=== PATIENT | male | born 1990 | race Caucasian/White ===

== ENCOUNTER 2021-05-01 22:55 | Emergency (ER) | payer OTHER, SELFPAY ==
--- NOTE | ~2021-05-01 | XR_ITS ---
EXAMINATION: XR LEFT HUMERUS, ELBOW AND FOREARM CLINICAL INFORMATION: Suspected open fracture COMPARISON: None TECHNIQUE: AP and lateral views of the left humerus. AP, oblique and lateral views of the left elbow. AP and lateral views of the left forearm FINDINGS: No acute fracture or dislocation. Glenohumeral, acromioclavicular and elbow joints show normal alignment. There is a large amount of soft tissue gas surrounding the elbow joint, extending of the medial upper arm. The soft tissue gas resides within the intramuscular fascial planes and some areas and appears subcutaneous and others. There may be intra-articular gas within the elbow joint. No elbow joint effusion. The XR/XR forearm LT 2V IMPRESSION: No acute fracture or dislocation. Extensive soft tissue gas as described, predominantly centered about the elbow joint, possibly intra-articular. Recommend CT elbow for further evaluation. This critical result was discussed with Jazmine Biswas NP at 05/02/2021 12:50 AM and it was ascertained that the content and urgency of the report was understood at the time of direct communication.
--- NOTE | ~2021-05-01 | CT_ITS ---
EXAMINATION: CT LEFT ELBOW WITH CONTRAST CLINICAL INFORMATION: Question of fracture. Soft tissue gas. COMPARISON: Radiographs dated 05/01/2021 TECHNIQUE: Multidetector CT imaging of the left elbow was performed with sequences acquired before and after the administration of 85 mL Omnipaque [address] examination was performed using dose optimization techniques as appropriate, variously including the following: *Automated exposure control *Adjustment of mA and/or kV according to patient size (this includes techniques or standardized protocols for targeted exams where dose is matched to indication/reason for exam; i.e. extremities or head) *Use of iterative reconstruction technique DLP: 158 mGy-cm FINDINGS: There are tiny calcifications or ossific fragments along the tip of the olecranon within the olecranon fossa posteriorly, which could represent avulsion fractures involving the tip of the olecranon. There are also tiny calcifications along the lateral aspect of the radiocapitellar joint, donor site of which unclear but likely from the posterolateral radial head, or possibly attachment of the radial collateral ligament complex, in particular the lateral ulnar collateral ligament. No transcortical fractures. No dislocation. As seen on the prior radiographs, there is intra-articular gas within the elbow joint, and a large amount of soft tissue gas surrounding the musculature about the elbow joint. There is gas between the extensor musculature of the forearm. There is a subcutaneous hematoma and associated soft tissue gas anteromedial to the elbow joint, just medial to the antecubital fossa. CT/CT elbow LT w con IMPRESSION: * Tiny calcifications present near the lateral aspect of the radial head and posterior to the radiocapitellar joint suspicious for avulsion fractures involving the attachment sites of the radial collateral ligament complex or possibly posterolateral aspect of the radial head. * Additional tiny calcifications present adjacent to the olecranon within the olecranon fossa,, possibly avulsion fractures involving the tip of the olecranon. * Extensive soft tissue gas present, including intra-articular. This is likely related to the lacerations/puncture wounds sustained from the trauma. Ultimately, MRI will be needed for further evaluation of the extent of the soft tissue trauma allowing for a certain amount time of the soft tissue gas to resolve, as associated susceptibility artifact may render the MR sequences nondiagnostic.
--- NOTE | ~2021-05-01 | XR_ITS ---
EXAMINATION: XR LEFT HUMERUS, ELBOW AND FOREARM CLINICAL INFORMATION: Suspected open fracture COMPARISON: None TECHNIQUE: AP and lateral views of the left humerus. AP, oblique and lateral views of the left elbow. AP and lateral views of the left forearm FINDINGS: No acute fracture or dislocation. Glenohumeral, acromioclavicular and elbow joints show normal alignment. There is a large amount of soft tissue gas surrounding the elbow joint, extending of the medial upper arm. The soft tissue gas resides within the intramuscular fascial planes and some areas and appears subcutaneous and others. There may be intra-articular gas within the elbow joint. No elbow joint effusion. The XR/XR humerus LT IMPRESSION: No acute fracture or dislocation. Extensive soft tissue gas as described, predominantly centered about the elbow joint, possibly intra-articular. Recommend CT elbow for further evaluation. This critical result was discussed with Jazmine Biswas NP at 05/02/2021 12:50 AM and it was ascertained that the content and urgency of the report was understood at the time of direct communication.
--- NOTE | ~2021-05-01 | XR_ITS ---
EXAMINATION: XR LEFT HUMERUS, ELBOW AND FOREARM CLINICAL INFORMATION: Suspected open fracture COMPARISON: None TECHNIQUE: AP and lateral views of the left humerus. AP, oblique and lateral views of the left elbow. AP and lateral views of the left forearm FINDINGS: No acute fracture or dislocation. Glenohumeral, acromioclavicular and elbow joints show normal alignment. There is a large amount of soft tissue gas surrounding the elbow joint, extending of the medial upper arm. The soft tissue gas resides within the intramuscular fascial planes and some areas and appears subcutaneous and others. There may be intra-articular gas within the elbow joint. No elbow joint effusion. The XR/XR elbow LT 2V IMPRESSION: No acute fracture or dislocation. Extensive soft tissue gas as described, predominantly centered about the elbow joint, possibly intra-articular. Recommend CT elbow for further evaluation. This critical result was discussed with Jazmine Biswas NP at 05/02/2021 12:50 AM and it was ascertained that the content and urgency of the report was understood at the time of direct communication.
[2021-05-01 23:26] VITALS: BP 140/81; PULSE 75; RESP 16; TEMP 36.9; O2SAT 96; BMI 23.6
--- NOTE | 2021-05-01 23:37 | ED.EXTPRO ---
HPI - Extremity Problem General Chief complaint: Extremity Injury, Upper Stated complaint: ARM LAC/INJ Time Seen by Provider: 05/01/21 23:32 Source: patient Mode of arrival: ambulatory Limitations: no limitations History of Present Illness HPI Narrative: 30-year-old male presents with injury sustained from a fall off a skateboard. Has to open wounds to the medial aspect of the olecranon, and has 10/10 pain with swelling and bruising. He stated that he felt like his bone came out, he did pull his arm back into place, stated that he felt a pop once he pulled his arm out of the distorted position. MD Complaint: extremity pain and extremity swelling Onset (ago): hour(s) (Within the hour of arrival) Pain Consistency: constant Location: left Severity scale (1-10): 10 Quality: aching and constant Relieving factors: nothing Exacerbating factors: range of motion and palpation Associated symptoms: denies other symptoms Related Data Previous Rx's Medication Instructions Recorded oxycodone 5 mg PO Q6H PRN #14 tab 05/02/21 Allergies Allergy/AdvReac Type Severity Reaction Status Date / Time tramadol [TRAMADOL] Allergy Unknown HIVES Unverified 08/03/20 19:32 Review of Systems Review of Systems: Constitutional: No Fever, No Chills ENT/Mouth: No Ear Pain, No Hoarseness, No sore throat Eyes: No Eye Pain, No Swelling, No Redness, No Foreign Body Cardiovascular: No Chest Pain, No SOB Respiratory: No Cough, No Dyspnea Gastrointestinal: No Nausea, No Vomiting, No Diarrhea, No abdominal Pain Genitourinary: No Dysuria, No Hematuria Musculoskeletal: positive left upper extremity pain, No Myalgias, No Joint Swelling Skin: No Skin lacerations, No rash Neuro: No Weakness, No Numbness, No Paresthesias, No Loss of Consciousness, No Dizziness, No Headache Psych: No Anxiety/Panic, No Depression Heme/Lymph: no easy bruising, no Lymphadenopathy Endocrine: No Polyuria, No Polydipsia Yes all other systems are reviewed and are negative PENDING SALE TO [facility] Past Medical History Attestation statement: The following information was validated with the patient. Source: old records reviewed Social History Social History Advance Directives: No Advance Directives Information Provided: No Physical Exam Vital Signs: Vital Signs: Last Vital Signs Temp 98.5 F 05/01/21 23:26 Pulse 75 05/01/21 23:26 Resp 16 05/02/21 02:10 BP 140/81 H 05/01/21 23:26 Pulse Ox 96 05/01/21 23:26 Body Mass Index 23.6 Appearance: Alert. Oriented X3. No acute distress. Eyes: Pupils equal, round and reactive to light. ENT: Pharynx normal. Neck: Normal inspection. Neck supple. CVS: Normal heart rate and rhythm. Pulses normal. Respiratory: No respiratory distress. Breath sounds normal. Abdomen: Soft and nontender. Skin: Skin warm and dry. Normal skin color. Normal skin turgor. Extremities: Unable to flex extend pronate left upper extremity, significant swelling, tenderness to palpation, bruising and open wound consistent with open fracture. Neuro: No motor deficit. No sensory deficit. Course Course Course Narrative: 30-year-old male presents with injuries from a fall, has some open wounds to the area, stated that he had to pull his bones back into place, this is consistent with possible dislocation and fracture. Will order Tdap vaccine, give 2 g of Ancef, pain management, and x-rays. Radiology updated this LEGAL COUNSEL regarding x-rays, suspicious for dislocation, fracture and free air. Request CT scan for further imaging. CT scan shows multiple abnormalities consistent with fracture and dislocation. Call out to on-call orthopedic PA, plan is to posterior splint, sling, and have patient follow-up in the office in the morning. This LEGAL COUNSEL applied posterior splint, patient does continue to have brisk capillary refill and equal pulses bilaterally. Xeroform was applied over open wounds. The patient and patient's family verbalized understanding of and agrees to plan of care discharge home. They do understand the risks of narcotic administration. Procedures Orthopedic Splinting/Casting Injury #1: Side: left Upper Extremity Injury Location: elbow Upper Extremity Immobilizer: sling/shoulder immobilizer and posterior splint MDM - Extremity (Nontraumatic) Lab Data Result diagrams: 05/01/21 23:57 05/01/21 23:57 Labs: Lab Results 05/01/21 05/01/21 Range/Units 23:57 23:57 WBC 10.4 (4.8-10.8) X10*3/uL RBC 4.40 L (4.60-5.80) X10*6/uL Hgb 13.5 L (14.0-18.0) g/dl Hct 39.8 L (42-52) % MCV 90.5 (80-98) fL MCH 30.7 (27.0-33.0) pg MCHC 33.9 (31.0-36.0) g/dl RDW 12.9 (11.0-16.0) % Plt Count 268 (160-400) X10*3/uL MPV 9.4 (9.4-12.4) fL Immature Gran % (Auto) 0.4 (0.0-0.4) % Neut % (Auto) 75.9 H (45-73) % Lymph % (Auto) 16.7 L (20-40) % [place] % (Auto) 5.5 (2-11) % Eos % (Auto) 0.9 (0-4) % Baso % (Auto) 0.6 (0-2) % Lymph # (Auto) 1.7 (1.2-4.9) X10*3/uL [place] # (Auto) 0.6 (0.1-1.2) X10*3/uL Eos # (Auto) 0.1 (0.0-0.4) X10*3/uL Baso # (Auto) 0.1 (0.0-0.2) X10*3/uL Abs Immat Gran (auto) 0.04 H (0.00-0.03) X10*3/uL Absolute Neuts (auto) 7.9 (2.0-8.3) X10*3/uL Absolute Nucleated RBC 0.000 (0.0-0.012) X10*3/uL Nucleated RBC % (auto) 0.0 (0.0-0.2) /100WBC Sodium 142 (135-145) mmol/L Potassium 3.6 (3.3-5.1) mmol/L Chloride 105 (96-108) mmol/L Carbon Dioxide 27 (22-29) mmol/L Anion Gap 14 (12-20) BUN 16 (9-16) mg/dL Creatinine 0.92 (0.5-1.4) mg/dL Estim Creat Clear Calc 130.2 Estimated GFR > 60 Random Glucose 94 (60-115) mg/dL Calcium 9.1 (8.4-10.2) mg/dL Imaging Data Left humerus forearm and elbow x-ray: Attestation: I personally reviewed and interpreted this imaging study as follows: Radiologist's impression: TECHNIQUE: AP and lateral views of the left humerus. AP, oblique and lateral views of the left elbow. AP and lateral views of the left forearm FINDINGS: No acute fracture or dislocation. Glenohumeral, acromioclavicular and elbow joints show normal alignment. There is a large amount of soft tissue gas surrounding the elbow joint, extending of the medial upper arm. The soft tissue gas resides within the intramuscular fascial planes and some areas and appears subcutaneous and others. There may be intra-articular gas within the elbow joint. No elbow joint effusion. The XR/XR humerus LT IMPRESSION: No acute fracture or dislocation. Extensive soft tissue gas as described, predominantly centered about the elbow joint, possibly intra-articular. Recommend CT elbow for further evaluation. This critical result was discussed with Jazmine Biswas NP at 05/02/2021 12:50 AM and it was ascertained that the content and urgency of the report was understood at the time of direct communication. CT elbow with contrast: Attestation: I personally reviewed and interpreted this imaging study as follows: Radiologist's impression: EXAMINATION: CT LEFT ELBOW WITH CONTRAST CLINICAL INFORMATION: Question of fracture. Soft tissue gas. COMPARISON: Radiographs dated 05/01/2021 TECHNIQUE: Multidetector CT imaging of the left elbow was performed with sequences acquired before and after the administration of 85 mL Omnipaque [address] examination was performed using dose optimization techniques as appropriate, variously including the following: *Automated exposure control *Adjustment of mA and/or kV according to patient size (this includes techniques or standardized protocols for targeted exams where dose is matched to indication/reason for exam; i.e. extremities or head) *Use of iterative reconstruction technique DLP: 158 mGy-cm FINDINGS: There are tiny calcifications or ossific fragments along the tip of the olecranon within the olecranon fossa posteriorly, which could represent avulsion fractures involving the tip of the olecranon. There are also tiny calcifications along the lateral aspect of the radiocapitellar joint, donor site of which unclear but likely from the posterolateral radial head, or possibly attachment of the radial collateral ligament complex, in particular the lateral ulnar collateral ligament. No transcortical fractures. No dislocation. As seen on the prior radiographs, there is intra-articular gas within the elbow joint, and a large amount of soft tissue gas surrounding the musculature about the elbow joint. There is gas between the extensor musculature of the forearm. There is a subcutaneous hematoma and associated soft tissue gas anteromedial to the elbow joint, just medial to the antecubital fossa. CT/CT elbow LT w con IMPRESSION: * Tiny calcifications present near the lateral aspect of the radial head and posterior to the radiocapitellar joint suspicious for avulsion fractures involving the attachment sites of the radial collateral ligament complex or possibly posterolateral aspect of the radial head. * Additional tiny calcifications present adjacent to the olecranon within the olecranon fossa,, possibly avulsion fractures involving the tip of the olecranon. * Extensive soft tissue gas present, including intra-articular. This is likely related to the lacerations/puncture wounds sustained from the trauma. Ultimately, MRI will be needed for further evaluation of the extent of the soft tissue trauma allowing for a certain amount time of the soft tissue gas to resolve, as associated susceptibility artifact may render the MR sequences nondiagnostic Discharge Plan Discharge Clinical Impression: Dislocated elbow Qualifiers: Encounter type: initial encounter Laterality: left Qualified Code(s): S53.105A - Unspecified dislocation of left ulnohumeral joint, initial encounter Elbow fracture, left Qualifiers: Encounter type: initial encounter Fracture type: open Qualified Code(s): S42.402B - Unspecified fracture of lower end of left humerus, initial encounter for open fracture Patient Disposition: Home, Self-Care Instructions: Elbow Dislocation (ED), Elbow Fracture (ED) Additional Instructions: You were evaluated for injury to the left arm after falling off of your skateboard. We are treating you for an open elbow fracture with dislocation. Please follow-up with orthopedics in the morning. Please call Pura VAZQUEZ. she is expecting her call. Please keep the splint in place. Do not wet this splint. You may loosen the dressing if you have decreased sensation or decreased capillary refill to the extremities. We prescribed oxycodone, this medication is a narcotic and has high risk for addiction and abuse. Do not drive or operate machinery while taking this medication. This medication may cause drowsiness, increased risk for falls, and cause constipation. Please use MiraLax and Colace as needed to help soften stools. Drink plenty of fluids. Thank you for choosing this emergency department for evaluation. Please follow-up with primary care physician as needed. Return to the emergency department for any new, concerning, or worsening symptoms. Prescriptions: New oxycodone 5 mg tablet 5 mg PO Q6H PRN (Reason: pain) Qty: 14 RF: 0 Referrals: Pura Castro PA-C [Physician [employer]] - 2 days (Left elbow dislocation and open fracture) Stand Alone Forms: Work/School Release
[2021-05-01] MEDS: 0.9 % Sodium Chloride 1,000 ML 999 ML IVCONT (23:45)
[2021-05-02] VITALS (8 sets, daily range): RESP 16
[2021-05-02 00:01] LABS: MANUAL DIFF FLAG NO
[2021-05-02] MEDS: Morphine Sulfate 4 MG/ML CARTRIDGE IVPUSH ×2 (00:01→00:59)
[2021-05-02] MEDS: Diphth,Pertus(ACell),Tet Adult 0.5 ML SYRINGE IM (00:03)
[2021-05-02 00:17] LABS: Basophils Absolute Auto 0.1 X10*3/uL (0.0-0.2); Basophils Percent Auto 0.6 % (0-2); Eosinophils Absolute Auto 0.1 X10*3/uL (0.0-0.4); Eosinophils Percent Auto 0.9 % (0-4); Hematocrit 39.8 % (42-52); Hemoglobin 13.5 g/dl (14.0-18.0); Imm Gran Abs Auto 0.04 X10*3/uL (0.00-0.03); Imm Gran Pct Auto 0.4 % (0.0-0.4); Lymphocytes Absolute Auto 1.7 X10*3/uL (1.2-4.9); Lymphocytes Percent Auto 16.7 % (20-40); Mean Corpuscular HGB Conc 33.9 g/dl (31.0-36.0); Mean Corpuscular Hemoglobin 30.7 pg (27.0-33.0); Mean Corpuscular Volume 90.5 fL (80-98); Mean Platelet Volume 9.4 fL (9.4-12.4); Monocytes Absolute Auto 0.6 X10*3/uL (0.1-1.2); Monocytes Percent Auto 5.5 % (2-11); Neutrophils Absolute Auto 7.9 X10*3/uL (2.0-8.3); Neutrophils Percent Auto 75.9 % (45-73); Platelet Count 268 X10*3/uL (160-400); Red Cell Distribution Width 12.9 % (11.0-16.0); White Blood Count 10.4 X10*3/uL (4.8-10.8)
[2021-05-02 00:39] LABS: Anion Gap 14 (12-20); Blood Urea Nitrogen 16 mg/dL (9-16); Calcium 9.1 mg/dL (8.4-10.2); Carbon Dioxide 27 mmol/L (22-29); Chloride 105 mmol/L (96-108); Creatinine Clr Calc Pharmacy 130.2; Estimated Glomerular Filt Rate > 60; Glucose Random 94 mg/dL (60-115); Potassium 3.6 mmol/L (3.3-5.1); Sodium 142 mmol/L (135-145)
[2021-05-02] MEDS: ceFAZolin Sodium/Dextrose,Iso 2 GM/50 ML PIGGYBACK IV (01:02)
[2021-05-02] MEDS: HYDROmorphone HCl 1 MG/ML SYRINGE IVPUSH ×2 (02:10→03:19)
[2021-05-02] MEDS: oxyCODONE HCl Immed Release 5 MG TABLET PO ×2 (03:17)
== END 2021-05-02 03:35 | disposition home or self-care (01) ==
PROVIDERS: Nurse Practitioner Family; Emergency Provider Emergency Medicine
DX: S42.402B Unspecified fracture of lower end of left humerus, initial encounter for open fracture (principal); S53.105A Unspecified dislocation of left ulnohumeral joint, initial encounter; V00.131A Fall from skateboard, initial encounter; Y93.51 Activity, roller skating (inline) and skateboarding; Y92.9 Unspecified place or not applicable; Y99.9 Unspecified external cause status
CPT/HCPCS: 36415; 73060; 73070; 73090; 73201; 80048; 85025; 90471; 90715; 96361; 96365; 96375; 99283; 99284; J0690; J1170; J2270

== ENCOUNTER → 2021-05-03 08:16 | Outpatient (BNVA) | payer OTHER, SELFPAY | PROVIDERS: Visit Provider Orthopaedic Surgery | DX: S53.105A Unspecified dislocation of left ulnohumeral joint, initial encounter (principal) | CPT/HCPCS: 99202 ==

== ENCOUNTER → 2021-05-11 14:36 | Outpatient (BNVA) | payer OTHER, SELFPAY | PROVIDERS: Visit Provider Physician Assistant | DX: S53.105A Unspecified dislocation of left ulnohumeral joint, initial encounter (principal) | CPT/HCPCS: 99212 ==

== ENCOUNTER 2021-05-14 12:32 | Outpatient (REF) | payer OTHER, SELFPAY ==
--- NOTE | ~2021-05-14 | MR_ITS ---
EXAMINATION: MR ELBOW WITHOUT CONTRAST, LEFT CLINICAL INFORMATION: Dislocation left ulnohumeral joint. COMPARISON: CT scan of the left elbow April 2021. X-ray of the left elbow April 2021. TECHNIQUE: MRI of the left elbow was performed without contrast on a high-field MRI scanner. The exam is partially limited by motion-degrading artifact. Despite this, there is diagnostic information on the exam. FINDINGS: There is a prominent joint effusion and synovitis. I do not see the suspected fracture fragments seen on prior CT likely due to technical differences on 2 imaging studies related to decreased conspicuity of such fragments on MRI versus CT. RADIOCAPITELLAR JOINT: Normal alignment. There is bone marrow edema along the posterior capitellum primarily proximal or posterior to the posterior edge of the articular surface. There may be some minimal involvement of the articular surface with slight increased signal in the cartilage. There may be some flattening or irregularity of the posterior cortex of the capitellum. These findings are consistent with an impaction fracture. There is bone marrow edema along the posterior rim of the radial head compatible with bone contusion. The cartilage appears intact. No fracture line detected. HUMEROULNAR JOINT: The trochlea and proximal ulnar articular surface appear intact. Alignment is normal. Coronoid intact. LATERAL SOFT TISSUES: The lateral collateral ligament complex is not well outlined likely, in part, related to tearing and abnormal signal. I suspect there is at least a partial or incomplete tear throughout the tendon particularly proximally at the humeral attachment but with some fibers still intact. There is additional partial tearing of the extensor tendon without a well-defined tendon gap. Abnormal signal extending into the proximal flexor muscles compatible with partial tearing and/or contusion. MEDIAL SOFT TISSUES: There is fluid extending transversely through the anterior aspect of the proximal ulnar collateral ligament and the overlying flexor tendon compatible with a focal full-thickness or [id number] localized tear. See coronal image 18 series 8. The distal ulnar collateral ligament is intact although abnormal indicative of partial tearing. The proximal portion of the ligament appears mostly torn or avulsed from the humeral attachment. There is minimal, if any, distal retraction of the torn tendon suggesting at least some of the tendon remains intact in the area of the tear. Additional more diffuse abnormal signal extending into the flexor muscles compatible with partial tearing and/or contusion. ANTERIOR SOFT TISSUES: There is abnormal signal without measurable defect in the anterior capsule compatible with partial tear. TRICEPS: Intact. Diffuse generalized abnormal signal in the surrounding soft tissues compatible with edema. NEUROVASCULAR STRUCTURES: Intact. MR/MR elbow LT wo con IMPRESSION: Injury pattern consistent with history of elbow dislocation. Probable impaction fracture of the posterior capitellum and contusion of the radial head. I do not see the probable small fracture fragments seen on CT, likely technical differences in the examination of MRI versus CT. Prominent joint effusion and synovitis. The humeroulnar joint appears intact. Complete versus incomplete tear of the proximal ulnar collateral ligament and overlying extensor tendon. I suspect the tendon is at least partially intact given the minimal, if any, distal retraction of the tendon distal to the level of the tendon defect. Less well-defined tearing of the lateral soft tissues including the lateral ligamentous complex and overlying flexor tendon. Findings more suggestive of lower grade partial tearing of the ligaments and overlying tendons without a clearly measurable ligament or tendon gap. Partial tear of the anterior capsule without a measurable gap.
== END 2021-05-14 12:33 | disposition home or self-care (01) ==
LOC: HO.MRI 12:32
PROVIDERS: Visit Provider Orthopaedic Surgery
DX: S53.105A Unspecified dislocation of left ulnohumeral joint, initial encounter (principal)
CPT/HCPCS: 73221

== ENCOUNTER → 2021-05-17 14:06 | Outpatient (BNVA) | payer OTHER, SELFPAY | PROVIDERS: Visit Provider Physician Assistant | DX: S53.105D Unspecified dislocation of left ulnohumeral joint, subsequent encounter (principal); S53.449D Ulnar collateral ligament sprain of unspecified elbow, subsequent encounter | CPT/HCPCS: 99212 ==

== ENCOUNTER 2021-06-12 11:30 | Outpatient (RCR) | payer OTHER, SELFPAY | END 2021-09-03 16:00 | disposition home or self-care (01) | LOC: HO.OT 11:30 | PROVIDERS: Visit Provider Physician Assistant | DX: S53.449D Ulnar collateral ligament sprain of unspecified elbow, subsequent encounter (principal) | CPT/HCPCS: 29125; 97110; 97165; 97760 ==

== ENCOUNTER 2022-04-05 10:46 | Emergency (ER) | payer OTHER, SELFPAY ==
--- NOTE | ~2022-04-05 | XR_ITS ---
EXAMINATION: XR CHEST CLINICAL INFORMATION: Seizure. Possible aspiration. COMPARISON: None TECHNIQUE: Frontal view of the chest was obtained. FINDINGS: No significant abnormality is noted involving the heart, lungs, mediastinum, bony thorax or soft tissues. XR/XR chest 1V IMPRESSION: Unremarkable examination.
[2022-04-05 10:49] VITALS: BP 144/78; PULSE 104; O2SAT 97
[2022-04-05 10:53] VITALS: BP 127/76; PULSE 87; RESP 15; TEMP 37.1; O2SAT 93; BMI 23.7
--- NOTE | 2022-04-05 11:11 | ECG_ITS ---
Test Reason : seizure Blood Pressure : / mmHG Vent. Rate : 072 BPM Atrial Rate : 072 BPM P-R Int : 146 ms QRS Dur : 108 ms QT Int : 408 ms P-R-T Axes : 000 129 152 degrees QTc Int : 446 ms Normal sinus rhythm Left posterior fascicular block Abnormal ECG No previous ECGs available Referred By: Betzy Gonzalez Electronically Signed By:WANDA SOLOMON
[2022-04-05 11:36] LABS: MANUAL DIFF FLAG NO
[2022-04-05 11:38] LABS: Basophils Absolute Auto 0.1 X10*3/uL (0.0-0.2); Basophils Percent Auto 1.1 % (0-2); Eosinophils Absolute Auto 0.1 X10*3/uL (0.0-0.4); Eosinophils Percent Auto 1.1 % (0-4); Hematocrit 43.5 % (42.0-52.0); Imm Gran Abs Auto 0.01 X10*3/uL (0.00-0.03); Imm Gran Pct Auto 0.2 % (0.0-0.4); Lymphocytes Absolute Auto 0.9 X10*3/uL (1.2-4.9); Lymphocytes Percent Auto 20.9 % (20-40); Mean Corpuscular HGB Conc 34.5 g/dl (31.0-36.0); Mean Corpuscular Hemoglobin 30.7 pg (27.0-33.0); Mean Corpuscular Volume 89.1 fL (80.0-98.0); Mean Platelet Volume 9.9 fL (9.4-12.4); Monocytes Absolute Auto 0.3 X10*3/uL (0.1-1.2); Monocytes Percent Auto 7.6 % (2-11); Neutrophils Absolute Auto 3.1 x10*3/uL (2.0-8.3); Neutrophils Percent Auto 69.1 % (45-73); Platelet Count 164 X10*3/uL (160-400); Red Blood Count 4.88 X10*6/uL (4.60-5.80); White Blood Count 4.5 X10*3/uL (4.8-10.8)
--- NOTE | 2022-04-05 11:41 | ED_ITS ---
HPI - Seizure General Chief Complaint: Seizure Stated Complaint: etoh withdrawal,seizure Time Seen by Provider: 04/05/22 11:11 Source: patient and EMS Mode of arrival: EMS Limitations: no limitations History of Present Illness HPI Narrative: 31-year-old male with history of alcohol abuse and dependence, history of alcohol withdrawal seizure about 2 years ago who presents to the ER with witnessed seizure of activity at home. Patient was cleaning his son's bedroom with his when he suddenly collapsed and had seizure activity for about 2 minutes. called EMS and on EMS arrival patient was confused and postictal. Patient reports his last drink was 5 days ago, he was usually drinking 7 or 8 nips per day. He reports the 1st 2 days after stopping he was having nausea vomiting and felt terrible at home. He has no desire to drink moving forward. He is feeling much better, back to his baseline. MD complaint: seizure Onset (ago): hour(s) Description of Episode: loss of consciousness, tonic-clonic movement and post- event confusion Witnessed: Yes - by Bystander Trauma: No Seizure History: Yes (once) Place: Home Possible Precipitating Event: none Associated symptoms: denies other symptoms Treatments prior to arrival: none Related Data Home Medications Medication Instructions Recorded Confirmed cyanocobalamin (vitamin B-12) 1,000 mcg PO DAILY 04/05/22 04/05/22 1,000 mcg tablet ibuprofen 200 mg tablet 400 mg PO Q6H PRN 04/05/22 04/05/22 Previous Rx's Medication Instructions Recorded chlordiazepoxide HCl 25 mg capsule 25 mg PO Q6H PRN #10 cap 04/05/22 Allergies Allergy/AdvReac Type Severity Reaction Status Date / Time tramadol [TRAMADOL] Allergy Unknown HIVES Verified 05/17/21 14:20 Review of Systems Review of Systems: Constitutional: No Fever, No Chills ENT/Mouth: No sore throat, No Rhinorrhea, No Swallowing Difficulty Eyes: No Eye Pain, No Swelling, No Redness Cardiovascular: No Chest Pain, No SOB Respiratory: No Cough, No Sputum, No Wheezing, No dyspnea Gastrointestinal: No Nausea, No Vomiting, No Diarrhea, No abdominal Pain, No hematemesis Genitourinary: No Dysuria, No Urinary Frequency, No Hematuria Musculoskeletal: No joint pain, + Myalgias Skin: No Skin Lesions, No rash Neuro: No Weakness, No Numbness, No Dizziness, No Headache, +Seizure, +Tremor Psych: + Anxiety/Panic, + Depression, No SI, No HI, No VH, No AH Heme/Lymph: No Bruising, No Lymphadenopathy Endocrine: No Polyuria, No Polydipsia PMF Past Medical History Medical History Dislocation of left elbow Surgical History History of foot surgery Social History Social History (Updated 05/03/21 @ 08:31 by MELIZA Shaw) Alcohol intake: current Alcohol intake frequency: 3 or more drinks per day Alcohol type: hard liquor Patient Tobacco Use Status: Never used Tobacco Use of substances other than those prescribed or required for medical reasons: Yes Substance Use Type: Marijuana Substance Use Frequency: Socially Advance Directives: No Advance Directives Information Provided: No Current occupational status: employed Current occupation: right handed Physical Exam Vital Signs: Vital Signs: Last Vital Signs Temp 98.8 F 04/05/22 10:53 Pulse 57 04/05/22 14:31 Resp 17 04/05/22 14:31 BP 111/69 04/05/22 14:31 Pulse Ox 98 04/05/22 14:31 BMI result Body Mass Index 23.7 Appearance: Alert. Oriented X3. No acute distress. Eyes: Pupils equal, round and reactive to light. ENT: Pharynx normal. No tongue trauma. Neck: Normal inspection. Neck supple. CVS: Normal heart rate and rhythm. Pulses normal. Respiratory: No respiratory distress. Breath sounds normal. Abdomen: Soft and nontender. +BS x4 Skin: Skin warm and dry. Normal skin color. Normal skin turgor. No rashes. Extremities: No lower extremity edema. Neuro: Oriented X 3. No motor deficit. No sensory deficit. CN II-XII intact. Moderate bilateral hand tremor. Speaks in complete sentences. Course Course Course Narrative: 31-year-old male presents to the ER for evaluation after 2 minutes of witnessed tonic clonic seizure activity at home in the setting of alcohol withdrawal. Patient was postictal after the event and is now back to his baseline. He has slight hand tremor. He is hemodynamically stable, heart rate 90s and systolic blood pressure in the 130s. He desires no intent to restart drinking and would like to be discharged home. We discussed the concern for further seizure activity and need for close monitoring, will check CIWA score, give a dose of Ativan now for tremors. Will check basic labs and hydrate. He is complaining of some muscle cramping. Reevaluation(s) Reevaluation #1: Lab workup shows evidence of mild alcoholic hepatitis. Discriminant function less than 32. Coags are normal. He is hypomagnesemic to 1.3, both IV and oral magnesium have been ordered. His CIWA score is 5 and he was been given 1 mg of Ativan with improvement in his hand tremor. He was spoken to by Regulo from the substance abuse team, patient reports no will to keep drinking and he feels confident he can maintain his sobriety home. He is accepting to outpatient resources. He would like to avoid admission and detox placement. His is at the bedside and offers him a lotion all support. He has been given IV fluids, magnesium, and Ativan. Will reassess. Reevaluation #2: Lactic acid is now normal. He is eating [employer] with no tremor. He appears well. He would like to be discharged home. At this time he was counseled on is alcoholic hepatitis, alcohol withdrawal seizures and need to maintain sobriety. Will send home with short course of Librium. Case was discussed with Dr. Ta who agrees with plan of care. MDM - Seizure Medical Records Attestation: I reviewed the patient's medical records. Lab Data Attestation: I reviewed the patient's lab results. Result diagrams: 04/05/22 11:26 04/05/22 11:26 Labs: Lab Results 04/05/22 04/05/22 04/05/22 Range/Units 11:26 11:26 11:26 WBC 4.5 L (4.8-10.8) X10*3/uL RBC 4.88 (4.60-5.80) X10*6/uL Hgb 15.0 (14.0-18.0) g/dl Hct 43.5 (42.0-52.0) % MCV 89.1 (80.0-98.0) fL MCH 30.7 (27.0-33.0) pg MCHC 34.5 (31.0-36.0) g/dl RDW 12.0 (11.0-16.0) % Plt Count 164 (160-400) X10*3/uL MPV 9.9 (9.4-12.4) fL Immature Gran % (Auto) 0.2 (0.0-0.4) % Neut % (Auto) 69.1 (45-73) % Lymph % (Auto) 20.9 (20-40) % [place] % (Auto) 7.6 (2-11) % Eos % (Auto) 1.1 (0-4) % Baso % (Auto) 1.1 (0-2) % Lymph # (Auto) 0.9 L (1.2-4.9) X10*3/uL [place] # (Auto) 0.3 (0.1-1.2) X10*3/uL Eos # (Auto) 0.1 (0.0-0.4) X10*3/uL Baso # (Auto) 0.1 (0.0-0.2) X10*3/uL Abs Immat Gran (auto) 0.01 (0.00-0.03) X10*3/uL Absolute Neuts (auto) 3.1 (2.0-8.3) x10*3/uL Absolute Nucleated RBC 0.000 (0.0-0.012) X10*3/uL Nucleated RBC % (auto) 0.0 (0.0-0.2) /100WBC PT (9.9-13.0) SEC INR (0.9-1.1) APTT (24.1-38.0) SEC Sodium 137 (135-145) mmol/L Potassium 3.5 (3.3-5.1) mmol/L Chloride 97 (96-108) mmol/L Carbon Dioxide 30 H (22-29) mmol/L Anion Gap 14 (12-20) BUN 12 (9-16) mg/dL Creatinine 0.99 (0.5-1.4) mg/dL Estim Creat Clear Calc 119.9 Estimated GFR > 60 Random Glucose 120 H (60-115) mg/dL Lactic Acid (0.5-2.0) mmol/L Lactic Acid F/U @ 2Hr (0.5-2.0) mmol/L Calcium 9.4 (8.4-10.2) mg/dL Magnesium 1.3 L* (1.6-2.6) mg/dL Total Bilirubin 2.8 H (0.0-1.0) mg/dL Direct Bilirubin 1.3 H (0.0-0.5) mg/dL AST 168 H (5-37) U/L ALT 163 H (0-40) U/L Alkaline Phosphatase 68 (39-117) U/L Ammonia (13-55) umol/L Total Creatine Kinase 286 H (38-174) U/L Total Protein 7.1 (6.5-8.0) g/dL Albumin 4.4 (3.5-5.0) g/dL Urine Color Urine Appearance Urine pH (5.0-8.0) Ur Specific [place] (1.005-1.025) Urine Protein (NEG-TRACE) MG/DL Urine Glucose (UA) (NEG) MG/DL Urine Ketones (NEG) MG/DL Urine Blood (NEG) Urine Nitrite (NEG) Ur Leukocyte Esterase (NEG) Urine RBC (0) /HPF Urine WBC (0-4) /HPF Ur Squamous Epith Cells /LPF Urine Bacteria /LPF Urine Opiates Screen (Not Detect) Urine Fentanyl Screen (Not Detect) Ur Barbiturates Screen (Not Detect) Ur Phencyclidine Scrn (Not Detect) Ur Amphetamines Screen (Not Detect) U Benzodiazepines Scrn (Not Detect) Urine Cocaine Screen (Not Detect) U Marijuana (THC) Screen (Not Detect) Ethyl Alcohol mg/dL COVID-19 ([facility]IME) Negative (Negative) COVID-19 Clin Com See Note 04/05/22 04/05/22 04/05/22 Range/Units 11:26 11:26 11:26 WBC (4.8-10.8) X10*3/uL RBC (4.60-5.80) X10*6/uL Hgb (14.0-18.0) g/dl Hct (42.0-52.0) % MCV (80.0-98.0) fL MCH (27.0-33.0) pg MCHC (31.0-36.0) g/dl RDW (11.0-16.0) % Plt Count (160-400) X10*3/uL MPV (9.4-12.4) fL Immature Gran % (Auto) (0.0-0.4) % Neut % (Auto) (45-73) % Lymph % (Auto) (20-40) % [place] % (Auto) (2-11) % Eos % (Auto) (0-4) % Baso % (Auto) (0-2) % Lymph # (Auto) (1.2-4.9) X10*3/uL [place] # (Auto) (0.1-1.2) X10*3/uL Eos # (Auto) (0.0-0.4) X10*3/uL Baso # (Auto) (0.0-0.2) X10*3/uL Abs Immat Gran (auto) (0.00-0.03) X10*3/uL Absolute Neuts (auto) (2.0-8.3) x10*3/uL Absolute Nucleated RBC (0.0-0.012) X10*3/uL Nucleated RBC % (auto) (0.0-0.2) /100WBC PT (9.9-13.0) SEC INR (0.9-1.1) APTT (24.1-38.0) SEC Sodium (135-145) mmol/L Potassium (3.3-5.1) mmol/L Chloride (96-108) mmol/L Carbon Dioxide (22-29) mmol/L Anion Gap (12-20) BUN (9-16) mg/dL Creatinine (0.5-1.4) mg/dL Estim Creat Clear Calc Estimated GFR Random Glucose (60-115) mg/dL Lactic Acid 2.5 H* (0.5-2.0) mmol/L Lactic Acid F/U @ 2Hr (0.5-2.0) mmol/L Calcium (8.4-10.2) mg/dL Magnesium (1.6-2.6) mg/dL Total Bilirubin (0.0-1.0) mg/dL Direct Bilirubin (0.0-0.5) mg/dL AST (5-37) U/L ALT (0-40) U/L Alkaline Phosphatase (39-117) U/L Ammonia 38 (13-55) umol/L Total Creatine Kinase (38-174) U/L Total Protein (6.5-8.0) g/dL Albumin (3.5-5.0) g/dL Urine Color Urine Appearance Urine pH (5.0-8.0) Ur Specific [place] (1.005-1.025) Urine Protein (NEG-TRACE) MG/DL Urine Glucose (UA) (NEG) MG/DL Urine Ketones (NEG) MG/DL Urine Blood (NEG) Urine Nitrite (NEG) Ur Leukocyte Esterase (NEG) Urine RBC (0) /HPF Urine WBC (0-4) /HPF Ur Squamous Epith Cells /LPF Urine Bacteria /LPF Urine Opiates Screen (Not Detect) Urine Fentanyl Screen (Not Detect) Ur Barbiturates Screen (Not Detect) Ur Phencyclidine Scrn (Not Detect) Ur Amphetamines Screen (Not Detect) U Benzodiazepines Scrn (Not Detect) Urine Cocaine Screen (Not Detect) U Marijuana (THC) Screen (Not Detect) Ethyl Alcohol < 10 mg/dL COVID-19 ([facility]IME) (Negative) COVID-19 Clin Com 04/05/22 04/05/22 04/05/22 Range/Units 14:28 14:28 14:45 WBC (4.8-10.8) X10*3/uL RBC (4.60-5.80) X10*6/uL Hgb (14.0-18.0) g/dl Hct (42.0-52.0) % MCV (80.0-98.0) fL MCH (27.0-33.0) pg MCHC (31.0-36.0) g/dl RDW (11.0-16.0) % Plt Count (160-400) X10*3/uL MPV (9.4-12.4) fL Immature Gran % (Auto) (0.0-0.4) % Neut % (Auto) (45-73) % Lymph % (Auto) (20-40) % [place] % (Auto) (2-11) % Eos % (Auto) (0-4) % Baso % (Auto) (0-2) % Lymph # (Auto) (1.2-4.9) X10*3/uL [place] # (Auto) (0.1-1.2) X10*3/uL Eos # (Auto) (0.0-0.4) X10*3/uL Baso # (Auto) (0.0-0.2) X10*3/uL Abs Immat Gran (auto) (0.00-0.03) X10*3/uL Absolute Neuts (auto) (2.0-8.3) x10*3/uL Absolute Nucleated RBC (0.0-0.012) X10*3/uL Nucleated RBC % (auto) (0.0-0.2) /100WBC PT 11.6 (9.9-13.0) SEC INR 1.0 (0.9-1.1) APTT 27.0 (24.1-38.0) SEC Sodium (135-145) mmol/L Potassium (3.3-5.1) mmol/L Chloride (96-108) mmol/L Carbon Dioxide (22-29) mmol/L Anion Gap (12-20) BUN (9-16) mg/dL Creatinine (0.5-1.4) mg/dL Estim Creat Clear Calc Estimated GFR Random Glucose (60-115) mg/dL Lactic Acid (0.5-2.0) mmol/L Lactic Acid F/U @ 2Hr 0.6 (0.5-2.0) mmol/L Calcium (8.4-10.2) mg/dL Magnesium (1.6-2.6) mg/dL Total Bilirubin (0.0-1.0) mg/dL Direct Bilirubin (0.0-0.5) mg/dL AST (5-37) U/L ALT (0-40) U/L Alkaline Phosphatase (39-117) U/L Ammonia (13-55) umol/L Total Creatine Kinase (38-174) U/L Total Protein (6.5-8.0) g/dL Albumin (3.5-5.0) g/dL Urine Color Urine Appearance Urine pH (5.0-8.0) Ur Specific [place] (1.005-1.025) Urine Protein (NEG-TRACE) MG/DL Urine Glucose (UA) (NEG) MG/DL Urine Ketones (NEG) MG/DL Urine Blood (NEG) Urine Nitrite (NEG) Ur Leukocyte Esterase (NEG) Urine RBC (0) /HPF Urine WBC (0-4) /HPF Ur Squamous Epith Cells /LPF Urine Bacteria /LPF Urine Opiates Screen Not Detected (Not Detect) Urine Fentanyl Screen Not Detected (Not Detect) Ur Barbiturates Screen Not Detected (Not Detect) Ur Phencyclidine Scrn Not Detected (Not Detect) Ur Amphetamines Screen Not Detected (Not Detect) U Benzodiazepines Scrn Not Detected (Not Detect) Urine Cocaine Screen Not Detected (Not Detect) U Marijuana (THC) Screen Not Detected (Not Detect) Ethyl Alcohol mg/dL COVID-19 ([facility]IME) (Negative) COVID-19 Clin Com 04/05/22 Range/Units 14:45 WBC (4.8-10.8) X10*3/uL RBC (4.60-5.80) X10*6/uL Hgb (14.0-18.0) g/dl Hct (42.0-52.0) % MCV (80.0-98.0) fL MCH (27.0-33.0) pg MCHC (31.0-36.0) g/dl RDW (11.0-16.0) % Plt Count (160-400) X10*3/uL MPV (9.4-12.4) fL Immature Gran % (Auto) (0.0-0.4) % Neut % (Auto) (45-73) % Lymph % (Auto) (20-40) % [place] % (Auto) (2-11) % Eos % (Auto) (0-4) % Baso % (Auto) (0-2) % Lymph # (Auto) (1.2-4.9) X10*3/uL [place] # (Auto) (0.1-1.2) X10*3/uL Eos # (Auto) (0.0-0.4) X10*3/uL Baso # (Auto) (0.0-0.2) X10*3/uL Abs Immat Gran (auto) (0.00-0.03) X10*3/uL Absolute Neuts (auto) (2.0-8.3) x10*3/uL Absolute Nucleated RBC (0.0-0.012) X10*3/uL Nucleated RBC % (auto) (0.0-0.2) /100WBC PT (9.9-13.0) SEC INR (0.9-1.1) APTT (24.1-38.0) SEC Sodium (135-145) mmol/L Potassium (3.3-5.1) mmol/L Chloride (96-108) mmol/L Carbon Dioxide (22-29) mmol/L Anion Gap (12-20) BUN (9-16) mg/dL Creatinine (0.5-1.4) mg/dL Estim Creat Clear Calc Estimated GFR Random Glucose (60-115) mg/dL Lactic Acid (0.5-2.0) mmol/L Lactic Acid F/U @ 2Hr (0.5-2.0) mmol/L Calcium (8.4-10.2) mg/dL Magnesium (1.6-2.6) mg/dL Total Bilirubin (0.0-1.0) mg/dL Direct Bilirubin (0.0-0.5) mg/dL AST (5-37) U/L ALT (0-40) U/L Alkaline Phosphatase (39-117) U/L Ammonia (13-55) umol/L Total Creatine Kinase (38-174) U/L Total Protein (6.5-8.0) g/dL Albumin (3.5-5.0) g/dL Urine Color YELLOW Urine Appearance HAZY Urine pH 7.0 (5.0-8.0) Ur Specific [place] 1.010 (1.005-1.025) Urine Protein NEG (NEG-TRACE) MG/DL Urine Glucose (UA) NEG (NEG) MG/DL Urine Ketones 15 (NEG) MG/DL Urine Blood NEG (NEG) Urine Nitrite NEG (NEG) Ur Leukocyte Esterase TRACE H (NEG) Urine RBC 0 (0) /HPF Urine WBC 0-2 (0-4) /HPF Ur Squamous Epith Cells TRACE /LPF Urine Bacteria TRACE /LPF Urine Opiates Screen (Not Detect) Urine Fentanyl Screen (Not Detect) Ur Barbiturates Screen (Not Detect) Ur Phencyclidine Scrn (Not Detect) Ur Amphetamines Screen (Not Detect) U Benzodiazepines Scrn (Not Detect) Urine Cocaine Screen (Not Detect) U Marijuana (THC) Screen (Not Detect) Ethyl Alcohol mg/dL COVID-19 ([facility]) (Negative) COVID-19 Clin Com ECG Data Attestation: I personally reviewed and interpreted this ECG as follows: ECG interpretation date: 04/05/22 Prior ECG tracings: not available for review Interpretation: normal sinus rhythm, HR 72 bpm, normal QTc, isolated t-wave inversion in lead I, no ST segment elevations or depressions Critical Care Time Critical Care Time Critical Care Time: Yes Total Critical Care Time: 35 Attestation: I have personally provided critical care time exclusive of time spent on separately billable procedures. Time includes review of lab data, radiology results, frequent bedside reassessment, IV electrolyte repletion and trending of lab work, and monitoring for potential decompensation. Intervention performed as documented. Discharge Plan Discharge Clinical Impression: Alcohol withdrawal seizure, Acute alcoholic hepatitis, Hypomagnesemia Patient Disposition: Home, Self-Care Instructions: Alcohol Withdrawal (DC), Alcoholic Hepatitis (ED) Additional Instructions: Take the prescribed medication as directed as needed for withdrawal symptoms. Your lab workup showed elevation of your liver enzymes consistent with alcoholic hepatitis. Treatment is abstaining from alcohol and maintaining a normal diet Recommend starting folic acid, thiamine and magnesium supplements over-the- counter. Follow-up with your primary care doctor within the next 1-2 weeks repeat blood work. Up with outpatient resources provided to help you stay sober from alcohol If you develop new or worsening symptoms call 911 or come back to the ER for further evaluation. Prescriptions: New chlordiazepoxide HCl 25 mg capsule 25 mg PO Q6H PRN (Reason: alcohol withdrawal) Qty: 10 0RF No Action cyanocobalamin (vitamin B-12) 1,000 mcg Tablet 1,000 mcg PO DAILY 0RF ibuprofen 200 mg Tablet 400 mg PO Q6H PRN (Reason: Pain (Scale Score 4-6)) 0RF
[2022-04-05 11:45] LABS: Ammonia 38 umol/L (13-55)
[2022-04-05] MEDS: 0.9 % Sodium Chloride 1,000 ML 999 ML IVCONT ×2 (11:49→12:20)
[2022-04-05] MEDS: LORazepam 2 MG/ML VIAL 1 MG IVPUSH (11:49)
[2022-04-05 11:52] LABS: Ethanol < 10 mg/dL
[2022-04-05 11:59] LABS: COVID-19 Test Negative (Negative); IDNOW Serial# 16C4AD1C
[2022-04-05 12:07] LABS: Lactic Acid 2.5 mmol/L (0.5-2.0)
[2022-04-05 12:08] LABS: Alanine Aminotransferase 163 U/L (0-40); Albumin Level 4.4 g/dL (3.5-5.0); Alkaline Phosphatase 68 U/L (39-117); Anion Gap 14 (12-20); Aspartate Amino Transferase 168 U/L (5-37); Bilirubin Direct 1.3 mg/dL (0.0-0.5); Bilirubin Total 2.8 mg/dL (0.0-1.0); Blood Urea Nitrogen 12 mg/dL (9-16); Calcium 9.4 mg/dL (8.4-10.2); Carbon Dioxide 30 mmol/L (22-29); Chloride 97 mmol/L (96-108); Creatinine Clr Calc Pharmacy 119.9; Estimated Glomerular Filt Rate > 60; Glucose Random 120 mg/dL (60-115); Magnesium 1.3 mg/dL (1.6-2.6); Potassium 3.5 mmol/L (3.3-5.1); Sodium 137 mmol/L (135-145); Total Protein 7.1 g/dL (6.5-8.0)
[2022-04-05 12:14] VITALS: BP 114/77; PULSE 64; RESP 15; O2SAT 98
[2022-04-05] MEDS: Magnesium Oxide 400 MG TABLET 800 MG PO (12:20)
[2022-04-05] MEDS: Magnesium Sulfate/H2O 2 GM/50 ML PIGGYBACK IV (12:20)
[2022-04-05 12:24] VITALS: BP 114/77; PULSE 62; RESP 16; O2SAT 95
--- NOTE | 2022-04-05 12:56 | PHA.MEDREC ---
Pharmacy Consult ? Medication Reconciliation Pharmacy has completed the medication reconciliation. Spoke with patient in the ED
[2022-04-05 13:36] LABS: Reflex Lactate? Lactic Acid Added
[2022-04-05 14:31] VITALS: BP 111/69; PULSE 57; RESP 17; O2SAT 98
[2022-04-05 14:44] LABS: Prothrombin Time 11.6 SEC (9.9-13.0)
[2022-04-05 14:49] LABS: ~Lactic Acid-LAB USE ONLY 0.6 mmol/L (0.5-2.0)
[2022-04-05 14:52] LABS: Appearance Urine HAZY; Color Urine YELLOW; Glucose Urine UA NEG (NEG); Leukocyte Esterase Urine TRACE (NEG); Nitrite Urine NEG (NEG); Urine Blood NEG (NEG); Urine Ketones 15 MG/DL (NEG); Urine Protein NEG (NEG-TRACE)
[2022-04-05 15:12] LABS: Amphetamine Screen Urine Not Detected (Not Detect); Barbiturates, Urine Not Detected (Not Detect); Benzodiazepines Screen Urine Not Detected (Not Detect); Cannabinoid Screen Urine Not Detected (Not Detect); Cocaine Screen Urine Not Detected (Not Detect); Fentanyl, urine Not Detected (Not Detect); Opiate Screen Urine Not Detected (Not Detect); Phencyclidine Screen Urine Not Detected (Not Detect)
[2022-04-05] MEDS: chlordiazePOXIDE HCl 25 MG CAPSULE PO (15:15)
[2022-04-05 15:17] LABS: Bacteria Urine TRACE /LPF; RBC Urine 0 /HPF (0); Squamous Epithelial Cell Urine TRACE /LPF; WBC Urine 0-2 /HPF (0-4)
--- NOTE | 2022-04-06 08:40 | MHC.RECOVSUP ---
Recovery Support note: Patient is a 31 year old Afghan speaking male who presented to [facility] ED after a seizure related to alcohol withdrawal. Patient stopped drinking abruptly on Friday after consistently consuming 8 drinks on average for over 8 months. Patient is not interested in ATS or medical admission at this time as he feels he is almost through the withdrawal. Education regarding the danger of alcohol withdrawal provided. 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 Discussed case with ED provider.
== END 2022-04-05 15:22 | disposition home or self-care (01) ==
PROVIDERS: Physician Assistant; Emergency Provider Emergency Medicine Emergency Medical Services
DX: F10.239 Alcohol dependence with withdrawal, unspecified (principal); Y90.0 Blood alcohol level of less than 20 mg/100 ml; K70.10 Alcoholic hepatitis without ascites; E83.42 Hypomagnesemia; Z20.822 Contact with and (suspected) exposure to COVID-19
CPT/HCPCS: 36415; 71045; 80048; 80076; 80307; 81001; 82077; 82140; 82550; 83605; 83735; 85025; 85610; 85730; 87635; 93005; 96361; 96365; 96366; 96375; 99284; 99291; J2060; J3475

== ENCOUNTER 2022-07-08 07:00 | Inpatient (IN) | payer OTHER, SELFPAY ==
[2022-07-08] VITALS (10 sets, daily range): BP systolic 131–159; BP diastolic 68–97; PULSE 45–105; RESP 12–18; TEMP 36.6–37; O2SAT 94–98; BMI 23.1
--- NOTE | ~2022-07-08 | XR_ITS ---
EXAMINATION: XR CHEST CLINICAL INFORMATION: Chest pain. COMPARISON: None TECHNIQUE: Frontal view of the chest was obtained. FINDINGS: No significant abnormality is noted involving the heart, lungs, mediastinum, bony thorax or soft tissues. XR/XR chest 1V IMPRESSION: Unremarkable chest examination.
[2022-07-08 08:49] LABS: MANUAL DIFF FLAG NO
[2022-07-08 08:51] LABS: Basophils Absolute Auto 0.1 X10*3/uL (0.0-0.2); Basophils Percent Auto 1.4 % (0-2); Eosinophils Percent Auto 0.5 % (0-4); Hematocrit 45.1 % (42.0-52.0); Hemoglobin 15.3 g/dl (14.0-18.0); Lymphocytes Absolute Auto 0.8 X10*3/uL (1.2-4.9); Lymphocytes Percent Auto 17.9 % (20-40); Mean Corpuscular HGB Conc 33.9 g/dl (31.0-36.0); Mean Corpuscular Hemoglobin 30.4 pg (27.0-33.0); Mean Corpuscular Volume 89.7 fL (80.0-98.0); Mean Platelet Volume 9.4 fL (9.4-12.4); Monocytes Absolute Auto 0.3 X10*3/uL (0.1-1.2); Neutrophils Absolute Auto 3.2 x10*3/uL (2.0-8.3); Neutrophils Percent Auto 73.2 % (45-73); Platelet Count 194 X10*3/uL (160-400); Red Blood Count 5.03 X10*6/uL (4.60-5.80); Red Cell Distribution Width 13.2 % (11.0-16.0); White Blood Count 4.3 X10*3/uL (4.8-10.8)
[2022-07-08 09:07] LABS: Ethanol 68 mg/dL
[2022-07-08 09:11] LABS: Alanine Aminotransferase 297 U/L (0-40); Albumin Level 4.6 g/dL (3.5-5.0); Alkaline Phosphatase 100 U/L (39-117); Anion Gap 18 (12-20); Aspartate Amino Transferase 350 U/L (5-37); Bilirubin Direct 0.4 mg/dL (0.0-0.5); Bilirubin Total 0.8 mg/dL (0.0-1.0); Blood Urea Nitrogen 12 mg/dL (9-16); Calcium 9.6 mg/dL (8.4-10.2); Carbon Dioxide 28 mmol/L (22-29); Chloride 101 mmol/L (96-108); Creatinine Clr Calc Pharmacy 137.8; Estimated Glomerular Filt Rate > 60; Glucose Random 97 mg/dL (60-115); Lipase 24 U/L (8-78); Potassium 4.3 mmol/L (3.3-5.1); Sodium 143 mmol/L (135-145); Total Protein 7.6 g/dL (6.5-8.0)
[2022-07-08 10:14] LABS: Appearance Urine Turbid; Color Urine Dark Yellow; Glucose Urine UA Negative (Negative); Leukocyte Esterase Urine Negative (Negative); Nitrite Urine Negative (Negative); Specific Gravity - Urine 1.025 (1.005-1.025); Urine Blood Moderate (2+) (Negative); Urine Ketones Trace mg/dL (Negative); Urine Protein 30 (1+) mg/dL (Neg-Trace)
--- NOTE | 2022-07-08 10:20 | ECG_ITS ---
Test Reason : chest pain Blood Pressure : / mmHG Vent. Rate : 052 BPM Atrial Rate : 052 BPM P-R Int : 142 ms QRS Dur : 104 ms QT Int : 514 ms P-R-T Axes : 043 052 047 degrees QTc Int : 478 ms Sinus bradycardia T wave inversion now evident in Anteroseptal leads Abnormal ECG When compared with ECG of 05-APR-2022 11:27, Left posterior fascicular block is no longer Present Nonspecific T wave abnormality no longer evident in Inferior leads T wave inversion no longer evident in Lateral leads Referred By: Trace Hudson Electronically Signed By:NETO ESQUIVEL
[2022-07-08 10:21] LABS: Bacteria Urine None Seen (None Seen); Squamous Epithelial Cell Urine 0-2 /HPF (0-2); WBC Urine 0-5 /HPF (0-5)
--- NOTE | 2022-07-08 10:22 | ED.GENADULT ---
HPI - General Adult General Chief complaint: General Medical Stated complaint: Chest pain/L side numbness/Alcohol withdrawal? Time Seen by Provider: 07/08/22 09:35 Source: patient Mode of arrival: ambulatory Limitations: no limitations History of Present Illness HPI narrative: This is a 31 years old male with history of alcohol abuse presented to the emergency department with complaining of alcohol withdrawal symptoms he states that he feels chest pain, he feels shaky, feels uneasy. Denies any seizure any fever any nausea vomiting diarrhea Onset (ago): day(s) (1) Radiation: non-radiation Severity: mild Quality: burning Pain Consistency: intermittent Exacerbating factors: none Related Data Home Medications Medication Instructions Recorded Confirmed cyanocobalamin (vitamin B-12) 1,000 mcg PO DAILY 04/05/22 04/05/22 1,000 mcg tablet ibuprofen 200 mg tablet 400 mg PO Q6H PRN Pain (Scale 04/05/22 04/05/22 Score 4-6) Previous Rx's Medication Instructions Recorded chlordiazepoxide HCl 25 mg capsule 25 mg PO Q6H PRN alcohol 04/05/22 withdrawal #10 caps Allergies Allergy/AdvReac Type Severity Reaction Status Date / Time tramadol [TRAMADOL] Allergy Unknown HIVES Verified 05/17/21 14:20 Review of Systems Constitutional: Constitutional: Reports no additional constitutional complaints, Denies fever(s), Denies frequent falls and Denies headache(s) ENT: Reports system reviewed and no additional complaints, except as documented and Denies headache(s) Cardiovascular: Cardiovascular: Reports no additional cardiovascular complaints Respiratory: Respiratory: Reports no additional respiratory complaints Musculoskeletal: Musculoskeletal: Reports no additional musculoskeletal complaints Neurologic: Reports system reviewed and no additional complaints, except as documented, Denies frequent falls and Denies headache(s) [facility] Past Medical History [facility] Narrative: Alcohol use disorder Medical History Dislocation of left elbow Surgical History History of foot surgery Social History Social History (Updated 05/03/21 @ 08:31 by MELIZA Shaw) Alcohol intake: current Alcohol intake frequency: 3 or more drinks per day Alcohol type: hard liquor Patient Tobacco Use Status: Never used Tobacco Substance Use Type: Marijuana Advance Directives: No Advance Directives Information Provided: Yes Current occupational status: employed Current occupation: right handed Physical Exam ED Vital Signs: Vital Signs - 24 hr 07/08/22 07:18 Temperature 98 F Pulse Rate 70 Respiratory Rate 18 Blood Pressure 141/85 H Pulse Oximetry 98 Oxygen Delivery Method Room Air BMI result Body Mass Index 23.1 Const General: cooperative Nutritional Appearance: average body habitus Orientation/consciousness: patient oriented x3 HENMT Head: Yes normal to inspection Ears: hearing grossly normal bilaterally General nose exam: Normal external nose present Face and sinus: Yes normal facial exam Mouth: Normal oral and palatal mucosa present Teeth and gingiva: dentition normal Throat: Yes posterior oropharynx normal Neck Neck: Yes normal visual inspection Thyroid: Thyroid normal Chest Chest palpation & inspection: normal inspection of the chest Resp Effort & Inspection: normal respiratory effort Auscultation: clear to auscultation bilaterally Percussion: percussion normal Cardio Jugular venous distension: no JVD Rate: regular rate Rhythm: regular rhythm GI Inspection: Yes normal to inspection Palpation (GI): Soft to palpation, not firm, nontender and no guarding Skin General skin exam: no rashes or lesions noted, elasticity normal and turgor normal Lesions: no lesions Rashes: no rashes Neuro General: patient oriented x3 Course Reevaluation(s) Reevaluation #1: signed off to Dr Ta ,cross country/track and field coach pooja pending Medical Decision Making Lab Data Lab results reviewed: Yes I reviewed the patient's lab results. Result diagrams: 07/08/22 08:44 07/08/22 08:44 Labs: Lab Results 07/08/22 07/08/22 07/08/22 Range/Units 08:44 08:44 08:44 WBC 4.3 L (4.8-10.8) X10*3/uL RBC 5.03 (4.60-5.80) X10*6/uL Hgb 15.3 (14.0-18.0) g/dl Hct 45.1 (42.0-52.0) % MCV 89.7 (80.0-98.0) fL MCH 30.4 (27.0-33.0) pg MCHC 33.9 (31.0-36.0) g/dl RDW 13.2 (11.0-16.0) % Plt Count 194 (160-400) X10*3/uL MPV 9.4 (9.4-12.4) fL Immature Gran % (Auto) 0.0 (0.0-0.4) % Neut % (Auto) 73.2 H (45-73) % Lymph % (Auto) 17.9 L (20-40) % [place] % (Auto) 7.0 (2-11) % Eos % (Auto) 0.5 (0-4) % Baso % (Auto) 1.4 (0-2) % Lymph # (Auto) 0.8 L (1.2-4.9) X10*3/uL [place] # (Auto) 0.3 (0.1-1.2) X10*3/uL Eos # (Auto) 0.0 (0.0-0.4) X10*3/uL Baso # (Auto) 0.1 (0.0-0.2) X10*3/uL Abs Immat Gran (auto) 0.00 (0.00-0.03) X10*3/uL Absolute Neuts (auto) 3.2 (2.0-8.3) x10*3/uL Absolute Nucleated RBC 0.000 (0.0-0.012) X10*3/uL Nucleated RBC % (auto) 0.0 (0.0-0.2) /100WBC Sodium 143 (135-145) mmol/L Potassium 4.3 D (3.3-5.1) mmol/L Chloride 101 (96-108) mmol/L Carbon Dioxide 28 (22-29) mmol/L Anion Gap 18 (12-20) BUN 12 (9-16) mg/dL Creatinine 0.86 (0.5-1.4) mg/dL Estim Creat Clear Calc 137.8 Estimated GFR > 60 Random Glucose 97 (60-115) mg/dL Calcium 9.6 (8.4-10.2) mg/dL Total Bilirubin 0.8 (0.0-1.0) mg/dL Direct Bilirubin 0.4 (0.0-0.5) mg/dL AST 350 H (5-37) U/L ALT 297 H (0-40) U/L Alkaline Phosphatase 100 D (39-117) U/L Troponin I High Sens (<3.5-35.0) ng/L Total Protein 7.6 (6.5-8.0) g/dL Albumin 4.6 (3.5-5.0) g/dL Lipase 24 (8-78) U/L Urine Color Urine Appearance Urine pH (5.0-8.0) Ur Specific [place] (1.005-1.025) Urine Protein (Neg-Trace) mg/dL Urine Glucose (UA) (Negative) mg/dL Urine Ketones (Negative) mg/dL Urine Blood (Negative) Urine Nitrite (Negative) Ur Leukocyte Esterase (Negative) Urine RBC (0-2) /HPF Urine WBC (0-5) /HPF Ur Squamous Epith Cells (0-2) /HPF Urine Bacteria (None Seen) Hyaline Casts (0-2) /LPF Urine Opiates Screen (Not Detect) Urine Fentanyl Screen (Not Detect) Ur Barbiturates Screen (Not Detect) Ur Phencyclidine Scrn (Not Detect) Ur Amphetamines Screen (Not Detect) U Benzodiazepines Scrn (Not Detect) Urine Cocaine Screen (Not Detect) U Marijuana (THC) Screen (Not Detect) Ethyl Alcohol 68 mg/dL COVID-19 (SLIME) (Negative) COVID-19 Clin Com 07/08/22 07/08/22 07/08/22 Range/Units 08:44 10:06 10:06 WBC (4.8-10.8) X10*3/uL RBC (4.60-5.80) X10*6/uL Hgb (14.0-18.0) g/dl Hct (42.0-52.0) % MCV (80.0-98.0) fL MCH (27.0-33.0) pg MCHC (31.0-36.0) g/dl RDW (11.0-16.0) % Plt Count (160-400) X10*3/uL MPV (9.4-12.4) fL Immature Gran % (Auto) (0.0-0.4) % Neut % (Auto) (45-73) % Lymph % (Auto) (20-40) % [place] % (Auto) (2-11) % Eos % (Auto) (0-4) % Baso % (Auto) (0-2) % Lymph # (Auto) (1.2-4.9) X10*3/uL [place] # (Auto) (0.1-1.2) X10*3/uL Eos # (Auto) (0.0-0.4) X10*3/uL Baso # (Auto) (0.0-0.2) X10*3/uL Abs Immat Gran (auto) (0.00-0.03) X10*3/uL Absolute Neuts (auto) (2.0-8.3) x10*3/uL Absolute Nucleated RBC (0.0-0.012) X10*3/uL Nucleated RBC % (auto) (0.0-0.2) /100WBC Sodium (135-145) mmol/L Potassium (3.3-5.1) mmol/L Chloride (96-108) mmol/L Carbon Dioxide (22-29) mmol/L Anion Gap (12-20) BUN (9-16) mg/dL Creatinine (0.5-1.4) mg/dL Estim Creat Clear Calc Estimated GFR Random Glucose (60-115) mg/dL Calcium (8.4-10.2) mg/dL Total Bilirubin (0.0-1.0) mg/dL Direct Bilirubin (0.0-0.5) mg/dL AST (5-37) U/L ALT (0-40) U/L Alkaline Phosphatase (39-117) U/L Troponin I High Sens 9.7 (<3.5-35.0) ng/L Total Protein (6.5-8.0) g/dL Albumin (3.5-5.0) g/dL Lipase (8-78) U/L Urine Color Dark Yellow Urine Appearance Turbid Urine pH 6.0 (5.0-8.0) Ur Specific [place] 1.025 (1.005-1.025) Urine Protein 30 (1+) H (Neg-Trace) mg/dL Urine Glucose (UA) Negative (Negative) mg/dL Urine Ketones Trace (Negative) mg/dL Urine Blood Moderate (2+) H (Negative) Urine Nitrite Negative (Negative) Ur Leukocyte Esterase Negative (Negative) Urine RBC 3-5 H (0-2) /HPF Urine WBC 0-5 (0-5) /HPF Ur Squamous Epith Cells 0-2 (0-2) /HPF Urine Bacteria None Seen (None Seen) Hyaline Casts 3-5 (0-2) /LPF Urine Opiates Screen (Not Detect) Urine Fentanyl Screen (Not Detect) Ur Barbiturates Screen (Not Detect) Ur Phencyclidine Scrn (Not Detect) Ur Amphetamines Screen (Not Detect) U Benzodiazepines Scrn (Not Detect) Urine Cocaine Screen (Not Detect) U Marijuana (THC) Screen (Not Detect) Ethyl Alcohol mg/dL COVID-19 ([facility]IME) Negative (Negative) COVID-19 Clin Com See Note 07/08/22 Range/Units 10:06 WBC (4.8-10.8) X10*3/uL RBC (4.60-5.80) X10*6/uL Hgb (14.0-18.0) g/dl Hct (42.0-52.0) % MCV (80.0-98.0) fL MCH (27.0-33.0) pg MCHC (31.0-36.0) g/dl RDW (11.0-16.0) % Plt Count (160-400) X10*3/uL MPV (9.4-12.4) fL Immature Gran % (Auto) (0.0-0.4) % Neut % (Auto) (45-73) % Lymph % (Auto) (20-40) % [place] % (Auto) (2-11) % Eos % (Auto) (0-4) % Baso % (Auto) (0-2) % Lymph # (Auto) (1.2-4.9) X10*3/uL [place] # (Auto) (0.1-1.2) X10*3/uL Eos # (Auto) (0.0-0.4) X10*3/uL Baso # (Auto) (0.0-0.2) X10*3/uL Abs Immat Gran (auto) (0.00-0.03) X10*3/uL Absolute Neuts (auto) (2.0-8.3) x10*3/uL Absolute Nucleated RBC (0.0-0.012) X10*3/uL Nucleated RBC % (auto) (0.0-0.2) /100WBC Sodium (135-145) mmol/L Potassium (3.3-5.1) mmol/L Chloride (96-108) mmol/L Carbon Dioxide (22-29) mmol/L Anion Gap (12-20) BUN (9-16) mg/dL Creatinine (0.5-1.4) mg/dL Estim Creat Clear Calc Estimated GFR Random Glucose (60-115) mg/dL Calcium (8.4-10.2) mg/dL Total Bilirubin (0.0-1.0) mg/dL Direct Bilirubin (0.0-0.5) mg/dL AST (5-37) U/L ALT (0-40) U/L Alkaline Phosphatase (39-117) U/L Troponin I High Sens (<3.5-35.0) ng/L Total Protein (6.5-8.0) g/dL Albumin (3.5-5.0) g/dL Lipase (8-78) U/L Urine Color Urine Appearance Urine pH (5.0-8.0) Ur Specific [place] (1.005-1.025) Urine Protein (Neg-Trace) mg/dL Urine Glucose (UA) (Negative) mg/dL Urine Ketones (Negative) mg/dL Urine Blood (Negative) Urine Nitrite (Negative) Ur Leukocyte Esterase (Negative) Urine RBC (0-2) /HPF Urine WBC (0-5) /HPF Ur Squamous Epith Cells (0-2) /HPF Urine Bacteria (None Seen) Hyaline Casts (0-2) /LPF Urine Opiates Screen Not Detected (Not Detect) Urine Fentanyl Screen Not Detected (Not Detect) Ur Barbiturates Screen Not Detected (Not Detect) Ur Phencyclidine Scrn Not Detected (Not Detect) Ur Amphetamines Screen Not Detected (Not Detect) U Benzodiazepines Scrn Not Detected (Not Detect) Urine Cocaine Screen Not Detected (Not Detect) U Marijuana (THC) Screen Not Detected (Not Detect) Ethyl Alcohol mg/dL COVID-19 ([facility]IME) (Negative) COVID-19 Clin Com ECG Data Attestation: I personally reviewed and interpreted this ECG as follows: Pacemaker model: Sinus bradycardia rate [address]-T changes in V1 V3 Discharge Plan Discharge Clinical Impression: Alcohol abuse Patient Disposition: Still a Patient Prescriptions: No Action cyanocobalamin (vitamin B-12) 1,000 mcg Tablet 1,000 mcg PO DAILY ibuprofen 200 mg Tablet 400 mg PO Q6H PRN (Reason: Pain (Scale Score 4-6)) chlordiazepoxide HCl 25 mg capsule 25 mg PO Q6H PRN (Reason: alcohol withdrawal) Qty: 10 0RF
[2022-07-08] MEDS: LORazepam 1 MG TABLET 2 MG PO ×3 (10:26→19:06)
[2022-07-08 10:27] LABS: COVID-19 Test Negative (Negative); IDNOW Serial# 16C4AD1C
--- NOTE | 2022-07-08 10:30 | PC.NURSE ---
LAB WILL RUN TROP OFF CBC COLLECTED EARLIER
[2022-07-08 10:32] LABS: Amphetamine Screen Urine Not Detected (Not Detect); Barbiturates, Urine Not Detected (Not Detect); Benzodiazepines Screen Urine Not Detected (Not Detect); Cannabinoid Screen Urine Not Detected (Not Detect); Cocaine Screen Urine Not Detected (Not Detect); Fentanyl, urine Not Detected (Not Detect); Opiate Screen Urine Not Detected (Not Detect); Phencyclidine Screen Urine Not Detected (Not Detect)
[2022-07-08 10:58] LABS: Troponin-I High Sensitivity 9.7 ng/L (<3.5-35.0)
--- NOTE | 2022-07-08 11:50 | MHC.RECOVRN ---
Met with pt in ED21 to discuss substance use. Pt reports drinking 6-8 nips vodka daily x approx 1 month. Prior to that, pt had been abstinent for 2 months (since last [facility] visit on 04/05 for withdrawal related seizure). Pt reports that after dc in March pt was able to focus on work and home and was able to maintain recovery. Pt reports job location moved which resulted in increased stress that led to recurrence. Currently, pt is experiencing anxiety and tremors. Pts goal is to dc home with Librium and to follow up with outpatient supports. Discussed ATS and safety regarding alcohol withdrawal, pt is unsure and would like to think about it. Pt educated regarding other recovery supports and services, pt interested in refinery operator vapor recovery unit and will think about [facility] and therapy. T/w will send [facility] referral. Will check back in with pt to see if pt is agreeable to ATS.
--- NOTE | 2022-07-08 12:08 | PC.NURSE ---
PT SPOKE WITH IZZY AUGUSTE ABOUT DETOX. PT STATES HE WANTS TO TRY DIRECTOR OF INVESTIGATIONS. AT THIS TIME PTS CHUCHO IS A 4 AFTER ATIVAN
--- NOTE | 2022-07-08 12:49 | MHC.RECOVRN ---
Pt declines ATS at this time. RN aware.
--- NOTE | 2022-07-08 14:03 | PC.NURSE ---
CWIA 32 PROVIDER AWARE PT GIVEN ATIVAN
--- NOTE | 2022-07-08 17:52 | MHC.CARE ---
No recovery support is on shift tonight, therefore CARE team met with pt to further discuss detox placement. Pt had been uncertain throughout the day as to whether he was open to going to an ATS facility, however he decided that he needed to try something different. Pt expressed interest in [facility] and has a strong preference of going there. CARE team contacted admissions at [facility], no beds are available tonight but they are willing to review the pt's medical records for possible admission tomorrow. Referral will be faxed to [facility] for review. Pt prefers to remain in the ED until he is able to be transferred for placement, due to fear of experiencing a withdrawal seizure, but is reluctantly agreeable to discharging home with a plan to follow up independently tomorrow. MD and nursing to weigh in on the plan.
--- NOTE | 2022-07-08 18:47 | PC.NURSE ---
CURRENT CWIA 26 DR ROBLEDO AWARE
--- NOTE | 2022-07-08 19:32 | PC.NURSE ---
INITIAL CONTACT WITH PT, PT REQUESTING TO USE BATHROOM TO MOVE HIS BOWELS, PT AMBULATORY STEADY GAIT NO DIFFICULTY
[2022-07-08] MEDS: Magnesium Sulfate/H2O 2 GM/50 ML PIGGYBACK IV (19:50)
[2022-07-08] MEDS: 0.9 % Sodium Chloride 1,000 ML 999 ML IV ×2 (19:50→19:55)
[2022-07-08 19:51] LABS: Magnesium 1.5 mg/dL (1.6-2.6)
[2022-07-08] MEDS: Thiamine HCL 100 MG TABLET PO (19:51)
[2022-07-08] MEDS: Folic Acid 1 MG TABLET PO (19:51)
[2022-07-08] MEDS: Famotidine/PF 20 MG/2 ML VIAL IVPUSH (19:52)
[2022-07-08] MEDS: ondansetron HCL 4 MG/2 ML VIAL IVPUSH (19:56)
[2022-07-08] MEDS: PHENobarbitaL sodium 130 MG/ML IM ONCE 320 MG IM (20:00)
[2022-07-08] MEDS: HYDROmorphone HCl 1 MG/ML SYRINGE IVPUSH (20:08)
--- NOTE | 2022-07-08 20:17 | PC.NURSE ---
PHARMACY HERE NOW TO COMPLETE MED REC
--- NOTE | 2022-07-08 20:19 | PHA.MEDREC ---
Pharmacy Consult ? Medication Reconciliation Pharmacy has completed the medication reconciliation. Patient isn't taking any RX medications, occasionally takes OTC motrin or tylenol when needed for pain.
--- NOTE | 2022-07-08 20:24 | PC.NURSE ---
ATIVAN ORDERED FOR 1900 DOCUMENTED AGAINST DUE TO PRIOR ADMIN OF PRN ATIVAN ORDER. PT ALREADY GIVEN ATIVAN DOSE. WILL CONTINUE TO MONITOR PT AT THIS TIME
--- NOTE | 2022-07-08 20:59 | PM.IMHP ---
History of Present Illness Date of Service: 07/08/22 Chief Complaint: alcohol withdrawal 31-year-old male with past medical history of alcohol abuse presents to the hospital with alcohol withdrawal symptoms including visual hallucinations. Patient reports that he is interesting in detoxing and started his process with his last drink over 6 hours ago. He reports that he is developing visual hallucinations in, he is extremely anxious, and has shaking. He had nausea but no abdominal pain, no diarrhea or constipation, no urinary symptoms and no lower extremity edema. Reports 1 episode of withdrawal seizures in the past on arrival to the ED patient hemodynamically stable with no significant abnormal vitals Labs are significant for WBC count of 4.3, history of 350, ALT of 297 magnesium of 1.5, UA that is positive for urine blood and RBC patient will be admitted for further management Review of Systems Review of Systems: Yes all other systems are reviewed and are negative [facility] Medical History (Updated 07/09/22 @ 06:32 by Galina Pretty MD) Alcohol abuse Dislocation of left elbow Family History (Updated 07/09/22 @ 06:31 by Galian Pretty MD) Other No family history of coronary artery disease Surgical History History of foot surgery Social History Alcohol intake: current Alcohol intake frequency: 3 or more drinks per day Alcohol type: hard liquor Patient Tobacco Use Status: Never used Tobacco Substance Use Type: Marijuana Advance Directives: No Advance Directives Information Provided: Yes service: No Current occupational status: employed Current occupation: right handed Meds Allergies Allergy/AdvReac Type Severity Reaction Status Date / Time tramadol [TRAMADOL] Allergy Unknown HIVES Verified 05/17/21 14:20 Active Medications: Current Medications Acetaminophen (Acetaminophen 325 Mg Tablet) 650 mg PO Q6H PRN PRN Reason: Pain, Mild (Pain Scale 1-3) Docusate Sodium (Docusate Sodium 100 Mg Capsule) 100 mg PO DAILY PRN PRN Reason: Constipation Enoxaparin Sodium (Enoxaparin Sodium 40 Mg/0.4 Ml Syringe) 40 mg SUBCUT Q24H CHUCK Folic Acid (Folic Acid 1 Mg Tablet) 1 mg PO DAILY CHUCK Hydroxyzine HCl (Hydroxyzine Hcl 25 Mg Tablet) 25 mg PO Q6H PRN PRN Reason: anxiety/restlessness Lactated Ringer's (Lr) 1,000 mls @ 100 mls/hr IVCONT .Q10H [facility] Lorazepam (Lorazepam 1 Mg Tablet) 2 mg PO RQ4H WHILE AWAKE [facility] Last Admin: 07/08/22 19:06 Dose: 2 mg Ondansetron HCl (Ondansetron Hcl 4 Mg/2 Ml Vial) 4 mg IVPUSH Q8H PRN PRN Reason: Nausea and Vomiting Pharmacy Consult (Consult Rx Perform Med Rec) 1 each MISCELLANE ONCE PRN PRN Reason: Consult order Phenobarbital (Phenobarbital 30 Mg Tablet) 60 mg PO BID [facility]; Protocol Stop: 07/10/22 21:01 Phenobarbital (Phenobarbital 30 Mg Tablet) 30 mg PO BID [facility]; Protocol Stop: 07/12/22 21:01 Phenobarbital (Phenobarbital 30 Mg Tablet) 30 mg PO DAILY [facility]; Protocol Stop: 07/14/22 09:01 Phenobarbital Sodium (Phenobarbital Sodium 130 Mg/Ml Vial Im Q3hx2) 240 mg IM Q3H CHUCK; Protocol Stop: 07/09/22 02:01 Sodium Chloride (0.9 % Sodium Chloride Flush 3 Ml Syringe) 3 ml IVFLUSH QSHIFT [facility] Thiamine HCl (Thiamine Hcl 100 Mg Tablet) 100 mg PO DAILY [facility] Home Medications Medication Instructions Recorded Confirmed Last Taken Type ibuprofen 200 mg tablet 400 mg PO Q6H PRN Pain (Scale 04/05/22 07/08/22 Unknown History Score 4-6) acetaminophen 325 mg tablet 325 mg PO QID PRN Pain 07/08/22 07/08/22 Unknown History Physical Exam Vital Signs and Narrative: Vital Signs: Last Vital Signs Temp 98.5 F 07/08/22 20:33 Pulse 54 07/08/22 20:33 Resp 16 07/08/22 20:33 BP 155/79 H 07/08/22 20:33 Pulse Ox 96 07/08/22 20:33 O2 Del Method 07/08/22 20:33 BMI result Body Mass Index 23.1 Const: General: cooperative and no acute distress Orientation/consciousness: patient oriented x3 Eyes: General: appearance normal, both eyes and all related structures Resp: Effort & Inspection: normal respiratory effort Auscultation: clear to auscultation bilaterally Cardio: Rate: regular rate Rhythm: regular rhythm GI: Palpation (GI): Soft to palpation Auscultation: normal bowel sounds Skin: General skin exam: no rashes or lesions noted Neuro: General: patient oriented x3 Cognition (Neuro): normal cognition Extrem: General: Yes normal to inspection and Yes no pedal edema Psych: Other: pre slightly anxious, but directable, answers questions appropriately Results Labs CBC and Chem 7: 07/08/22 08:44 07/08/22 08:44 Labs: Laboratory Results - last 24 hr 07/08/22 07/08/22 07/08/22 08:44 08:44 08:44 MCV 89.7 MCH 30.4 MCHC 33.9 RDW 13.2 Plt Count 194 MPV 9.4 Immature Gran % (Auto) 0.0 Neut % (Auto) 73.2 H Lymph % (Auto) 17.9 L [place] % (Auto) 7.0 Eos % (Auto) 0.5 Baso % (Auto) 1.4 Lymph # (Auto) 0.8 L [place] # (Auto) 0.3 Eos # (Auto) 0.0 Baso # (Auto) 0.1 Abs Immat Gran (auto) 0.00 Absolute Neuts (auto) 3.2 Absolute Nucleated RBC 0.000 Nucleated RBC % (auto) 0.0 Anion Gap 18 Estim Creat Clear Calc 137.8 Estimated GFR > 60 Random Glucose 97 Calcium 9.6 Magnesium 1.5 L Total Bilirubin 0.8 Direct Bilirubin 0.4 AST 350 H ALT 297 H Alkaline Phosphatase 100 D Total Protein 7.6 Albumin 4.6 Lipase 24 Urine Color Urine Appearance Urine pH Ur Specific [place] Urine Protein Urine Glucose (UA) Urine Ketones Urine Blood Urine Nitrite Ur Leukocyte Esterase Urine RBC Urine WBC Ur Squamous Epith Cells Urine Bacteria Hyaline Casts Urine Opiates Screen Urine Fentanyl Screen Ur Barbiturates Screen Ur Phencyclidine Scrn Ur Amphetamines Screen U Benzodiazepines Scrn Urine Cocaine Screen U Marijuana (THC) Screen Ethyl Alcohol 68 COVID-19 ([facility]IME) COVID-19 Clin Com 07/08/22 07/08/22 07/08/22 10:06 10:06 10:06 MCV MCH MCHC RDW Plt Count MPV Immature Gran % (Auto) Neut % (Auto) Lymph % (Auto) [place] % (Auto) Eos % (Auto) Baso % (Auto) Lymph # (Auto) [place] # (Auto) Eos # (Auto) Baso # (Auto) Abs Immat Gran (auto) Absolute Neuts (auto) Absolute Nucleated RBC Nucleated RBC % (auto) Anion Gap Estim Creat Clear Calc Estimated GFR Random Glucose Calcium Magnesium Total Bilirubin Direct Bilirubin AST ALT Alkaline Phosphatase Total Protein Albumin Lipase Urine Color Dark Yellow Urine Appearance Turbid Urine pH 6.0 Ur Specific [place] 1.025 Urine Protein 30 (1+) H Urine Glucose (UA) Negative Urine Ketones Trace Urine Blood Moderate (2+) H Urine Nitrite Negative Ur Leukocyte Esterase Negative Urine RBC 3-5 H Urine WBC 0-5 Ur Squamous Epith Cells 0-2 Urine Bacteria None Seen Hyaline Casts 3-5 Urine Opiates Screen Not Detected Urine Fentanyl Screen Not Detected Ur Barbiturates Screen Not Detected Ur Phencyclidine Scrn Not Detected Ur Amphetamines Screen Not Detected U Benzodiazepines Scrn Not Detected Urine Cocaine Screen Not Detected U Marijuana (THC) Screen Not Detected Ethyl Alcohol COVID-19 ([facility]IME) Negative COVID-19 Clin Com See Note Imaging Radiologist's Impressions: Impressions Chest X-Ray 07/08/22 10:40 IMPRESSION: Unremarkable chest examination. Assessment and Plan (1) Alcohol withdrawal: Status: Acute (2) Visual hallucinations: Status: Acute (3) Hypomagnesemia: Status: Acute Plan 31-year-old male with past medical history of alcohol abuse presents to the hospital with alcohol withdrawals # alcohol abuse with alcohol withdrawal - has some visual hallucinations - has history of withdrawal seizures - patient start on phenobarb protocol - will will add folic and thiamine supplement - care team consult as patient is interested in detox # visual hallucinations - patient stable answers questions appropriately, reports that he started to have visual hallucinations - start on phenobarb with improvement in his symptoms - monitor # hypomagnesemia - secondary to alcohol abuse - repleted - follow Mag level DVT prophylaxis Lovenox Given patient's alcohol withdrawal and potential for alcohol withdrawal seizures patient will require at minimum 2 night hospital stay for further monitor Quality Stroke Does the patient have a stroke diagnosis?: No VTE Prior VTE?: No VTE Risk Level:: Medical - moderate - high VTE Device Contraindication: Treatment Not Indicated VTE Drug Contraindication: N/A - Med Ordered
--- NOTE | 2022-07-08 22:50 | MHC.CM.PN ---
CM met with admitted patient with bed assignment pending. A&Ox4. HCP reviewed, completed and signed. Copies given. Uploaded into [employer]. HCP/ Beena Ayon ([phone]). New PCP, cannot remember name. Lives with . Employed at [employer]. No services/DME. Vax x2/[employer] (03/07/21 & 03/29/21). Pt very willing to meet with project manager/team coach. D/C plan home. Recovery plans pending meeting with project manager/team coach. CM to follow for d/c needs.
[2022-07-08] MEDS: PHENobarbitaL sodium 130 MG/ML VIAL IM Q3Hx2 240 MG IM (23:34)
[2022-07-09] VITALS (9 sets, daily range): BP systolic 123–152; BP diastolic 70–89; PULSE 45–69; RESP 12–18; TEMP 36.3–36.9; O2SAT 96–100
--- NOTE | 2022-07-09 | ECG_ITS ---
Test Reason : bradycardia Blood Pressure : / mmHG Vent. Rate : 041 BPM Atrial Rate : 041 BPM P-R Int : 148 ms QRS Dur : 104 ms QT Int : 538 ms P-R-T Axes : 031 038 027 degrees QTc Int : 443 ms Marked sinus bradycardia Abnormal ECG When compared with ECG of 08-JUL-2022 10:14, T wave inversion less evident in Anterior leads Referred By: Galina Pretty Electronically Signed By:NETO ESQUIVEL
[2022-07-09] MEDS: Lactated Ringers 1,000 ML 100 ML IVCONT ×3 (00:02→16:22)
[2022-07-09] MEDS: PHENobarbitaL sodium 130 MG/ML VIAL IM Q3Hx2 240 MG IM (02:28)
--- NOTE | 2022-07-09 05:14 | PC.NURSE ---
Dr Pretty aware of pt's bradycardia, v/o EKG.
[2022-07-09 06:31] LABS: MANUAL DIFF FLAG NO
[2022-07-09 06:33] LABS: Basophils Percent Auto 0.8 % (0-2); Eosinophils Percent Auto 0.8 % (0-4); Hematocrit 40.4 % (42.0-52.0); Hemoglobin 13.8 g/dl (14.0-18.0); Imm Gran Abs Auto 0.01 X10*3/uL (0.00-0.03); Imm Gran Pct Auto 0.3 % (0.0-0.4); Lymphocytes Absolute Auto 0.9 X10*3/uL (1.2-4.9); Lymphocytes Percent Auto 24.4 % (20-40); Mean Corpuscular HGB Conc 34.2 g/dl (31.0-36.0); Mean Corpuscular Hemoglobin 30.7 pg (27.0-33.0); Mean Platelet Volume 10.1 fL (9.4-12.4); Monocytes Absolute Auto 0.4 X10*3/uL (0.1-1.2); Monocytes Percent Auto 10.2 % (2-11); Neutrophils Absolute Auto 2.2 x10*3/uL (2.0-8.3); Neutrophils Percent Auto 63.5 % (45-73); Platelet Count 158 X10*3/uL (160-400); Red Blood Count 4.49 X10*6/uL (4.60-5.80); Red Cell Distribution Width 13.2 % (11.0-16.0); White Blood Count 3.5 X10*3/uL (4.8-10.8)
[2022-07-09 07:13] LABS: Anion Gap 15 (12-20); Blood Urea Nitrogen 10 mg/dL (9-16); Carbon Dioxide 24 mmol/L (22-29); Chloride 103 mmol/L (96-108); Creatinine Clr Calc Pharmacy 171.7; Estimated Glomerular Filt Rate > 60; Glucose Random 88 mg/dL (60-115); Magnesium 1.7 mg/dL (1.6-2.6); Potassium 3.9 mmol/L (3.3-5.1); Sodium 138 mmol/L (135-145)
[2022-07-09 07:29] LABS: Calcium 8.8 mg/dL (8.4-10.2)
[2022-07-09] MEDS: Folic Acid 1 MG TABLET PO (08:35)
[2022-07-09] MEDS: Thiamine HCL 100 MG TABLET PO (08:36)
--- NOTE | 2022-07-09 08:54 | PC.NURSE ---
Pt is sleepy, awakes to tactile stimuli. Oriented to self/place. Pj on tele 30-40s, Held Phenobarb, Kate ECHO TECHNOLOGIST aware/updated. Other vitals stable. Reports mild headache. .Sat 99% on room air. Skin pwd.
[2022-07-09 09:30] LABS: Alanine Aminotransferase 185 U/L (0-40); Albumin Level 3.7 g/dL (3.5-5.0); Alkaline Phosphatase 77 U/L (39-117); Aspartate Amino Transferase 172 U/L (5-37); Bilirubin Direct 0.4 mg/dL (0.0-0.5); Bilirubin Total 1.4 mg/dL (0.0-1.0); Total Protein 6.3 g/dL (6.5-8.0)
--- NOTE | 2022-07-09 09:58 | PC.NURSE ---
Pt awake at this time. Ambulated to the bathroom. Recovery team at the bedside with patient.
--- NOTE | 2022-07-09 10:07 | P.PNIM_ITS ---
Subjective Subjective Date of Service: 07/09/22 Physical Exam Vital Signs: Vital Signs: Last Vital Signs Temp 98.4 F 07/09/22 03:58 Pulse 69 07/09/22 09:57 Resp 12 07/09/22 09:57 BP 152/83 H 07/09/22 09:57 Pulse Ox 97 07/09/22 09:57 O2 Del Method 07/09/22 09:57 BMI result Body Mass Index 23.1 Objective Data Active Medications Acetaminophen (Acetaminophen 325 Mg Tablet) 650 mg PO Q6H PRN PRN Reason: Pain, Mild (Pain Scale 1-3) Docusate Sodium (Docusate Sodium 100 Mg Capsule) 100 mg PO DAILY PRN PRN Reason: Constipation Enoxaparin Sodium (Enoxaparin Sodium 40 Mg/0.4 Ml Syringe) 40 mg SUBCUT Q24H [facility] Last Admin: 07/08/22 23:24 Dose: Not Given Documented By: JACE Non-Admin Reason: Patient Refused Folic Acid (Folic Acid 1 Mg Tablet) 1 mg PO DAILY [facility] Last Admin: 07/09/22 08:35 Dose: 1 mg Documented By: TOMAS Hydroxyzine HCl (Hydroxyzine Hcl 25 Mg Tablet) 25 mg PO Q6H PRN PRN Reason: anxiety/restlessness Lactated Ringer's (Lr) 1,000 mls @ 100 mls/hr IVCONT .Q10H [facility] Last Admin: 07/09/22 08:42 Dose: 100 mls/hr Documented By: TOMAS Lorazepam (Lorazepam 1 Mg Tablet) 2 mg PO RQ4H WHILE AWAKE [facility] Last Admin: 07/09/22 08:53 Dose: Not Given Documented By: YUNG Non-Admin Reason: not awake Ondansetron HCl (Ondansetron Hcl 4 Mg/2 Ml Vial) 4 mg IVPUSH Q8H PRN PRN Reason: Nausea and Vomiting Pharmacy Consult (Consult Rx Perform Med Rec) 1 each MISCELLANE ONCE PRN PRN Reason: Consult order Phenobarbital (Phenobarbital 30 Mg Tablet) 60 mg PO BID [facility]; Protocol Stop: 07/10/22 21:01 Last Admin: 07/09/22 08:54 Dose: Not Given Documented By: YUNG Non-Admin Reason: Physician Approved Phenobarbital (Phenobarbital 30 Mg Tablet) 30 mg PO BID [facility]; Protocol Stop: 07/12/22 21:01 Phenobarbital (Phenobarbital 30 Mg Tablet) 30 mg PO DAILY [facility]; Protocol Stop: 07/14/22 09:01 Sodium Chloride (0.9 % Sodium Chloride Flush 3 Ml Syringe) 3 ml IVFLUSH QSHIFT [facility] Last Admin: 07/09/22 08:36 Dose: Not Given Documented By: TOMAS Non-Admin Reason: IV Running Thiamine HCl (Thiamine Hcl 100 Mg Tablet) 100 mg PO DAILY [facility] Last Admin: 07/09/22 08:36 Dose: 100 mg Documented By: TOMAS Labs CBC & Chem 7: 07/09/22 06:22 07/09/22 06:22 Labs: Laboratory Results - last 24 hr 07/08/22 07/08/22 07/08/22 08:44 10:06 10:06 MCV MCH MCHC RDW Plt Count MPV Immature Gran % (Auto) Neut % (Auto) Lymph % (Auto) [place] % (Auto) Eos % (Auto) Baso % (Auto) Lymph # (Auto) [place] # (Auto) Eos # (Auto) Baso # (Auto) Abs Immat Gran (auto) Absolute Neuts (auto) Absolute Nucleated RBC Nucleated RBC % (auto) Anion Gap Estim Creat Clear Calc Estimated GFR Random Glucose Calcium Magnesium 1.5 L Total Bilirubin Direct Bilirubin AST ALT Alkaline Phosphatase Total Protein Albumin Urine Color Dark Yellow Urine Appearance Turbid Urine pH 6.0 Ur Specific [place] 1.025 Urine Protein 30 (1+) H Urine Glucose (UA) Negative Urine Ketones Trace Urine Blood Moderate (2+) H Urine Nitrite Negative Ur Leukocyte Esterase Negative Urine RBC 3-5 H Urine WBC 0-5 Ur Squamous Epith Cells 0-2 Urine Bacteria None Seen Hyaline Casts 3-5 Urine Opiates Screen Urine Fentanyl Screen Ur Barbiturates Screen Ur Phencyclidine Scrn Ur Amphetamines Screen U Benzodiazepines Scrn Urine Cocaine Screen U Marijuana (THC) Screen COVID-19 (SLIME) Negative COVID-19 Clin Com See Note 07/08/22 07/09/22 07/09/22 10:06 06:22 06:22 MCV 90.0 MCH 30.7 MCHC 34.2 RDW 13.2 Plt Count 158 L MPV 10.1 Immature Gran % (Auto) 0.3 Neut % (Auto) 63.5 Lymph % (Auto) 24.4 [place] % (Auto) 10.2 Eos % (Auto) 0.8 Baso % (Auto) 0.8 Lymph # (Auto) 0.9 L [place] # (Auto) 0.4 Eos # (Auto) 0.0 Baso # (Auto) 0.0 Abs Immat Gran (auto) 0.01 Absolute Neuts (auto) 2.2 Absolute Nucleated RBC 0.000 Nucleated RBC % (auto) 0.0 Anion Gap 15 Estim Creat Clear Calc 171.7 Estimated GFR > 60 Random Glucose 88 Calcium 8.8 D Magnesium 1.7 Total Bilirubin 1.4 H Direct Bilirubin 0.4 AST 172 H ALT 185 H Alkaline Phosphatase 77 D Total Protein 6.3 L Albumin 3.7 Urine Color Urine Appearance Urine pH Ur Specific [place] Urine Protein Urine Glucose (UA) Urine Ketones Urine Blood Urine Nitrite Ur Leukocyte Esterase Urine RBC Urine WBC Ur Squamous Epith Cells Urine Bacteria Hyaline Casts Urine Opiates Screen Not Detected Urine Fentanyl Screen Not Detected Ur Barbiturates Screen Not Detected Ur Phencyclidine Scrn Not Detected Ur Amphetamines Screen Not Detected U Benzodiazepines Scrn Not Detected Urine Cocaine Screen Not Detected U Marijuana (THC) Screen Not Detected COVID-19 ([facility]IME) COVID-19 Clin Com Assessment and Plan (1) Hypomagnesemia: Status: Acute Plan 31-year-old male with past medical history of alcohol abuse presents to the hospital with alcohol withdrawals Aalcohol abuse with alcohol withdrawal Presented with some visual hallucinations History of withdrawal seizures Started on phenobarbital protocol Continue folic acid and thiamine supplementation Continue LR Care team consultation Transaminitis Secondary to alcohol use Trending down hypomagnesemia Secondary to alcohol abuse Repleted and resolved DVT prophylaxis with Lovenox Full code Attending Dr. Santos Continued hospitalization for treatment of alcohol withdrawal symptoms including necessitation of phenobarbital protocol and IV fluids close monitoring for severe withdrawal symptoms Quality Stroke Does the patient have a stroke diagnosis?: No VTE Prior VTE?: No VTE Risk Level:: Medical - moderate - high VTE Device Contraindication: Treatment Not Indicated VTE Drug Contraindication: N/A - Med Ordered
[2022-07-09] MEDS: PHENobarbitaL 30 MG TABLET 60 MG PO ×2 (10:09→21:26)
--- NOTE | 2022-07-09 10:10 | PC.NURSE ---
Pheno given, pt more alert/awake. VSS. Calm/cooperative. Kate COLEMAN updated
[2022-07-09] MEDS: Acetaminophen 325 MG TABLET 650 MG PO ×2 (16:14→22:10)
[2022-07-09] MEDS: LORazepam 1 MG TABLET 2 MG PO ×2 (16:14→21:27)
[2022-07-09] MEDS: 0.9 % Sodium Chloride Flush 3 ML SYRINGE IVFLUSH (16:23)
--- NOTE | 2022-07-09 16:29 | PC.NURSE ---
patient resting in bed,medicated for headache,scheduled Ativan administered ,lungs clear,
--- NOTE | 2022-07-09 19:38 | PC.NURSE ---
rewport received from rani COLON. pt sleeping comfortably on stretcher. equal chest rise and fall, NAD. on director of cardiac cath lab. call mims within reach. will continue to monitor
[2022-07-09] MEDS: Enoxaparin Sodium 40 MG/0.4 ML SYRINGE SUBCUT (21:27)
--- NOTE | 2022-07-09 21:40 | PC.NURSE ---
pt awake. ate dinner and given lola paramjit. no current complaints. no signs of alcohol withdrawal symptoms currently. pt calm and watching tv. NAD. 2mg ativan po given and 60mg phenobarb given per mar orders. report called to medical csr. will continue to monitor. pt to be transported to med surg floor shortly..
[2022-07-09] MEDS: hydrOXYzine HCL 25 MG TABLET PO (22:10)
[2022-07-10 04:00] VITALS: BP 132/69; PULSE 73; RESP 17; TEMP 36.7; O2SAT 98
[2022-07-10 07:39] VITALS: BP 157/99; PULSE 66; RESP 18; TEMP 36.2; O2SAT 98
[2022-07-10] MEDS: PHENobarbitaL 30 MG TABLET 60 MG PO ×2 (09:24→21:15)
[2022-07-10] MEDS: Thiamine HCL 100 MG TABLET PO (09:25)
[2022-07-10] MEDS: Folic Acid 1 MG TABLET PO (09:25)
[2022-07-10] MEDS: 0.9 % Sodium Chloride Flush 3 ML SYRINGE IVFLUSH ×2 (09:29→15:27)
[2022-07-10] MEDS: Acetaminophen 325 MG TABLET 650 MG PO ×2 (09:48→16:08)
[2022-07-10 11:24] VITALS: BP 140/95; PULSE 68; RESP 18; TEMP 36.2; O2SAT 98
--- NOTE | 2022-07-10 12:57 | P.PNIM_ITS ---
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 currently no N/V/abd pain, no tremor hx of EtOH W/D sz Review of Systems Review of Systems: Yes all other systems are reviewed and are negative Physical Exam Vital Signs: Vital Signs: Last Vital Signs Temp 97.1 F 07/10/22 11:24 Pulse 68 07/10/22 11:24 Resp 18 07/10/22 11:24 BP 140/95 H 07/10/22 11:24 Pulse Ox 98 07/10/22 11:24 O2 Del Method 07/10/22 11:24 BMI result Body Mass Index 23.1 Gen: in no acute distress HEENT: sclera anicteric, moist mucus membranes Neck: supple Lungs: clear to auscultation bilaterally Heart: regular rate and rhythm, no murmurs Abd: soft, non-tender, non-distended Ext: no edema Skin: warm/well-perfused Neuro: alert and oriented x3, no focal findings Psych: appropriate affect Objective Data Active Medications Acetaminophen (Acetaminophen 325 Mg Tablet) 650 mg PO Q6H PRN PRN Reason: Pain, Mild (Pain Scale 1-3) Last Admin: 07/10/22 09:48 Dose: 650 mg Documented By: RANDI Docusate Sodium (Docusate Sodium 100 Mg Capsule) 100 mg PO DAILY PRN PRN Reason: Constipation Enoxaparin Sodium (Enoxaparin Sodium 40 Mg/0.4 Ml Syringe) 40 mg SUBCUT Q24H [facility] Last Admin: 07/09/22 21:27 Dose: 40 mg Documented By: KRISTIAN Folic Acid (Folic Acid 1 Mg Tablet) 1 mg PO DAILY [facility] Last Admin: 07/10/22 09:25 Dose: 1 mg Documented By: RANDI Hydroxyzine HCl (Hydroxyzine Hcl 25 Mg Tablet) 25 mg PO Q6H PRN PRN Reason: anxiety/restlessness Last Admin: 07/09/22 22:10 Dose: 25 mg Documented By: RICKI Ondansetron HCl (Ondansetron Hcl 4 Mg/2 Ml Vial) 4 mg IVPUSH Q8H PRN PRN Reason: Nausea and Vomiting Pharmacy Consult (Consult Rx Perform Med Rec) 1 each MISCELLANE ONCE PRN PRN Reason: Consult order Phenobarbital (Phenobarbital 30 Mg Tablet) 60 mg PO BID [facility]; Protocol Stop: 07/10/22 21:01 Last Admin: 07/10/22 09:24 Dose: 60 mg Documented By: RANDI Phenobarbital (Phenobarbital 30 Mg Tablet) 30 mg PO BID [facility]; Protocol Stop: 07/12/22 21:01 Phenobarbital (Phenobarbital 30 Mg Tablet) 30 mg PO DAILY [facility]; Protocol Stop: 07/14/22 09:01 Sodium Chloride (0.9 % Sodium Chloride Flush 3 Ml Syringe) 3 ml IVFLUSH QSHIFT [facility] Last Admin: 07/10/22 09:29 Dose: 3 ml Documented By: RANDI Thiamine HCl (Thiamine Hcl 100 Mg Tablet) 100 mg PO DAILY [facility] Last Admin: 07/10/22 09:25 Dose: 100 mg Documented By: RANDI Labs CBC & Chem 7: 07/09/22 06:22 07/09/22 06:22 Assessment and Plan (1) Hypomagnesemia: Status: Acute [facility] hospital d#3 31yo M with AUD admitted for high-risk withdrawal with visual hallucinations, hx of sz # high-risk EtOH withdrawal - continue phenobarbital taper, B-vitamin supplementation # EtOH hepatitis - monitor LFTs, screen HBV/HCV # leukopenia - likely from EtOH but screen HIV # AUD - CARE Team + Addiction Medicine consultations # hypoMg - repleted # VTE ppx: LMWH In my clinical judgment, the patient requires continued hospitalization for the following reasons: high-risk withdrawal Quality Stroke Does the patient have a stroke diagnosis?: No VTE Prior VTE?: No VTE Risk Level:: Medical - moderate - high VTE Device Contraindication: Treatment Not Indicated VTE Drug Contraindication: N/A - Med Ordered
[2022-07-10 15:07] VITALS: BP 151/87; PULSE 66; RESP 16; TEMP 36.7; O2SAT 96
[2022-07-10] MEDS: hydrOXYzine HCL 25 MG TABLET PO (15:25)
--- NOTE | 2022-07-10 16:17 | HO.ADDICTCON ---
History of Present Illness Date of Service: 07/10/2022 Chief Complaint: alcohol withdrawal Reason for Consult: alcohol use disorder HPI Narrative: Patient is a 31-year-old male currently medically admitted with acute alcohol withdrawal. Patient reports that he presented to the emergency department because he was starting to feel like he did right before he had a seizure once before. Patient reports he is drinking approximately 10 episodes of vodka daily. Reports drinking became an issue a little over a year ago. Denies any history of treatment for alcohol use. Reports family history of alcohol use disorder. Reports history of anxiety, which he states is also a trigger for alcohol use. Denied any chronic medical issues. , employed Reporting anxiety, denies any other withdrawal sx Review of Systems Constitutional: Reports as per HPI Diagnostics Vital Signs (24Hr): Vital Signs - 24 hr 07/09/22 17:36 07/09/22 21:42 07/09/22 22:10 Temperature 98.4 F 97.6 F 97.8 F Pulse Rate 60 45 L 64 Respiratory Rate 18 17 16 Blood Pressure 123/70 148/89 H 146/80 H Pulse Oximetry 98 99 100 Oxygen Delivery Method Room Air Room Air Room Air 07/09/22 23:48 07/10/22 04:00 07/10/22 07:39 Temperature 97.4 F 98.0 F 97.1 F Pulse Rate 52 73 66 Respiratory Rate 17 17 18 Blood Pressure 147/84 H 132/69 157/99 H Pulse Oximetry 98 98 98 Oxygen Delivery Method Room Air Room Air Room Air 07/10/22 11:24 07/10/22 15:07 Temperature 97.1 F 98.1 F Pulse Rate 68 66 Respiratory Rate 18 16 Blood Pressure 140/95 H 151/87 H Pulse Oximetry 98 96 Oxygen Delivery Method Room Air Room Air BMI result Body Mass Index 23.1 Labs Results: 07/09/22 06:22 07/09/22 06:22 Labs: Laboratory Results - last 48 hr 07/08/22 07/09/22 07/09/22 08:44 06:22 06:22 WBC 3.5 L RBC 4.49 L Hgb 13.8 L Hct 40.4 L MCV 90.0 MCH 30.7 MCHC 34.2 RDW 13.2 Plt Count 158 L MPV 10.1 Immature Gran % (Auto) 0.3 Neut % (Auto) 63.5 Lymph % (Auto) 24.4 [place] % (Auto) 10.2 Eos % (Auto) 0.8 Baso % (Auto) 0.8 Lymph # (Auto) 0.9 L [place] # (Auto) 0.4 Eos # (Auto) 0.0 Baso # (Auto) 0.0 Abs Immat Gran (auto) 0.01 Absolute Neuts (auto) 2.2 Absolute Nucleated RBC 0.000 Nucleated RBC % (auto) 0.0 Sodium 138 Potassium 3.9 Chloride 103 Carbon Dioxide 24 Anion Gap 15 BUN 10 Creatinine 0.69 Estim Creat Clear Calc 171.7 Estimated GFR > 60 Random Glucose 88 Calcium 8.8 D Magnesium 1.5 L 1.7 Total Bilirubin 1.4 H Direct Bilirubin 0.4 AST 172 H ALT 185 H Alkaline Phosphatase 77 D Total Protein 6.3 L Albumin 3.7 Imaging Radiology Impressions: ITS Impressions Chest X-Ray 07/08/22 10:40 IMPRESSION: Unremarkable chest examination. Mental Status Exam Mental Status Exam Patient Appearance: Appropriate Level of Consciousness: Awake and Appropriate Patient Behavior: Appropriate and Cooperative Mood Description: Calm Affect Description: Calm Ability to Follow Directions: Excellent Thought Process: Intact Judgement: Fair Medications Medications Current Medications Acetaminophen (Acetaminophen 325 Mg Tablet) 650 mg PO Q6H PRN PRN Reason: Pain, Mild (Pain Scale 1-3) Last Admin: 07/10/22 16:08 Dose: 650 mg Docusate Sodium (Docusate Sodium 100 Mg Capsule) 100 mg PO DAILY PRN PRN Reason: Constipation Enoxaparin Sodium (Enoxaparin Sodium 40 Mg/0.4 Ml Syringe) 40 mg SUBCUT Q24H [facility] Last Admin: 07/09/22 21:27 Dose: 40 mg Folic Acid (Folic Acid 1 Mg Tablet) 1 mg PO DAILY [facility] Last Admin: 07/10/22 09:25 Dose: 1 mg Hydroxyzine HCl (Hydroxyzine Hcl 25 Mg Tablet) 25 mg PO Q6H PRN PRN Reason: anxiety/restlessness Last Admin: 07/10/22 15:25 Dose: 25 mg Multivitamins/Vitamin C (Multivitamin Tablet) 1 tab PO BEDTIME [facility] Ondansetron HCl (Ondansetron Hcl 4 Mg/2 Ml Vial) 4 mg IVPUSH Q8H PRN PRN Reason: Nausea and Vomiting Pharmacy Consult (Consult Rx Perform Med Rec) 1 each MISCELLANE ONCE PRN PRN Reason: Consult order Phenobarbital (Phenobarbital 30 Mg Tablet) 60 mg PO BID [facility]; Protocol Stop: 07/10/22 21:01 Last Admin: 07/10/22 09:24 Dose: 60 mg Phenobarbital (Phenobarbital 30 Mg Tablet) 30 mg PO BID [facility]; Protocol Stop: 07/12/22 21:01 Phenobarbital (Phenobarbital 30 Mg Tablet) 30 mg PO DAILY [facility]; Protocol Stop: 07/14/22 09:01 Sodium Chloride (0.9 % Sodium Chloride Flush 3 Ml Syringe) 3 ml IVFLUSH QSHIFT [facility] Last Admin: 07/10/22 15:27 Dose: 3 ml Thiamine HCl (Thiamine Hcl 100 Mg Tablet) 100 mg PO DAILY [facility] Last Admin: 07/10/22 09:25 Dose: 100 mg Allergies Allergies Allergy/AdvReac Type Severity Reaction Status Date / Time tramadol [TRAMADOL] Allergy Unknown HIVES Verified 05/17/21 14:20 Assessment & Plan Assessment & Plan (1) Alcohol use disorder, severe, dependence: Status: Acute Code(s): F10.20 - Alcohol dependence, uncomplicated Assessment and Plan: interested in Naltrexone, and outpatient treatment will provide literature regarding medications rx upon discharge--LFTs still elevated, although trending down I spent _35 minutes with the patient and/or on the patient floor today, greater than?50% of which was spent counseling/coordinating care. [facility] Past Medical History Medical History (Updated 07/10/22 @ 16:36 by Angelika Ledbetter CNP) Alcohol abuse Dislocation of left elbow Family History Family History (Updated 07/09/22 @ 06:31 by Galina Pretty MD) Other No family history of coronary artery disease Surgical History Surgical History History of foot surgery Social History Social History Household Members: Family Do you presently have visiting nurse or other home services: No Alcohol intake: current Alcohol intake frequency: 3 or more drinks per day Alcohol type: hard liquor Patient Tobacco Use Status: Never used Tobacco Second Hand Smoke Exposure: No Substance Use Type: Marijuana service: No Current occupational status: employed Current occupation: right handed
[2022-07-10 19:30] VITALS: BP 159/92; PULSE 63; RESP 17; TEMP 36.8; O2SAT 97
[2022-07-10] MEDS: Multivitamin TABLET 1 TAB PO (21:14)
[2022-07-10] MEDS: Enoxaparin Sodium 40 MG/0.4 ML SYRINGE SUBCUT (21:15)
[2022-07-11] VITALS: BP 134/92; PULSE 65; RESP 18; TEMP 36.5; O2SAT 95
[2022-07-11] MEDS: 0.9 % Sodium Chloride Flush 3 ML SYRINGE IVFLUSH ×2 (00:54→09:09)
[2022-07-11 04:00] VITALS: BP 125/80; PULSE 59; RESP 16; TEMP 36.6; O2SAT 98
[2022-07-11 06:05] LABS: Hemoglobin 15.2 g/dl (14.0-18.0); Mean Corpuscular HGB Conc 35.3 g/dl (31.0-36.0); Mean Corpuscular Hemoglobin 30.9 pg (27.0-33.0); Mean Corpuscular Volume 87.4 fL (80.0-98.0); Mean Platelet Volume 10.2 fL (9.4-12.4); Platelet Count 179 X10*3/uL (160-400); Red Blood Count 4.92 X10*6/uL (4.60-5.80); Red Cell Distribution Width 12.8 % (11.0-16.0); White Blood Count 5.2 X10*3/uL (4.8-10.8)
[2022-07-11 06:46] LABS: Alanine Aminotransferase 161 U/L (0-40); Albumin Level 3.9 g/dL (3.5-5.0); Alkaline Phosphatase 82 U/L (39-117); Anion Gap 13 (12-20); Aspartate Amino Transferase 112 U/L (5-37); Bilirubin Total 0.8 mg/dL (0.0-1.0); Blood Urea Nitrogen 7 mg/dL (9-16); Carbon Dioxide 30 mmol/L (22-29); Chloride 99 mmol/L (96-108); Creatinine Clr Calc Pharmacy 155.9; Estimated Glomerular Filt Rate > 60; Glucose Random 90 mg/dL (60-115); Magnesium 1.7 mg/dL (1.6-2.6); Potassium 4.1 mmol/L (3.3-5.1); Sodium 138 mmol/L (135-145); Total Protein 6.5 g/dL (6.5-8.0)
[2022-07-11 07:54] VITALS: BP 140/87; PULSE 50; RESP 20; TEMP 36.6; O2SAT 97
[2022-07-11 08:37] LABS: HBS Num1 14.61 mIU/mL (0-7.99); HBc Num1 0.04 S/CO (0.00-0.79); HBsAGNum1 0.22 S/CO (0.00-0.99); HIV AB/AG Nonreactive (Nonreactive); HIV Num 1 0.06 S/CO (0.00-0.99); Hepatitis B Core Antibody Nonreactive (Nonreactive); Hepatitis B Surface Antigen Negative (Negative); ~HepC Num1 0.04 S/CO (0.00-0.79); ~Hepatitis B Surface Antibody REACTIVE (Nonreactive); ~Hepatitis C Antibody Nonreactive (Nonreactive)
[2022-07-11] MEDS: Thiamine HCL 100 MG TABLET PO (09:09)
[2022-07-11] MEDS: Folic Acid 1 MG TABLET PO (09:09)
[2022-07-11] MEDS: PHENobarbitaL 30 MG TABLET PO (09:09)
--- NOTE | 2022-07-11 11:13 | MHC.RECOVRN ---
T/W met w/ pt, pt alert, oriented, dressed, watching t.v upon entering room. Pt expressed interest in [facility], pt request Naltrexone. T/W and pt discussed Naltrexone. Opportunity for questions, pt verbalized understanding. Pt reminded that referral for RC had been placed. Pt verbalized commitment to recovery, supportive of recovery. Appt at [facility] for 07/12/22 @2pm, pt given appt card. Provider confirmed sent rx for Naltrexone.
--- NOTE | 2022-07-11 11:22 | MHC.CM.PN ---
PATIENT TO RETURN HOME TODAY WITH OUTPATIENT FOLLOW UP FOR SUBSTANCE ABUSE TREATMENT SERVICES RN AWARE OF PLAN.
[2022-07-11 11:26] VITALS: BP 148/79; PULSE 59; RESP 18; TEMP 36.1; O2SAT 97
--- NOTE | 2022-07-11 11:52 | PM.DS ---
DS: Providers Provider Date of Service: 07/11/22 Date of admission: 07/08/22 20:46 Date of discharge: 07/11/22 Primary care physician: Azalea Dyson NP Consults: 07/08/22 10:21 Consult to Care Team Stat Comment: Reason for consultation: alcoholism 07/10/22 08:17 Addiction Medicine Routine Consulting Provider: Angelika Ledbetter Reason for consultation: etoh DS: Diagnosis Discharge Diagnosis (1) Alcohol use disorder, severe, dependence: Status: Acute (2) Alcohol withdrawal: Status: Acute (3) Elevated transaminase level: Status: Acute (4) Hypomagnesemia: Status: Acute DS: Summary Hospital Course Hospital Course: from admission H+P by Galina Pretty MD, 07/08/22: 31-year-old male with past medical history of alcohol abuse presents to the hospital with alcohol withdrawal? symptoms including visual hallucinations.? Patient reports that he is interesting in detoxing and started his process with his last drink over 6 hours ago.? He reports that he is developing visual hallucinations in, he is extremely anxious, and has shaking.? He had nausea but no abdominal pain, no diarrhea or constipation, no urinary symptoms and no lower extremity edema.? Reports 1 episode of withdrawal seizures in the past ?on arrival to the ED patient hemodynamically stable with no significant abnormal vitals Labs are significant for WBC count of 4.3, history of 350, ALT of 297 magnesium of 1.5, UA that is positive for urine blood and RBC ?patient will be admitted for further management This 31yo M with AUD was admitted for high-risk withdrawal with visual hallucinations and history of withdrawal seizures. He was treated with phenobarbital taper and started on vitamin supplementation. Low magnesium resolved with IV repletion. LFTs were elevated due to alcoholic hepatitis and improved during his hospitalization. He met with the Addiction Medicine specialist and expressed interest in medication-assisted treatment for AUD. He was discharged on naltrexone and vitamins and will follow up with Primary Care and [facility]. Repeat LFTs should be done on 07/15/22 and were ordered. Time Spent with Patient Time attestation: Total time spent providing and/or coordinating discharge services: 35 Discharge coordination time: Greater than 30 minutes Quality: Safe Use of Opioids Does Pt have an Active Cancer Diagnosis on the Problem List?: No Quality: Stroke Does the patient have a stroke diagnosis?: No Physical Exam Vital Signs: Vital Signs: Last Vital Signs Temp 96.9 F 07/11/22 11:26 Pulse 59 07/11/22 11:26 Resp 18 07/11/22 11:26 BP 148/79 H 07/11/22 11:26 Pulse Ox 97 07/11/22 11:26 O2 Del Method 07/11/22 11:26 BMI result Body Mass Index 23.1 Gen: in no acute distress HEENT: sclera anicteric, moist mucus membranes Neck: supple Lungs: clear to auscultation bilaterally Heart: regular rate and rhythm, no murmurs Abd: soft, non-tender, non-distended Ext: no edema Skin: warm/well-perfused Neuro: alert and oriented x3, no focal findings Psych: appropriate affect DS: Data Data Completed and Pending Labs on day of discharge: Laboratory Results - last 24 hr 07/11/22 07/11/22 07/11/22 05:38 05:38 05:38 WBC 5.2 RBC 4.92 Hgb 15.2 Hct 43.0 MCV 87.4 MCH 30.9 MCHC 35.3 RDW 12.8 Plt Count 179 MPV 10.2 Absolute Nucleated RBC 0.000 Nucleated RBC % (auto) 0.0 Sodium 138 Potassium 4.1 Chloride 99 Carbon Dioxide 30 H Anion Gap 13 BUN 7 L Creatinine 0.76 Estim Creat Clear Calc 155.9 Estimated GFR > 60 Random Glucose 90 Calcium 9.0 Magnesium 1.7 Total Bilirubin 0.8 AST 112 H ALT 161 H Alkaline Phosphatase 82 Total Protein 6.5 Albumin 3.9 Hep Bs Antigen Negative Hep Bs Antibody REACTIVE Hep B Core Total Ab Nonreactive Hepatitis C Ab (EIA) Nonreactive HIV 1&2 Ab/P24 Ag 4thGn 07/11/22 05:38 WBC RBC Hgb Hct MCV MCH MCHC RDW Plt Count MPV Absolute Nucleated RBC Nucleated RBC % (auto) Sodium Potassium Chloride Carbon Dioxide Anion Gap BUN Creatinine Estim Creat Clear Calc Estimated GFR Random Glucose Calcium Magnesium Total Bilirubin AST ALT Alkaline Phosphatase Total Protein Albumin Hep Bs Antigen Hep Bs Antibody Hep B Core Total Ab Hepatitis C Ab (EIA) HIV 1&2 Ab/P24 Ag 4thGn Nonreactive Discharge Plan Discharge Patient Disposition: Home, Self-Care Discharge Diagnosis: alcohol withdrawal, alcohol use disorder Referrals: Azalea Dyson NP [Primary Care Provider] - 1 Week Angelika Ledbetter CNP [Nurse Practitioner] - 1 Week Discharge Medications: New naltrexone 50 mg tablet 50 mg PO DAILY Qty: 30 1RF Rx Instructions: take 1/2 tab daily for 2 days, then increase to one tab daily multivitamin [Daily-Lisa] Tablet 1 tab PO BEDTIME Qty: 30 0RF folic acid 1 mg Tablet 1 mg PO DAILY Qty: 30 0RF thiamine mononitrate (vit B1) 100 mg Tablet 100 mg PO DAILY Qty: 30 0RF Continued ibuprofen 200 mg Tablet 400 mg PO Q6H PRN (Reason: Pain (Scale Score 4-6)) Discontinued acetaminophen 325 mg Tablet 325 mg PO QID PRN (Reason: Pain) Discharge Orders: Discharge Order (Routine); Ordered 07/11/22 Ordered By: Altagracia Nice Diet: Advance to usual diet Activity on Discharge: no alcohol Stand Alone Forms: Patient Portal Discharge page Other Ambulatory Orders: Liver Panel (Routine) Timeframe: [id number] Facility: [facility] - Location: Laboratory Ordered By: Altagracia Nice Care Plan Goals: sobriety Health Concerns: alcohol withdrawal, alcohol use disorder Plan of Treatment: start naltrexone as prescribed take vitamins as prescribed recheck labs [liver function tests] on Friday07/15/22 do not drink alcohol; the combination with phenobarbital, which will remain in your system for several days, can be dangerous Please follow up with your primary care doctor within 1 week. Please follow up with Angelika Ledbetter NP, at [facility], in 1 week. Assessment: See Discharge Summary
== END 2022-07-11 14:07 | disposition home or self-care (01) | DRG 280 ==
LOC: HO.ED 16:32 → HO.EDOVER 21:05 → HO.S3 07-09 20:06
PROVIDERS: Internal Medicine; Nurse Practitioner Acute Care; Admitting Provider Internal Medicine; Emergency Provider Emergency Medicine; PCP Nurse Practitioner Family; Visit Provider Family Medicine
DX: K70.10 Alcoholic hepatitis without ascites (principal); F10.231 Alcohol dependence with withdrawal delirium; R31.9 Hematuria, unspecified; D72.819 Decreased white blood cell count, unspecified; N39.0 Urinary tract infection, site not specified; E83.42 Hypomagnesemia; Z20.822 Contact with and (suspected) exposure to COVID-19; Y90.3 Blood alcohol level of 60-79 mg/100 ml; Z88.5 Allergy status to narcotic agent; Z79.899 Other long term (current) drug therapy
CPT/HCPCS: 36415; 71045; 80048; 80053; 80076; 80307; 81001; 82077; 83690; 83735; 84484; 85025; 85027; 86704; 86706; 86803; 87340; 87389; 87635; 93005; 96361; 96372; 96374; 96375; 99285; J1170; J1650; J2405; J2560; J3475

== ENCOUNTER → 2022-07-12 14:13 | Outpatient (BNVA) | payer OTHER, SELFPAY | PROVIDERS: PCP Nurse Practitioner Family; Visit Provider Nurse Practitioner Psychiatric/Mental Health | DX: F10.20 Alcohol dependence, uncomplicated (principal); Z79.891 Long term (current) use of opiate analgesic | CPT/HCPCS: 80305; 99212 ==

== ENCOUNTER 2022-07-15 11:48 | Outpatient (REF) | payer OTHER, SELFPAY ==
[2022-07-15 12:52] LABS: Alanine Aminotransferase 183 U/L (0-40); Albumin Level 4.5 g/dL (3.5-5.0); Alkaline Phosphatase 74 U/L (39-117); Aspartate Amino Transferase 99 U/L (5-37); Bilirubin Direct 0.2 mg/dL (0.0-0.5); Bilirubin Total 0.5 mg/dL (0.0-1.0); Total Protein 7.3 g/dL (6.5-8.0)
== END 2022-07-15 11:49 | disposition home or self-care (01) ==
LOC: HO.LAB 11:48
PROVIDERS: PCP Nurse Practitioner Family; Visit Provider Family Medicine
DX: F10.20 Alcohol dependence, uncomplicated (principal); R74.01 Elevation of levels of liver transaminase levels
CPT/HCPCS: 36415; 80076

== ENCOUNTER → 2022-07-23 14:08 | Outpatient (BNVA) | payer OTHER, SELFPAY | PROVIDERS: PCP Nurse Practitioner Family; Visit Provider Nurse Practitioner Psychiatric/Mental Health | DX: F10.20 Alcohol dependence, uncomplicated (principal); Z51.81 Encounter for therapeutic drug level monitoring; Z79.899 Other long term (current) drug therapy | CPT/HCPCS: 80305; 99212 ==

== ENCOUNTER → 2022-08-09 13:55 | Outpatient (BNVA) | payer OTHER, SELFPAY | PROVIDERS: PCP Nurse Practitioner Family; Visit Provider Nurse Practitioner Psychiatric/Mental Health | DX: Z51.81 Encounter for therapeutic drug level monitoring (principal); F10.20 Alcohol dependence, uncomplicated | CPT/HCPCS: 80305; 99212 ==

== ENCOUNTER 2022-11-11 10:26 | Emergency (ER) | payer OTHER, SELFPAY ==
--- NOTE | ~2022-11-11 | CT_ITS ---
EXAMINATION: CT ABDOMEN AND PELVIS WITH CONTRAST CLINICAL INFORMATION: Right upper/lower abdominal pain and vomiting. COMPARISON: None TECHNIQUE: images were obtained on the technologist's workstation. Additional
[2022-11-11 10:46] VITALS: BP 121/58; PULSE 40; RESP 20; TEMP 36.4; O2SAT 99; BMI 23.7
--- NOTE | 2022-11-11 10:56 | ECG_ITS ---
Test Reason : STOMACH PAIN Blood Pressure : / mmHG Vent. Rate : 046 BPM Atrial Rate : 046 BPM P-R Int : 150 ms QRS Dur : 108 ms QT Int : 486 ms P-R-T Axes : 029 059 056 degrees QTc Int : 425 ms Sinus bradycardia with sinus arrhythmia Otherwise normal ECG When compared with ECG of 09-JUL-2022 05:09, No significant change was found Referred By: Samantha Hawley Electronically Signed By:Vikas Mclaughlin
--- NOTE | 2022-11-11 10:57 | ED.ABDPAIN ---
HPI - Abdominal Pain General Chief Complaint: Abdominal Pain Stated Complaint: Vomiting/Back pain./Abd pain Time Seen by Provider: 11/11/22 10:54 Source: patient Mode of arrival: ambulatory Limitations: no limitations History of Present Illness HPI narrative: Patient is a 32-year-old male who presents to the emergency department for evaluation of right-sided abdominal pain. He reports that is predominantly in the right lateral abdomen radiating into the back, though he does have some pain radiating to the front in the right upper quadrant as well as right lower quadrant. Onset of pain was 09:30 this morning with 2 episodes of bilious vomiting. He also states he feels the urge to have a bowel movement but cannot. Last had a normal bowel movement yesterday evening. He states that he ate [place] food for dinner last night, however others who ate the food are not having similar symptoms. Denies any recent sick contacts. Denies fevers, chills, chest pain, shortness of breath, upper respiratory symptoms, bloody or dark stools, dysuria, urinary frequency, hematuria. Denies any alcohol consumption. Denies any recreational drug usage. Related Data Home Medications Medication Instructions Recorded Confirmed ibuprofen 200 mg tablet 400 mg PO Q6H PRN Pain (Scale 04/05/22 07/08/22 Score 4-6) Previous Rx's Medication Instructions Recorded folic acid 1 mg tablet 1 mg PO DAILY #30 tabs 07/11/22 multivitamin (Daily-Lisa tablet) 1 tab PO BEDTIME #30 tabs 07/11/22 thiamine mononitrate (vit B1) 100 100 mg PO DAILY #30 tabs 07/11/22 mg tablet naltrexone 50 mg tablet 50 mg PO DAILY #30 tabs 08/09/22 hydroxyzine pamoate 25 mg capsule 50 mg PO BID PRN for anxiety #60 09/05/22 caps ibuprofen 600 mg tablet 600 mg PO Q8H PRN pain 5 days #20 11/11/22 tabs oxycodone 5 mg tablet 5 mg PO Q8H PRN pain #7 tabs 11/11/22 prednisone 10 mg tablet 10 mg PO BID 5 days #10 tabs 11/11/22 tamsulosin 0.4 mg capsule 0.4 mg PO BEDTIME #10 caps 11/11/22 Allergies Allergy/AdvReac Type Severity Reaction Status Date / Time tramadol [TRAMADOL] Allergy Unknown HIVES Verified 05/17/21 14:20 Review of Systems Review of Systems Constitutional : No Weight loss, No Fever, No Chills ENT/Mouth :? No sore throat, No Rhinorrhea Eyes: No Swelling, No Redness Cardiovascular : No Chest Pain, No SOB, No Edema Respiratory : No Cough, No Sputum, No Wheezing Gastrointestinal : Positive Nausea, Positive Vomiting, no Diarrhea, positive abdominal pain, No Hematochezia, No Melena Genitourinary : No Dysuria, No Urinary Frequency, No Hematuria, No Urgency? Musculoskeletal : No joint pain, No Myalgias, No Joint Swelling Skin : No Skin Lesions, No rash Neuro : No Weakness, No Numbness, No Dizziness, No Headache Psych : No Anxiety/Panic, No Depression Yes all other systems are reviewed and are negative [facility] Past Medical History Attestation statement: The following information was validated with the patient. Source: old records reviewed Medical History Alcohol abuse Alcohol use disorder, severe, dependence Alcohol withdrawal Dislocation of left elbow Elevated transaminase level Hypomagnesemia Visual hallucinations Surgical History History of foot surgery Family History Family History Other No family history of coronary artery disease Social History Social History Household Members: Family Do you presently have visiting nurse or other home services: No Alcohol intake: former Patient Tobacco Use Status: Never used Tobacco Smoked in Last 30 Days: No Second Hand Smoke Exposure: No Use of substances other than those prescribed or required for medical reasons: No Substance Use Type: Marijuana Advance Directives: No Advance Directives Information Provided: Yes service: No Current occupational status: employed Current occupation: right handed Physical Exam ED Vital Signs: Vital Signs - 24 hr 11/11/22 10:46 11/11/22 11:10 11/11/22 11:11 Temperature 97.6 F Pulse Rate 40 L 45 L Respiratory Rate 20 18 Blood Pressure 121/58 L 107/69 Pulse Oximetry 99 99 Oxygen Delivery Method Room Air Room Air 11/11/22 12:24 Temperature 98.2 F Pulse Rate 41 L Respiratory Rate 12 Blood Pressure 153/57 H Pulse Oximetry 98 Oxygen Delivery Method Room Air BMI result Body Mass Index 23.7 Appearance: Alert.?Oriented to person, place and time. No acute distress.?Normal affect. Eyes: Pupils equal, round and reactive to light.? ENT: Pharynx normal.?? Neck: Normal inspection.? Neck supple.?? CVS: Heart sounds normal. Normal heart rate and rhythm.? Pulses normal.?? Respiratory: No respiratory distress.? Lung sounds clear to auscultation bilaterally?? Abdomen: Soft diffuse tenderness upon palpation throughout the abdomen, not particularly worsen any quadrant. Negative Villalobos sign. No rebound tenderness at McBurney's point. Negative psoas sign, obturator sign. No rigidity. No guarding. No CVA tenderness.. Normoactive bowel sounds.?? Skin: Skin warm and dry.? Normal skin color.? Extremities: No lower extremity edema.? Neuro: Moves all extremities spontaneously. Sensation intact bilaterally. No focal neuro deficits. Ambulates with normal steady gait. Course Reevaluation(s) Reevaluation #1: COVID-19 and influenza testing are negative. CBC is overall unremarkable, very mild normocytic anemia not requiring transfusion. CMP is overall unremarkable, transaminases are normal, lipase within normal limit. Urinalysis without evidence of infection, there is however presence of microscopic hematuria. CT of the abdomen and pelvis is pending at this time. Time: 13:39 Reevaluation #2: CT reveals moderate right-sided hydronephrosis with obstructing 0.3 cm calculus at the right UVJ. There is also incidental notation of 2 adjacent nodules at the right lung based of which can be followed up with outpatient with primary care provider. Patient reports pain currently 5/10, remains nauseous at this time. Consult and with Urology, Dr. Narvaez. Patient advised to plan of care he will be discharged home, will send prescription for tamsulosin, NSAID, and prednisone to patient's pharmacy, in addition will be given a short prescription for oxycodone to use only as needed for severe pain. We discussed worrisome signs and symptoms that would warrant re-evaluation at the emergency department. Questions answered. He is tolerating p.o. intake. Stable for discharge home. Time: 14:18 Medical Decision Making Medical Decision Making MDM Narrative: Patient is a 32 old male with a past medical history of alcohol use disorder, alcoholic hepatitis presenting to emergency department today for evaluation of abdominal pain and vomiting. He appears uncomfortable, he is noted to be bradycardic at the time of initial examination. He is without chest pain, shortness of breath, dizziness, lightheadedness, or syncope. He is unaware what is baseline heart rate is. Will obtain CBC to evaluate for leukocytosis/ anemia, CMP and lipase to evaluate for abnormal electrolytes /abnormal renal function/ abnormal hepatic/biliary function, EKG and troponin to evaluate for ischemia/ACS, Urinalysis, in addition to CT the abdomen and pelvis to evaluate for bowel obstruction, nephrolithiasis, hydronephrosis, evidence of pyelonephritis, cholecystitis, in addition to appendicitis though low suspicion for this. Admission/Observation Consideration of admission/observation: Escalation of care including admission/observation considered I considered admission inpatient given hydronephrosis and obstructive calculi with persistent pain and nausea, after speaking with Urology, deferring discharge at this time and patient will have outpatient follow-up Consult Healthcare Provider Management of the patient was discussed with: Customer Care Specialist (Urology; Dr. Narvaez) Discussed with Urology history and physical examination in addition to laboratory and CT findings. We discussed plan of care which will include discharge on NSAID, tamsulosin, and prednisone with plan for outpatient follow-up this week. Lab Data [facility] Lab Attestation statement: I reviewed the patient's lab results. Result Diagrams: 11/11/22 11:07 11/11/22 11:07 Labs: Lab Results 11/11/22 11/11/22 11/11/22 Range/Units 11:06 11:06 11:07 WBC 8.0 (4.8-10.8) X10*3/uL RBC 4.73 (4.60-5.80) X10*6/uL Hgb 13.6 L (14.0-18.0) g/dl Hct 41.3 L (42.0-52.0) % MCV 87.3 (80.0-98.0) fL MCH 28.8 (27.0-33.0) pg MCHC 32.9 (31.0-36.0) g/dl RDW 12.5 (11.0-16.0) % Plt Count 240 D (160-400) X10*3/uL MPV 9.9 (9.4-12.4) fL Immature Gran % (Auto) 0.2 (0.0-0.4) % Neut % (Auto) 76.1 H (45-73) % Lymph % (Auto) 16.9 L (20-40) % [place] % (Auto) 5.2 (2-11) % Eos % (Auto) 1.0 (0-4) % Baso % (Auto) 0.6 (0-2) % Lymph # (Auto) 1.4 (1.2-4.9) X10*3/uL [place] # (Auto) 0.4 (0.1-1.2) X10*3/uL Eos # (Auto) 0.1 (0.0-0.4) X10*3/uL Baso # (Auto) 0.1 (0.0-0.2) X10*3/uL Abs Immat Gran (auto) 0.02 (0.00-0.03) X10*3/uL Absolute Neuts (auto) 6.1 (2.0-8.3) x10*3/uL Absolute Nucleated RBC 0.000 (0.0-0.012) X10*3/uL Nucleated RBC % (auto) 0.0 (0.0-0.2) /100WBC Sodium (135-145) mmol/L Potassium (3.3-5.1) mmol/L Chloride (96-108) mmol/L Carbon Dioxide (22-29) mmol/L Anion Gap (12-20) BUN (9-16) mg/dL Creatinine (0.5-1.4) mg/dL Estim Creat Clear Calc Estimated GFR Random Glucose (60-115) mg/dL Calcium (8.4-10.2) mg/dL Total Bilirubin (0.0-1.0) mg/dL AST (5-37) U/L ALT (0-40) U/L Alkaline Phosphatase (39-117) U/L Troponin I High Sens (<3.5-35.0) ng/L Total Protein (6.5-8.0) g/dL Albumin (3.5-5.0) g/dL Lipase (8-78) U/L Urine Color Urine Appearance Urine pH (5.0-9.0) Ur Specific Mcgregor (1.005-1.025) Urine Protein (Neg-Trace) mg/dL Urine Glucose (UA) (Negative) mg/dL Urine Ketones (Negative) mg/dL Urine Blood (Negative) Urine Nitrite (Negative) Ur Leukocyte Esterase (Negative) Urine RBC (0-2) /HPF Urine WBC (0-5) /HPF Ur Squamous Epith Cells (0-2) /HPF Urine Bacteria (None Seen) Hyaline Casts (0-2) /LPF COVID-19 (SLIME) Negative (Negative) COVID-19 Clin Com See Note Influenza Type A (DUNG) Negative (Negative) Influenza Type B (DUNG) Negative (Negative) Influenza A & B Note See Note 11/11/22 11/11/22 11/11/22 Range/Units 11:07 11:07 12:32 WBC (4.8-10.8) X10*3/uL RBC (4.60-5.80) X10*6/uL Hgb (14.0-18.0) g/dl Hct (42.0-52.0) % MCV (80.0-98.0) fL MCH (27.0-33.0) pg MCHC (31.0-36.0) g/dl RDW (11.0-16.0) % Plt Count (160-400) X10*3/uL MPV (9.4-12.4) fL Immature Gran % (Auto) (0.0-0.4) % Neut % (Auto) (45-73) % Lymph % (Auto) (20-40) % [place] % (Auto) (2-11) % Eos % (Auto) (0-4) % Baso % (Auto) (0-2) % Lymph # (Auto) (1.2-4.9) X10*3/uL [place] # (Auto) (0.1-1.2) X10*3/uL Eos # (Auto) (0.0-0.4) X10*3/uL Baso # (Auto) (0.0-0.2) X10*3/uL Abs Immat Gran (auto) (0.00-0.03) X10*3/uL Absolute Neuts (auto) (2.0-8.3) x10*3/uL Absolute Nucleated RBC (0.0-0.012) X10*3/uL Nucleated RBC % (auto) (0.0-0.2) /100WBC Sodium 139 (135-145) mmol/L Potassium 4.6 (3.3-5.1) mmol/L Chloride 106 (96-108) mmol/L Carbon Dioxide 26 (22-29) mmol/L Anion Gap 12 (12-20) BUN 13 (9-16) mg/dL Creatinine 0.91 (0.5-1.4) mg/dL Estim Creat Clear Calc 129.2 Estimated GFR > 60 Random Glucose 139 H (60-115) mg/dL Calcium 9.7 D (8.4-10.2) mg/dL Total Bilirubin 0.5 (0.0-1.0) mg/dL AST 13 (5-37) U/L ALT 12 (0-40) U/L Alkaline Phosphatase 55 (39-117) U/L Troponin I High Sens < 3.5 D (<3.5-35.0) ng/L Total Protein 7.0 (6.5-8.0) g/dL Albumin 4.5 (3.5-5.0) g/dL Lipase 42 (8-78) U/L Urine Color Yellow Urine Appearance Clear Urine pH 5.5 (5.0-9.0) Ur Specific Mcgregor >= 1.030 H (1.005-1.025) Urine Protein Trace (Neg-Trace) mg/dL Urine Glucose (UA) Negative (Negative) mg/dL Urine Ketones Negative (Negative) mg/dL Urine Blood Large (3+) H (Negative) Urine Nitrite Negative (Negative) Ur Leukocyte Esterase Negative (Negative) Urine RBC >20 H (0-2) /HPF Urine WBC 0-5 (0-5) /HPF Ur Squamous Epith Cells 0-2 (0-2) /HPF Urine Bacteria None Seen (None Seen) Hyaline Casts 0-2 (0-2) /LPF COVID-19 (SLIME) (Negative) COVID-19 Clin Com Influenza Type A (DUNG) (Negative) Influenza Type B (DUNG) (Negative) Influenza A & B Note Independent Interpretation I performed an independent interpretation of an: EKG Interpretation: Rate: 46 Normal P waves.? Normal MAT.?? Normal QRS complex.?? ST T wave :??No ST elevation, no ST depression, no T-wave inversion qTC: 425 prior studies:? 07/09/2022 The study has been interpreted contemporaneously by me. Radiology Impression Discussion of test interpretation with radiology: I have reviewed the radiologist's reading. Radiologist Impression: CT/CT abdomen pelvis w IV con IMPRESSION: ? 1. Moderate right-sided hydroureteronephrosis secondary to an obstructing 0.3 cm radiopaque calculus at the right ureterovesicular junction. 2. Incidental note is made of 2 adjacent sub-5 mm lung and Naty-fissural nodules at right lung base, not optimally characterized. There are no prior studies available for comparison. According to the UPDATED 2017 Fleischner Society recommendations, the advised follow-up imaging for solid nodules < 6 mm is: ?? LOW RISK PATIENT: No routine follow-up. ?? HIGH RISK PATIENT: Optional CT at 12 months. 3. Subcentimeter hypodensity along the subdiaphragmatic surface of right lobe of the liver laterally most consistent with an incidental cyst. Prescription Management Patient is discharged home with prescription for prednisone, tamsulosin, ibuprofen, and oxycodone as noted above. Medications Administered Discontinued Medications Generic Name Dose Route Start Last Admin Trade Name Freq PRN Reason Stop Dose Admin Sodium Chloride 1,000 mls @ 999 mls/hr 11/11/22 11:15 11/11/22 13:02 Ns IV 11/11/22 12:15 Infused .Q1H1M CHUCK Infusion Morphine Sulfate 4 mg 11/11/22 11:08 11/11/22 11:20 Morphine Sulfate 4 Mg/Ml Cartridge IVPUSH 11/11/22 11:09 4 mg ONCE ONE Administration Protocol Ondansetron HCl 4 mg 11/11/22 11:01 11/11/22 11:21 Ondansetron Hcl 4 Mg/2 Ml Vial IVPUSH 11/11/22 11:02 4 mg ONCE ONE Administration Discharge Plan Discharge Clinical Impression: Hydronephrosis with urinary obstruction due to ureteral calculus Patient Disposition: Home, Self-Care Instructions: Hydronephrosis (ED), Ureteral Stones (ED) Additional Instructions: As discussed, you have been given contact information for the urology office, with which she will need to follow up with. I have spoken with Dr. Narvaez from Urology, the nurses from the office should be contacting you this week to arrange for a follow-up visit, if you do not hear from them within 2 days please contact your office to schedule follow-up. New prescriptions were sent to your pharmacy for prednisone, Flomax, and ibuprofen. In addition you have been given a prescription for oxycodone to use as needed for severe pain, this medication is an opiate it may be addictive. You should use caution when taking this medication, do not drive, drink alcohol, operate machinery, or work while taking this medication. As mentioned, there was an incidental finding of nodules in your right lower lung, you need to make your primary care provider aware of this so that they may follow-up with this accordingly. Please return to the emergency department with any new or worsening symptoms or concerns. Prescriptions: New tamsulosin 0.4 mg capsule 0.4 mg PO BEDTIME Qty: 10 0RF prednisone 10 mg tablet 10 mg PO BID 5 Days Qty: 10 0RF ibuprofen 600 mg tablet 600 mg PO Q8H PRN (Reason: pain) 5 Days Qty: 20 0RF oxycodone 5 mg tablet 5 mg PO Q8H PRN (Reason: pain) Qty: 7 0RF Rx Instructions: Partial Fill upon patient request. No Action hydroxyzine pamoate 25 mg capsule 50 mg PO BID PRN (Reason: for anxiety) Qty: 60 0RF ibuprofen 200 mg Tablet 400 mg PO Q6H PRN (Reason: Pain (Scale Score 4-6)) multivitamin [Daily-Lisa] Tablet 1 tab PO BEDTIME Qty: 30 0RF folic acid 1 mg Tablet 1 mg PO DAILY Qty: 30 0RF thiamine mononitrate (vit B1) 100 mg Tablet 100 mg PO DAILY Qty: 30 0RF naltrexone 50 mg tablet 50 mg PO DAILY Qty: 30 0RF Referrals: Ruel Narvaez MD [Physician] - Azalea Dyson NP [Primary Care Provider] - Stand Alone Forms: Work/School Release Interventions: ED Discharge Assessment Last Done: 11/11/22 14:43 Discharge Date/Time: 11/11/22 14:44
[2022-11-11 11:10] VITALS: PULSE 45; RESP 18; O2SAT 99
[2022-11-11 11:11] VITALS: BP 107/69
[2022-11-11 11:14] LABS: MANUAL DIFF FLAG NO
[2022-11-11 11:27] LABS: COVID-19 Test Negative (Negative); IDNOW Serial# 55D5AD1C
--- NOTE | 2022-11-11 11:27 | PC.NURSE ---
Pt appears uncomfortable intermittently. States right flank pain into right low abd. Vomiting. Pj on tele as low as 38, pt denies dizziness or SOB and just reports pain. IV started and medicated as charted. Skin pale, warm and dry. Denies urinary sx.
[2022-11-11 11:28] LABS: Basophils Absolute Auto 0.1 X10*3/uL (0.0-0.2); Basophils Percent Auto 0.6 % (0-2); Eosinophils Absolute Auto 0.1 X10*3/uL (0.0-0.4); Hematocrit 41.3 % (42.0-52.0); Hemoglobin 13.6 g/dl (14.0-18.0); Imm Gran Abs Auto 0.02 X10*3/uL (0.00-0.03); Imm Gran Pct Auto 0.2 % (0.0-0.4); Lymphocytes Absolute Auto 1.4 X10*3/uL (1.2-4.9); Lymphocytes Percent Auto 16.9 % (20-40); Mean Corpuscular HGB Conc 32.9 g/dl (31.0-36.0); Mean Corpuscular Hemoglobin 28.8 pg (27.0-33.0); Mean Corpuscular Volume 87.3 fL (80.0-98.0); Mean Platelet Volume 9.9 fL (9.4-12.4); Monocytes Absolute Auto 0.4 X10*3/uL (0.1-1.2); Monocytes Percent Auto 5.2 % (2-11); Neutrophils Absolute Auto 6.1 x10*3/uL (2.0-8.3); Neutrophils Percent Auto 76.1 % (45-73); Platelet Count 240 X10*3/uL (160-400); Red Blood Count 4.73 X10*6/uL (4.60-5.80); Red Cell Distribution Width 12.5 % (11.0-16.0)
[2022-11-11 11:28] LABS: IDNOW Serial# BCCEAD1C; Influenza A Negative (Negative); Influenza B2 Negative (Negative)
[2022-11-11 11:37] LABS: Alanine Aminotransferase 12 U/L (0-40); Albumin Level 4.5 g/dL (3.5-5.0); Alkaline Phosphatase 55 U/L (39-117); Anion Gap 12 (12-20); Aspartate Amino Transferase 13 U/L (5-37); Bilirubin Total 0.5 mg/dL (0.0-1.0); Blood Urea Nitrogen 13 mg/dL (9-16); Calcium 9.7 mg/dL (8.4-10.2); Carbon Dioxide 26 mmol/L (22-29); Chloride 106 mmol/L (96-108); Creatinine Clr Calc Pharmacy 129.2; Estimated Glomerular Filt Rate > 60; Glucose Random 139 mg/dL (60-115); Lipase 42 U/L (8-78); Potassium 4.6 mmol/L (3.3-5.1); Sodium 139 mmol/L (135-145)
[2022-11-11 12:20] LABS: Troponin-I High Sensitivity < 3.5 ng/L (<3.5-35.0)
[2022-11-11 12:24] VITALS: BP 153/57; PULSE 41; RESP 12; TEMP 36.8; O2SAT 98
[2022-11-11 12:43] LABS: Appearance Urine Clear; Color Urine Yellow; Glucose Urine UA Negative (Negative); Leukocyte Esterase Urine Negative (Negative); Nitrite Urine Negative (Negative); PH 5.5 (5.0-9.0); Specific Gravity - Urine >= 1.030 (1.005-1.025); UMIC TRIGGER UACC YES; Urine Blood Large (3+) (Negative); Urine Ketones Negative (Negative); Urine Protein Trace mg/dL (Neg-Trace)
[2022-11-11 12:48] LABS: Bacteria Urine None Seen (None Seen); Hyaline Casts Urine 0-2 /LPF (0-2); RBC Urine >20 /HPF (0-2); Squamous Epithelial Cell Urine 0-2 /HPF (0-2); WBC Urine 0-5 /HPF (0-5)
== END 2022-11-11 14:44 | disposition home or self-care (01) ==
PROVIDERS: Nurse Practitioner Family; Emergency Provider Emergency Medicine; PCP Nurse Practitioner Family
DX: N13.2 Hydronephrosis with renal and ureteral calculous obstruction (principal); Z20.822 Contact with and (suspected) exposure to COVID-19
CPT/HCPCS: 74177; 80053; 81001; 83690; 84484; 85025; 87502; 87635; 93005; 96361; 96374; 96375; 99284; 99285; J2270; J2405

== ENCOUNTER 2022-11-14 09:52 | Emergency (ER) | payer OTHER, SELFPAY ==
[2022-11-14 09:56] VITALS: BP 141/88; PULSE 55; RESP 18; TEMP 36.9; O2SAT 99; BMI 24.4
--- NOTE | 2022-11-14 10:37 | ED_ITS ---
HPI - Dental/Oral General Chief complaint: Dental/Oral Stated complaint: dental abscess Time Seen by Provider: 11/14/22 10:33 Source: patient Mode of arrival: ambulatory Limitations: no limitations History of Present Illness HPI Narrative: 32-year-old male with past medical history of anxiety, alcohol use disorder, and dental abscess in September presents to the ED with complaints of recurrent dental abscess in the right lower jaw/tooth. He states he noticed swelling yesterday with worsening swelling and pain starting late last night. He last an abscess in right lower jaw near [facility] it was incised and drained at in [place] in he was discharged with a course of antibiotics and recommendation to follow up with an oral surgeon. He states he did not complete the full course of antibiotics and that he has an appointment with the oral surgeon in January. He reports slight pressure when swallowing but denies difficulty swallowing liquids or solids. He denies fevers, shortness of breath, chest pain, chills. MD Complaint: tooth pain Onset (ago): day(s) (2) Duration: constant Severity: severe Severity scale (1-10): 10 Relieving factors: nothing Exacerbating factors: other (palpation) Context: history of dental caries and poor dental care Associated symptoms: gum swelling and pain with swallowing Treatment prior to arrival: none Related Data Home Medications Medication Instructions Recorded Confirmed ibuprofen 200 mg tablet 400 mg PO Q6H PRN Pain (Scale 04/05/22 07/08/22 Score 4-6) Previous Rx's Medication Instructions Recorded folic acid 1 mg tablet 1 mg PO DAILY #30 tabs 07/11/22 multivitamin (Daily-Lisa tablet) 1 tab PO BEDTIME #30 tabs 07/11/22 thiamine mononitrate (vit B1) 100 100 mg PO DAILY #30 tabs 07/11/22 mg tablet naltrexone 50 mg tablet 50 mg PO DAILY #30 tabs 08/09/22 hydroxyzine pamoate 25 mg capsule 50 mg PO BID PRN for anxiety #60 09/05/22 caps ibuprofen 600 mg tablet 600 mg PO Q8H PRN pain 5 days #20 11/11/22 tabs oxycodone 5 mg tablet 5 mg PO Q8H PRN pain #7 tabs 11/11/22 prednisone 10 mg tablet 10 mg PO BID 5 days #10 tabs 11/11/22 tamsulosin 0.4 mg capsule 0.4 mg PO BEDTIME #10 caps 11/11/22 amoxicillin 875 mg-potassium 1 tab PO BID 7 days #14 tabs 11/14/22 clavulanate 125 mg tablet oxycodone 5 mg capsule 5 mg PO Q8H PRN pain #5 caps 11/14/22 Allergies Allergy/AdvReac Type Severity Reaction Status Date / Time tramadol [TRAMADOL] Allergy Unknown HIVES Verified 05/17/21 14:20 Review of Systems Review of Systems: In addition to documented HPI above, the additional ROS was obtained: Constitutional: No Weight loss, No Fever, No Chills ENT/Mouth: No Ear Pain, No Nasal Congestion, No Sinus Pain, No Hoarseness, No sore throat, No Rhinorrhea, No Swallowing Difficulty Cardiovascular: No Chest Pain, No SOB Respiratory: No Cough, No Sputum, No Wheezing Gastrointestinal: No Nausea, No Vomiting, No Diarrhea, No Constipation, No Abdominal pain Genitourinary: No Dysuria, No Urinary Frequency, No Hematuria, No Urinary Incontinence/retention, No Urgency, No Flank Pain Musculoskeletal: No joint pain, No Myalgias, No Joint Swelling Skin: No Skin Lesions, No rash Neuro: No Weakness, No Numbness, No Paresthesias Yes all other systems are reviewed and are negative ENT: Reports Normal hearing present Neurologic: Reports Normal hearing present [facility] Past Medical History Attestation statement: The following information was validated with the patient. Source: old records reviewed Medical History Alcohol abuse Alcohol use disorder, severe, dependence Alcohol withdrawal Dislocation of left elbow Elevated transaminase level Hypomagnesemia Visual hallucinations Surgical History History of foot surgery Family History Family History Other No family history of coronary artery disease Social History Social History Household Members: Family Do you presently have visiting nurse or other home services: No Alcohol intake: former Patient Tobacco Use Status: Never used Tobacco Second Hand Smoke Exposure: No Substance Use Type: Marijuana Advance Directives: No Advance Directives Information Provided: Yes service: No Current occupational status: employed Current occupation: right handed Physical Exam Vital Signs: Vital Signs: Last Vital Signs Temp 98.4 F 11/14/22 09:56 Pulse 55 11/14/22 09:56 Resp 18 11/14/22 09:56 BP 141/88 H 11/14/22 09:56 Pulse Ox 99 11/14/22 09:56 O2 Del Method 11/14/22 09:56 BMI result Body Mass Index 24.4 Const: General: cooperative, alert and awake Nutritional Appearance: average body habitus Orientation/consciousness: patient oriented x3 Limitations: no limitations HEENT: Head: Yes normal to inspection, Yes atraumatic and Yes other (swelling right lower jaw) Ears: hearing grossly normal bilaterally and external ears normal General nose exam: Normal external nose present and Normal nares present Face and sinus: Yes normal facial exam, No ecchymosis and No erythema Mouth: lip normal and moist mucous membranes Teeth and gingiva: abnormal tooth and associated gingiva, caries and poor dentition Throat: Yes posterior oropharynx normal Eyes: General: appearance normal, both eyes and all related structures Visual Carrizales: normal visual carrizales by confrontation Alignment and Position: alignment normal Periorbital: periorbital findings normal Eyelids: Yes eyelids normal Conjunctivae: conjunctivae normal Sclerae: sclerae normal Corneas: corneas normal Pupils: Equal, round and reactive pupils present EOM: EOMs intact bilaterally Neck: Neck: Yes normal visual inspection, Yes full ROM, Yes trachea midline and Yes anterior neck swelling (right) Chest: Chest palpation & inspection: normal inspection of the chest Resp: Effort & Inspection: normal respiratory effort and not labored Auscultation: clear to auscultation bilaterally, no crackles, no rhonchi and no wheezes Cardio: Rate: regular rate Rhythm: regular rhythm Back/Spine/Pelvis: Cervical Spine: cervical ROM normal Thoracic/Lumbar Spine: thoraco-lumbar ROM normal Skin: General skin exam: no rashes or lesions noted Neuro: General: patient oriented x3, tone normal and moves all extremities Cranial nerves: Yes Equal, round and reactive pupils present and Yes Normal hearing present Cognition (Neuro): normal cognition Gait exam (Neuro): Normal gait present Motor exam (neuro): 5/5 motor strength present throughout Extrem: General: Yes normal to inspection, Yes full ROM and Yes capillary refill normal Psych: Appearance: grossly normal Mental Status: mental status grossly normal Speech and movement: Normal speech and movement present Affect: normal affect Attitude: cooperative Thought process: Normal thought process present Thought content: Normal thought content present Medications Administered Discontinued Medications Generic Name Dose Route Start Last Admin Trade Name Ade PRN Reason Stop Dose Admin Acetaminophen 650 mg 11/14/22 11:13 11/14/22 11:34 Acetaminophen 325 Mg Tablet PO 11/14/22 11:14 650 mg ONCE ONE Administration Lidocaine HCl 5 ml 11/14/22 10:53 11/14/22 11:34 Lidocaine Hcl 1 % Mpf 5 Ml Vial INFILTRATI 11/14/22 10:54 5 ml ONCE ONE Administration Oxycodone HCl 5 mg 11/14/22 11:13 11/14/22 11:34 Oxycodone Hcl Immed Release 5 Mg Tablet PO 11/14/22 11:14 5 mg ONCE ONE Administration Medical Decision Making Medical Decision Making MDM Narrative: 32-year-old male with past medical history of anxiety, alcohol use disorder, and dental abscess in September presents to the ED with complaints of recurrent dental abscess in the right lower jaw/tooth. He states he noticed swelling yesterday with worsening swelling and pain starting late last night. Large fluctuate mass noted in right lower mouth near teeth 28-30. Plan to incise and drain abscess. Lidocaine lollipop given for pain and gums near tooth an esthetized with 1 ml Lidocaine with good effect. Abscess incised with 11 blade with about 3 ml yellow/penny purulent drainage obtained. Pt tolerated without incident. Pt safe for discharge with plan for 7 day course of Augmentin and follow up with an oral surgeon. Educated to complete full course of antibiotics. HPI, PE, and plan discussed with patient with no unanswered questions at this time. Educated to return to the emergency department with worsening swelling, redness, warmth, fever, chills or any other concerning emergent symptoms. Recommended follow-up with his primary care provider an oral surgeon for further treatment and management. Procedures Abscess I/D Site: oral Side (if applicable): right Local Anesthetic: lidocaine 1% Amount of anesthesia used (mL): 1 Technique: needle aspiration and incised with blade Amount of fluid expressed (mL): 3 Sent for culture/gram staining?: No Irrigation: No Packing used?: none Discharge Plan Discharge Clinical Impression: Dental caries, Dental abscess Patient Disposition: Home, Self-Care Instructions: Dental Abscess (ED), Abscess Incision and Drainage (DC) Additional Instructions: 7 day course of Augmentin (an antibiotic) has been prescribed for you. Please complete full course of antibiotics even if you are feeling better. Please contact your oral surgeon for make a sooner appointment. Please return to the emergency department with worsening swelling, redness, warmth, fever, chills or any other concerning emergent symptoms. Recommended follow-up with his primary care provider an oral surgeon for further treatment and management. Prescriptions: New amoxicillin-pot clavulanate 875-125 mg tablet 1 tab PO BID 7 Days Qty: 14 0RF Rx Instructions: COMPLETE FULL COURSE OF ANTIBIOTICS EVEN IF YOU FEEL BETTER OR THINK THE ABSCESS HAS RESOLVED oxycodone 5 mg capsule 5 mg PO Q8H PRN (Reason: pain) Qty: 5 0RF Rx Instructions: Partial Fill upon patient request. No Action hydroxyzine pamoate 25 mg capsule 50 mg PO BID PRN (Reason: for anxiety) Qty: 60 0RF tamsulosin 0.4 mg capsule 0.4 mg PO BEDTIME Qty: 10 0RF prednisone 10 mg tablet 10 mg PO BID 5 Days Qty: 10 0RF ibuprofen 600 mg tablet 600 mg PO Q8H PRN (Reason: pain) 5 Days Qty: 20 0RF oxycodone 5 mg tablet 5 mg PO Q8H PRN (Reason: pain) Qty: 7 0RF Rx Instructions: Partial Fill upon patient request. ibuprofen 200 mg Tablet 400 mg PO Q6H PRN (Reason: Pain (Scale Score 4-6)) multivitamin [Daily-Lsia] Tablet 1 tab PO BEDTIME Qty: 30 0RF folic acid 1 mg Tablet 1 mg PO DAILY Qty: 30 0RF thiamine mononitrate (vit B1) 100 mg Tablet 100 mg PO DAILY Qty: 30 0RF naltrexone 50 mg tablet 50 mg PO DAILY Qty: 30 0RF Referrals: [facility] – [place] Family Medicine [Provider Group] [facility] – [place] [facility]Provider Group[place] [facility] – [place] [facility] [Provider Group] Stand Alone Forms: Work/School Release Print Language: Kinyarwanda
[2022-11-14] MEDS: oxyCODONE HCl Immed Release 5 MG TABLET PO (11:34)
[2022-11-14] MEDS: Acetaminophen 325 MG TABLET 650 MG PO (11:34)
[2022-11-14] MEDS: Lidocaine HCl 1 % MPF 5 ML VIAL INFILTRATI (11:34)
== END 2022-11-14 12:23 | disposition home or self-care (01) ==
PROVIDERS: Emergency Provider Student in an Organized Health Care Education/Training Program
DX: K02.9 Dental caries, unspecified (principal); K04.7 Periapical abscess without sinus; F12.90 Cannabis use, unspecified, uncomplicated
CPT/HCPCS: 41800; 99283; 99284

== ENCOUNTER 2024-08-13 06:38 | Emergency (ER) | payer MEDICAID, SELFPAY ==
--- NOTE | 2024-08-13 | ECG_ITS ---
Test Reason : VOMMITING Blood Pressure : / mmHG Vent. Rate : 061 BPM Atrial Rate : 061 BPM P-R Int : 158 ms QRS Dur : 104 ms QT Int : 460 ms P-R-T Axes : 057 067 068 degrees QTc Int : 463 ms Normal sinus rhythm Normal ECG When compared with ECG of 11-NOV-2022 10:59, No significant change was found Referred By: Generic ED Physician Electronically Signed By:NETO ESQUIVEL
--- NOTE | ~2024-08-13 | CT_ITS ---
EXAMINATION: CT ABDOMEN AND PELVIS WITH CONTRAST CLINICAL INFORMATION: Severe abdominal pain COMPARISON: CT scan of abdomen and pelvis on 11/11/2022 TECHNIQUE: Multidetector volumetric images were obtained from the superior aspect of the liver through the pubic symphysis following administration 85 mL of Omnipaque 350 intravenous contrast. Sagittal and coronal reformatted images were obtained on the technologist's workstation. Oral contrast: No This CT examination was performed using dose optimization techniques as appropriate, variously including the following: *Automated exposure control *Adjustment of mA and/or kV according to patient size (this includes techniques or standardized protocols for targeted exams where dose is matched to indication/reason for exam; i.e. extremities or head) *Use of iterative reconstruction technique DLP: 368 mGy-cm FINDINGS: LUNG BASES: Only one 3.2 mm juxtapleural nodule is seen at anterior lateral condyle of right lower lobe anterior basal segment, series 8 image #3. The outer nodules reported previously are not included in the [id number]. LIVER: Tiny subcentimeter low-density lesions are seen, measuring 0.3 cm in diameter at anterior capsular border of left hepatic lobe segment 2, 0.6 cm in lateral capsular border of right hepatic lobe segment 8, impossible to characterize due to partial volume averaging. GALLBLADDER AND BILIARY TREE: Gallbladder appears unremarkable without calcified stones. Common bile duct is not dilated. SPLEEN: The spleen is normal in size without focal lesion. PANCREAS: The pancreas appears unremarkable. ADRENAL GLANDS: Adrenal glands are normal in size without focal lesion bilaterally. KIDNEYS: Bilateral kidneys are normal in size without focal lesion. BOWELS: There is no abnormal dilatation of the large and small bowel loops. RETROPERITONEUM: No abnormally enlarged retroperitoneal lymph nodes, mass or hematoma could be seen. BLOOD VESSELS: Abdominal aorta is normal in size and smoothly patent. ABDOMINAL WALL: Abdominal subcutaneous tissue and muscle are intact. No evidence of ventral hernia. PERITONEUM: There was no ascites. There were no abdominal peritoneal inflammatory changes seen. No free peritoneal air was seen. No abnormally enlarged mesenteric lymph nodes are found. BONES: No fracture or dislocation. No focal bone lesion diagnostic of metastatic disease could be seen in the lumbar region. EXAMINATION: CT pelvis. FINDINGS: URINARY BLADDER: Urinary bladder fills normally with urine. BOWELS: There is no abnormal dilatation of the large and small bowel loops. Appendix cannot be identified. GENITAL ORGANS: Seminal vesicles are unremarkable. Prostate gland is normal. LYMPH NODES: No abnormally enlarged iliac or inguinal lymph nodes are seen. PERITONEUM: No inflammatory changes, ascites or free peritoneal air are found in the pelvis. BONES: No fracture or dislocation. No focal bone lesion diagnostic of metastatic disease could be seen in the pelvis. CT/CT abdomen pelvis w IV con IMPRESSION: 1. Interval resolution of right hydronephrosis and hydroureter with passage of distal right ureteric calculus. 2. Unchanged Tiny subcentimeter low-density lesions are seen in the liver, impossible to characterize due to partial volume averaging, but highly in favor of stable hepatic cysts. 3. Probable persistent right lower lobe lung nodules, but only one micronodule is visualized within the [id number]. According to the UPDATED 2017 Fleischner Society recommendations, the advised follow-up imaging for solid nodules <6 mm in the middle/lower lobes is no routine follow up. Fleischner guidelines were followed. Electronically signed by: Kriss Crystal MD 08/13/2024 09:49 AM EDT
[2024-08-13 06:46] VITALS: BP 135/80; PULSE 62; PULSE 77; RESP 16; TEMP 36.3; O2SAT 100; BMI 21.4
[2024-08-13 06:59] LABS: MANUAL DIFF FLAG NO
[2024-08-13 07:00] LABS: Basophils Absolute Auto 0.1 X10*3/uL (0.0-0.2); Eosinophils Absolute Auto 0.2 X10*3/uL (0.0-0.4); Eosinophils Percent Auto 2.7 % (0-4); Hematocrit 43.3 % (42.0-52.0); Hemoglobin 15.4 g/dl (14.0-18.0); Imm Gran Abs Auto 0.01 X10*3/uL (0.00-0.03); Imm Gran Pct Auto 0.1 % (0.0-0.4); Lymphocytes Absolute Auto 2.6 X10*3/uL (1.2-4.9); Lymphocytes Percent Auto 32.7 % (20-40); Mean Corpuscular HGB Conc 35.6 g/dl (31.0-36.0); Mean Corpuscular Hemoglobin 28.8 pg (27.0-33.0); Mean Corpuscular Volume 81.1 fL (80.0-98.0); Mean Platelet Volume 9.2 fL (9.4-12.4); Monocytes Absolute Auto 0.7 X10*3/uL (0.1-1.2); Monocytes Percent Auto 9.2 % (2-11); Neutrophils Absolute Auto 4.3 x10*3/uL (2.0-8.3); Neutrophils Percent Auto 54.3 % (45-73); Platelet Count 329 X10*3/uL (160-400); Red Blood Count 5.34 X10*6/uL (4.60-5.80); Red Cell Distribution Width 11.9 % (11.0-16.0); White Blood Count 7.8 X10*3/uL (4.8-10.8)
--- NOTE | 2024-08-13 07:15 | ED_ITS ---
HPI - Abdominal Pain General Chief Complaint: Abdominal Pain Stated Complaint: R side Flank pain Time Seen by Provider: 08/13/24 06:45 Source: patient Mode of arrival: EMS Limitations: no limitations History of Present Illness ED Provider: Kassy HPI narrative: 33yo m PMHx kidney stones, AUD, transaminitis presenting with a few day history of RLQ/right flank pain that worsened significantly last night to 08/26. Patient started vomiting last night as well. Reports subjective fevers, chills, N/V. States last BM yesterday was small volume. Denies alchohol use, drug use. States this is similar to his previous stones but this time the pain is in a slightly different location and he is reporting subjective fevers which is different as well. Related Data Home Medications ?Medication ?Instructions ?Recorded ?Confirmed ibuprofen 200 mg tablet 400 mg PO Q6H PRN Pain (Scale 04/05/22 07/08/22 Score 4-6) Previous Rx's ?Medication ?Instructions ?Recorded folic acid 1 mg tablet 1 mg PO DAILY #30 tabs 07/11/22 multivitamin (Daily-Lisa tablet) 1 tab PO BEDTIME #30 tabs 07/11/22 thiamine mononitrate (vit B1) 100 100 mg PO DAILY #30 tabs 07/11/22 mg tablet naltrexone 50 mg tablet 50 mg PO DAILY #30 tabs 08/09/22 hydroxyzine pamoate 25 mg capsule 50 mg (2 x 25 mg) PO BID PRN for 09/05/22 anxiety #60 caps ibuprofen 600 mg tablet 600 mg PO Q8H PRN pain 5 days #20 11/11/22 tabs oxycodone 5 mg tablet 5 mg PO Q8H PRN pain #7 tabs 11/11/22 prednisone 10 mg tablet 10 mg PO BID 5 days #10 tabs 11/11/22 tamsulosin 0.4 mg capsule 0.4 mg PO BEDTIME #10 caps 11/11/22 amoxicillin 875 mg-potassium 1 tab PO BID 7 days #14 tabs 11/14/22 clavulanate 125 mg tablet oxycodone 5 mg capsule 5 mg PO Q8H PRN pain #5 caps 11/14/22 ketorolac 10 mg tablet 10 mg PO TID PRN pain 5 days #15 08/13/24 tabs ondansetron HCl 4 mg tablet 4 mg PO Q8H PRN nausea and 08/13/24 vomiting #14 tabs Allergies Allergy/AdvReac Type Severity Reaction Status Date / Time tramadol [TRAMADOL] Allergy Unknown HIVES Verified 08/13/24 06:48 Review of Systems Review of Systems Yes all other systems are reviewed and are negative [facility] Past Medical History Attestation statement: The following information was validated with the patient. Source: old records reviewed and nursing notes reviewed Medical History Alcohol abuse Alcohol use disorder, severe, dependence Alcohol withdrawal Dislocation of left elbow Elevated transaminase level Hypomagnesemia Visual hallucinations Surgical History History of foot surgery Family History Family History Other No family history of coronary artery disease Social History Social History Household Members: Family Do you presently have visiting nurse or other home services: No Unable to assess alcohol history related to: Unable to respond Alcohol intake: former Comment: refuses alarm Patient Tobacco Use Status: Never used Tobacco Smoked in Last 30 Days: Yes Second Hand Smoke Exposure: No Use of substances other than those prescribed or required for medical reasons: Yes Substance Use Type: Marijuana Substance Use Frequency: Chronic Longstanding Last Used Substance: Unknown Advance Directives: Yes Advance Directives on File: Yes Advance Directives Date on File: 07/08/22 service: No Current occupational status: employed Current occupation: right handed Physical Exam ED Vital Signs: Vital Signs - 24 hr 08/13/24 06:46 08/13/24 11:19 Temperature 97.3 F 97.3 F Pulse Rate 62 45 L Respiratory Rate 16 14 Blood Pressure 112/66 Pulse Oximetry 100 97 Oxygen Delivery Method Room Air Room Air BMI result Body Mass Index 21.4 VSS Appearance: Alert. Oriented X3. Appears extremely uncomfortable, in position retching into emesis bag Head: Normal external exam. Normocephalic. Atraumatic. ? Eyes: PERRLA. EOMI. CVS: ?Heart regular rate and rhythm no murmurs and rubs Respiratory: ?Breath sounds are clear to auscultation bilaterally. No wheezing or stridor.? No accessory muscle use noted. Abdomen: ?Soft extremely tender (+) McBurney's and (+) Rovsings (+) bowel sounds throughout. No rebound tenderness Skin: Skin warm and diaphoretic Extremities: No lower extremity edema. ? Neuro: Oriented X 3.? Course Reevaluation(s) Reevaluation #1: CBC unremarkable. Chemistry no acute findings needing intervention. T bili 1.2, likely secondary to kidney stone. Normal transaminases. Normal lipase. Ethanol negative. CT abdomen and pelvis showing interval resolution of right hydronephrosis and hydroureter with passage of distal right ureteric calculus. Tiny subcentimeter low-density lesion in the liver. Right lower lobe lung nodule. Patient feeling better. Patient likely passed a stone. Educated patient on diagnosis and treatment plan, answered all question, patient verbalizes understanding. At this time patient will be discharged home, advised to return with new or worsening symptoms. Educated on worrisome signs and symptoms and when to return. At this time I feel comfortable discharge home. Time: 10:16 Reevaluation #2: UA clean Medical Decision Making Medical Decision Making [facility] Narrative: 33yo M PHMx kindey stones, AUD 2-3 years into recovery presenting with a few days' of RLQ/right flank pain that acutely worsened last night PE: Diaphoretic, Soft extremely tender (+) McBurney's and (+) Rovsings (+) bowel sounds throughout. No rebound tenderness Hx and PE concerning for appendicitis vs. kidney stones vs cyclical vomiting. Less likely, obstruction, acute abdomen, bowel perforation, pyelonephritis, alcohol withdrawal, opiate withdrawal Plan: CT abdomen and pelvis, labs, pain control Differential Diagnosis Differential Diagnoses: The differential diagnosis associated with the presentation includes (Hx and PE concerning for appendicitis vs. kidney stones vs cyclical vomiting. Less likely, obstruction, acute abdomen, bowel perforation, pyelonephritis, alcohol withdrawal, opiate withdrawal) Admission/Observation Consideration of admission/observation: Escalation of care including admission/observation considered Possible Lab Data [facility] Lab Attestation statement: I reviewed the patient's lab results. 08/13/24 06:53 08/13/24 06:53 Labs: Lab Results 08/13/24 08/13/24 Range/Units 06:53 11:19 WBC 7.8 (4.8-10.8) X10*3/uL RBC 5.34 (4.60-5.80) X10*6/uL Hgb 15.4 (14.0-18.0) g/dl Hct 43.3 (42.0-52.0) % MCV 81.1 (80.0-98.0) fL MCH 28.8 (27.0-33.0) pg MCHC 35.6 (31.0-36.0) g/dl RDW 11.9 (11.0-16.0) % Plt Count 329 D (160-400) X10*3/uL MPV 9.2 L (9.4-12.4) fL Immature Gran % (Auto) 0.1 (0.0-0.4) % Neut % (Auto) 54.3 (45-73) % Lymph % (Auto) 32.7 (20-40) % [place] % (Auto) 9.2 (2-11) % Eos % (Auto) 2.7 (0-4) % Baso % (Auto) 1.0 (0-2) % Lymph # (Auto) 2.6 (1.2-4.9) X10*3/uL [place] # (Auto) 0.7 (0.1-1.2) X10*3/uL Eos # (Auto) 0.2 (0.0-0.4) X10*3/uL Baso # (Auto) 0.1 (0.0-0.2) X10*3/uL Abs Immat Gran (auto) 0.01 (0.00-0.03) X10*3/uL Absolute Neuts (auto) 4.3 (2.0-8.3) x10*3/uL Absolute Nucleated RBC 0.000 (0.0-0.012) X10*3/uL Nucleated RBC % (auto) 0.0 (0.0-0.2) /100WBC Sodium 140 (135-145) mmol/L Potassium 3.8 (3.3-5.1) mmol/L Chloride 104 (96-108) mmol/L Carbon Dioxide 24 (22-29) mmol/L Anion Gap 16 (12-20) BUN 15 (9-16) mg/dL Creatinine 1.16 (0.5-1.4) mg/dL Estim Creat Clear Calc 87.3 Estimated GFR > 60 Random Glucose 103 (60-115) mg/dL Calcium 10.5 H D (8.4-10.2) mg/dL Total Bilirubin 1.2 H (0.0-1.0) mg/dL AST 18 (5-37) U/L ALT 14 (0-40) U/L Alkaline Phosphatase 61 (39-117) U/L Total Protein 7.6 (6.5-8.0) g/dL Albumin 4.7 (3.5-5.0) g/dL Lipase 16 (8-78) U/L Urine Color Yellow Urine Appearance Clear Urine pH 6.5 (5.0-9.0) Ur Specific [place] >= 1.030 H (1.005-1.025) Urine Protein 30 (1+) H (Neg-Trace) mg/dL Urine Glucose (UA) Negative (Negative) mg/dL Urine Ketones 40 (Negative) mg/dL Urine Blood Large (3+) H (Negative) Urine Nitrite Negative (Negative) Ur Leukocyte Esterase Negative (Negative) Urine RBC >20 H (0-2) /HPF Urine WBC 0-5 (0-5) /HPF Ur Squamous Epith Cells 0-2 (0-2) /HPF Urine Bacteria None Seen (None Seen) Hyaline Casts 0-2 (0-2) /LPF Urine Opiates Screen Not Detected (Not Detect) Ur Buprenorphine Scrn Not Detected (Not Detect) ng/mL Ur Oxycodone Screen Not Detected (Not Detect) ng/mL Urine Methadone Screen Not Detected (Not Detect) ng/mL Urine Fentanyl Screen Not Detected (Not Detect) Ur Barbiturates Screen Not Detected (Not Detect) Ur Phencyclidine Scrn Not Detected (Not Detect) Ur Amphetamines Screen POSITIVE H (Not Detect) U Benzodiazepines Scrn Not Detected (Not Detect) Urine Cocaine Screen Not Detected (Not Detect) U Marijuana (THC) Screen POSITIVE H (Not Detect) Ethyl Alcohol < 10 mg/dL Independent Interpretation I performed an independent interpretation of an: CT Scan (CT/CT abdomen pelvis w IV con IMPRESSION: 1. Interval resolution of right hydronephrosis and hydroureter with passage of distal right ureteric calculus. 2. Unchanged Tiny subcentimeter low-density lesions are seen in the liver, impossible to characterize due to partial volume averaging, but hi) Radiology Impression Discussion of test interpretation with radiology: I have reviewed the radiologist's reading. External Record Review External record reviewed: Inpatient record, Office record, Outpatient record, Prior outpatient labs, Prior outpatient radiology, Primary care record and Outside ED record Medications Administered Discontinued Medications Generic Name Dose Route Start Last Admin Trade Name Ade PRN Reason Stop Dose Admin Sodium Chloride 1,000 mls @ 999 mls/hr 08/13/24 10:30 08/13/24 11:38 Ns IV 08/13/24 11:30 Infused .Q1H1M CHUCK Infusion Iohexol 100 ml 08/13/24 08:42 08/13/24 08:44 Iohexol 350 Mg/Ml 100 Ml Infus..Btl IV 08/13/24 08:43 Not Given ONCE ONE Iohexol 85 ml 08/13/24 08:45 08/13/24 08:46 Iohexol 350 Mg/Ml 100 Ml Infus..Btl IV 08/13/24 08:46 85 ml ONCE ONE Administration Ketorolac Tromethamine 30 mg 08/13/24 07:13 08/13/24 07:21 Ketorolac Tromethamine 15 Mg/Ml Vial IM 08/13/24 07:14 30 mg ONCE ONE Administration Lorazepam 1 mg 08/13/24 07:23 08/13/24 07:34 Lorazepam 2 Mg/Ml Vial IVPUSH 08/13/24 07:24 1 mg ONCE ONE Administration Ondansetron HCl 4 mg 08/13/24 07:19 08/13/24 07:24 Ondansetron Hcl 4 Mg/2 Ml Vial IVPUSH 08/13/24 07:20 4 mg ONCE ONE Administration Critical Care Time Critical Care Time Critical Care Time: Yes Total Critical Care Time: 35 Attestation: I attest to this time spent taking care of the patient, obtaining history, physical, reviewing labs, imaging, treatment of patients condition +/- specialist/hospitalist consult Discharge Plan Discharge Clinical Impression: Abdominal pain, Lesion of liver Patient Disposition: Home, Self-Care Instructions: Liver Disease Diet (DC), Abdominal Pain (ED) Additional Instructions: Take your medications as prescribed. If you were prescribed antibiotics today, it is important that you take your medication to their entirety, do not skip any doses, do not finish them early. Follow-up with your primary care provider this week. Return to the emergency department with new or worsening symptoms. Such as fevers, chills, chest pain, shortness of breath, nausea, vomiting, dizziness, headache, vision changes, lethargy In case of emergency call 911 You likely passed a stone. Toradol has been sent to your pharmacy, you tolerated this well in the department. Please take this as prescribed do not take this with ibuprofen, or other NSAIDs, do not mix this with alcohol. Side effects of this medication including increased risk for bleeding and possible kidney injury. CT/CT abdomen pelvis w IV con IMPRESSION: 1. Interval resolution of right hydronephrosis and hydroureter with passage of distal right ureteric calculus. 2. Unchanged Tiny subcentimeter low-density lesions are seen in the liver, impossible to characterize due to partial volume averaging, but highly in favor of stable hepatic cysts. 3. Probable persistent right lower lobe lung nodules, but only one micronodule is visualized within the [id number]. According to the UPDATED 2017 Fleischner Society recommendations, the advised follow-up imaging for solid nodules <6 mm in the middle/lower lobes is no routine follow up. Prescriptions: New ketorolac 10 mg tablet 10 mg PO TID PRN (Reason: pain) 5 Days Qty: 15 0RF Rx Instructions: Tolerated IM or IV in department ondansetron HCl 4 mg tablet 4 mg PO Q8H PRN (Reason: nausea and vomiting) Qty: 14 0RF No Action hydroxyzine pamoate 25 mg capsule 50 mg PO BID PRN (Reason: for anxiety) Qty: 60 0RF tamsulosin 0.4 mg capsule 0.4 mg PO BEDTIME Qty: 10 0RF prednisone 10 mg tablet 10 mg PO BID 5 Days Qty: 10 0RF ibuprofen 600 mg tablet 600 mg PO Q8H PRN (Reason: pain) 5 Days Qty: 20 0RF oxycodone 5 mg tablet 5 mg PO Q8H PRN (Reason: pain) Qty: 7 0RF Rx Instructions: Partial Fill upon patient request. ibuprofen 200 mg Tablet 400 mg PO Q6H PRN (Reason: Pain (Scale Score 4-6)) multivitamin [Daily-Lisa] Tablet 1 tab PO BEDTIME Qty: 30 0RF folic acid 1 mg Tablet 1 mg PO DAILY Qty: 30 0RF thiamine mononitrate (vit B1) 100 mg Tablet 100 mg PO DAILY Qty: 30 0RF amoxicillin-pot clavulanate 875-125 mg tablet 1 tab PO BID 7 Days Qty: 14 0RF Rx Instructions: COMPLETE FULL COURSE OF ANTIBIOTICS EVEN IF YOU FEEL BETTER OR THINK THE ABSCESS HAS RESOLVED oxycodone 5 mg capsule 5 mg PO Q8H PRN (Reason: pain) Qty: 5 0RF Rx Instructions: Partial Fill upon patient request. naltrexone 50 mg tablet 50 mg PO DAILY Qty: 30 0RF Referrals: [facility] [Provider Group] - 3 days Physician,None [Primary Care Provider] - 2 days Stand Alone Forms: Work/School Release Print Language: Luxembourger
[2024-08-13 07:17] LABS: Alanine Aminotransferase 14 U/L (0-40); Albumin Level 4.7 g/dL (3.5-5.0); Alkaline Phosphatase 61 U/L (39-117); Anion Gap 16 (12-20); Aspartate Amino Transferase 18 U/L (5-37); Bilirubin Total 1.2 mg/dL (0.0-1.0); Blood Urea Nitrogen 15 mg/dL (9-16); Calcium 10.5 mg/dL (8.4-10.2); Carbon Dioxide 24 mmol/L (22-29); Chloride 104 mmol/L (96-108); Creatinine Clr Calc Pharmacy 87.3; Estimated Glomerular Filt Rate > 60; Glucose Random 103 mg/dL (60-115); Lipase 16 U/L (8-78); Potassium 3.8 mmol/L (3.3-5.1); Sodium 140 mmol/L (135-145); Total Protein 7.6 g/dL (6.5-8.0)
[2024-08-13] MEDS: Ketorolac Tromethamine 15 MG/ML VIAL 30 MG IM (07:21)
[2024-08-13] MEDS: ondansetron HCL 4 MG/2 ML VIAL IVPUSH (07:24)
[2024-08-13] MEDS: LORazepam 2 MG/ML VIAL 1 MG IVPUSH (07:34)
[2024-08-13 07:42] LABS: Ethanol < 10 mg/dL
[2024-08-13] MEDS: iohexoL 350 MG/ML 100 ML INFUS..BTL 85 ML IV (08:46)
--- NOTE | 2024-08-13 09:02 | PC.NURSE ---
Resumed care of pt at 0700. Pt in bed, vomiting/dry heaving, diaphoretic, tachypneic. Pt medicated per MAR with Zofran, Toradol, and Ativan. Pt verbalized nausea/pain has decreased, no vomiting/dry heaves since medicated. Resting in bed quietly, respirations even and unlabored, no increased wob/sob noted. Call mims within reach, all needs met at this time.
[2024-08-13] MEDS: 0.9 % Sodium Chloride 1,000 ML 999 ML IV (10:32)
[2024-08-13 11:19] VITALS: BP 112/66; PULSE 45; RESP 14; TEMP 36.3; O2SAT 97
[2024-08-13 11:31] LABS: Appearance Urine Clear; Color Urine Yellow; Glucose Urine UA Negative (Negative); Leukocyte Esterase Urine Negative (Negative); Nitrite Urine Negative (Negative); PH 6.5 (5.0-9.0); Specific Gravity - Urine >= 1.030 (1.005-1.025); UMIC TRIGGER UACC YES; Urine Blood Large (3+) (Negative); Urine Ketones 40 mg/dL (Negative); Urine Protein 30 (1+) mg/dL (Neg-Trace)
[2024-08-13 11:39] LABS: Amphetamine Screen Urine POSITIVE (Not Detect); Barbiturates, Urine Not Detected (Not Detect); Benzodiazepines Screen Urine Not Detected (Not Detect); Buprenorphine Scr Not Detected (Not Detect); Cannabinoid Screen Urine POSITIVE (Not Detect); Cocaine Screen Urine Not Detected (Not Detect); Fentanyl, urine Not Detected (Not Detect); Methadone Screen, Urine Not Detected (Not Detect); Opiate Screen Urine Not Detected (Not Detect); Oxycodone Screen Urine Not Detected (Not Detect); Phencyclidine Screen Urine Not Detected (Not Detect)
[2024-08-13 11:40] LABS: Bacteria Urine None Seen (None Seen); Hyaline Casts Urine 0-2 /LPF (0-2); RBC Urine >20 /HPF (0-2); Squamous Epithelial Cell Urine 0-2 /HPF (0-2); WBC Urine 0-5 /HPF (0-5)
== END 2024-08-13 12:50 | disposition home or self-care (01) ==
PROVIDERS: Emergency Medicine; Physician Assistant; Emergency Provider Student in an Organized Health Care Education/Training Program
DX: R10.9 Unspecified abdominal pain (principal); K76.9 Liver disease, unspecified; F10.20 Alcohol dependence, uncomplicated; Y90.0 Blood alcohol level of less than 20 mg/100 ml; Z79.899 Other long term (current) drug therapy
CPT/HCPCS: 36415; 74177; 80053; 80307; 81001; 83690; 85025; 93005; 96361; 96372; 96374; 96375; 99284; 99285; J1885; J2060; J2405; Q9967

== ENCOUNTER 2024-08-13 13:57 | Emergency (ER) | payer MEDICAID, SELFPAY ==
[2024-08-13 14:24] VITALS: BP 110/71; PULSE 66; RESP 18; TEMP 36.9; O2SAT 97; BMI 20.7
--- NOTE | 2024-08-13 14:25 | ED.ABDPAIN ---
HPI - Abdominal Pain General Chief Complaint: Abdominal Pain Stated Complaint: kidney stones, just discharged Related Data Home Medications ?Medication ?Instructions ?Recorded ?Confirmed ibuprofen 200 mg tablet 400 mg PO Q6H PRN Pain (Scale 04/05/22 07/08/22 Score 4-6) Previous Rx's ?Medication ?Instructions ?Recorded folic acid 1 mg tablet 1 mg PO DAILY #30 tabs 07/11/22 multivitamin (Daily-Lisa tablet) 1 tab PO BEDTIME #30 tabs 07/11/22 thiamine mononitrate (vit B1) 100 100 mg PO DAILY #30 tabs 07/11/22 mg tablet naltrexone 50 mg tablet 50 mg PO DAILY #30 tabs 08/09/22 hydroxyzine pamoate 25 mg capsule 50 mg (2 x 25 mg) PO BID PRN for 09/05/22 anxiety #60 caps ibuprofen 600 mg tablet 600 mg PO Q8H PRN pain 5 days #20 11/11/22 tabs oxycodone 5 mg tablet 5 mg PO Q8H PRN pain #7 tabs 11/11/22 prednisone 10 mg tablet 10 mg PO BID 5 days #10 tabs 11/11/22 tamsulosin 0.4 mg capsule 0.4 mg PO BEDTIME #10 caps 11/11/22 amoxicillin 875 mg-potassium 1 tab PO BID 7 days #14 tabs 11/14/22 clavulanate 125 mg tablet oxycodone 5 mg capsule 5 mg PO Q8H PRN pain #5 caps 11/14/22 ketorolac 10 mg tablet 10 mg PO TID PRN pain 5 days #15 08/13/24 tabs ondansetron HCl 4 mg tablet 4 mg PO Q8H PRN nausea and 08/13/24 vomiting #14 tabs Allergies Allergy/AdvReac Type Severity Reaction Status Date / Time tramadol [TRAMADOL] Allergy Unknown HIVES Verified 08/13/24 14:27 [facility] Past Medical History Medical History Alcohol abuse Alcohol use disorder, severe, dependence Alcohol withdrawal Dislocation of left elbow Elevated transaminase level Hypomagnesemia Visual hallucinations Surgical History History of foot surgery Family History Family History Other No family history of coronary artery disease Social History Social History Household Members: Family Do you presently have visiting nurse or other home services: No Unable to assess alcohol history related to: Unable to respond Alcohol intake: former Comment: refuses alarm Patient Tobacco Use Status: Never used Tobacco Second Hand Smoke Exposure: No Substance Use Type: Marijuana Advance Directives Date on File: 07/08/22 service: No Current occupational status: employed Current occupation: right handed Physical Exam ED Vital Signs: BMI result Body Mass Index 20.7 Course Course Course Narrative: This is a Rapid Medical Exam performed in triage by Willow Romero PA-C. Full HPI, ROS and PE to be performed by primary ED provider. 33yo m PMHx kidney stones, AUD, transaminitis presenting to the ED c/o persistent RLQ/R flank pain since discharge from our ED today. patient was just discharged from our ED Dx with suspected passed renal stone, however reports pain increased on discharge with chills and nausea. PE: abdomen soft w/mild RLQ ttp, no rebound Plan: Labs, UA Medical Decision Making Lab Data 08/13/24 14:43 08/13/24 14:43 Labs: Lab Results 08/13/24 Range/Units 14:43 WBC 7.4 (4.8-10.8) X10*3/uL RBC 4.84 (4.60-5.80) X10*6/uL Hgb 14.2 (14.0-18.0) g/dl Hct 40.4 L (42.0-52.0) % MCV 83.5 (80.0-98.0) fL MCH 29.3 (27.0-33.0) pg MCHC 35.1 (31.0-36.0) g/dl RDW 12.0 (11.0-16.0) % Plt Count 291 (160-400) X10*3/uL MPV 9.2 L (9.4-12.4) fL Immature Gran % (Auto) 0.3 (0.0-0.4) % Neut % (Auto) 62.4 (45-73) % Lymph % (Auto) 28.4 (20-40) % [place] % (Auto) 6.6 (2-11) % Eos % (Auto) 1.5 (0-4) % Baso % (Auto) 0.8 (0-2) % Lymph # (Auto) 2.1 (1.2-4.9) X10*3/uL [place] # (Auto) 0.5 (0.1-1.2) X10*3/uL Eos # (Auto) 0.1 (0.0-0.4) X10*3/uL Baso # (Auto) 0.1 (0.0-0.2) X10*3/uL Abs Immat Gran (auto) 0.02 (0.00-0.03) X10*3/uL Absolute Neuts (auto) 4.6 (2.0-8.3) x10*3/uL Absolute Nucleated RBC 0.000 (0.0-0.012) X10*3/uL Nucleated RBC % (auto) 0.0 (0.0-0.2) /100WBC Sodium 142 (135-145) mmol/L Potassium 4.4 (3.3-5.1) mmol/L Chloride 107 (96-108) mmol/L Carbon Dioxide 28 (22-29) mmol/L Anion Gap 11 L (12-20) BUN 15 (9-16) mg/dL Creatinine 1.11 (0.5-1.4) mg/dL Estim Creat Clear Calc 88.5 Estimated GFR > 60 Random Glucose 120 H (60-115) mg/dL Calcium 9.7 D (8.4-10.2) mg/dL Magnesium 2.0 (1.6-2.6) mg/dL Total Bilirubin 0.9 (0.0-1.0) mg/dL Direct Bilirubin 0.3 (0.0-0.5) mg/dL AST 17 (5-37) U/L ALT 15 (0-40) U/L Alkaline Phosphatase 56 (39-117) U/L Total Protein 6.9 (6.5-8.0) g/dL Albumin 4.4 (3.5-5.0) g/dL Lipase 16 (8-78) U/L Ethyl Alcohol < 10 mg/dL Discharge Plan Discharge Clinical Impression: Flank pain Patient Disposition: Left W/O Completing Treatment Prescriptions: No Action hydroxyzine pamoate 25 mg capsule 50 mg PO BID PRN (Reason: for anxiety) Qty: 60 0RF tamsulosin 0.4 mg capsule 0.4 mg PO BEDTIME Qty: 10 0RF prednisone 10 mg tablet 10 mg PO BID 5 Days Qty: 10 0RF ibuprofen 600 mg tablet 600 mg PO Q8H PRN (Reason: pain) 5 Days Qty: 20 0RF oxycodone 5 mg tablet 5 mg PO Q8H PRN (Reason: pain) Qty: 7 0RF Rx Instructions: Partial Fill upon patient request. ibuprofen 200 mg Tablet 400 mg PO Q6H PRN (Reason: Pain (Scale Score 4-6)) multivitamin [Daily-Lisa] Tablet 1 tab PO BEDTIME Qty: 30 0RF folic acid 1 mg Tablet 1 mg PO DAILY Qty: 30 0RF thiamine mononitrate (vit B1) 100 mg Tablet 100 mg PO DAILY Qty: 30 0RF amoxicillin-pot clavulanate 875-125 mg tablet 1 tab PO BID 7 Days Qty: 14 0RF Rx Instructions: COMPLETE FULL COURSE OF ANTIBIOTICS EVEN IF YOU FEEL BETTER OR THINK THE ABSCESS HAS RESOLVED oxycodone 5 mg capsule 5 mg PO Q8H PRN (Reason: pain) Qty: 5 0RF Rx Instructions: Partial Fill upon patient request. ketorolac 10 mg tablet 10 mg PO TID PRN (Reason: pain) 5 Days Qty: 15 0RF Rx Instructions: Tolerated IM or IV in department ondansetron HCl 4 mg tablet 4 mg PO Q8H PRN (Reason: nausea and vomiting) Qty: 14 0RF naltrexone 50 mg tablet 50 mg PO DAILY Qty: 30 0RF Discharge Date/Time: 08/13/24 18:33
[2024-08-13 14:49] LABS: MANUAL DIFF FLAG NO
[2024-08-13 14:51] LABS: Basophils Absolute Auto 0.1 X10*3/uL (0.0-0.2); Basophils Percent Auto 0.8 % (0-2); Eosinophils Absolute Auto 0.1 X10*3/uL (0.0-0.4); Eosinophils Percent Auto 1.5 % (0-4); Hematocrit 40.4 % (42.0-52.0); Hemoglobin 14.2 g/dl (14.0-18.0); Imm Gran Abs Auto 0.02 X10*3/uL (0.00-0.03); Imm Gran Pct Auto 0.3 % (0.0-0.4); Lymphocytes Absolute Auto 2.1 X10*3/uL (1.2-4.9); Lymphocytes Percent Auto 28.4 % (20-40); Mean Corpuscular HGB Conc 35.1 g/dl (31.0-36.0); Mean Corpuscular Hemoglobin 29.3 pg (27.0-33.0); Mean Corpuscular Volume 83.5 fL (80.0-98.0); Mean Platelet Volume 9.2 fL (9.4-12.4); Monocytes Absolute Auto 0.5 X10*3/uL (0.1-1.2); Monocytes Percent Auto 6.6 % (2-11); Neutrophils Absolute Auto 4.6 x10*3/uL (2.0-8.3); Neutrophils Percent Auto 62.4 % (45-73); Platelet Count 291 X10*3/uL (160-400); Red Blood Count 4.84 X10*6/uL (4.60-5.80); White Blood Count 7.4 X10*3/uL (4.8-10.8)
[2024-08-13 15:07] LABS: Alanine Aminotransferase 15 U/L (0-40); Albumin Level 4.4 g/dL (3.5-5.0); Alkaline Phosphatase 56 U/L (39-117); Anion Gap 11 (12-20); Aspartate Amino Transferase 17 U/L (5-37); Bilirubin Direct 0.3 mg/dL (0.0-0.5); Bilirubin Total 0.9 mg/dL (0.0-1.0); Blood Urea Nitrogen 15 mg/dL (9-16); Calcium 9.7 mg/dL (8.4-10.2); Carbon Dioxide 28 mmol/L (22-29); Chloride 107 mmol/L (96-108); Creatinine Clr Calc Pharmacy 88.5; Estimated Glomerular Filt Rate > 60; Ethanol < 10 mg/dL; Glucose Random 120 mg/dL (60-115); Lipase 16 U/L (8-78); Potassium 4.4 mmol/L (3.3-5.1); Sodium 142 mmol/L (135-145); Total Protein 6.9 g/dL (6.5-8.0)
== END 2024-08-13 18:33 | disposition left against medical advice (07) ==
PROVIDERS: Physician Assistant; Emergency Provider Emergency Medicine
DX: R10.9 Unspecified abdominal pain (principal); R10.31 Right lower quadrant pain
CPT/HCPCS: 36415; 80048; 80076; 80307; 83690; 83735; 85025; 99281

== ENCOUNTER 2024-10-11 13:09 | Outpatient (AMB) | payer MEDICAID, SELFPAY ==
--- NOTE | 2024-10-11 13:13 | A.OFFVIS_ITS ---
Intake Visit Reasons: history of kidney stones Intake Note: New Patient presents for initial visit for kidney stones Urology Medications: none Blood Thinner: none Accompanied by: Self / Same As Patient Allergies tramadol [TRAMADOL] Allergy (Unknown, Verified 10/11/24 14:09) HIVES Medication List - Last Reconciled 10/11/24 by BRENDA Valencia No Known Home Meds HPI Comments Details: Dougie Abarca is a 34-year-old male patient. He has a past medical history of anxiety, alcohol use disorder, and dental abscess. He presents to the office today as a new patient for nephrolithiasis. In discussion with the patient today he reports having seeked emergency room care approximately 2 months ago for ongoing right-sided flank pain he had been experiencing at which time a CT of the abdomen was ordered and performed. These results were reviewed with the patient today. Interval resolution of right hydronephrosis and hydroureter with passage of distal right ureteric calculus. He reports right- sided flank pain and lower abdominal pain he had been experiencing has since subsided however he did not experience or no to pass any renal calculi. When asked he denies urinary urgency, urinary frequency, incontinence, nocturia, hematuria, dysuria, foul smelling urine, changes to urinary stream, flank pain, fever, and or chills. He is happy with his current voiding parameters. In office urinalysis results reviewed with the patient today microscopic hematuria noted. When asked he does report a previous history of nicotine dependence between the ages of [age] never smoking more than 1 pack per day. However he does report continuing to smoke recreational marijuana daily. We discussed reasons for blood in the urine may include but are not limited to kidney stones, cancer in the urinary tract, BPH, kidney stone disease or inflammatory conditions of the urinary tract. We discussed further workup to include CT urogram as well as in office cystoscopy versus surveillance monitoring. Risks and benefits of these interventions were discussed. He otherwise offers no other issues or concerns at this time. [facility] Medical History Elevated transaminase level Alcohol use disorder, severe, dependence Hypomagnesemia Visual hallucinations Alcohol abuse Alcohol withdrawal Dislocation of left elbow Surgical History History of foot surgery Family History Other No family history of coronary artery disease Social History Household Members: Family Do you presently have visiting nurse or other home services: No Unable to assess alcohol history related to: Unable to respond Alcohol intake: former Comment: refuses alarm Patient Tobacco Use Status: Never used Tobacco Second Hand Smoke Exposure: No Substance Use Type: Marijuana Advance Directives Date on File: 07/08/22 service: No Current occupational status: employed Current occupation: right handed Review of Systems Const All systems reviewed & are unremarkable except as noted in HPI and below Physical Exam Const General: cooperative, healthy appearing, comfortable, no acute distress, well developed, alert and awake Nutritional Appearance: thin Orientation/consciousness: patient oriented x3 Limitations: no limitations HEENT Head: Yes normal to inspection, Yes normocephalic and Yes atraumatic Ears: hearing grossly normal bilaterally Eyes General: appearance normal, both eyes and all related structures Neck Neck: Yes normal visual inspection and Yes trachea midline Chest Chest palpation & inspection: normal inspection of the chest Resp Effort & Inspection: normal respiratory effort and able to speak in complete sentences Cardio Rate: regular rate GI Inspection: Yes normal to inspection General: Yes no CVA tenderness Back/Spine/Pelvis Back: no CVA tenderness Skin General skin exam: no rashes or lesions noted Neuro General: patient oriented x3 Extrem General: Yes normal to inspection Psych Appearance: grossly normal and well kempt Mental Status: mental status grossly normal Speech and movement: Normal speech and movement present and Clear speech present Affect: normal affect Attitude: cooperative Thought process: Normal thought process present Thought content: Normal thought content present Insight: Fair insight present (Psych) Judgement: Fair judgement present (Psych) Results AMB Urinalysis, Automated UA Leukoctes 0 Oralia/uL Last Edit by Isha Tejeda on 10/11/24 13:31 UA Nitrite Last Edit by Isha Tejeda on 10/11/24 13:31 UA Urobilinogen 0.2 mg/dL Last Edit by Isha Tejeda on 10/11/24 13:31 UA Protein 0 mg/dL Last Edit by Isha Tejeda on 10/11/24 13:31 UA pH 6.0 Last Edit by Isha Tejeda on 10/11/24 13:31 UA Blood 25 Jose Raul/uL Last Edit by Isha Tejeda on 10/11/24 13:31 UA Specific [place] 1.025 Last Edit by Isha Tejeda on 10/11/24 13:31 UA Ketone Last Edit by Isha Tejeda on 10/11/24 13:31 UA Bilirubin 0 mg/dL Last Edit by Isha Tejeda on 10/11/24 13:31 UA Glucose 0 mg/dL Last Edit by Isha Tejeda on 10/11/24 13:31 Results Reviewed Results Reviewed: Laboratory Last Values Urine pH (Auto) 6.0 10/11/24 13:22 Specific [place] (Auto) 1.025 10/11/24 13:22 Urine Protein (Auto) 0 mg/dL 10/11/24 13:22 Glucose (UA)(Auto) 0 mg/dL 10/11/24 13:22 Urine Blood (Auto) 25 Jose Raul/uL 10/11/24 13:22 Urine Bilirubin (Auto) 0 mg/dL 10/11/24 13:22 Urine Urobilinogen (Auto) 0.2 mg/dL 10/11/24 13:22 Leukocyte Esterase (Auto) 0 Oralia/uL 10/11/24 13:22 Date of Service: 08/13/24 EXAMINATION: CT ABDOMEN AND PELVIS WITH CONTRAST FINDINGS: LUNG BASES: Only one 3.2 mm juxtapleural nodule is seen at anterior lateral condyle of right lower lobe anterior basal segment, series 8 image #3. The outer nodules reported previously are not included in the [id number]-go-[id number]. LIVER: Tiny subcentimeter low-density lesions are seen, measuring 0.3 cm in diameter at anterior capsular border of left hepatic lobe segment 2, 0.6 cm in lateral capsular border of right hepatic lobe segment 8, impossible to characterize due to partial volume averaging. GALLBLADDER AND BILIARY TREE: Gallbladder appears unremarkable without calcified stones. Common bile duct is not dilated. SPLEEN: The spleen is normal in size without focal lesion. PANCREAS: The pancreas appears unremarkable. ADRENAL GLANDS: Adrenal glands are normal in size without focal lesion bilaterally. KIDNEYS: Bilateral kidneys are normal in size without focal lesion. BOWELS: There is no abnormal dilatation of the large and small bowel loops. RETROPERITONEUM: No abnormally enlarged retroperitoneal lymph nodes, mass or hematoma could be seen. BLOOD VESSELS: Abdominal aorta is normal in size and smoothly patent. ABDOMINAL WALL: Abdominal subcutaneous tissue and muscle are intact. No evidence of ventral hernia. PERITONEUM: There was no ascites. There were no abdominal peritoneal inflammatory changes seen. No free peritoneal air was seen. No abnormally enlarged mesenteric lymph nodes are found. BONES: No fracture or dislocation. No focal bone lesion diagnostic of metastatic disease could be seen in the lumbar region. EXAMINATION: CT pelvis. FINDINGS: URINARY BLADDER: Urinary bladder fills normally with urine. BOWELS: There is no abnormal dilatation of the large and small bowel loops. Appendix cannot be identified. GENITAL ORGANS: Seminal vesicles are unremarkable. Prostate gland is normal. LYMPH NODES: No abnormally enlarged iliac or inguinal lymph nodes are seen. PERITONEUM: No inflammatory changes, ascites or free peritoneal air are found in the pelvis. BONES: No fracture or dislocation. No focal bone lesion diagnostic of metastatic disease could be seen in the pelvis. IMPRESSION: 1. Interval resolution of right hydronephrosis and hydroureter with passage of distal right ureteric calculus. 2. Unchanged Tiny subcentimeter low-density lesions are seen in the liver, impossible to characterize due to partial volume averaging, but highly in favor of stable hepatic cysts. 3. Probable persistent right lower lobe lung nodules, but only one micronodule is visualized within the chlbk-zi-gagy. According to the UPDATED 2017 Fleischner Society recommendations, the advised follow-up imaging for solid nodules <6 mm in the middle/lower lobes is no routine follow up. Assessment & Plan Assessment & Plan (1) Kidney calculi: Code(s): N20.0 - Calculus of kidney Category: Medical (2) Marijuana dependence: Code(s): F12.20 - Cannabis dependence, uncomplicated Category: Medical (3) Microscopic hematuria: Code(s): R31.29 - Other microscopic hematuria Category: Medical Plan In office urinalysis results reviewed with the patient today; as noted above; will send for urine cytology. Will obtain retroperitoneal ultrasound for further assessment evaluation. Discussed potential causes of microscopic hematuria as well as nephrolithiasis Discussed further workup to include in office cystoscopy versus surveillance monitoring of microscopic hematuria; risks and benefits of these interventions were discussed. All questions were answered. Discussed, educated, and stressed the importance of adequate hydration relation to nephrolithiasis as well as overall health and well-being. Patient currently denies any bothersome urinary issues. He reports be happy with current voiding parameters. Follow-up in 1-3 months with imaging to be completed prior; or sooner with any issues, concerns, and or questions. Orders: Orders Urine Cytology Today R31.29 - Other microscopic hematuria US retroperitoneal comp Today F12.20 - Cannabis dependence, uncomplicated, N20.0 - Calculus of kidney, R31.29 - Other microscopic hematuria AMB Urinalysis Automated Today Z13.9 - Encounter for screening, unspecified Patient Instructions: The patient had an opportunity to ask questions regarding the treatment plan. All questions were answered. Physical exam, labs, and imaging were discussed and reviewed in detail. As well as risks, benefits, and discussion of treatment choices. No major barriers to understanding were identified. The patient expressed understanding and agreement with the above treatment plan. The patient was made aware they should contact our office by phone for worsening of their current condition, the appearance of new symptoms, or with any questions or concerns. Compliance is encouraged with any medications and follow up testing that is ordered. It is a privilege to be allowed the opportunity to participate in? your urological care.? Again, if you have any questions or concerns If you have any questions or concerns please do not hesitate to contact me. The office is [phone]. This note is constructed using voice recognition software. While every effort has been made to ensure accuracy electric wirer errors may have been included. Yours sincerely, BRENDA Valencia Coding Level of Care Code New Pt Level 3 (78134) Diagnoses Kidney calculi N20.0 Marijuana dependence F12.20 Microscopic hematuria R31.29
== END 2024-10-11 13:39 | disposition home or self-care (01) ==
LOC: HO.HUSH 13:09
PROVIDERS: Visit Provider Nurse Practitioner Family
DX: N20.0 Calculus of kidney (principal); F12.20 Cannabis dependence, uncomplicated; R31.29 Other microscopic hematuria; Z13.9 Encounter for screening, unspecified
CPT/HCPCS: 99203

== ENCOUNTER 2024-10-11 13:09 | Outpatient (REF) | payer MEDICAID, SELFPAY ==
[2024-10-11 16:42] LABS: Urine Cytology See Pathology rpt
== END 2024-10-11 13:10 | disposition home or self-care (01) ==
LOC: HO.LNP 13:09
PROVIDERS: Visit Provider Nurse Practitioner Family
DX: N20.0 Calculus of kidney (principal); F12.20 Cannabis dependence, uncomplicated; R31.29 Other microscopic hematuria
CPT/HCPCS: 81003; 88112; 99202

== ENCOUNTER 2024-10-20 11:30 | Outpatient (REF) | payer MEDICAID, SELFPAY | END 2024-10-20 11:31 | disposition home or self-care (01) | LOC: HO.HMGCX 11:30 | PROVIDERS: PCP Internal Medicine; Visit Provider Nurse Practitioner Family | DX: R31.29 Other microscopic hematuria (principal); F12.20 Cannabis dependence, uncomplicated; N20.0 Calculus of kidney | CPT/HCPCS: 76770 ==

== ENCOUNTER → 2024-10-20 11:31 | Outpatient (BNV) | payer MEDICAID, SELFPAY | PROVIDERS: PCP Internal Medicine; Visit Provider Radiology Diagnostic Radiology | DX: R31.29 Other microscopic hematuria (principal) | CPT/HCPCS: 76770 ==

== ENCOUNTER 2024-11-24 12:04 | Outpatient (AMB) | payer MEDICAID, SELFPAY ==
--- NOTE | 2024-11-24 12:04 | A.OFFVIS_ITS ---
Intake Visit Reasons: 2m/US Intake Note: Patient presents today for tele visit follow up on: kidney stones and ultrasound results * Imaging completed: 10/20/24 Urology Medications: none Blood Thinner: none Motor Transport Inspector Required: No Allergies tramadol [TRAMADOL] Allergy (Unknown, Verified 11/24/24 12:08) HIVES Medication List - Last Reconciled 11/24/24 by BRENDA Valencia No Known Home Meds HPI Comments Details: Dougie Abarca is a 34-year-old male patient. He has a past medical history of anxiety, alcohol use disorder, and dental abscess. He is being followed up on today via video telehealth for his nephrolithiasis. Recent unofficial retroperitoneal ultrasound results were reviewed with the patient today. Bilateral kidneys with no hydronephrosis or renal cysts. Right kidney with 2-3 mm nonobstructing renal calculi. Pre void bladder volume is approximately 130 mL. Postvoid bladder volume was 0ml's Prostate measures 25 mL. In discussion with the patient today reports to be doing and feeling well. He does report noting episodes of right-sided flank pain however report these episodes are intermittent and infrequent. He otherwise denies any bothersome urinary issues or concerns. He does report longstanding history of nephrolithiasis however never requiring surgical intervention. When asked he denies urinary urgency, urinary frequency, incontinence, nocturia, hematuria, dysuria, foul smelling urine, changes to urinary stream, flank pain, fever, and or chills. He is happy with his current voiding parameters. Patient also with a history of microscopic hematuria with previous history of nicotine dependence as well as daily recreational marijuana smoking. We discussed reasons for blood in the urine may include but are not limited to kidney stones, cancer in the urinary tract, BPH, kidney stone disease or inflammatory conditions of the urinary tract. We discussed further workup to include CT urogram as well as in office cystoscopy versus surveillance monitoring. Risks and benefits of these interventions were discussed. He otherwise offers no other issues or concerns at this time. Cytology 10/10 Atypical urothelial cells. [facility] Medical History Elevated transaminase level Alcohol use disorder, severe, dependence Hypomagnesemia Visual hallucinations Alcohol abuse Alcohol withdrawal Dislocation of left elbow Surgical History History of foot surgery Family History Other No family history of coronary artery disease Social History Household Members: Family Do you presently have visiting nurse or other home services: No Unable to assess alcohol history related to: Unable to respond Alcohol intake: former Comment: refuses alarm Patient Tobacco Use Status: Never used Tobacco Second Hand Smoke Exposure: No Substance Use Type: Marijuana Advance Directives Date on File: 07/08/22 service: No Current occupational status: employed Current occupation: right handed Review of Systems Const All systems reviewed & are unremarkable except as noted in HPI and below Physical Exam Const General: cooperative, healthy appearing, comfortable, no acute distress, well developed, alert and awake Orientation/consciousness: patient oriented x3 Resp Effort & Inspection: normal respiratory effort and able to speak in complete sentences Neuro General: patient oriented x3 Psych Appearance: well kempt Mental Status: mental status grossly normal Speech and movement: Clear speech present Affect: normal affect Attitude: cooperative Thought content: Normal thought content present Insight: Fair insight present (Psych) Judgement: Fair judgement present (Psych) Telehealth Telehealth Telehealth Platform: [facility] Location of provider rendering services: practice address Location of patient: address on file Patient Identification confirmed using: Name, : Yes Telehealth method: video Patient verbally consented to treatment: Yes Patient verbally consented to billing insurance company: Yes Patient informed of any privacy concerns related to visit: Yes Minutes spent on Phone/Video with Pt.: 15 Assessment & Plan Assessment & Plan (1) Microscopic hematuria: Code(s): R31.29 - Other microscopic hematuria Category: Medical (2) Marijuana dependence: Code(s): F12.20 - Cannabis dependence, uncomplicated Category: Medical (3) Kidney calculi: Code(s): N20.0 - Calculus of kidney Category: Medical Plan Recent unoffical retroperitoneal ultrasound results reviewed with the patient today; as noted above. We discussed importance of adequate hydration relation to nephrolithiasis as well as overall health and well-being. We discussed potential causes of microscopic hematuria and further workup to include in office cystoscopy; however patient declines of like to continue with surveillance monitoring. Discussed adding 1 oz of lemon juice to water daily. We discussed near future metabolic workup to include Litholink. He currently denies any bothersome urinary issues. He reports be happy with current voiding parameters. We discussed importance of limiting/quitting marijuana dependance. Will obtain renal ultrasound in 6 months. Follow-up in 6 months with imaging to be completed prior; or sooner with any issues, concerns, and or questions Orders: Orders US renal BI 6 Months N20.0 - Calculus of kidney Patient Instructions: The patient had an opportunity to ask questions regarding the treatment plan. All questions were answered. Physical exam, labs, and imaging were discussed and reviewed in detail. As well as risks, benefits, and discussion of treatment choices. No major barriers to understanding were identified. The patient expressed understanding and agreement with the above treatment plan. The patient was made aware they should contact our office by phone for worsening of their current condition, the appearance of new symptoms, or with any questions or concerns. Compliance is encouraged with any medications and follow up testing that is ordered. It is a privilege to be allowed the opportunity to participate in? your urological care.? Again, if you have any questions or concerns If you have any questions or concerns please do not hesitate to contact me. The office is [phone]. This note is constructed using voice recognition software. While every effort has been made to ensure accuracy comber tender errors may have been included. Yours sincerely, BRENDA Valencia Coding Level of Care Code Tele Est Pt Level 3 (22648) Diagnoses Microscopic hematuria R31.29 Marijuana dependence F12.20 Kidney calculi N20.0
== END 2024-11-24 13:02 | disposition home or self-care (01) ==
LOC: HO.HUSH 12:04
PROVIDERS: PCP Internal Medicine; Visit Provider Nurse Practitioner Family
DX: R31.29 Other microscopic hematuria (principal); F12.20 Cannabis dependence, uncomplicated; N20.0 Calculus of kidney
CPT/HCPCS: 98005

== ENCOUNTER → 2024-11-24 12:04 | Outpatient (BNVA) | payer MEDICAID, SELFPAY | PROVIDERS: PCP Internal Medicine; Visit Provider Nurse Practitioner Family ==

== ENCOUNTER 2025-01-25 11:56 | Emergency (ER) | payer MEDICAID, SELFPAY ==
--- NOTE | ~2025-01-25 | XR_ITS ---
CLINICAL HISTORY: pain 1 view abdomen Comparison: None Findings: No abnormal bowel dilation to suggest obstruction. No abnormal calcifications. Pelvic phleboliths. No acute fractures. IMPRESSION: No evidence of bowel obstruction. This document has been electronically signed by: Jamison Bates DO on 01/25/2025 19:17:17
[2025-01-25 12:27] VITALS: BP 126/73; PULSE 74; RESP 18; TEMP 36.9; O2SAT 98; BMI 21.3
--- NOTE | 2025-01-25 12:28 | ED_ITS ---
HPI - General Adult General Chief complaint: GI Bleed Stated complaint: Rectal bleeding Time Seen by Provider: 01/25/25 18:47 Source: patient Limitations: no limitations History of Present Illness ED Provider: Libia Rodriguez PA-C HPI narrative: 34-year-old male with a history of alcohol use disorder, marijuana dependence, anxiety presents with constipation x2 days. Patient states he has been straining to have a bowel movement, he has been struggling with constipation over the past several months. Patient noted bright red blood per rectum the while trying to have a bowel movement. Associated hemorrhoids, that are nontender. No rectal pain no other discharge. Denies abdominal distention, inability to pass flatus, nausea or vomiting. Related Data Home Medications ?Medication ?Instructions ?Recorded ?Confirmed No Known Home Meds 10/11/24 Allergies Allergy/AdvReac Type Severity Reaction Status Date / Time tramadol [TRAMADOL] Allergy Unknown HIVES Verified 01/25/25 12:31 Review of Systems 2 Review of Systems: Yes all other systems are reviewed and are negative Constitutional: Constitutional: Denies fatigue and Denies fever(s) Cardiovascular: Cardiovascular: Denies chest pain and Denies dyspnea Respiratory: Respiratory: Denies cough and Denies dyspnea Gastrointestinal: Gastrointestinal: Denies abdominal pain, Reports constipation, Denies nausea and Denies vomiting Endocrine: Endocrine: Denies fatigue PMFSH Past Medical History Attestation statement: The following information was validated with the patient. Medical History Elevated transaminase level Alcohol use disorder, severe, dependence Hypomagnesemia Visual hallucinations Alcohol abuse Alcohol withdrawal Dislocation of left elbow Surgical History History of foot surgery Family History Family History Other No family history of coronary artery disease Social History Social History Household Members: Family Do you presently have visiting nurse or other home services: No Unable to assess alcohol history related to: Unable to respond Alcohol intake: former Comment: refuses alarm Patient Tobacco Use Status: Never used Tobacco Second Hand Smoke Exposure: No Substance Use Type: Marijuana Advance Directives: Yes Advance Directives on File: Yes Advance Directives Date on File: 07/08/22 service: No Current occupational status: employed Current occupation: right handed Physical Exam ED Vital Signs: Vital Signs - 24 hr 01/25/25 12:27 01/25/25 17:14 Temperature 98.5 F 98.3 F Pulse Rate 74 61 Respiratory Rate 18 16 Blood Pressure 126/73 117/69 Pulse Oximetry 98 100 Oxygen Delivery Method Room Air Room Air BMI result Body Mass Index 21.3 Const Other: Alert Orientation/consciousness: patient oriented x3 Resp Effort & Inspection: normal respiratory effort Cardio Other: Normal peripheral perfusion Skin Other: Warm dry no rash Neuro General: patient oriented x3, gait normal, no focal motor deficits and CN's II- XI intact bilaterally Psych Other: Cooperative Course Course Course Narrative: RME, this is a rapid medical exam performed by Tevin Muñoz please refer to primary provider for complete H&P- 34 year old male presents for evaluation of abdominal pain and rectal bleeding for the last 2 days. Plan for labs, will defer advanced imaging to primary ER provider. The patient also reports weight loss since obtaining dentures. Medical Decision Making Medical Decision Making [facility] Narrative: 34-year-old male with a history of alcohol use disorder, marijuana dependence, anxiety presents with constipation x2 days. Patient states he has been straining to have a bowel movement, he has been struggling with constipation over the past several months. Patient noted bright red blood per rectum the while trying to have a bowel movement. Associated hemorrhoids, that are nontender. No rectal pain no other discharge. Denies abdominal distention, inability to pass flatus, nausea or vomiting. Problem: Constipation History: Per patient I have considered the following differential diagnoses: Constipation, bowel obstruction, hemorrhoid, thrombosed hemorrhoid, a lower GI bleed Plan: Patient was here in his considerably constipated, he has known hemorrhoid, this accounts for the bleeding. His labs are stable. We will send with home care instructions I have independently reviewed the following tests: Labs: No leukocytosis, not anemic, no electrolyte abnormality noted KUB:Comparison: None Findings: No abnormal bowel dilation to suggest obstruction. No abnormal calcifications. Pelvic phleboliths. No acute fractures. IMPRESSION: No evidence of bowel obstruction. Lab Data 01/25/25 13:15 01/25/25 13:15 Labs: Lab Results 01/25/25 Range/Units 13:15 WBC 5.9 (4.8-10.8) X10*3/uL RBC 4.68 (4.60-5.80) X10*6/uL Hgb 13.6 L (14.0-18.0) g/dl Hct 39.6 L (42.0-52.0) % MCV 84.6 (80.0-98.0) fL MCH 29.1 (27.0-33.0) pg MCHC 34.3 (31.0-36.0) g/dl RDW 12.4 (11.0-16.0) % Plt Count 302 (160-400) X10*3/uL MPV 8.9 L (9.4-12.4) fL Immature Gran % (Auto) 0.2 (0.0-0.4) % Neut % (Auto) 57.7 (45-73) % Lymph % (Auto) 31.6 (20-40) % Butler % (Auto) 6.8 (2-11) % Eos % (Auto) 2.7 (0-4) % Baso % (Auto) 1.0 (0-2) % Lymph # (Auto) 1.9 (1.2-4.9) X10*3/uL Butler # (Auto) 0.4 (0.1-1.2) X10*3/uL Eos # (Auto) 0.2 (0.0-0.4) X10*3/uL Baso # (Auto) 0.1 (0.0-0.2) X10*3/uL Abs Immat Gran (auto) 0.01 (0.00-0.03) X10*3/uL Absolute Neuts (auto) 3.4 (2.0-8.3) x10*3/uL Absolute Nucleated RBC 0.000 (0.0-0.012) X10*3/uL Nucleated RBC % (auto) 0.0 (0.0-0.2) /100WBC Sodium 140 (135-145) mmol/L Potassium 4.0 (3.3-5.1) mmol/L Chloride 107 (96-108) mmol/L Carbon Dioxide 26 (22-29) mmol/L Anion Gap 11 L (12-20) BUN 8 L (9-16) mg/dL Creatinine 0.83 (0.5-1.4) mg/dL Estim Creat Clear Calc 123.9 Estimated GFR > 60 Random Glucose 93 (60-115) mg/dL Calcium 9.4 (8.4-10.2) mg/dL Total Bilirubin 0.5 (0.0-1.0) mg/dL AST 19 (5-37) U/L ALT 15 (0-40) U/L Alkaline Phosphatase 52 (39-117) U/L Total Protein 7.2 (6.5-8.0) g/dL Albumin 4.4 (3.5-5.0) g/dL Lipase 14 (8-78) U/L Discharge Plan Discharge Clinical Impression: Constipation Patient Disposition: Home, Self-Care Instructions: Constipation (ED) Additional Instructions: You were found to be significantly constipated, your screening labs were normal. See home care instructions. You need to purchase [id number]-vtzfolb Colace, this is a stool softener, take it twice a day. Purchase [id number]-iqurcxb MiraLax, drink 1 cup every hour until you start defecating clear liquid. . Follow up with your primary care provider as needed. Prescriptions: No Action No Known Home Meds Stand Alone Forms: Work/School Release Print Language: Indonesian
[2025-01-25 13:23] LABS: MANUAL DIFF FLAG NO
[2025-01-25 13:25] LABS: Basophils Absolute Auto 0.1 X10*3/uL (0.0-0.2); Eosinophils Absolute Auto 0.2 X10*3/uL (0.0-0.4); Eosinophils Percent Auto 2.7 % (0-4); Hematocrit 39.6 % (42.0-52.0); Hemoglobin 13.6 g/dl (14.0-18.0); Imm Gran Abs Auto 0.01 X10*3/uL (0.00-0.03); Imm Gran Pct Auto 0.2 % (0.0-0.4); Lymphocytes Absolute Auto 1.9 X10*3/uL (1.2-4.9); Lymphocytes Percent Auto 31.6 % (20-40); Mean Corpuscular HGB Conc 34.3 g/dl (31.0-36.0); Mean Corpuscular Hemoglobin 29.1 pg (27.0-33.0); Mean Corpuscular Volume 84.6 fL (80.0-98.0); Mean Platelet Volume 8.9 fL (9.4-12.4); Monocytes Absolute Auto 0.4 X10*3/uL (0.1-1.2); Monocytes Percent Auto 6.8 % (2-11); Neutrophils Absolute Auto 3.4 x10*3/uL (2.0-8.3); Neutrophils Percent Auto 57.7 % (45-73); Platelet Count 302 X10*3/uL (160-400); Red Blood Count 4.68 X10*6/uL (4.60-5.80); Red Cell Distribution Width 12.4 % (11.0-16.0); White Blood Count 5.9 X10*3/uL (4.8-10.8)
[2025-01-25 13:41] LABS: Alanine Aminotransferase 15 U/L (0-40); Albumin Level 4.4 g/dL (3.5-5.0); Alkaline Phosphatase 52 U/L (39-117); Anion Gap 11 (12-20); Aspartate Amino Transferase 19 U/L (5-37); Bilirubin Total 0.5 mg/dL (0.0-1.0); Blood Urea Nitrogen 8 mg/dL (9-16); Calcium 9.4 mg/dL (8.4-10.2); Carbon Dioxide 26 mmol/L (22-29); Chloride 107 mmol/L (96-108); Creatinine Clr Calc Pharmacy 123.9; Estimated Glomerular Filt Rate > 60; Glucose Random 93 mg/dL (60-115); Lipase 14 U/L (8-78); Sodium 140 mmol/L (135-145); Total Protein 7.2 g/dL (6.5-8.0)
[2025-01-25 17:14] VITALS: BP 117/69; PULSE 61; RESP 16; TEMP 36.8; O2SAT 100
[2025-01-25 20:12] VITALS: BP 122/67; PULSE 63; RESP 18; TEMP 36.1; O2SAT 99
== END 2025-01-25 20:13 | disposition home or self-care (01) ==
PROVIDERS: Physician Assistant; Emergency Provider Emergency Medicine Emergency Medical Services; PCP Physician Assistant Surgical
DX: K62.5 Hemorrhage of anus and rectum (principal); R10.9 Unspecified abdominal pain; K59.00 Constipation, unspecified; K64.9 Unspecified hemorrhoids
CPT/HCPCS: 36415; 74018; 80053; 83690; 85025; 99282; 99283

== ENCOUNTER → 2025-01-25 18:47 | Outpatient (BNV) | payer MEDICAID, SELFPAY | PROVIDERS: Emergency Provider Emergency Medicine Emergency Medical Services; PCP Physician Assistant Surgical; Visit Provider Radiology Diagnostic Radiology | DX: R10.9 Unspecified abdominal pain (principal) | CPT/HCPCS: 74018 ==

== ENCOUNTER 2025-05-31 11:42 | Emergency (ER) | payer MEDICAID, SELFPAY ==
--- NOTE | ~2025-05-31 | US_ITS ---
EXAMINATION: US RETROPERITONEAL COMPLETE (RENAL) CLINICAL INFORMATION: Right flank pain. Emesis COMPARISON: 10/20/2024 ultrasound and 08/13/2024 CT TECHNIQUE: Real-time imaging of the kidneys and bladder. FINDINGS: RIGHT KIDNEY: 11 x 4 x 5 cm (SAG x AP x TRV). The kidney is normal in size, contour, and echogenicity. Renal cortical thickness is normal. No calculi or focal parenchymal lesions. No hydronephrosis. LEFT KIDNEY: 11 x 6 x 5 cm (SAG x AP x TRV). The kidney is normal in size, contour, and echogenicity. Renal cortical thickness is normal. No calculi or focal parenchymal lesions. No hydronephrosis. BLADDER: Partially distended and normal. Ureteral jets were not documented on the ultrasound. However, the food technologist reported that they were visualized on the right. Prevoid bladder volume is 152 mL. Postvoid bladder volume is 0 mL. US/US retroperitoneal comp IMPRESSION: Unremarkable renal ultrasound.. Electronically signed by: Сергей Fowler MD 05/31/2025 01:30 PM EDT
[2025-05-31 12:08] VITALS: BP 125/68; PULSE 54; RESP 18; TEMP 36.4; O2SAT 100; BMI 19.3
--- NOTE | 2025-05-31 12:08 | ED_ITS ---
HPI - Nausea/Vomiting/Diarrhea General Chief complaint: Nausea/Vomiting/Diarrhea Stated complaint: n/v/d, back pain, hx of kidney stones Time Seen by Provider: 05/31/25 14:08 Source: patient, RN notes reviewed and old records reviewed Mode of arrival: ambulatory Limitations: no limitations History of Present Illness ED Provider: Bipin HPI Narrative: Pt is a 34 y/o male with pmhx of recurrent kidney stones who presents to the ED with RLQ abdominal/back/flank pain. He reports weakness, nausea, vomiting, severe pain of the RLQ abdomen/back and flanks. All of the symptoms began this morning at 8AM. The pain has been constant and severe since it began. His states he has looked this way every time he has had a kidney stone. His reports he has felt sweaty, cool, and pale since the pain began. Pt has a reaction to tramadol. No hematemesis. No dysuria. No hematuria. No fever. MD elicited complaint: nausea, vomiting, abdominal pain and flank pain Related Data Previous Rx's ?Medication ?Instructions ?Recorded ondansetron 4 mg disintegrating 4 mg PO Q8H PRN nausea and 05/31/25 tablet vomiting #10 tabs oxycodone 5 mg tablet 5 mg PO Q8H PRN severe pain (scale 05/31/25 score 7-10) #6 tabs prednisone 20 mg tablet 20 mg PO DAILY #7 tabs 05/31 tamsulosin 0.4 mg capsule 0.4 mg PO DAILY #14 caps Allergies Allergy/AdvReac Type Severity Reaction Status Date / Time tramadol (TRAMADOL) Allergy Unknown HIVES Verified 05/31/25 12:11 Review of Systems 2 Review of Systems: As per HPI Yes all other systems are reviewed and are negative Constitutional: Constitutional: Reports as per HPI [facility] Past Medical History Medical History Elevated transaminase level Alcohol use disorder, severe, dependence Hypomagnesemia Visual hallucinations Alcohol abuse Alcohol withdrawal Dislocation of left elbow Surgical History History of foot surgery Family History Family History Other No family history of coronary artery disease Social History Social History Household Members: Family Do you presently have visiting nurse or other home services: No Unable to assess alcohol history related to: Unable to respond Alcohol intake: former Comment: refuses alarm Patient Tobacco Use Status: Never used Tobacco Second Hand Smoke Exposure: No Substance Use Type: Marijuana Advance Directives: Yes Advance Directives on File: Yes Advance Directives Date on File: 07/08/22 Do you have a plan to hurt others: No Plan service: No Current occupational status: employed Current occupation: right handed Physical Exam 2 Vital Signs: Vital Signs: Last Vital Signs Temp 97.6 F 05/31/25 12:08 Pulse 57 05/31/25 14:19 Resp 16 05/31/25 14:19 BP 129/75 05/31/25 14:19 Pulse Ox 100 05/31/25 14:19 O2 Del Method Room Air 05/31/25 14:19 BMI result Body Mass Index 19.3 Vital signs have been reviewed and appear to be correct. Blood pressure normal. Heart rate normal. Respiratory rate normal. Temperature normal. Oxygen saturation normal. Const: General: cooperative and no acute distress; No comfortable O rientation/consciousness: oriented to person, oriented to place, oriented to time and patient oriented x3 Limitations: no limitations HEENT: Head: Yes normocephalic and Yes atraumatic Ears: external ears normal General nose exam: Normal external nose present Face and sinus: Yes face symmetric Mouth: oropharynx normal and moist mucous membranes Throat: Yes uvula midline Eyes: Pupils: Equal, round and reactive pupils present Neck: Neck: Yes normal visual inspection and Yes supple Resp: Effort & Inspection: normal respiratory effort and able to speak in complete sentences Auscultation: clear to auscultation bilaterally Cardio: Rate: regular rate Rhythm: regular rhythm Heart sounds: S1 normal heart sound present and S2 normal heart sound present GI: Palpation (GI): Soft to palpation and nontender Auscultation: n ormoactive bowel sounds : General: Yes CVA tenderness on the right Back/Spine/Pelvis: Back: CVA tenderness Skin: General skin exam: elasticity normal and turgor normal Neuro: General: oriented to person, oriented to place, oriented to time, patient oriented x3, moves all extremities, no focal motor deficits and CN's II- XI intact bilaterally Cranial nerves: Yes Equal, round and reactive pupils present Cognition (Neuro): normal cognition Extrem: General: Yes full ROM, Yes no pedal edema and Yes no calf tenderness Psych: Mental Status: mental status grossly normal Affect: normal affect Thought process: Normal thought process present Course Course Course Narrative: 05/31/25 1208 GEORGE Burch This is a Rapid Medical Examination (RME) performed by Britney Velazquez PA-C in triage. Full HPI, ROS, assessment and treatment plan per primary provider in the Main ED. Hx: 34 yo M here for eval of N/V and RLQ abd pain/ right flank pain since today. no known sick contacts. hx renal stones. no urinary sx. reports 30 lb weight loss in 1 yr. Plan: labs, UA, US Reevaluation(s) Reevaluation #1: Received call from [facility] pharmacy that 15 mg morphine on back order at all area [facility] locations. Original order for morphine canceled and new prescription for 5 mg oxycodone sent. Time: 17:48 Medications Administered Discontinued Medications Generic Name Dose Route Start Last Admin Trade Name Freq PRN Reason Stop Dose Admin Hydromorphone HCl 1 mg 05/31/25 14:22 05/31/25 14:43 Hydromorphone Hcl 1 Mg/Ml Syringe IVPUSH 05/31/25 14:23 1 mg ONCE ONE Administration Protocol Hydromorphone HCl 0.5 mg 05/31/25 15:41 05/31/25 15:50 Hydromorphone Hcl 0.5 Mg/0.5 Ml Syringe IVPUSH 05/31/25 15:42 0.5 mg ONCE ONE Administration Protocol Sodium Chloride 1,000 mls @ 999 mls/hr 05/31/25 14:30 05/31/25 15:43 Ns IV 05/31/25 15:30 Infused .Q1H1M CHUCK Infusion Ketorolac Tromethamine 15 mg 05/31/25 14:22 05/31/25 14:42 Ketorolac Tromethamine 15 Mg/Ml Vial IVPUSH 05/31/25 14:23 15 mg ONCE ONE Administration Methylprednisolone Sodium Succinate 60 mg 05/31/25 15:41 05/31/25 15:56 Methylprednisolone Sod Succ 125 Mg/2 Ml Vial IVPUSH 05/31/25 15:42 60 mg ONCE ONE Administration Ondansetron HCl 4 mg 05/31/25 12:10 05/31/25 13:31 Ondansetron Odt 4 Mg Tab.Rimadis TRANSLINGU 05/31/25 12:11 4 mg ONCE ONE Administration Ondansetron HCl 4 mg 05/31/25 14:22 05/31/25 14:42 Ondansetron Hcl 4 Mg/2 Ml Vial IVPUSH 05/31/25 14:23 4 mg ONCE ONE Administration Tamsulosin HCl 0.4 mg 05/31/25 15:41 05/31/25 15:55 Tamsulosin Hcl 0.4 Mg Capsule PO 05/31/25 15:42 0.4 mg ONCE ONE Administration Medical Decision Making Medical Decision Making [facility] Narrative: Pt is a 34 y/o male with pmhx of recurrent kidney stones who presents to the ED with RLQ abdominal/back/flank pain. On exam patient is awake, A+Ox3, VS WNL, afebrile, normal neurological exam without focal deficits, physical exam findings as above. Given reported symptoms and physical exam findings, initial differential includes but is not limited to renal colic, obstructive calculi, hydronephrosis, UTI/pyelonephritis. Labs unremarkable, no evidence of GERARD. Urinalysis notable for 3+ blood, 1+ leukocytes, no bacteria, do not suspect UTI. Renal U/S notable for no hydronephrosis bilaterally, no calculi visualized. My interpretation is in agreement with the radiologist's interpretation. Patient reports significant improvement in pain and nausea after medications given in the ED. Feel symptoms likely due to recently passed calculi. Case discussed with Dr. Roblero, urology, who is in agreement with discharge home on prednisone, Flomax, Zofran and morphine for severe pain with outpatient follow-up. Return precautions discussed with patient and at bedside. Patient and verbalized understanding of and agreement with plan. Differential Diagnosis Differential Diagnoses: The differential diagnosis associated with the presentation includes As per [facility] Admission/Observation Consideration of admission/observation: Escalation of care including admission/observation considered Patient would have been admitted to the hospital had their clinical presentation warranted hospital admission. Consult Healthcare Provider Management of the patient was discussed with: Investigations Manager (Dr. Roblero) Lab Data [facility] Lab Attestation statement: I reviewed the patient's lab results. as per [facility] 05/31/25 12:41 05/31/25 12:41 Labs: Lab Results 05/31/25 05/31/25 Range/Units 12:41 14:28 WBC 9.4 (4.8-10.8) X10*3/uL RBC 4.95 (4.60-5.80) X10*6/uL Hgb 14.5 (14.0-18.0) g/dl Hct 41.1 L (42.0-52.0) % MCV 83.0 (80.0-98.0) fL MCH 29.3 (27.0-33.0) pg MCHC 35.3 (31.0-36.0) g/dl RDW 12.4 (11.0-16.0) % Plt Count 304 (160-400) X10*3/uL MPV 9.1 L (9.4-12.4) fL Immature Gran % (Auto) 0.4 (0.0-0.4) % Neut % (Auto) 85.7 H (45-73) % Lymph % (Auto) 8.1 L (20-40) % [place] % (Auto) 5.2 (2-11) % Eos % (Auto) 0.1 (0-4) % Baso % (Auto) 0.5 (0-2) % Lymph # (Auto) 0.8 L (1.2-4.9) X10*3/uL [place] # (Auto) 0.5 (0.1-1.2) X10*3/uL Eos # (Auto) 0.0 (0.0-0.4) X10*3/uL Baso # (Auto) 0.1 (0.0-0.2) X10*3/uL Abs Immat Gran (auto) 0.04 H (0.00-0.03) X10*3/uL Absolute Neuts (auto) 8.0 (2.0-8.3) x10*3/uL Absolute Nucleated RBC 0.000 (0.0-0.012) X10*3/uL Nucleated RBC % (auto) 0.0 (0.0-0.2) /100WBC Sodium 143 (135-145) mmol/L Potassium 3.9 (3.3-5.1) mmol/L Chloride 107 (96-108) mmol/L Carbon Dioxide 24 (22-29) mmol/L Anion Gap 16 (12-20) BUN 12 (9-16) mg/dL Creatinine 0.82 (0.5-1.4) mg/dL Estim Creat Clear Calc 113.7 Estimated GFR > 60 Random Glucose 133 H (60-115) mg/dL Calcium 9.8 (8.4-10.2) mg/dL Magnesium 1.7 (1.6-2.6) mg/dL Total Bilirubin 1.2 H (0.0-1.0) mg/dL AST 34 (5-37) U/L ALT 60 H (0-40) U/L Alkaline Phosphatase 65 (39-117) U/L Total Protein 7.1 (6.5-8.0) g/dL Albumin 4.8 (3.5-5.0) g/dL Lipase 14 (8-78) U/L Urine Color Dark Yellow Urine Appearance Cloudy Urine pH 7.0 (5.0-9.0) Ur Specific [place] >= 1.030 H (1.005-1.025) Urine Protein 100 (2+) H (Neg-Trace) mg/dL Urine Glucose (UA) Negative (Negative) mg/dL Urine Ketones >=160 (Negative) mg/dL Urine Blood Large (3+) H (Negative) Urine Nitrite Negative (Negative) Ur Leukocyte Esterase Small (1+) H (Negative) Urine RBC >20 H (0-2) /HPF Urine WBC 0-5 (0-5) /HPF Ur Squamous Epith Cells 0-2 (0-2) /HPF Urine Bacteria None Seen (None Seen) Hyaline Casts 0-2 (0-2) /LPF Influenza Type A (PCR) NEGATIVE (Negative) Influenza Type B (PCR) NEGATIVE (Negative) RSV RNA Qual (PCR) NEGATIVE (Negative) SARS-CoV-2 RNA (RT-PCR) NEGATIVE (Negative) Independent Interpretation I performed an independent interpretation of an: Ultrasound Interpretation: Renal U/S notable for no hydronephrosis bilaterally, no calculi visualized. Radiology Impression Discussion of test interpretation with radiology: I have reviewed the radiologist's reading. Radiologist Impression: US/US retroperitoneal comp IMPRESSION: Unremarkable renal ultrasound.. External Record Review External record reviewed: Inpatient record, Office record and Outpatient record Prescription Management I considered prescription management with: Pain Medication and Other Discharge Plan Discharge Clinical Impression: Acute right flank pain, Hematuria Patient Disposition: Home, Self-Care Instructions: Kidney Stones (ED), Renal Colic (ED), Flank Pain (ED) Additional Instructions: You were evaluated in the emergency department for flank pain. It is likely that your pain is due to a recently passed kidney stone. Your are being provided with a urine strainer to use at home, instructions are included in your discharge paperwork. You are being prescribed prednisone to decrease inflammation, tamsulosin to allow the stone to pass more easily, and morphine as needed for severe pain. You can also take 600 mg of ibuprofen every 6 hours as needed for pain. Your being prescribed ondansetron which you can use every 8 hours as needed for nausea. You are being referred to Urology, please call them 1st thing Friday morning for an appointment this week. Return to the emergency department if you develop worsening pain, persistent vomiting, fever 100.4? or greater, inability to urinate, or any other concerning symptoms. [facility] will be contacting you within 2 business?days after being discharged from the Emergency?Department.? During this?phone call, they will inform you when your follow up appointment will be scheduled. If you have not received a call from [facility] after 2 business?days, please call the?office at [phone]. Prescriptions: New ondansetron 4 mg tablet,disintegrating 4 mg PO Q8H PRN (Reason: nausea and vomiting) Qty: 10 0RF prednisone 20 mg tablet 20 mg PO DAILY Qty: 7 0RF tamsulosin 0.4 mg capsule 0.4 mg PO DAILY Qty: 14 0RF oxycodone 5 mg tablet 5 mg PO Q8H PRN (Reason: severe pain (scale score 7-10)) Qty: 6 0RF Rx Instructions: Partial Fill upon patient request. Referrals: [facility] Services [Provider Group, Urology] - 1 week Clinical Impression: Acute right flank pain; Hematuria Stand Alone Forms: Work/School Release Print Language: Estonian
[2025-05-31 12:45] LABS: MANUAL DIFF FLAG NO
[2025-05-31 12:48] LABS: Hematocrit 41.1 % (42.0-52.0); Hemoglobin 14.5 g/dl (14.0-18.0); Imm Gran Abs Auto 0.04 X10*3/uL (0.00-0.03); Imm Gran Pct Auto 0.4 % (0.0-0.4); Lymphocytes Absolute Auto 0.8 X10*3/uL (1.2-4.9); Mean Corpuscular HGB Conc 35.3 g/dl (31.0-36.0); Mean Corpuscular Hemoglobin 29.3 pg (27.0-33.0); Mean Corpuscular Volume 83.0 fL (80.0-98.0); NRBC Abs Auto 0.000 X10*3/uL (0.0-0.012); NRBC Pct Auto 0.0 /100WBC (0.0-0.2); Platelet Count 304 X10*3/uL (160-400); Red Blood Count 4.95 X10*6/uL (4.60-5.80); White Blood Count 9.4 X10*3/uL (4.8-10.8)
[2025-05-31 13:00] LABS: Alanine Aminotransferase 60 U/L (0-40); Albumin Level 4.8 g/dL (3.5-5.0); Alkaline Phosphatase 65 U/L (39-117); Anion Gap 16 (12-20); Aspartate Amino Transferase 34 U/L (5-37); Blood Urea Nitrogen 12 mg/dL (9-16); Calcium 9.8 mg/dL (8.4-10.2); Carbon Dioxide 24 mmol/L (22-29); Chloride 107 mmol/L (96-108); Creatinine Clr Calc Pharmacy 113.7; Estimated Glomerular Filt Rate > 60; Lipase 14 U/L (8-78); Magnesium 1.7 mg/dL (1.6-2.6); Potassium 3.9 mmol/L (3.3-5.1); Sodium 143 mmol/L (135-145); Total Protein 7.1 g/dL (6.5-8.0)
[2025-05-31 13:31] LABS: Resp Syncy Virus RNA Qual PCR NEGATIVE (Negative); SARS COV2 PCR INHOUSE NEGATIVE (Negative)
[2025-05-31 14:19] VITALS: BP 129/75; PULSE 57; RESP 16; O2SAT 100
[2025-05-31 14:34] LABS: Appearance Urine Cloudy; Glucose Urine UA Negative (Negative); PH 7.0 (5.0-9.0); Specific Gravity - Urine >= 1.030 (1.005-1.025); UMIC TRIGGER UACC YES
[2025-05-31 14:47] LABS: UACC Culture Trigger YES
[2025-05-31 17:51] VITALS: BP 129/75; PULSE 57; RESP 16; TEMP 37.1; O2SAT 100
== END 2025-05-31 17:52 | disposition home or self-care (01) ==
PROVIDERS: Physician Assistant Medical; Emergency Provider Emergency Medicine; PCP Physician Assistant Surgical
DX: R11.2 Nausea with vomiting, unspecified (principal); R10.31 Right lower quadrant pain; R31.9 Hematuria, unspecified; Z79.899 Other long term (current) drug therapy; Z87.442 Personal history of urinary calculi
CPT/HCPCS: 76770; 80053; 81001; 83690; 83735; 85025; 87086; 87637; 96361; 96374; 96375; 96376; 99285; J1171; J1885; J2405; J2919

== ENCOUNTER → 2025-05-31 12:13 | Outpatient (BNV) | payer MEDICAID, SELFPAY | PROVIDERS: PCP Physician Assistant Surgical; Visit Provider Radiology Diagnostic Radiology | DX: R10.31 Right lower quadrant pain (principal); R11.10 Vomiting, unspecified | CPT/HCPCS: 76770 ==

== ENCOUNTER 2025-06-08 16:12 | Emergency (ER) | payer MEDICAID, SELFPAY ==
--- NOTE | ~2025-06-08 | CT_ITS ---
CLINICAL HISTORY: Right ureteral stone CT abdomen and pelvis without contrast Comparison: None provided Findings: No acute findings within visualized lung bases. Small 2 mm right lower lobe nodule on series 6, image 9. Liver, spleen, adrenal glands, kidneys, gallbladder, and pancreas demonstrate normal nonenhanced appearance. No free air or free fluid. Unremarkable urinary bladder. Nonaneurysmal abdominal aorta. Nondistended stomach. No small bowel obstruction. Moderate gas distention of the rectum with mildly increased stool burden present throughout the colon. Normal appendix. No definite obstructing renal or ureteral calculi. No bladder calculi. No definite pathologically enlarged lymph nodes. No acute osseous abnormality. No lytic or sclerotic osseous lesions. Impression: 1. No definite obstructing renal, ureteral or bladder calculi. 2. No evidence of acute appendicitis. 3. Small 2 mm right lower lobe pulmonary nodule favored to be benign given patient's age. 4. Additional findings as above. This document has been electronically signed by: Froylan Connelly MD on 06/09/2025 00:31:27
--- NOTE | ~2025-06-08 | US_ITS ---
CLINICAL HISTORY: RLQ pain US abdomen limited Comparison: None provided Findings: Appendix is not seen. Gallbladder is within normal limits. Right kidney is within normal limits. IMPRESSION: 1. Nonvisualization of the appendix. This document has been electronically signed by: Ivon Byrd MD on 06/08/2025 17:22:07
--- NOTE | 2025-06-08 16:22 | ED_ITS ---
HPI - General Adult General Chief complaint: Abdominal Pain Stated complaint: rt side flank pain, vomitting Time Seen by Provider: 06/08/25 21:36 Source: patient Mode of arrival: ambulatory Limitations: no limitations History of Present Illness ED Provider: HPI narrative: Patient complaining of right flank pain for last 1 week was seen here last week and ultrasound done which was negative for kidney stone or hydronephrosis comes here as been continuing and going down to the right lower abdomen patient says that pain gets worse on movements no fever no chills has nausea and vomiting for several times patient has had ultrasound prior to my evaluation which is also negative this time no family history of kidney stone patient did not have any kidney stone in the past Related Data Previous Rx's ?Medication ?Instructions ?Recorded ondansetron 4 mg disintegrating 4 mg PO Q8H PRN nausea and 05/31/25 tablet vomiting #10 tabs oxycodone 5 mg tablet 5 mg PO Q8H PRN severe pain (scale 05/31/25 score 7-10) #6 tabs prednisone 20 mg tablet 20 mg PO DAILY #7 tabs 05/31 tamsulosin 0.4 mg capsule 0.4 mg PO DAILY #14 caps cyclobenzaprine 10 mg tablet 10 mg PO Q8H #20 tabs meloxicam 15 mg tablet 15 mg PO DAILY #20 tabs 05/18 03/11 polyethylene glycol 3350 17 17 g PO DAILY #238 grams 0 06/09/25 gram/dose oral powder (Miralax) Allergies Allergy/AdvReac Type Severity Reaction Status Date / Time tramadol (TRAMADOL) Allergy Unknown HIVES Verified 06/08/25 16:25 Review of Systems 2 Review of Systems: Yes all other systems are reviewed and are negative PMF Past Medical History Medical History Elevated transaminase level Alcohol use disorder, severe, dependence Hypomagnesemia Visual hallucinations Alcohol abuse Alcohol withdrawal Dislocation of left elbow Surgical History History of foot surgery Family History Family History Other No family history of coronary artery disease Social History Social History Household Members: Family Do you presently have visiting nurse or other home services: No Unable to assess alcohol history related to: Unable to respond Alcohol intake: former Comment: refuses alarm Patient Tobacco Use Status: Never used Tobacco Smoked in Last 30 Days: No Second Hand Smoke Exposure: No Substance Use Type: Marijuana Advance Directives: Yes Advance Directives on File: Yes Advance Directives Date on File: 07/08/22 Do you have a plan to hurt others: No Plan service: No Current occupational status: employed Current occupation: right handed Physical Exam ED Vital Signs: Vital Signs - 24 hr 06/09/25 01:27 Temperature 97.6 F Pulse Rate 50 Respiratory Rate 16 Blood Pressure 127/55 L Pulse Oximetry 100 Oxygen Delivery Method Room Air BMI result Body Mass Index 19.8 Appearance: Alert. Oriented X3. In moderate distress Eyes: PERRLA, No Nystagmus ENT: Pharynx normal. Oral Mucosa moist Neck: Normal inspection. Neck supple. CVS: Normal heart rate and rhythm. Pulses normal. Respiratory: No respiratory distress. Equal air entry bilateral, no wheezing/rales/rhonchi Abdomen: Soft and nontender. Bowel sounds are present, no mass palpable, right CVA tenderness Skin: Skin warm and dry. Normal skin color. Normal skin turgor. Extremities: No lower extremity edema. No calf tenderness Neuro: Oriented X 3. No motor deficit. No sensory deficit.No cerebellar signs , cranial nerves II-XII intact Course Course Course Narrative: This is a rapid medical exam performed by Imtiaz Voss NP: Additional HPI, ROS, PE not included below will be deferred to primary provider. Patient is a 34-year-old male presenting to the ED with complaint of ongoing right flank pain, nausea, vomiting. Currently worst pain is RLQ, he states worse with ambulation, worse with extension of right leg. Plan: labs, UA, ultrasound Medications Administered Discontinued Medications Generic Name Dose Route Start Last Admin Trade Name Freq PRN Reason Stop Dose Admin Cyclobenzaprine HCl 10 mg 06/09/25 00:42 06/09/25 01:20 Cyclobenzaprine Hcl 10 Mg Tablet PO 06/09/25 00:43 10 mg ONCE ONE Administration Hydromorphone HCl 1 mg 06/08/25 22:00 06/08/25 22:08 Hydromorphone Hcl 1 Mg/Ml Syringe IVPUSH 06/08/25 22:01 1 mg ONCE ONE Administration Protocol Sodium Chloride 1,000 mls @ 999 mls/hr 06/08/25 21:58 06/08/25 23:25 Ns IV 06/08/25 22:58 Infused .Q1H1M ONE Infusion Ketorolac Tromethamine 15 mg 06/08/25 16:25 06/08/25 16:29 Ketorolac Tromethamine 15 Mg/Ml Vial IM 06/08/25 16:26 15 mg ONCE ONE Administration Magnesium Hydroxide 30 ml 06/09/25 00:42 06/09/25 01:20 Milk Of Magnesia 30 Ml Oral.Susp PO 06/09/25 00:43 30 ml NOW STA Administration Morphine Sulfate 4 mg 06/08/25 17:55 06/08/25 18:09 Morphine Sulfate 4 Mg/Ml Cartridge IVPUSH 06/08/25 17:56 4 mg ONCE ONE Administration Protocol Morphine Sulfate 15 mg 06/09/25 00:44 06/09/25 01:20 Morphine Sulfate Immed Release 15 Mg Tablet PO 06/09/25 00:45 15 mg ONCE ONE Administration Ondansetron HCl 4 mg 06/08/25 16:25 06/08/25 16:28 Ondansetron Odt 4 Mg Tab.Rapdis TRANSLINGU 06/08/25 16:26 4 mg ONCE ONE Administration Medical Decision Making Medical Decision Making [facility] Narrative: Patient with nonspecific right flank pain with previous ultrasound and CT scan done today were negative for kidney stone patient has been vomiting for last 24 hours unable to hold down anything down on arrival POC was 45 repeat blood sugar was improved feeling much better after pain medication and p.o. fluids will discharge patient home Differential Diagnosis Differential Diagnoses: The differential diagnosis associated with the presentation includes Admission/Observation Consideration of admission/observation: Escalation of care including admission/observation considered Lab Data [facility] Lab Attestation statement: I reviewed the patient's lab results. 06/08/25 16:35 06/08/25 16:35 Labs: Lab Results 06/08/25 06/08/25 06/08/25 Range/Units 16:35 16:40 19:38 WBC 8.7 (4.8-10.8) X10*3/uL RBC 5.08 (4.60-5.80) X10*6/uL Hgb 14.8 (14.0-18.0) g/dl Hct 44.1 (42.0-52.0) % MCV 86.8 (80.0-98.0) fL MCH 29.1 (27.0-33.0) pg MCHC 33.6 (31.0-36.0) g/dl RDW 12.5 (11.0-16.0) % Plt Count 321 (160-400) X10*3/uL MPV 9.1 L (9.4-12.4) fL Immature Gran % (Auto) 0.2 (0.0-0.4) % Neut % (Auto) 42.6 L (45-73) % Lymph % (Auto) 43.6 H (20-40) % [place] % (Auto) 7.1 (2-11) % Eos % (Auto) 5.6 H (0-4) % Baso % (Auto) 0.9 (0-2) % Lymph # (Auto) 3.8 (1.2-4.9) X10*3/uL [place] # (Auto) 0.6 (0.1-1.2) X10*3/uL Eos # (Auto) 0.5 H (0.0-0.4) X10*3/uL Baso # (Auto) 0.1 (0.0-0.2) X10*3/uL Abs Immat Gran (auto) 0.02 (0.00-0.03) X10*3/uL Absolute Neuts (auto) 3.7 (2.0-8.3) x10*3/uL Absolute Nucleated RBC 0.000 (0.0-0.012) X10*3/uL Nucleated RBC % (auto) 0.0 (0.0-0.2) /100WBC ESR 2 (0-15) MM/HR Sodium 142 (135-145) mmol/L Potassium 3.9 (3.3-5.1) mmol/L Chloride 106 (96-108) mmol/L Carbon Dioxide 27 (22-29) mmol/L Anion Gap 13 (12-20) BUN 13 (9-16) mg/dL Creatinine 0.81 (0.5-1.4) mg/dL Estim Creat Clear Calc 121.4 Estimated GFR > 60 POC Glucose 137 H (60-115) mg/dL Random Glucose 45 L* (60-115) mg/dL Calcium 9.2 D (8.4-10.2) mg/dL Total Bilirubin 0.4 (0.0-1.0) mg/dL AST 31 (5-37) U/L ALT 49 H (0-40) U/L Alkaline Phosphatase 57 (39-117) U/L C-Reactive Protein < 0.10 (< or = 0.50) mg/dL Total Protein 6.9 (6.5-8.0) g/dL Albumin 4.6 (3.5-5.0) g/dL Urine Color Yellow Urine Appearance Cloudy Urine pH 6.0 (5.0-9.0) Ur Specific [place] >= 1.030 H (1.005-1.025) Urine Protein 30 (1+) H (Neg-Trace) mg/dL Urine Glucose (UA) Negative (Negative) mg/dL Urine Ketones Trace (Negative) mg/dL Urine Blood Large (3+) H (Negative) Urine Nitrite Negative (Negative) Ur Leukocyte Esterase Trace H (Negative) Urine RBC 11-20 H (0-2) /HPF Urine WBC 0-5 (0-5) /HPF Ur Squamous Epith Cells 0-2 (0-2) /HPF Urine Bacteria None Seen (None Seen) Hyaline Casts 0-2 (0-2) /LPF Independent Interpretation I performed an independent interpretation of an: CT Scan Radiology Impression Discussion of test interpretation with radiology: I have reviewed the radiologist's reading. Discharge Plan Discharge Clinical Impression: Abdominal pain, Constipation Patient Disposition: Home, Self-Care Instructions: Constipation (DC), Abdominal Pain (ED) Additional Instructions: Cause of your abdominal pain is not clear likely from constipation/muscular pain Your CT scan negative for kidney stone or any inflammatory changes Take stool softener as prescribed Pain medication muscle relaxant as prescribed Follow with your PCP if not better Prescriptions: New polyethylene glycol 3350 [Miralax] 17 gram/dose powder 17 g PO DAILY Qty: 238 0RF meloxicam 15 mg tablet 15 mg PO DAILY Qty: 20 0RF cyclobenzaprine 10 mg tablet 10 mg PO Q8H Qty: 20 0RF No Action ondansetron 4 mg tablet,disintegrating 4 mg PO Q8H PRN (Reason: nausea and vomiting) Qty: 10 0RF prednisone 20 mg tablet 20 mg PO DAILY Qty: 7 0RF tamsulosin 0.4 mg capsule 0.4 mg PO DAILY Qty: 14 0RF oxycodone 5 mg tablet 5 mg PO Q8H PRN (Reason: severe pain (scale score 7-10)) Qty: 6 0RF Rx Instructions: Partial Fill upon patient request. Interventions: ED Discharge Assessment Last Done: 06/09/25 01:27 Discharge Date/Time: 06/09/25 01:27 Print Language: German
[2025-06-08 16:23] VITALS: BP 117/66; PULSE 73; RESP 18; TEMP 36.8; O2SAT 97; BMI 19.8
[2025-06-08 16:43] LABS: MANUAL DIFF FLAG NO
[2025-06-08 16:45] LABS: Hematocrit 44.1 % (42.0-52.0); Hemoglobin 14.8 g/dl (14.0-18.0); Imm Gran Abs Auto 0.02 X10*3/uL (0.00-0.03); Imm Gran Pct Auto 0.2 % (0.0-0.4); Lymphocytes Absolute Auto 3.8 X10*3/uL (1.2-4.9); Mean Corpuscular HGB Conc 33.6 g/dl (31.0-36.0); Mean Corpuscular Hemoglobin 29.1 pg (27.0-33.0); Mean Corpuscular Volume 86.8 fL (80.0-98.0); NRBC Abs Auto 0.000 X10*3/uL (0.0-0.012); NRBC Pct Auto 0.0 /100WBC (0.0-0.2); Platelet Count 321 X10*3/uL (160-400); Red Blood Count 5.08 X10*6/uL (4.60-5.80); White Blood Count 8.7 X10*3/uL (4.8-10.8)
[2025-06-08 16:50] LABS: Appearance Urine Cloudy; Glucose Urine UA Negative (Negative); PH 6.0 (5.0-9.0); Specific Gravity - Urine >= 1.030 (1.005-1.025); UMIC TRIGGER UACC YES
[2025-06-08 17:01] LABS: Alanine Aminotransferase 49 U/L (0-40); Albumin Level 4.6 g/dL (3.5-5.0); Alkaline Phosphatase 57 U/L (39-117); Anion Gap 13 (12-20); Aspartate Amino Transferase 31 U/L (5-37); Blood Urea Nitrogen 13 mg/dL (9-16); Calcium 9.2 mg/dL (8.4-10.2); Carbon Dioxide 27 mmol/L (22-29); Chloride 106 mmol/L (96-108); Creatinine Clr Calc Pharmacy 121.4; Estimated Glomerular Filt Rate > 60; Potassium 3.9 mmol/L (3.3-5.1); Sodium 142 mmol/L (135-145); Total Protein 6.9 g/dL (6.5-8.0)
--- OUTSIDE RECORDS SUMMARY | 2025-06-08 17:15 | XMS_ITS | Encounter Summary ---
Author Organization [facility] Address [address] [place] [phone] Phone Care Team Providers Care Manager Flight Name Role Phone Ronald High PA-C Primary Care Provider Reason for Referral * Hospital - Outpatient - Closed Specialty Diagnoses / Procedures Referred By Aneesh parkinson Referred To Contact Radiology Procedures Outside US Imaging Report Only [facility] Internal Medicine [address] [place] [address] Phone: tel: fax: Referral ID Status Reason Start Date Expiration Date Visits Re quested Visits Authorized [id number] Closed 05/31/2025 1 1 Encounter Details Date Type Department Care Team (Late st Contact Info) Description 05/31/2025 Orders Only [facility] Internal Medicine [address] [place] [address] Sarath Carrero MD [address] [place] [id number] Social History Tobacco Use Types Packs/Day Years Used Date Smoking Tobacco: Former Cigarettes 0.5 3 2 019 - 2021 Smokeless Tobacco: Never Alcohol Use Standard Drinks/Week Comments Not Currently 0 (1 standard drink = 0.6 oz pur e alcohol) Education Answer Date Recorded Are you interested in more education? Not on shira e 08/11/2024 Are you concerned about learning? Not on file 08/11/2024 No 08/11/2024 No 08/11/2024 Digital Access Answer Date Recorded No 08/11/2024 No 08/11/2024 Reliable internet access at home? Not on file 08/11/2024 Device with a working camera? Not on file Sex and Gender Information Value Date Recorded Sex Assigned at Not on file Legal Sex Male 11:03 AM EDT Gender Identity Not on file Sexual Orientation Not on file documented as of this encounter Plan of Treatment Upcoming Encounters Date Type Department Care Team (Late st Contact Info) Description 07/19/2025 10:40 AM EDT Office Visit [facility] Internal Medicine [address] [place] [address] Ronald High PA-C [address] [place] [address] [email or web address] documented as of this encounter Procedures Procedure Name Priority Date/Time Associated Diagnosis Comments OUTSIDE US IMAGING REPORT ONLY Routine 05/31/2025 5:25 PM EDT documented in this encounter Results * Outside US Imaging??Report Only (05/31/2025 5:25 PM EDT) us Historical Provider MD [facility] US OP Final Res ult documented in this encounter Visit Diagnoses Not on filedocumented in this encounter Additional Health Concerns Assessment Noted Time PHQ-2 Depression Total Score: 1 08/17/20 24 7:52 AM EDT documented as of this encounter Care Teams Manager Flight Relationship Specialty Start Date End Date Ronald High PA-C [address] [place] [address] [email or web address] PCP - General Physician Integrated Logistics Support Manager 08/11/24 documented as of this encounter Additional Source Comments The information contained in this document represents components of the legal health record. It is not the complete legal health record.[facility]
[2025-06-08 18:32] VITALS: BP 110/63; PULSE 71; RESP 16; TEMP 36.7; O2SAT 98
[2025-06-08 19:43] LABS: Glucose, Whole Blood 137 mg/dL (60-115)
[2025-06-08 20:26] VITALS: BP 138/60; PULSE 86; RESP 16; TEMP 36.8; O2SAT 98
[2025-06-08 22:08] VITALS: RESP 16
[2025-06-09 01:15] VITALS: BP 127/55; PULSE 50; RESP 16; TEMP 36.4; O2SAT 100
[2025-06-09] MEDS: Morphine Sulfate Immed Release 15 MG TABLET PO (01:20)
[2025-06-09] MEDS: Milk of Magnesia 30 ML ORAL.SUSP PO (01:20)
[2025-06-09 01:27] VITALS: BP 127/55; PULSE 50; RESP 16; TEMP 36.4; O2SAT 100
== END 2025-06-09 01:27 | disposition home or self-care (01) ==
PROVIDERS: Registered Nurse Emergency; Emergency Provider Internal Medicine; PCP Physician Assistant Surgical
DX: K59.00 Constipation, unspecified (principal); R10.2 Pelvic and perineal pain; R11.2 Nausea with vomiting, unspecified; Z79.899 Other long term (current) drug therapy
CPT/HCPCS: 36415; 74176; 76705; 80053; 81001; 82947; 85025; 85652; 86140; 96361; 96372; 96374; 96375; 99284; J1171; J1885; J2270

== ENCOUNTER → 2025-06-08 16:26 | Outpatient (BNV) | payer MEDICAID, SELFPAY | PROVIDERS: PCP Physician Assistant Surgical; Visit Provider Radiology Diagnostic Radiology | DX: R10.31 Right lower quadrant pain (principal) | CPT/HCPCS: 76705 ==

== ENCOUNTER 2025-07-11 06:03 | Emergency (ER) | payer MEDICAID, SELFPAY ==
--- NOTE | 2025-07-11 | ECG_ITS ---
Test Reason : ABDOMINAL PAIN Blood Pressure : */* mmHG Vent. Rate : 71 BPM Atrial Rate : 71 BPM P-R Int : 106 ms QRS Dur : 96 ms QT Int : 388 ms P-R-T Axes : 37 76 74 degrees QTcB Int : 421 ms Sinus rhythm with short CO Normal ECG When compared with ECG of 13-Aug-2024 07:09, No significant changes seen Referred By: Generic ED Physician Electronically Signed By: WANDA SOLOMON
--- NOTE | ~2025-07-11 | CT_ITS ---
EXAMINATION: CT ABDOMEN PELVIS WITH IV CONTRAST HISTORY: Abdominal pain and vomiting COMPARISON: Comparison is made with the prior examination dated 06/08/2025. TECHNIQUE: CT scan of the abdomen and pelvis was performed following administration of 85 mL Omnipaque 350 using standard departmental protocol. Coronal and sagittal reformatted images were generated and reviewed. Oral contrast material was not administered at the request of the referring physician. This CT exam was performed with one or more of the following dose reduction techniques: automated exposure control, adjustment of the mA and/or kV according to patient size, use of iterative reconstruction technique. DLP: 674 mGy-cm FINDINGS: LOWER CHEST: Again seen is a 3 mm nodule at the right lung base (series 6, image 1). The visualized left lung base is clear. There is no pleural effusion. CARDIOVASCULATURE: The heart is normal in size. There is no pericardial effusion. LIVER: The liver is normal in size and contour. No liver mass is identified. The hepatic and portal veins are patent. GALLBLADDER / BILE DUCTS: The gallbladder is unremarkable. There is no intra or extrahepatic biliary ductal dilatation. SPLEEN: The spleen is normal in size. No focal splenic lesion is identified. PANCREAS: The pancreas is unremarkable in appearance. ADRENAL GLANDS: Within normal limits. KIDNEYS/RETROPERITONEUM: No renal calculi are identified. There is no hydronephrosis. No renal masses are identified. LYMPH NODES: No abdominal or pelvic lymphadenopathy. VASCULATURE: The abdominal aorta is normal in caliber. MESENTERY/PERITONEUM: No free fluid. No masses. There is no free intraperitoneal gas. STOMACH: The stomach is unremarkable. SMALL BOWEL: The small bowel is normal in caliber. COLON: The colon is unremarkable. APPENDIX: Normal. URINARY BLADDER/PELVIC ORGANS: The urinary bladder is collapsed, limiting evaluation. The prostate is normal in size. BONES / SOFT TISSUES: No suspicious bony or soft tissue abnormalities. CT/CT abdomen pelvis w IV con IMPRESSION: 1. Unremarkable contrast-enhanced CT of the abdomen and pelvis. 2. Stable 3 mm right lower lobe nodule. Electronically signed by: Nam Card MD 07/11/2025 09:04 AM EDT
[2025-07-11 06:06] VITALS: BP 101/73; PULSE 79; RESP 18; TEMP 36.4; O2SAT 99; BMI 18.5
[2025-07-11 06:30] LABS: MANUAL DIFF FLAG NO
--- OUTSIDE RECORDS SUMMARY | 2025-07-11 06:42 | XMS_ITS | Clinical Summary ---
Author Organization [facility] Address [address] [place] [phone] Phone Care Team Providers Care Brick Stacker Name Role Phone Roanld High PA-C Primary Care Provider [phone] Allergies Active Allergy Reactions Criticality Noted Date Comments Sulfa (Sulfonamide Antibiotics) 06/17 Tramadol 07/02/2018 Medications GAVILAX 17 gram/dose powder Take 17 g by mouth daily. MIX IN WATER BEFORE TAKING 5 Active baclofen (LIORESAL) 10 MG tablet Take 1 tablet (10 mg total) by mouth 3 (three) times a day as needed for spasm. 12 tablet 5 Active LORazepam (ATIVAN) 0.5 MG tablet Take 1 tablet (0.5 mg total) by mouth every 6 (six) hours as needed for anxiety. 12 tablet 5 Active cyclobenzaprine (FLEXERIL) 10 MG tablet Take 10 mg by mouth every 8 (eight) hours. 5 025 Discontin ued(No longer taking) meloxicam (MOBIC) 15 MG tablet Take 1 tablet by mouth every morning. 5 025 Discontin ued(No longer taking) ondansetron (ZOFRAN-ODT) 4 MG disintegrating tablet Take 4 mg by mouth every 8 (eight) hours as needed. 5 025 Discontin ued(No longer taking) oxyCODONE 5 MG immediate release tabletIndications: Right sided abdominal pain Take 1 tablet (5 mg total) by mouth every 8 (eight) hours as needed for pain (specific location in comments) (abdominal). Partial fill ok 15 tablet 5 025 Discontin ued(No longer taking) Active Problems Problem Noted Date Diagnosed Date RUQ pain 06/16/2025 Assessment & Plan (06/30/2025 3:10 PM EDT): Patient has been seen by the ER to at [facility] in May and 1 earlier this month at [facility]. Patient underwent a CT abdomen and pelvis at [facility] which was negative. His most recent CT abdomen/pelvis completed at [facility] showed no acute pathology however an incidental finding of right ramos mortis variant branch and distended urinary bladder tethered towards the right inguinal region abutting the variant branch. Although this could potentially cause some pain the pain that he is experiencing today and notable on physical exam is in the right upper quadrant and extending into the epigastric region. Patient mentions that he does have nausea and associated intermittent vomiting and also a weight loss of 20 to 30 pounds over the course the last few months. Of note he is noted to have elevated LFTs on most recent lab work on 06/18 from [facility] ER. Upon further discussion I did explain to the patient that a differential diagnosis can include gallbladder disease versus peptic ulcer disease versus H. pylori versus underlying malignancy. His incidental findings of his CT could play a role however I would not expect that this would be the source of his pain in his right upper quadrant. -Given his symptoms and physical exam I will order a HIDA scan urgently for further evaluation of his gallbladder to ensure that this is functioning properly if it is positive for a nonfunctioning gallbladder then we will refer to [facility] surgery urgently -I will obtain a CMP to further evaluate LFTs and H. pylori if his H. pylori is positive then I would recommend that the patient start treatment -He has been referred to urology Dr. Germain, I have asked staff to reach out to have him scheduled urgently for the abnormal findings of his CT -GI referral has been placed he has known showed his appointment previously at [facility] therefore he would like to see a different GI physician out of [place]. He will need an endoscopy and colonoscopy for further evaluation -Patient was advised to use Tylenol for pain -Patient was advised that if his symptoms worsen or his pain increases he is to go to the emergency department for further evaluation. Assessment & Plan (06/16/2025 4:40 PM EDT): Acute abdominal pain, unchanged since 06/08/25 ED workup. Recommended that he return to ED given severity of pain. Declines, is concerned about further labs/imaging needed. Reviewed PCP and ED records. Tevin was referred to [facility]; we received a no-show letter for consult. He is open to referral to [place] donn [facility]. Discussed discontinuing cyclobenzaprine and meloxicam given no improvement in symptoms. Continue ondansetron prn for nausea, miralax and adequate fluids. I also refilled oxycodone 5 mg to be taken every 8 hours for severe pain while awaiting GI consult. Recommended heat to affected area of right abdomen, rest. Work note provided. Constipation 11/01/2024 Assessment & Plan (01/31/2025 1:54 PM EDT): Patient with a history of constipation with noted straining precipitating some hemorrhoidal bleeding. Given his symptoms that concern for IBS with constipation. Patient was advised to start MiraLAX daily and discontinue Colace. A new [facility] GI referral was placed. Patient will need to undergo colonoscopy. Assessment & Plan (11/01/2024 10:21 AM EST): Constipation for about a month. Patient states that the stools were dark brown he did not notice any blood or black tarry stools. He was noted to have some abdominal discomfort. Today he mentions that the last 2 days he has had normal bowel movements. He still has some abdominal soreness -We will obtain a fit test if noted blood will move up or try to move up the GI referral -GI referral to [facility] for possible colonoscopy he has never had a colonoscopy in the past. -Abdominal CT at [facility] -Follow-up at next scheduled office visit. Kidney stone 08/17/2024 Assessment & Plan (08/17/2024 8:40 AM EDT): Patient recent ER visit to [facility] and underwent a CT which according to the patient was negative for stones. Patient continues to have CVA tenderness and right lower quadrant extending into the suprapubic region. POCT Urine dip: trace blood -Patient to follow-up with urology for appointment as they did attempt to call him post ER visit -Continue Toradol 10 mg 3 times daily as needed for pain and Zofran -Start Cipro 500 mg p.o. twice daily for prophylaxis -Obtain CMP and CBC Encounters Date Type Department Care Team Description 06/30/2025 1:40 PM EDT Office Visit [facility] Internal Medicine [address] [place] [address] Ronald High PA-C RUQ pain (Primary Dx) 06/22/2025 Telephone [facility] [address] [place] [address] Angelika Ayers PA-C missed call from PCP (After hours call) 06/22/2025 Telephone [facility] Internal Medicine [address] [place] [address] Yamila Shaffer MA 06/22/2025 Telephone [facility] Internal Medicine [address] [place] [address] Ronald High PA-C Referral 06/18/2025 12:27 PM EDT - 06/18/2025 8:30 PM EDT Emergency [facility] [address] [place] [address] Srikanth Sanchez MD Discharge Disposition: Home or Self Care 06/18/2025 Procedure Pass [facility], Ct Scan - Main Hospital [address] [place] [address] 06/16/2025 3:00 PM EDT Office Visit [facility] Internal Medicine [address] [place] [address] Mayi Schmidt CNP Right sided abdominal pain (Primary Dx) 06/16/2025 1:36 PM EDT - 06/16/2025 11:59 PM EDT Hospital Encounter [facility] [address] [place] [address] High, Ronald A, PA-C Discharge Disposition: Home or Self Care 06/16/2025 Documentation [facility] Internal Medicine [address] [facility] [place] [place] [address] Ronald High PA-C 06/09/2025 Orders Only [facility] Internal Medicine [address] [facility] [place] [place] [address] Sarath Carrero MD 05/31/2025 Orders Only [facility] Internal Medicine [address] [facility] [place] [place] [address] ProviderSarath MD from Last 3 Months Immunizations Immunization Administration Dates Next Due Tdap 05/02/2021 Social History Tobacco Use Types Packs/Day Years Used Date Smoking Tobacco: Former Cigarettes 0.5 3 2 019 - 2021 Smokeless Tobacco: Never Tobacco Cessation:Counseling Given: Not Answered Alcohol Use Standard Drinks/Week Comments Not Currently [...] with a working camera? Not on file Intimate Partner Violence Answer Date R ecorded Are you denied basic needs s uch as food, clothing, or medical care? No 06/18/2025 In the past 12 months have y ou been in a relationship with a person who hurts, threatens, or tries to control you? No 06/18/2025 Are you denied basic needs s [facility] as food, clothing, or medical care? No 06/18/2025 In the past 12 months have y ou been in a relationship with a person who hurts, threatens, or tries to control you? No 06/18/2025 Sex and Gender Information Value Date Recorded Sex Assigned at Male 06/18/2025 12:57 PM EDT Legal Sex Male 11:03 AM EDT Gender Identity Male 06/18/2025 12:57 PM EDT Sexual Orientation Don't know 06/18/2025 12 :57 PM EDT Last Filed Vital Signs Vital Sign Reading Time Taken Comments Blood Pressure 108/74 06/30/2025 2:14 PM EDT Pulse 80 06/30/2025 1:50 PM EDT Temperature 36.3 C (97.3 F) 06/30/2025 1:50 PM EDT Respiratory Rate 18 06/30/2025 1:50 PM EDT Oxygen Saturation 94% 06/30/2025 1:50 PM EDT Inhaled Oxygen Concentration - - Weight 66.9 kg (147 lb 6.4 oz) 06/30/2025 1:50 P M EDT Height 182.9 cm (6' 0.01 ) 06/30/2025 1:50 PM ED T Body Mass Index 19.99 06/30/2025 1:50 PM EDT Plan of Treatment Upcoming Encounters Date Type Department Care Team (Late st Contact Info) Description 07/19/2025 10:40 AM EDT Office Visit [facility] Internal Medicine [address] [place] [address] Ronald High PA-C [address] [place] [address] 08/02/2025 9:00 AM EDT Appointment [facility], Nuclear Medicine - [address] [address] Ronald High PA-C [address] [place] [address] Health Maintenance Due Date Last Done Comments LIPID PANEL 1988 HEPATITIS C SCREENING 2006 HIV ONE-TIME SCREENING (18-6 5 YEARS) 2006 COVID-19 VACCINE (2023-2 5 season) 2024 03/29/2021, 03/07/2021 DEPRESSION SCREENING 08/17/2025 08/17/2024 SMOKING Hx and SMOKELESS TOBACCO SCREENING 06/30/2026 06/30/2025 Adult Td,Tdap Booster 05/02/2031 05/02/2021 HEPATITIS A VACCINES Aged Out No long er eligible based on patient's age to complete this topic HIB VACCINES Aged Out No longer eligi ble based on patient's age to complete this topic MENINGOCOCCAL VACCINES (ACWY) Aged Out No longer eligible based on patient's age to complete this topic MENINGOCOCCAL VACCINES (B) Aged Out N o longer eligible based on patient's age to complete this topic PNEUMOCOCCAL VACCINES (0-49 years) Aged Out No longer eligible b ased on patient's age to complete this topic Medical Devices Not on file Procedures Procedure Name Priority Date/Time Associated Diagnosis Comments OUTSIDE LAB 06/20/2025 CT ABDOMEN/PELVIS WITH CONTRAST Routine 06/18/2025 3:27 PM EDT ECG 12-LEAD STAT 06/18/2025 2:03 PM EDT SEDIMENTATION RATE (ESR) Routine 06/18/2025 12:59 PM EDT C-REACTIVE PROTEIN Routine 06/18/2025 12 :59 PM EDT LIPASE STAT 06/18/2025 12:59 PM EDT LFTS (HEPATIC PANEL) STAT 06/18/2025 12:59 PM EDT BASIC METABOLIC PANEL STAT 06/18/2025 12:59 PM EDT CBC AND DIFFERENTIAL STAT 06/18/2025 12:59 PM EDT HC BLOOD OCCULT FECAL HGB DETER IA QUAL FECES 1-3 Routine 06/16/2025 8:00 PM EDT Constipation, unspecified constipation type OUTSIDE XR ABDOMEN REPORT ONLY Routine 06/08/2025 7:[address] ABD/PELVIS REPORT ONLY Routine 06/08/2025 7:06 AM EDT OUTSIDE POTASSIUM LEVEL Routine 06/08/2025 OUTSIDE ALT LEVEL Routine 06/08/2025 OUTSIDE SERUM CREATININE LEVEL Routine 06/08/2025 OUTSIDE US IMAGING REPORT ONLY Routine 05/31/2025 5:25 PM EDT from Last 3 Months Results * Outside Lab (06/20/2025) us Scanning Interface Provider LAB BLOOD ORDERABLES Final Result * CT ABDOMEN/PELVIS WITH CONTRAST (06/18/2025 3:27 PM EDT) Anatomical Region Laterality Modality Abdomen, Pelvis Computed Tomogra phy 06/18/2025 4:58 PM EDT Impressions 06/18/2025 5:21 PM [address]T [address]. No CT evidence of acute abnormality in the abdomen or pelvis. 2. 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 Clinical correlation for possible association of symptoms with bladder distention. Narrative 06/18/2025 5:[address] ABDOMEN/PELVIS WITH CONTRAST Referring clinician's provided indication for this examination in Epic: * Nausea/vomiting; RLQ/pelvic pain, intractable. prior imaging unremarkable. symptoms worsening TECHNIQUE: Multidetector-row CT of the abdomen and pelvis was performed after administration of intravenous contrast using tailored dose modulation techniques. Images were reconstructed in the axial, coronal, and sagittal planes. COMPARISON: CT ABDOMEN/PELVIS WITH CONTRAST FINDINGS: Lower Chest: 3 mm right lower lung nodule (3:20), similar in appearance when compared to 01/07/2025. Liver: No focal lesions. Biliary: Distended gallbladder. No biliary ductal dilatation. Spleen: No splenomegaly or focal lesions. Pancreas: Normal. No masses or ductal dilatation. Adrenal Glands: Normal. No nodules. Kidneys/Ureters: Normal. No solid masses, stones, or hydronephrosis. Bowel: The appendix is partially visualized (3:21) with no CT evidence of appendicitis. No bowel obstruction. Fluid-filled small bowel loops. Peritoneum/Retroperitoneum: Normal. No masses, pneumoperitoneum, or fluid. Lymph Nodes: Normal. No lymphadenopathy. Pelvic Organs/Bladder: Distended urinary bladder which is tethered towards the right inguinal region. Vessels: Incidental finding of right ramos mortis variant branch extending from the right deep inferior epigastric artery and crossing over the superior pubic ramus (3:361). No abdominal aortic aneurysm. Bones/Soft Tissues: No significant abnormality. Procedure Note Jesica Avilalisa Perry, [facility] - 06/18/2025 CT ABDOMEN/PELVIS WITH CONTRAST Referring clinician's provided indication for this examination in Epic: *Nausea/vomiting; RLQ/pelvic pain, intractable. prior imaging unremarkable.symptoms worsening TECHNIQUE: Multidetector-row CT of the abdomen and pelvis was performedafter administration of intravenous contrast using tailored dosemodulation techniques. Images were reconstructed in the axial, coronal,and sagittal planes. COMPARISON: CT ABDOMEN/PELVIS WITH CONTRAST 2024- FINDINGS: Lower Chest: 3 mm right lower lung nodule (3:20), similar in appearancewhen compared to 01/07/2025. Liver: No focal lesions. Biliary: Distended gallbladder. No biliary ductal dilatation. Spleen: No splenomegaly or focal lesions. Pancreas: Normal. No masses or ductal dilatation. Adrenal Glands: Normal. No nodules. Kidneys/Ureters: Normal. No solid masses, stones, or hydronephrosis. Bowel: The appendix is partially visualized (3:21) with no CT evidence ofappendicitis. No bowel obstruction. Fluid-filled small bowel loops. Peritoneum/Retroperitoneum: Normal. No masses, pneumoperitoneum, orfluid. Lymph Nodes: Normal. No lymphadenopathy. Pelvic Organs/Bladder: Distended urinary bladder which is tethered towardsthe right inguinal region. Vessels: Incidental finding of right ramos mortis variant branchextending from the right deep inferior epigastric artery and crossing overthe superior pubic ramus (3:361). No abdominal aortic aneurysm. Bones/Soft Tissues: No significant abnormality. IMPRESSION: 1. No CT evidence of acute abnormality in the abdomen or pelvis. 2. Incidental finding of right ramos mortis variant branch and distendedurinary bladder tethered towards the right inguinal region abutting thevariant branch. Clinical correlation for possible association of symptomswith bladder distention. us Srikanth Sanchez MD IMG CT ABD/PELVIS Final Re sult * ECG 12-LEAD (06/18/2025 2:03 PM EDT) Ventricular Rate EKG/MIN 54 BPM [facility] Atrial Rate 54 BPM [facility] HI Interval 150 ms [facility] QRS Duration 108 ms [facility] QT Interval 502 ms [facility] QTC Interval 476 ms [facility] P [place] 58 degrees [facility] R Wave [place] 61 degrees [facility] T Wave [place] 63 degrees [facility] 06/18/2025 2:03 PM EDT 06/20/2025 7:36 AM EDT Narrative [facility] - 06/20/2025 7:36 AM EDT Sinus bradycardia Otherwise normal ECG No previous ECGs available Confirmed by Mark Piper ([id number]) on 06/20/2025 7:36:25 AM Srikanth Sanchez MD ECG ORDERABLES Final Resu lt [facility] * (ABNORMAL) LFTs (hepatic panel) (06/18/2025 12:59 PM EDT) ALKALINE PHOSPHATASE 64 39 - 117 U/L [facility] TOTAL BILIRUBIN 0.6 0.0 - 1.2 mg/dL [facility] DIRECT BILIRUBIN 0.2 0.0 - 0.2 mg/dL [facility] Bilirubin (Indirect) 0.4 0 - 1.5 mg/dL [facility] AST 41(H) 0 - 37 U/L [facility] ALT 74(H) 0 - 40 U/L [facility] TOTAL PROTEIN 7.1 6.5 - 8.0 g/dL [facility] ALBUMIN 4.5 3.9 - 4.8 g/dL [facility] GLOBULIN 2.6 1 - 4.8 g/dL [facility] A/G Ratio 1.73 1.00 - 4.80 RATIO [facility] Blood 06/18/2025 12:5 9 PM EDT 06/18/2025 1:08 PM EDT us Srikanth Sanchez MD LAB BLOOD ORDERABLES Final Result [address] [address] * Sedimentation rate (ESR) (06/18/2025 12:59 PM EDT) ESR 3 0 - 15 mm/h [facility] 06/18/2025 12:5 9 PM EDT 06/18/2025 1:08 PM EDT Srikanth Sanchez MD LAB BLOOD ORDERABLES Final Result Performing Organization Address City/[facility]/ZIP Co de Phone Number [address] [address] * (ABNORMAL) CBC and differential (06/18/2025 12:59 PM EDT) WBC 11.56(H) 4.00 - 11.00 K/uL [facility] RBC 4.99 4.50 - 5.90 M/uL [facility] HGB 14.7 13.5 - 17.5 g/dL [facility] HCT 41.8 41.0 - 53.0 % [facility] PLT 299 150 - 450 K/uL [facility] MCV 83.8 80.0 - 100.0 fL [facility] MCH 29.5 27.0 - 31.0 pg [facility] MCHC 35.2 32.0 - 36.0 g/dL [facility] RDW 11.9 11.5 - 14.5 % [facility] MPV 9.2 8.4 - 12.0 fL [facility] NRBC 0.00 0.00 /100 WBCs [facility] ABSOLUTE NRBC 0.00 0.00 K/uL [facility] DIFF METHOD Auto [facility] NEUTS 86.7(H) 48.0 - 76.0 % [facility] LYMPHS 7.1(L) 18.0 - 41.0 % [facility] MONOS 4.5 4.0 - 11.0 % [facility] EOS 0.9 0.0 - 5.0 % [facility] BASOS 0.5 0.0 - 1.5 % [facility] Granulocytes, immature (%) 0.3 0.0 - 0.9 % [facility] ABSOLUTE NEUTS 10.03(H) 1.92 - 7.60 K/uL [facility] ABSOLUTE LYMPHS 0.82 0.72 - 4.10 K/uL [facility] ABSOLUTE MONOS 0.52 0.16 - 1.10 K/uL [facility] ABSOLUTE EOS 0.10 0.00 - 0.50 K/uL [facility] ABSOLUTE BASOS 0.06 0.00 - 0.15 K/uL [facility] Granulocytes, immature 0.03 0.00 - 0.09 K/uL [facility] Blood 06/18/2025 12:5 9 PM EDT 06/18/2025 1:08 PM EDT Srikanth Sanchez MD LAB BLOOD ORDERABLES Final Result [address] [address] * C-Reactive Protein (06/18/2025 12:59 PM EDT) C REACTIVE PROTEIN <3.0 0.0 - 4.0 mg/L [facility] 06/18/2025 12:5 9 PM EDT 06/18/2025 1:08 PM EDT Srikanth Sanchez MD LAB BLOOD ORDERABLES Final Result [address] [address] * Lipase (06/18/2025 12:59 PM EDT) LIPASE 21 16 - 63 U/L [facility] Blood 06/18/2025 12:5 9 PM EDT 06/18/2025 1:08 PM EDT Srikanth Sanchez MD LAB BLOOD ORDERABLES Final Result Performing Organization Address [facility]/ZIP Co de Phone Number [address] [address] * (ABNORMAL) Basic metabolic panel (06/18/2025 12:59 PM EDT) SODIUM 140 133 - 146 mmol/L [facility] CHLORIDE 99 96 - 108 mmol/L [facility] POTASSIUM 3.8 3.3 - 5.1 mmol/L [facility] CO2 23 21 - 35 mmol/L [facility] BUN 12 6 - 19 mg/dL [facility] CREATININE 0.80 0.5 - 1.5 mg/dL [facility] GLUCOSE 115(H) 70 - 99 mg/dL [facility] CALCIUM 10.0 8.4 - 10.3 mg/dL [facility] EGFR 118 >59 mL/min/1.7 3m2 [facility] Comment:Estimated glomerular filtration rate calculated using the CKD-EPI refit equation. ANION GAP 22(H) 10 - 20 mmol/L [facility] Blood 06/18/2025 12:5 9 PM EDT 06/18/2025 1:08 PM EDT Srikanth Sanchez MD LAB BLOOD ORDERABLES Final Result Performing Organization Address [facility] Co de Phone Number [address] [address] * Fecal immunochemical test x1 (FIT) (06/16/2025 8:00 PM EDT) Immuno Fecal Occult Negative Negative [facility] Stool (Stool) 06/16/2025 8:0 0 PM EDT 06/17/2025 1:37 PM EDT us Ronald High PA-C BODY FLUIDS AND STOOLS ORDERA BLES Final Result Performing Organization Address [facility]/ZIP Co de Phone Number [address] [address] * Outside XR Abdomen Report Only (06/08/2025 7:12 AM EDT) Result [facility] Provider MD MCCOY XR ABDOMEN Final Res ult * Outside CT Abd/pelvis Report Only (06/08/2025 7:06 AM EDT) Result [facility] Provider IMG CT ABD/PELVIS Final R esult * Outside Potassium Level (06/08/2025) Potassium level - External 3.9 3.4 - 5.0 mmol/L Result [facility] Provider LAB BLOOD ORDERABLES Abbie l Result * Outside Serum Creatinine Level (06/08/2025) Creatinine, serum - External 0.81 0.8 - 1.3 mg/dL Result [facility] Provider LAB BLOOD ORDERABLES Abbie l Result * (ABNORMAL) Outside ALT Level (06/08/2025) ALT - External 49(A) 5 - 30 U/L Result [facility] Provider LAB BLOOD ORDERABLES Abbie l Result * Outside US Imaging??Report Only (05/31/2025 5:25 PM EDT) Result [facility] Historical Provider MD MCCOY US OP Final Res ult from Last 3 Months Insurance [facility]CO [facility] [employer] [facility] ACO [employer] [address] [place] [address] Care Teams Brick Stacker Relationship Specialty Start Date End Date Ronald High PA-C [address] [place] [phone] [email or web address] PCP - General Physician Furnace [employer] 08/11/24 Additional Source Comments The information contained in this document represents components of the legal health record. It is not the complete legal health record.[facility]
[2025-07-11 06:44] LABS: Hematocrit 43.8 % (42.0-52.0); Hemoglobin 15.2 g/dl (14.0-18.0); Imm Gran Abs Auto 0.03 X10*3/uL (0.00-0.03); Imm Gran Pct Auto 0.4 % (0.0-0.4); Lymphocytes Absolute Auto 2.4 X10*3/uL (1.2-4.9); Mean Corpuscular HGB Conc 34.7 g/dl (31.0-36.0); Mean Corpuscular Hemoglobin 29.0 pg (27.0-33.0); Mean Corpuscular Volume 83.4 fL (80.0-98.0); NRBC Abs Auto 0.000 X10*3/uL (0.0-0.012); NRBC Pct Auto 0.0 /100WBC (0.0-0.2); Platelet Count 320 X10*3/uL (160-400); Red Blood Count 5.25 X10*6/uL (4.60-5.80); White Blood Count 8.1 X10*3/uL (4.8-10.8)
[2025-07-11 06:59] LABS: Alanine Aminotransferase 24 U/L (0-40); Albumin Level 4.8 g/dL (3.5-5.0); Alkaline Phosphatase 61 U/L (39-117); Anion Gap 18 (12-20); Aspartate Amino Transferase 23 U/L (5-37); Blood Urea Nitrogen 10 mg/dL (9-16); Calcium 10.0 mg/dL (8.4-10.2); Carbon Dioxide 25 mmol/L (22-29); Chloride 103 mmol/L (96-108); Creatinine Clr Calc Pharmacy 85.7; Estimated Glomerular Filt Rate > 60; Potassium 4.5 mmol/L (3.3-5.1); Sodium 141 mmol/L (135-145); Total Protein 7.1 g/dL (6.5-8.0)
[2025-07-11] MEDS: Lactated Ringers 1,000 ML 999 ML IV (07:10)
[2025-07-11 07:15] LABS: Lipase 356 U/L (8-78)
--- NOTE | 2025-07-11 07:16 | PC.NURSE ---
Pt thrashing around on stretcher holding R lower abdomen; pt hyperventilating, c/o full body numbness ; pt coached to slow respiratory rate and provider made aware of pt's condition; pt medicated per orders; IVF's infusing; pt still reports 10/10 pain but RR improved and pt able to lie still and rest; will cont to monitor/tx per orders
--- NOTE | 2025-07-11 07:22 | PC.NURSE ---
Pt's GF at RN station saying whatever you gave him is making him crazy ; pt restless, uneasy; MD made aware; awaiting orders
--- NOTE | 2025-07-11 07:33 | ED_ITS ---
HPI - Abdominal Pain General Chief Complaint: Abdominal Pain Stated Complaint: right flank pain Time Seen by Provider: 07/11/25 07:27 Source: patient and family Mode of arrival: ambulatory Limitations: no limitations History of Present Illness ED Provider: DR. Rice HPI narrative: 34-year-old male came in complaining of right flank/right abdominal pain started since yesterday after he ate, patient has been having abdominal pain with nausea and vomiting, patient confirmed that he do not drink alcohol for many months now, patient also stated that he smokes marijuana occasionally nothing in the last 3-4 days, presented with abdominal pain, nausea, and vomiting patient was given Benadryl and Haldol before I have seen the patient. Patient had a multiple ED visits for similar presentation, had multiple abdominal CT/ultrasound which was unremarkable. Patient is scheduled to see a early childhood education worker at [facility]. Related Data Previous Rx's ?Medication ?Instructions ?Recorded ondansetron 4 mg disintegrating 4 mg PO Q8H PRN nausea and 05/31/25 tablet vomiting #10 tabs oxycodone 5 mg tablet 5 mg PO Q8H PRN severe pain (scale 05/31/25 score 7-10) #6 tabs prednisone 20 mg tablet 20 mg PO DAILY #7 tabs 05/31 tamsulosin 0.4 mg capsule 0.4 mg PO DAILY #14 caps cyclobenzaprine 10 mg tablet 10 mg PO Q8H #20 tabs meloxicam 15 mg tablet 15 mg PO DAILY #20 tabs 05/18 03/11 polyethylene glycol 3350 17 17 g PO DAILY #238 grams 0 06/09/25 gram/dose oral powder (Miralax) omeprazole 40 mg capsule,delayed 40 mg PO DAILY #14 ca ps 07/11/25 release ondansetron 4 mg disintegrating 4 mg PO Q8H PRN nausea and 07/11/25 tablet vomiting #7 tabs Allergies Allergy/AdvReac Type Severity Reaction Status Date / Time tramadol (TRAMADOL) Allergy Unknown HIVES Verified 07/11/25 06:08 Review of Systems Review of Systems All other systems are reviewed and are negative Constitutional: Reports as per HPI and Reports no additional constitutional complaints Eyes: Reports as per HPI and Reports no additional eye complaints Reports system reviewed and no additional complaints, except as documented Cardiovascular: Reports as per HPI and Reports no additional cardiovascular complaints Respiratory: Reports as per HPI and Reports no additional respiratory complaints Gastrointestinal: Reports as per HPI and Reports no additional gastrointestinal complaints Genitourinary: Reports no additional female genitourinary complaints Musculoskeletal: Reports no additional musculoskeletal complaints Skin/Breast: Reports system reviewed and no additional complaints, except as docu Psychiatric: Reports no additional psychiatric complaints Endocrine: Reports no additional endocrine complaints Hematologic/Lymphatic: Reports no additional hematologic/lymphatic complaints Allergic/Immunologic: Reports no additional allergic/immunologic complaints Reports system reviewed and no additional complaints, except as documented and Reports Abnormal speech present [facility] Past Medical History Medical History Elevated transaminase level Alcohol use disorder, severe, dependence Hypomagnesemia Visual hallucinations Alcohol abuse Alcohol withdrawal Dislocation of left elbow Surgical History History of foot surgery Family History Family History Other No family history of coronary artery disease Social History Social History Household Members: Family Do you presently have visiting nurse or other home services: No Unable to assess alcohol history related to: Unable to respond Alcohol intake: former Comment: refuses alarm Patient Tobacco Use Status: Never used Tobacco Smoked in Last 30 Days: Yes Second Hand Smoke Exposure: No Use of substances other than those prescribed or required for medical reasons: No Substance Use Type: Marijuana Advance Directives: Yes Advance Directives on File: Yes Advance Directives Date on File: 07/08/22 Do you have a plan to hurt others: No Plan service: No Current occupational status: employed Current occupation: right handed Physical Exam ED Vital Signs: Vital Signs - 24 hr 07/11/25 06:06 07/11/25 08:57 Temperature 97.6 F Pulse Rate 79 54 Respiratory Rate 18 14 Blood Pressure 101/73 122/50 L Pulse Oximetry 99 98 Oxygen Delivery Method Room Air Room Air BMI result Body Mass Index 18.5 Vital signs have been reviewed and appear to be correct. Blood pressure elevated. Heart rate normal. Respiratory rate normal. Temperature normal. Oxygen saturation normal. Appearance: Alert. Oriented X3. No acute distress. Head: Normal external exam. Normocephalic. Atraumatic. No [place] signs noted. No raccoon eyes noted Eyes: PERRLA. EOMI. Conjunctiva and sclera normal. Eyelids normal. ENT: TM's Normal. Pharynx normal. Uvula midline. Moist mucous membranes. No trismus noted. No drooling noted. No muffled voice noted. Neck: Normal inspection. Neck supple. FROM. No adenopathy. Thyroid Normal. No meningeal signs. No neck mass noted. CVS: Normal heart rate and rhythm. Heart sound normal. No murmurs noted. Pulses normal throughout. Respiratory: No respiratory distress. Painless inspiration. Breath sounds normal. No wheezes/rales/rhonchi noted. Chest nontender. No accessory muscle usage noted or decreased air movement noted. Abdomen: Soft and nontender. Bowel sounds normal in all 4 quadrants. No distention noted. No organomegaly noted. No visible injury noted. Back: No CVA tenderness. Full range of motion noted. Skin: Skin warm and dry. Normal skin color. Normal skin turgor. No rashes/lesions/lacerations noted. Extremities: No lower extremity edema. Extremities exhibit normal range of motion. Extremities nontender. Neuro: Oriented X 3. Cranial nerve exam: II-XII are grossly intact No motor deficit. No sensory deficit. Reflexes normal. Course Reevaluation(s) Reevaluation #1: Acute on chronic abdominal pain with vomiting. Slight lipase elevation could be slight pancreatitis not revealed on CT. Patient has a GI follow-up appointment at [facility] patient was instructed to keep his appointment, will start the patient on Prilosec and Zofran if needed for pain. Patient also was instructed to avoid smoking marijuana. Time: 10:00 Medical Decision Making Differential Diagnosis Differential Diagnoses: The differential diagnosis associated with the presentation includes (Marijuana induced vomiting, gastritis, gastroenteritis, acute appendicitis, colitis, pancreatitis.) Admission/Observation Consideration of admission/observation: Escalation of care including admission/observation considered Lab Data MDM Lab Attestation statement: I reviewed the patient's lab results. 07/11/25 06:21 07/11/25 06:21 Labs: Lab Results 07/11/25 Range/Units 06:21 WBC 8.1 (4.8-10.8) X10*3/uL RBC 5.25 (4.60-5.80) X10*6/uL Hgb 15.2 (14.0-18.0) g/dl Hct 43.8 (42.0-52.0) % MCV 83.4 (80.0-98.0) fL MCH 29.0 (27.0-33.0) pg MCHC 34.7 (31.0-36.0) g/dl RDW 12.3 (11.0-16.0) % Plt Count 320 (160-400) X10*3/uL MPV 9.1 L (9.4-12.4) fL Immature Gran % (Auto) 0.4 (0.0-0.4) % Neut % (Auto) 56.8 (45-73) % Lymph % (Auto) 29.8 (20-40) % [place] % (Auto) 6.6 (2-11) % Eos % (Auto) 5.3 H (0-4) % Baso % (Auto) 1.1 (0-2) % Lymph # (Auto) 2.4 (1.2-4.9) X10*3/uL [place] # (Auto) 0.5 (0.1-1.2) X10*3/uL Eos # (Auto) 0.4 (0.0-0.4) X10*3/uL Baso # (Auto) 0.1 (0.0-0.2) X10*3/uL Abs Immat Gran (auto) 0.03 (0.00-0.03) X10*3/uL Absolute Neuts (auto) 4.6 (2.0-8.3) x10*3/uL Absolute Nucleated RBC 0.000 (0.0-0.012) X10*3/uL Nucleated RBC % (auto) 0.0 (0.0-0.2) /100WBC Sodium 141 (135-145) mmol/L Potassium 4.5 (3.3-5.1) mmol/L Chloride 103 (96-108) mmol/L Carbon Dioxide 25 (22-29) mmol/L Anion Gap 18 (12-20) BUN 10 (9-16) mg/dL Creatinine 1.07 (0.5-1.4) mg/dL Estim Creat Clear Calc 85.7 Estimated GFR > 60 Random Glucose 106 (60-115) mg/dL Calcium 10.0 D (8.4-10.2) mg/dL Magnesium 2.0 (1.6-2.6) mg/dL Total Bilirubin 0.7 (0.0-1.0) mg/dL AST 23 (5-37) U/L ALT 24 (0-40) U/L Alkaline Phosphatase 61 (39-117) U/L Total Protein 7.1 (6.5-8.0) g/dL Albumin 4.8 (3.5-5.0) g/dL Lipase 356 H (8-78) U/L Independent Interpretation I performed an independent interpretation of an: CT Scan (Abdomen and pelvis:1. Unremarkable contrast-enhanced CT of the abdomen and pelvis. 2. Stable 3 mm right lower lobe nodule. ) Radiology Impression Discussion of test interpretation with radiology: I have reviewed the radiologist's reading. Medications Administered Discontinued Medications Generic Name Dose Route Start Last Admin Trade Name Freq PRN Reason Stop Dose Admin Diazepam 5 mg 07/11/25 07:41 07/11/25 07:49 Diazepam 10 Mg/2 Ml Cartridge IVPUSH 07/11/25 07:42 5 mg STAT STA Administration Diphenhydramine HCl 50 mg 07/11/25 07:00 07/11/25 07:10 Diphenhydramine Hcl 50 Mg/Ml Vial IVPUSH 07/11/25 07:01 50 mg ONCE ONE Administration Haloperidol Lactate 5 mg 07/11/25 07:00 07/11/25 07:10 Haloperidol Lactate 5 Mg/Ml Vial IVPUSH 07/11/25 07:01 5 mg ONCE ONE Administration Lactated Ringer's 1,000 mls @ 999 mls/hr 07/11/25 07:00 07/11/25 08:31 Lr IV 07/11/25 08:00 Infused .Q1H1M ONE Infusion Acetaminophen 1,000 mg in 100 mls @ 400 mls/hr 07/11/25 07:41 07/11/25 08:32 Ofirmev IV 07/11/25 07:55 Infused ONCE ONE Infusion Iohexol 100 ml 07/11/25 08:47 07/11/25 08:47 Iohexol 350 Mg/Ml 100 Ml Infus..Btl IV 07/11/25 08:48 85 ml ONCE ONE Administration Ondansetron HCl 4 mg 08/25/25 07:41 07/11/25 07:48 Ondansetron Hcl 4 Mg/2 Ml Vial IVPUSH 07/11/25 07:42 4 mg ONCE ONE Administration Discharge Plan Discharge Clinical Impression: Gastritis Patient Disposition: Home, Self-Care Instructions: Gastritis (ED) Additional Instructions: Avoid drinking alcohol, avoid smoking marijuana, keep your appointment with a GI as scheduled, take the medicine as prescribed. Prescriptions: New ondansetron 4 mg tablet,disintegrating 4 mg PO Q8H PRN (Reason: nausea and vomiting) Qty: 7 0RF omeprazole 40 mg capsule,delayed release(DR/EC) 40 mg PO DAILY Qty: 14 0RF No Action polyethylene glycol 3350 [Miralax] 17 gram/dose powder 17 g PO DAILY Qty: 238 0RF meloxicam 15 mg tablet 15 mg PO DAILY Qty: 20 0RF cyclobenzaprine 10 mg tablet 10 mg PO Q8H Qty: 20 0RF ondansetron 4 mg tablet,disintegrating 4 mg PO Q8H PRN (Reason: nausea and vomiting) Qty: 10 0RF prednisone 20 mg tablet 20 mg PO DAILY Qty: 7 0RF tamsulosin 0.4 mg capsule 0.4 mg PO DAILY Qty: 14 0RF oxycodone 5 mg tablet 5 mg PO Q8H PRN (Reason: severe pain (scale score 7-10)) Qty: 6 0RF Rx Instructions: Partial Fill upon patient request. Referrals: Ronald High PA-C [Primary Care Provider, Internal Medicine] Print Language: Italian
[2025-07-11] MEDS: diazePAM 10 MG/2 ML CARTRIDGE 5 MG IVPUSH (07:49)
[2025-07-11 08:02] LABS: Magnesium 2.0 mg/dL (1.6-2.6)
[2025-07-11] MEDS: iohexoL 350 MG/ML 100 ML INFUS..BTL IV (08:47)
[2025-07-11 08:57] VITALS: BP 122/50; PULSE 54; RESP 14; O2SAT 98
--- NOTE | 2025-07-11 08:58 | PC.NURSE ---
Pt sleeping in room; wakes to voice; reports + decrease in sx's with tx; CT scan results pending; vss@baseline
[2025-07-11 10:17] VITALS: BP 126/62; PULSE 62; RESP 17; TEMP 36.6; O2SAT 98
[2025-07-11 10:18] VITALS: BP 126/62; PULSE 62; RESP 17; TEMP 36.6; O2SAT 98
== END 2025-07-11 10:20 | disposition home or self-care (01) ==
PROVIDERS: Emergency Provider Emergency Medicine; PCP Physician Assistant Surgical
DX: K29.70 Gastritis, unspecified, without bleeding (principal); R10.2 Pelvic and perineal pain; R11.2 Nausea with vomiting, unspecified; F12.90 Cannabis use, unspecified, uncomplicated
CPT/HCPCS: 36415; 74177; 80053; 83690; 83735; 85025; 93005; 96361; 96374; 96375; 99285; J0131; J1200; J1630; J2405; J3360; J7120; Q9967

== ENCOUNTER → 2025-07-11 06:27 | Outpatient (BNV) | payer MEDICAID, SELFPAY | PROVIDERS: Emergency Provider Emergency Medicine; PCP Physician Assistant Surgical; Visit Provider Internal Medicine | DX: R94.31 Abnormal electrocardiogram [ECG] [EKG] (principal) | CPT/HCPCS: 93010 ==

== ENCOUNTER → 2025-07-11 07:42 | Outpatient (BNV) | payer MEDICAID, SELFPAY | PROVIDERS: Emergency Provider Emergency Medicine; PCP Physician Assistant Surgical; Visit Provider Radiology Diagnostic Radiology | DX: R10.11 Right upper quadrant pain (principal) | CPT/HCPCS: 74177 ==

== ENCOUNTER 2025-09-09 10:31 | Emergency (ER) | payer MEDICAID, SELFPAY ==
--- OUTSIDE RECORDS SUMMARY | 2025-09-07 15:00 | XMS_ITS | Encounter Summary ---
Author Organization Formerly [facility] Address [address] [place] [id number] Phone Care Team Providers Care Capper Machine Operator Name Role Phone Samantha Ayers PA-C Primary Care Provider + [phone] Reason for Referral * Hospital - Outpatient - Closed Specialty Diagnoses / Procedures Referred By Aneesh parkinson Referred To Contact Radiology Diagnoses RLQ abdominal pain Procedures US Abdomen Limited Samantha Ayers PA-C [address] [place] [address] Phone: tel: fax: mailto:[email or web address] Referral ID Status Reason Start Date Expiration Date Visits Re quested Visits Authorized [id number] Closed 09/07/2025 1 1 * Consultation (Within 3 days (urgent)) - Authorized Specialty Diagnoses / Procedures Referred By Aneesh parkinson Referred To Contact Diagnoses RLQ abdominal pain Samantha Ayers PA-C [address] [place] [address] Phone: tel: fax: mailto:[email or web address] Referral ID Status Reason Start Date Expiration Date V isits Requested Visits Authorized [id number] Authorized 09/07/2025 09/07/2026 12 12 Reason for Visit * Reason Comments Sick Visit Abd pain Encounter Details Date Type Department Care Team (Late st Contact Info) Description 09/07/2025 3:00 PM EDT Office Visit [facility] Internal Medicine [address] [place] [address] Samantha Ayers PA-C [address] [place] [address] RLQ abdominal pain (Primary Dx); YOSI (generalized anxiety disorder) Social History Tobacco Use Types Packs/Day Years Used Date Smoking Tobacco: Former Cigarettes 0.5 3 2 019 - 2021 Smokeless Tobacco: Never Comments:Occasionally nicoti ne vape. Alcohol Use Standard Drinks/Week Comments Not Currently 0 (1 standard drink = 0.6 oz pur e alcohol) Child or Family Care Answer Date Record ed Do you have problems with on e of the following making it difficult for you to work, study, or receive health care? No 08/17/2025 Education Answer Date Recorded Are you interested in help w ith more adult education (for example, completing high school, GED, job training, learning the [place] language, technical skills, or developing parenting skills)? No 08/17/2025 Are you concerned about learning? Not on file 08/17/2025 No 08/17/2025 Yes 08/17/2025 Food Answer Date Recorded Within the past 6 months we worried whether our food would run out before we got money to buy more. Never True 08/17/2025 Within the past 6 months the food we bought just didn't last and we didn't have enough money to get more. Never True Residential Stability Answer Date Recor ded What is your housing situation today? I have gaviota sing 08/17/2025 How many times have you move d in the past 12 months? Zero (I did not move) 08/17/2025 Paying for Meds Answer Date Recorded Do you have trouble paying for medicines? No 08/17/2025 Paying Utility Bills Answer Date Record ed Do you have trouble paying your heating or elect ricity bill? Yes 08/17/2025 Transportation Answer Date Recorded Has the lack of transportati on kept you from medical appointments or from getting medications? No 08/17/2025 Unemployment Answer Date Recorded Are you currently unemployed or working on a part-time or temporary basis, and looking for work? Yes 08/17/2025 Digital Access Answer Date Recorded No 08/17/2025 Yes 08/17/2025 Do you have reliable internet access at home? Ye s 08/17/2025 Do you have a device (e.g., phone, tablet, computer) with a working camera? Yes 08/17/2025 SNAP & WIC Answer Date Recorded Do you receive benefits from SNAP (the Supplemental Nutrition Assistance Program) or the Food Stamp Program? Yes 08/17/2025 SNAP is a free program, interested in learning m ore? Not on file 08/17/2025 Can we help you enroll in SNAP? Not on file 08/17/2025 Benefits received from WIC? Not on file 11/2024 WIC is a free program, interested in learning mo re? Not on file 08/17/2025 Can we help you enroll in WIC? Not on file 1 Intimate Partner Violence Answer Date R ecorded Are you denied basic needs s uch as food, clothing, or medical care? No 08/17/2025 In the past 12 months have y ou been in a relationship with a person who hurts, threatens, or tries to control you? No 08/17/2025 Are you denied basic needs s uch as food, clothing, or medical care? No 08/17/2025 In the past 12 months have y ou been in a relationship with a person who hurts, threatens, or tries to control you? No 08/17/2025 Sex and Gender Information Value Date Recorded Sex Assigned at Male 06/18/2025 12:57 PM EDT Legal Sex Male 11:03 AM EDT Gender Identity Male 06/18/2025 12:57 PM EDT Sexual Orientation Don't know 06/18/2025 12 :57 PM EDT documented as of this encounter Last Filed Vital Signs Vital Sign Reading Time Taken Comments Blood Pressure 110/78 09/07/2025 2:54 PM EDT Pulse 68 09/07/2025 2:54 PM EDT Temperature 36.3 C (97.3 F) 09/07/2025 2:54 PM EDT Respiratory Rate 13 09/07/2025 2:54 PM EDT Oxygen Saturation 98% 09/07/2025 2:54 PM EDT Inhaled Oxygen Concentration - - Weight 71.7 kg (158 lb) 09/07/2025 2:54 PM EDT Height 182.9 cm (6' 0.01 ) 09/07/2025 2:54 PM ED T Body Mass Index 21.42 09/07/2025 2:54 PM EDT documented in this encounter Progress Notes * Samantha Ayers PA-C - 09/07/2025 3:00 PM EDT Subjective Dougie Ayon is a 34 y.o. male. History of Present Illness The patient is a 34-year-old male who presents for a second visit for right- sided abdominal pain, anxiety, and nausea. He presents today with his spouse Beena. He reports a recurrence of right-sided abdominal pain, which is more pronounced on his side than his back. The discomfort is so severe that it is exacerbated by the pressure of his waistband. He has sought emergency care multiple times but feels that these visits have been unproductive. He experiences difficulty sleeping and eating, with the latter sometimes triggering his symptoms. He does not report constipation and has regular bowel movements. He describes his pain as coming in waves, duringwhich he finds relief by holding his breath. He has been using ibuprofen for pain management and Pepto-Bismol for gastrointestinal symptoms, including burping. He has also tried gas medication. He has noticed an unusual flatness to one side of his stool but has not had a rectal exam. He reports no current blood in his stool, although he did have a significant episode of rectal bleeding in the past, which was attributed to hemorrhoids. He has not completed the H. pylori breath test ordered at his last visit. He reports no fever or chills but does experience sweating and shaking during vomitingepisodes. He finds relief from his symptoms when he elevates his buttocks. His last bowel movement was yesterday, and he has been using MiraLAX and stool softeners. He has had his appendix evaluated several times, with the most recent assessment indicating no abnormalities. He has been under significant stress recently due to starting a new job and preparing to move, which has led to increased anxiety and nail-biting. He has been taking pime-hrz-beifmjj omeprazole, which provides some relief. He has not tried Pepcid or famotidine. He is requesting a refill of Zofran. His spouse is requesting a refill of the lorazepam, however henotes that he does not want this medication. He requests oxycodone today. Current Outpatient Medications Ordered in [facility] Medication Sig GAVILAX 17 gram/dose powder Take 17 g by mouth as needed. MIX IN WATER BEFORE TAKING LORazepam (ATIVAN) 0.5 MG tablet Take 1 tablet (0.5 mg total) by mouth every 6 (six) hours as needed for anxiety. ondansetron (ZOFRAN-ODT) 4 MG disintegrating tablet Take 1 tablet (4 mg total) by mouth every 8 (eight) hours as needed for nausea. Review of Systems All other systems reviewed and are negative. Objective Physical Exam Blood pressure 110/78, pulse 68, temperature 36.3 ??C (97.3 ??F), temperature source Temporal, resp. rate 13, height 182.9 cm (6' 0.01 ), weight 71.7 kg (158 lb), SpO2 98%. Gen: Alert, cooperative, uncomfortable but no acute distress. HEENT: Atraumatic, normocephalic. PERRL. No gross hearing deficits noted. Mucous membranes moist. Neck supple and symmetrical. Skin: [place], warm, dry. Chest: Equal chest rise and fall, no respiratory distress. Abd: Soft, nondistended. Tenderness to palpation along the right lower quadrant noted without rebound or guarding. Bowel sounds present. No organomegaly or palpable masses. Ext: No gross deformities. Neuro: CN II-XII grossly intact. Alert and oriented x 3. Normal speech and language. Memory intact. Results Impression HIDA scan 08/02/2025 Patent cystic and common bile ducts. Impression CT abdomen pelvis 06/18/[address] evidence of acute abnormality in the abdomen or pelvis. 2. 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 Clinical correlation for possible association of symptoms with bladder distention. Assessment & Plan 1. Right-sided abdominal pain: He experiences colicky right sided abdominal pain that can worsen after eating, mostly localized tothe right lower quadrant. He reports that the pain is severe and has been to the ER multiple times for this, although imaging so far ultimately has been negative. There was incidental finding of a right ramos mortis variant branch but patient never followed up with urology. Unlikely to be the cause of his symptoms although not impossible. He reports associated nausea and vomiting with his symptoms but denies any urinary symptoms. He does not report any hematochezia at this time but does note an episode of hematochezia previously that was deemed hemorrhoids. He has an appointment scheduled with GI in October for consultation. He is requesting Zofran and oxycodone and his spouse is requesting lorazepam. Given his symptoms and him noting significant pain, I recommended that they go to the ER for further evaluation. Advised that opioid medication for acute on chronic abdominal pain in outpatient setting is generally not first-line treatment as opioid medications can also have GI side effects. They report extreme frustration regarding the healthcare system stating that he is in a lot of pain and no one is taking his symptoms seriously. Advised the patient I empathized with him and that I want to get to the reason as to why he is having the pain but so far imaging has been negative.Will do an urgent referral to GI to see if he can be seen sooner. Will also obtain a right lower quadrant abdominal ultrasound as that is where most of the pain is located to rule out appendicitis. Discussed that if the pain is a serious, he should be evaluated at the ER. Refill of Zofran sent to his pharmacy. Advised use of Tylenol for pain management, advised caution with NSAIDs as they can irritate the stomach lining. Advised that he should do the H. pylori breath test that was previously ordered. Also recommended famotidine/omeprazole for upper GI symptoms. Per discussion with Dr. Orourke, controlled substances are not indicated for this patient. 2. Anxiety: The patient's spouse notes that the patient has had increased anxiety since starting a new job and moving, as well as with abdominal pain. She is requesting a refill of his lorazepam. He reports thathe does not want a prescription for lorazepam at this time. I advised that if the patient does not want lorazepam then I will not be prescribing lorazepam. Per discussion with Dr. Orourke, controlled substances are not indicated for this patient. I personally spent a total of 45 minutes on care for this patient on the date of the encounter. This includes vqoj-ox-ozvn time during the visit as well as non bgoy-pm-xoxg time spent on chart review, documentation, and care coordination. I obtained verbal consent from the patient or their proxy to record this visit for purposes of producing a draft of the encounter documentation. Samantha Ayers PA-C documented in this encounter Miscellaneous Notes * Assessment & Plan Note - Samantha Ayers PA-C - 09/07/2025 6:08 PM EDT Associated Problem(s): YOSI (generalized anxiety disorder) The patient's spouse notes that the patient has had increased anxiety since starting a new job and moving, as well as with abdominal pain. She is requesting a refill of his lorazepam. He reports thathe does not want a prescription for lorazepam at this time. I advised that if the patient does not want lorazepam then I will not be prescribing lorazepam. Per discussion with Dr. Orourke, controlled substances are not indicated for this patient. * Assessment & Plan Note - Samantha Ayers PA-C - 09/07/2025 6:07 PM EDT Associated Problem(s): RLQ abdominal pain He experiences colicky right sided abdominal pain that can worsen after eating, mostly localized tothe right lower quadrant. He reports that the pain is severe and has been to the ER multiple times for this, although imaging so far ultimately has been negative. There was incidental finding of a right ramos mortis variant branch but patient never followed up with urology. Unlikely to be the cause of his symptoms although not impossible. He reports associated nausea and vomiting with his symptoms but denies any urinary symptoms. He does not report any hematochezia at this time but does note an episode of hematochezia previously that was deemed hemorrhoids. He has an appointment scheduled with GI in October for consultation. He is requesting Zofran and oxycodone and his spouse is requesting lorazepam. Given his symptoms and him noting significant pain, I recommended that they go to the ER for further evaluation. Advised that opioid medication for acute on chronic abdominal pain in outpatient setting is generally not first-line treatment as opioid medications can also have GI side effects. They report extreme frustration regarding the healthcare system stating that he is in a lot of pain and no one is taking his symptoms seriously. Advised the patient I empathized with him and that I want to get to the reason as to why he is having the pain but so far imaging has been negative.Will do an urgent referral to GI to see if he can be seen sooner. Will also obtain a right lower quadrant abdominal ultrasound as that is where most of the pain is located to rule out appendicitis. Discussed that if the pain is a serious, he should be evaluated at the ER. Refill of Zofran sent to his pharmacy. Advised use of Tylenol for pain management, advised caution with NSAIDs as they can irritate the stomach lining. Advised that he should do the H. pylori breath test that was previously ordered. Also recommended famotidine/omeprazole for upper GI symptoms. Per discussion with Dr. Orourke, controlled substances are not indicated for this patient. documented in this encounter Plan of Treatment Upcoming Encounters Date Type Department Care Team (Late st Contact Info) Description 11/23/2025 8:40 AM EST Office Visit [facility] Internal Medicine [address] [place] [address] Samantha Ayers PA-C [address] [place] [address] [email or web address] Scheduled Referrals Name Type Priority Associated Diagnoses Order Schedule Ambulatory referral to External Gastroenterology Outpatient Referral Routine RLQ abdominal pain Ordered: 09/07/2025 documented as of this encounter Results * US ABDOMEN LIMITED APPENDIX (ADULT) (09/08/2025 9:33 AM EDT) Anatomical Region Laterality Modality Abdomen Ultrasound 09/08/2025 9:34 AM EDT Impressions 09/08/2025 9:37 AM EDT The appendix is not visualized sonographically. Consider CT if there is continued clinical concern. Narrative 09/08/2025 9:37 AM EDT US ABDOMEN LIMITED APPENDIX (ADULT) Referring clinician's provided indication for this examination in Epic: RLQ Abdominal pain, appendicitis suspected TECHNIQUE: US Abdominal limited appendix. COMPARISON: CT ABDOMEN/PELVIS WITH CONTRAST FINDINGS: Appendix: Not visualized. Gallbladder: No gallstones or gallbladder wall thickening. Villalobos's Sign: Negative. Right Kidney: Normal. No stones or hydronephrosis. Procedure Note Kiki Green MD - 09/08/2025 US ABDOMEN LIMITED APPENDIX (ADULT) Referring clinician's provided indication for this examination in Epic:RLQ Abdominal pain, appendicitis suspected TECHNIQUE: US Abdominal limited appendix. COMPARISON: CT ABDOMEN/PELVIS WITH CONTRAST FINDINGS: Appendix: Not visualized. Gallbladder: No gallstones or gallbladder wall thickening. Villalobos's Sign: Negative. Right Kidney: Normal. No stones or hydronephrosis. IMPRESSION: The appendix is not visualized sonographically. Consider CT if there iscontinued clinical concern. us Samantha Ayers PA-C IMG US ABDOMEN Final Result documented in this encounter Visit Diagnoses Diagnosis RLQ abdominal pain- Primary Abdominal pain, right lower quadrant YOSI (generalized anxiety disorder) Generalized anxiety disorder RLQ abdominal pain Abdominal pain, right lower quadrant documented in this encounter Additional Health Concerns Assessment Noted Time PHQ-2 Depression Total Score: 1 09/07/20 2:41 PM EDT documented as of this encounter Care Teams Capper Machine Operator Relationship Specialty Start Date End Date Samantha Ayers PA-C [address] [place] [address] [email or web address] PCP - General Physician Bagger Meat 08/17/25 documented as of this encounter Additional Source Comments The information contained in this document represents components of the legal health record. It is not the complete legal health record.[facility]
--- OUTSIDE RECORDS SUMMARY | 2025-09-08 09:10 | XMS_ITS | Encounter Summary ---
Author Organization [facility] Address [address] [place] [phone] Phone Care Team Providers Care Redevelopment Manager Name Role Phone Samantha Ayers PA-C Primary Care Provider + [phone] Reason for Referral * Hospital - Outpatient - Closed Specialty Diagnoses / Procedures Referred By Aneesh parkinson Referred To Contact Radiology Diagnoses RLQ abdominal pain Procedures US Abdomen Limited Samantha Ayers PA-C [address] [place] [address] Phone: tel: fax: mailto:[email or web address] Referral ID Status Reason Start Date Expiration Date Visits Re quested Visits Authorized [id number] Closed 09/07/2025 1 1 Reason for Visit * Hospital - Outpatient - Closed Specialty Diagnoses / Procedures Referred By Aneesh parkinson Referred To Contact Radiology Diagnoses RLQ abdominal pain Procedures US Abdomen Limited Samantha Ayers PA-C [address] [place] [address] Phone: tel: fax: mailto:[email or web address] Referral ID Status Reason Start Date Expiration Date Visits Re quested Visits Authorized [id number] Closed 09/07/2025 1 1 Encounter Details Date Type Department Care Team (Latest Contact Info) Description 09/08/2025 9:10 AM EDT - 09/08/2025 11:59 PM EDT Hospital Encounter [facility] - [address] [place], [place] [address] Samantha Ayers PA-C [address] [facility] [place] [address] [email or web address] Arrived Discharge Disposition: Home or Self Care Social History Tobacco Use Types Packs/Day Years [...] high school, GED, job training, learning the [place] language, technical skills, or developing parenting skills)? [...] is your housing situation today? I have gaviotajavier moon 08/17/2025 How many times have you move [...] PM EDT documented as of this encounter Medications at Time of Discharge GAVILAX 17 gram/dose powder Take 17 g by mouth as needed. MIX IN WATER BEFORE TAKING 06/09/2025 LORazepam (ATIVAN) 0.5 MG tablet Take 1 tablet (0.5 mg total) by mouth every 6 (six) hours as needed for anxiety. 12 tablet 06/18/2025 ondansetron (ZOFRAN-ODT) 4 MG disintegrating tabletIndications:RL Q abdominal pain Take 1 tablet (4 mg total) by mouth every 8 (eight) hours as needed for nausea. 30 tablet 09/07/2025 documented as of this encounter Plan of Treatment Upcoming Encounters Date Type Department Care Team (Late st Contact Info) Description 11/23/2025 8:40 AM EST Office Visit [facility] Internal Medicine [address] [place] [address] Samantha Ayers PA-C [address] [place] [address] [email or web address] documented as of this encounter Procedures Procedure Name Priority Date/Time Associated Diagnosis Comments US ABDOMEN LIMITED APPENDIX (ADULT) Urgent/patient waiting 09/08/2025 9:33 AM EDT RLQ abdominal pain documented in this encounter Results * US ABDOMEN LIMITED APPENDIX (ADULT) (09/08/2025 9:33 AM EDT) Anatomical Region Laterality Modality Abdomen Ultrasound 09/08/2025 9:34 AM EDT Impressions 09/08/2025 9:37 AM EDT The appendix is not visualized sonographically. Consider CT if there is continued clinical concern. Narrative 09/08/2025 9:37 AM EDT US ABDOMEN LIMITED APPENDIX (ADULT) Referring clinician's provided indication for this examination in [facility]: RLQ Abdominal pain, appendicitis suspected TECHNIQUE: US Abdominal limited appendix. COMPARISON: CT ABDOMEN/PELVIS WITH CONTRAST FINDINGS: Appendix: Not visualized. Gallbladder: No gallstones or gallbladder wall thickening. Villalobos's Sign: Negative. Right Kidney: Normal. No stones or hydronephrosis. Procedure Note Kiki Green MD - 09/08/2025 US ABDOMEN LIMITED APPENDIX (ADULT) Referring clinician's provided indication for this examination in [facility]:RLQ Abdominal pain, appendicitis suspected TECHNIQUE: US Abdominal limited appendix. COMPARISON: CT ABDOMEN/PELVIS WITH CONTRAST FINDINGS: Appendix: Not visualized. Gallbladder: No gallstones or gallbladder wall thickening. Villalobos's Sign: Negative. Right Kidney: Normal. No stones or hydronephrosis. IMPRESSION: The appendix is not visualized sonographically. Consider CT if there iscontinued clinical concern. Samantha Ayers PA-C IMG US ABDOMEN Final Result documented in this encounter Visit Diagnoses Diagnosis RLQ abdominal pain Abdominal pain, right lower quadrant documented in this encounter Additional Health Concerns Assessment Noted Time PHQ-2 Depression Total Score: 1 09/07/20 2:41 PM EDT documented as of this encounter Care Teams Redevelopment Manager Relationship Specialty Start Date End Date Samantha Ayers PA-C [address] [place] [address] [email or web address] PCP - General Physician Fat Pressroom Worker 08/17/25 documented as of this encounter Additional Source Comments The information contained in this document represents components of the legal health record. It is not the complete legal health record.[facility]
--- NOTE | 2025-09-09 10:53 | ED.ABDPAIN ---
HPI - Abdominal Pain General Chief Complaint: Abdominal Pain Stated Complaint: Nausea Vomiting Diarrhea Time Seen by Provider: 09/09/25 12:38 Source: patient and old records reviewed Mode of arrival: ambulatory Limitations: no limitations History of Present Illness ED Provider: MEGHANN TAPIA narrative: 34 yo male with PMH of ETOH use disorder, chronic lower abdominal pain on R side with negative CT scans and US combined 8 tests since 2021 now here again with 3 days nausea and same lower abdominal pain. NO diarhea, no fevers. He states he only takes tylenol when he has pain. He denies trauma, he states they can't figure out why he gets this. He denies drug use, withdrawal, only takes tylenol. MD elicited complaint: abdominal pain Pertinent past history: other Onset (ago): year(s) Pain Consistency: intermittent Location: RLQ Severity: severe Quality: stabbing Radiation: none Migration to: no migration Exacerbating factors: nothing Relieving factors: nothing Context: history of similar episodes Associated symptoms: nausea Treatments prior to arrival: other (tylenol) Related Data Previous Rx's ?Medication ?Instructions ?Recorded ondansetron 4 mg disintegrating 4 mg PO Q8H PRN nausea and 05/31/25 tablet vomiting #10 tabs oxycodone 5 mg tablet 5 mg PO Q8H PRN severe pain (scale 05/31/25 score 7-10) #6 tabs prednisone 20 mg tablet 20 mg PO DAILY #7 tabs 05/31/25 tamsulosin 0.4 mg capsule 0.4 mg PO DAILY #14 caps 05/31/25 cyclobenzaprine 10 mg tablet 10 mg PO Q8H #20 tabs 06/09/25 meloxicam 15 mg tablet 15 mg PO DAILY #20 tabs 06/09/25 polyethylene glycol 3350 17 17 g PO DAILY #238 grams 06/09/25 gram/dose oral powder (Miralax) omeprazole 40 mg capsule,delayed 40 mg PO DAILY #14 caps 07/11/25 release ondansetron 4 mg disintegrating 4 mg PO Q8H PRN nausea and 07/11/25 tablet vomiting #7 tabs prochlorperazine maleate 10 mg 10 mg PO BID PRN nausea and 09/09/25 tablet (Compazine) vomiting #20 tabs Allergies Allergy/AdvReac Type Severity Reaction Status Date / Time tramadol (TRAMADOL) Allergy Unknown HIVES Verified 09/09/25 10:56 Review of Systems Review of Systems Constitutional : No Weight loss, No Fever, No Chills ENT/Mouth : No sore throat, No Rhinorrhea Eyes: No Swelling, No Redness Cardiovascular : No Chest Pain, No SOB, NoEdema Respiratory : No Cough, No Sputum, No Wheezing Gastrointestinal : Positive Nausea, no Vomiting, no Diarrhea, positive abdominal Pain, No Hematochezia, No Melena Genitourinary : No Dysuria, No Urinary Frequency, No Hematuria, No Urgency Musculoskeletal : No joint pain, No Myalgias, No Joint Swelling Skin : No Skin Lesions, No rash Neuro : No Weakness, No Numbness, No Dizziness, No Headache All other systems reviewed and are negative. [facility] Past Medical History Attestation statement: The following information was validated with the patient. Source: old records reviewed Medical History Elevated transaminase level Alcohol use disorder, severe, dependence Hypomagnesemia Visual hallucinations Alcohol abuse Alcohol withdrawal Dislocation of left elbow Surgical History History of foot surgery Family History Family History Other No family history of coronary artery disease Social History Social History Household Members: Family Do you presently have visiting nurse or other home services: No Alcohol intake: former Comment: refuses alarm Patient Tobacco Use Status: Never used Tobacco Smoked in Last 30 Days: No Second Hand Smoke Exposure: No Use of substances other than those prescribed or required for medical reasons: No Substance Use Type: Marijuana Advance Directives: Yes Advance Directives on File: Yes Advance Directives Date on File: 07/08/22 service: No Current occupational status: employed Current occupation: right handed Physical Exam ED Vital Signs: Vital Signs - 24 hr 09/09/25 10:55 09/09/25 13:14 Temperature 97.3 F 97.6 F Pulse Rate 87 78 Respiratory Rate 18 16 Blood Pressure 147/77 H 122/69 Pulse Oximetry 98 97 Oxygen Delivery Method Room Air Room Air BMI result Body Mass Index 20.7 Appearance: Alert. Oriented X3. No acute distress. Eyes: Pupils equal, round and reactive to light. ENT: Pharynx normal. Neck: Normal inspection. Neck supple. CVS: Normal heart rate and rhythm. Pulses normal. Respiratory: No respiratory distress. Breath sounds normal. Abdomen: Soft and moderate RLQ pain no mass felt, no hernia, no skin changes Skin: Skin warm and dry. Normal skin color. Normal skin turgor. Extremities: No lower extremity edema. No calf ttp Neuro: Oriented X 3. No motor deficit. No sensory deficit. CN2-12 intact Course Course Course Narrative: Maame Matthews [employer] 09/09/25 1053 This is a rapid medical exam. Deferred additional HPI, ROS, PE to primary provider. 34 yo male with PMH here with right sided abdominal pain, vomiting, constipation acute on chronic x 1 week. Will obtain labs, UA VSS Medical Decision Making Medical Decision Making [facility] Narrative: 34 yo male with PMH of ETOH use disorder, chronic lower abdominal pain on R side with negative CT scans and US combined 8 tests since 2021 now here with c/o return of RLQ pain x 3 days on exam he is not toxic, he has pain localized to just R inguinal area but no hernia felt. Given his prior work up I am not going to image unless sig lab abnormality. I will provide valium and nausea medications. I do have a suspicion for pain related to prior substance abuse given the work up and chronicity of his complaint. I do not suspect renal colic or appendicitis. Differential Diagnosis Differential Diagnoses: The differential diagnosis associated with the presentation includes chronic abdominal pain, opiate use disorder Admission/Observation Consideration of admission/observation: Escalation of care including admission/observation considered work up reassuring stable for DC Lab Data [facility] Lab Attestation statement: I reviewed the patient's lab results. has chronic hematuria 09/09/25 11:10 09/09/25 11:10 Labs: Lab Results 09/09/25 09/09/25 Range/Units 11:10 11:11 WBC 10.6 (4.8-10.8) X10*3/uL RBC 4.92 (4.60-5.80) X10*6/uL Hgb 14.4 (14.0-18.0) g/dl Hct 42.2 (42.0-52.0) % MCV 85.8 (80.0-98.0) fL MCH 29.3 (27.0-33.0) pg MCHC 34.1 (31.0-36.0) g/dl RDW 12.6 (11.0-16.0) % Plt Count 325 (160-400) X10*3/uL MPV 9.4 (9.4-12.4) fL Immature Gran % (Auto) 0.3 (0.0-0.4) % Neut % (Auto) 76.4 H (45-73) % Lymph % (Auto) 15.4 L (20-40) % [place]ock % (Auto) 5.6 (2-11) % Eos % (Auto) 1.5 (0-4) % Baso % (Auto) 0.8 (0-2) % Lymph # (Auto) 1.6 (1.2-4.9) X10*3/uL [place] # (Auto) 0.6 (0.1-1.2) X10*3/uL Eos # (Auto) 0.2 (0.0-0.4) X10*3/uL Baso # (Auto) 0.1 (0.0-0.2) X10*3/uL Abs Immat Gran (auto) 0.03 (0.00-0.03) X10*3/uL Absolute Neuts (auto) 8.1 (2.0-8.3) x10*3/uL Absolute Nucleated RBC 0.000 (0.0-0.012) X10*3/uL Nucleated RBC % (auto) 0.0 (0.0-0.2) /100WBC Sodium 142 (135-145) mmol/L Potassium 4.2 (3.3-5.1) mmol/L Chloride 105 (96-108) mmol/L Carbon Dioxide 30 H (22-29) mmol/L Anion Gap 11 L (12-20) BUN 11 (9-16) mg/dL Creatinine 0.87 (0.5-1.4) mg/dL Estim Creat Clear Calc 115.0 Estimated GFR > 60 Random Glucose 103 (60-115) mg/dL Calcium 10.1 (8.4-10.2) mg/dL Total Bilirubin 0.6 (0.0-1.0) mg/dL Direct Bilirubin 0.2 (0.0-0.5) mg/dL AST 23 (5-37) U/L ALT 16 (0-40) U/L Alkaline Phosphatase 65 (39-117) U/L Total Protein 7.4 (6.5-8.0) g/dL Albumin 5.0 (3.5-5.0) g/dL Lipase 16 (8-78) U/L Urine Color Yellow Urine Appearance Clear Urine pH 8.0 (5.0-9.0) Ur Specific [place] >= 1.030 H (1.005-1.025) Urine Protein 30 (1+) H (Neg-Trace) mg/dL Urine Glucose (UA) Negative (Negative) mg/dL Urine Ketones 15 (Negative) mg/dL Urine Blood Trace H (Negative) Urine Nitrite Negative (Negative) Ur Leukocyte Esterase Trace H (Negative) Urine RBC 11-20 H (0-2) /HPF Urine WBC 0-5 (0-5) /HPF Ur Squamous Epith Cells 0-2 (0-2) /HPF Urine Bacteria None Seen (None Seen) Hyaline Casts 0-2 (0-2) /LPF Urine Opiates Screen POSITIVE H (Not Detect) Ur Buprenorphine Scrn Not Detected (Not Detect) ng/mL Ur Oxycodone Screen Positive H (Not Detect) ng/mL Urine Methadone Screen Not Detected (Not Detect) ng/mL Urine Fentanyl Screen Not Detected (Not Detect) Ur Barbiturates Screen Not Detected (Not Detect) Ur Phencyclidine Scrn Not Detected (Not Detect) Ur Amphetamines Screen Not Detected (Not Detect) U Benzodiazepines Scrn Not Detected (Not Detect) Urine Cocaine Screen Not Detected (Not Detect) U Marijuana (THC) Screen POSITIVE H (Not Detect) Ethyl Alcohol < 10 mg/dL External Record Review External record reviewed: Inpatient record, Outpatient record, Prior outpatient labs and Prior outpatient radiology Medications Administered Discontinued Medications Generic Name Dose Route Start Last Admin Trade Name Freq PRN Reason Stop Dose Admin Diazepam 2.5 mg 09/09/25 13:00 09/09/25 13:12 Diazepam 10 Mg/2 Ml Cartridge IVPUSH 09/09/25 13:01 2.5 mg STAT STA Administration Lactated Ringer's 1,000 mls @ 999 mls/hr 09/09/25 13:00 09/09/25 14:08 Lr IV 09/09/25 14:00 Infused .Q1H1M ONE Infusion Prochlorperazine Edisylate 10 mg 09/09/25 13:00 09/09/25 13:12 Prochlorperazine Edisylate 10 Mg/2 Ml Vial IVPUSH 09/09/25 13:01 10 mg ONCE ONE Administration Discharge Plan Discharge Clinical Impression: Abdominal pain Qualifiers: Abdominal location: right lower quadrant Qualified Code(s): R10.31 - Right lower quadrant pain Patient Disposition: Home, Self-Care Instructions: Abdominal Pain (ED) Additional Instructions: your labs are normal your urine had no infection you did test positive for opiates and oxycodone today please monitor your symptoms and return for any worsening symptoms or concerns stay hydrated. Prescriptions: New prochlorperazine maleate [Compazine] 10 mg tablet 10 mg PO BID PRN (Reason: nausea and vomiting) Qty: 20 0RF No Action polyethylene glycol 3350 [Miralax] 17 gram/dose powder 17 g PO DAILY Qty: 238 0RF meloxicam 15 mg tablet 15 mg PO DAILY Qty: 20 0RF cyclobenzaprine 10 mg tablet 10 mg PO Q8H Qty: 20 0RF ondansetron 4 mg tablet,disintegrating 4 mg PO Q8H PRN (Reason: nausea and vomiting) Qty: 10 0RF prednisone 20 mg tablet 20 mg PO DAILY Qty: 7 0RF tamsulosin 0.4 mg capsule 0.4 mg PO DAILY Qty: 14 0RF oxycodone 5 mg tablet 5 mg PO Q8H PRN (Reason: severe pain (scale score 7-10)) Qty: 6 0RF Rx Instructions: Partial Fill upon patient request. ondansetron 4 mg tablet,disintegrating 4 mg PO Q8H PRN (Reason: nausea and vomiting) Qty: 7 0RF omeprazole 40 mg capsule,delayed release(DR/EC) 40 mg PO DAILY Qty: 14 0RF Print Language: Marshallese
[2025-09-09 10:55] VITALS: BP 147/77; PULSE 87; RESP 18; TEMP 36.3; O2SAT 98; BMI 20.7
[2025-09-09 11:20] LABS: MANUAL DIFF FLAG NO
[2025-09-09 11:25] LABS: Hematocrit 42.2 % (42.0-52.0); Hemoglobin 14.4 g/dl (14.0-18.0); Imm Gran Abs Auto 0.03 X10*3/uL (0.00-0.03); Imm Gran Pct Auto 0.3 % (0.0-0.4); Lymphocytes Absolute Auto 1.6 X10*3/uL (1.2-4.9); Mean Corpuscular HGB Conc 34.1 g/dl (31.0-36.0); Mean Corpuscular Hemoglobin 29.3 pg (27.0-33.0); Mean Corpuscular Volume 85.8 fL (80.0-98.0); NRBC Abs Auto 0.000 X10*3/uL (0.0-0.012); NRBC Pct Auto 0.0 /100WBC (0.0-0.2); Platelet Count 325 X10*3/uL (160-400); Red Blood Count 4.92 X10*6/uL (4.60-5.80); White Blood Count 10.6 X10*3/uL (4.8-10.8)
[2025-09-09 11:29] LABS: Appearance Urine Clear; Glucose Urine UA Negative (Negative); PH 8.0 (5.0-9.0); Specific Gravity - Urine >= 1.030 (1.005-1.025); UMIC TRIGGER UACC YES
[2025-09-09 11:46] LABS: Alanine Aminotransferase 16 U/L (0-40); Albumin Level 5.0 g/dL (3.5-5.0); Alkaline Phosphatase 65 U/L (39-117); Anion Gap 11 (12-20); Aspartate Amino Transferase 23 U/L (5-37); Blood Urea Nitrogen 11 mg/dL (9-16); Calcium 10.1 mg/dL (8.4-10.2); Carbon Dioxide 30 mmol/L (22-29); Chloride 105 mmol/L (96-108); Creatinine Clr Calc Pharmacy 115.0; Estimated Glomerular Filt Rate > 60; Lipase 16 U/L (8-78); Potassium 4.2 mmol/L (3.3-5.1); Sodium 142 mmol/L (135-145); Total Protein 7.4 g/dL (6.5-8.0)
[2025-09-09 13:03] LABS: Cannabinoid Screen Urine POSITIVE (Not Detect)
[2025-09-09] MEDS: Lactated Ringers 1,000 ML 999 ML IV (13:07)
[2025-09-09] MEDS: diazePAM 10 MG/2 ML CARTRIDGE 2.5 MG IVPUSH (13:12)
[2025-09-09 13:14] VITALS: BP 122/69; PULSE 78; RESP 16; TEMP 36.4; O2SAT 97
--- OUTSIDE RECORDS SUMMARY | 2025-09-09 14:39 | XMS_ITS | Clinical Summary ---
Author Organization [facility] Address [address] [employer] [address] [address] Phone Care Team Providers Care Emergency Response Officer Name Role Phone Samantha Ayers PA-C Primary Care Provider [phone] Allergies Active Allergy Reactions Criticality Noted Date Comments Sulfa (Sulfonamide Antibiotics) 06/17 Tramadol 07/02/2018 Medications GAVILAX 17 gram/dose powder Take 17 g by mouth as needed. MIX IN WATER BEFORE TAKING 5 Active LORazepam (ATIVAN) 0.5 MG tablet Take 1 tablet (0.5 mg total) by mouth every 6 (six) hours as needed for anxiety. 12 tablet 5 Active ondansetron (ZOFRAN-ODT) 4 MG disintegrating tabletIndications: RLQ abdominal pain Take 1 tablet (4 mg total) by mouth every 8 (eight) hours as needed for nausea. 30 tablet 5 Active baclofen (LIORESAL) 10 MG tablet Take 1 tablet (10 mg total) by mouth 3 (three) times a day as needed for spasm. 12 tablet 5 025 Discontin ued(No longer taking) ondansetron (ZOFRAN-ODT) 4 MG disintegrating tablet take 1 tablet by mouth every 8 hours as needed for nausea and vomiting 5 025 Discontin ued(Reord er) Active Problems Problem Noted Date Diagnosed Date RLQ abdominal pain 09/07/2025 Assessment & Plan (09/07/2025 6:07 PM EDT): He experiences colicky right sided abdominal pain that can worsen after eating, mostly localized to the right lower quadrant. He reports that the [...] pain but so far imaging has been negative. Will do an urgent referral to GI to [...] substances are not indicated for this patient. Routine general medical exam ination at a [facility] 08/17/2025 Assessment & Plan (08/17/2025 11:24 AM EDT): Will obtain routine labs including lipid panel and thyroid panel. Will also obtain one-time screening for HIV and hepatitis C. Seasonal influenza vaccine administered in the office today. Discussed routine dental and eye screening. Irritable bowel syndrome wit h both constipation and diarrhea 08/17/2025 Assessment & Plan (08/17/2025 11:24 AM EDT): He reports intermittent severe abdominal pain, alternating constipation and diarrhea, and occasional vomiting for the past few months. Previous imaging included ultrasounds, CT abdominal pelvis, and HIDA scan all of which were negative for acute pathology to explain his abdominal pain. 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 In regards to his abdominal pain, discussed a food diary and trialing a course of an elimination diet. Will also test for tissue transglutaminase IgA to assess for any underlying celiac antibodies. Discussed the correlation between mental health and IBS, advised both physical and mental health management. Attention deficit hyperactiv ity disorder (ADHD), combined type 08/17/2025 Assessment & Plan (08/17/2025 11:24 AM EDT): He reports a history of childhood ADHD which was previously managed with Ritalin and Adderall, he stopped taking this medication but is considering resuming treatment. Discussed that ADHD and anxiety can often coexist in managing line can help alleviate symptoms of the other. He is working on establishing care with [facility] for medication management. Not following with therapy. YOSI (generalized anxiety disorder) 08/17/2025 Assessment & Plan (09/07/2025 6:08 PM EDT): The patient's spouse notes that the patient has had increased anxiety since starting a new job and moving, as well as with abdominal pain. She is requesting a refill of his lorazepam. He reports that he does not want a prescription for lorazepam at this time. I advised that if the patient does not want lorazepam then I will not be prescribing lorazepam. Per discussion with Dr. Orourke, controlled substances are not indicated for this patient. Assessment & Plan (08/17/2025 11:24 AM EDT): History of anxiety, noting that his anxiety symptoms are unpredictable and can lead to panic attacks. He is smoking marijuana daily, discussed the paradoxical effect of marijuana on mental health. He also uses lorazepam as needed as previously prescribed by the ER, if he has plans to continue using this medication will sign a controlled substance agreement. RUQ pain 06/16/2025 Assessment & Plan (06/30/2025 3:10 PM EDT): Patient has been seen by the ER to at [facility] in May and 1 earlier this month at [facility]. Patient underwent a CT abdomen and pelvis at [facility] which was negative. His most recent CT abdomen/pelvis completed at [facility] showed no acute pathology however an incidental [...] most recent lab work on 06/18 from [facility] ER. Upon further discussion I did explain [...] nonfunctioning gallbladder then we will refer to [facility] surgery urgently -I will obtain a CMP [...] has known showed his appointment previously at [facility] therefore he would like to see a different GI physician out of [place]. He will need an endoscopy and colonoscopy [...] and ED records. Tevin was referred to [facility] GI; we received a no-show letter for consult. He is open to referral [facility]. Discussed discontinuing cyclobenzaprine and meloxicam given no [...] MiraLAX daily and discontinue Colace. A new [facility] GI referral was placed. Patient will need [...] up the GI referral -GI referral to [facility] for possible colonoscopy he has never had a colonoscopy in the past. -Abdominal CT at [facility] -Follow-up at next scheduled office visit. Kidney stone 08/17/2024 Assessment & Plan (08/17/2024 8:40 AM EDT): Patient recent ER visit to [facility] and underwent a CT which according to [...] Encounters Date Type Department Care Team Description 09/08/2025 9:10 AM EDT - 09/08/2025 11:59 PM EDT Hospital Encounter [facility] - [address] [place] [address] Samantha Ayers PA-C Arrived Discharge Disposition: Home or Self Care 09/07/2025 3:00 PM EDT Office Visit [facility] Internal [facility] [address] [facility] [place] [address] Samantha Ayers PA-C RLQ abdominal pain (Primary Dx); YOSI (generalized anxiety disorder) 09/05/2025 Telephone [facility] [address] [facility] [address] Samantha Ayers PA-C GI Problem 08/30/2025 Telephone [facility] [address] [place] [address] Samantha Ayers PA-C letter physically fit to work 08/18/2025 Telephone [facility] [address] [place] [address] Samantha Ayers PA-C 08/17/2025 10:07 AM EDT - 08/17/2025 11:59 PM EDT Hospital Encounter [facility] [address] [place] [address] Samantha Ayers PA-C Discharge Disposition: Home or Self Care 08/17/2025 9:00 AM EDT Office Visit [facility] [address] [facility] [address] Samantha Ayers PA-C Routine general medical examination at a health care facility (Primary Dx); Screening for human immunodeficiency virus; Need for hepatitis C screening test; Right sided abdominal pain; Irritable bowel syndrome with both constipation and diarrhea; Attention deficit hyperactivity disorder (ADHD), combined type; YOSI (generalized anxiety disorder) 08/17/2025 Telephone [facility] [address] [place] [address] Samantha Ayers PA-C PCP MISMATCH 08/15/20[facility] GENERATED External System Generated Encounter [address] [place] [address] Unknown, Adria, 08/02/2025 9:00 AM EDT - 08/02/2025 11:59 PM EDT Hospital Encounter [address] [address] Ronald High PA-C Discharge Disposition: Home or Self Care 07/13/2025 Documentation [facility] [address] [place] [address] Ronald High PA-C 07/11/2025 Orders Only [facility] [address] [place] [address] ProviderSarath MD 06/30/2025 1:40 PM EDT Office Visit [facility] [address] [place] [address] Ronald High PA-C RUQ pain (Primary Dx) 06/22/2025 Telephone [facility] [address] [place] [address] Angelika Ayers PA-C missed call from PCP (After hours call) 06/22/2025 Telephone [facility] [address] [place] [address] Yamila Shaffer MA 06/22/2025 Telephone [facility] [address] [place] [address] Ronald High PA-C Referral 06/18/2025 12:27 PM EDT - 06/18/2025 8:30 PM EDT Emergency [facility] [address] [place] [address] Srikanth Sanchez MD Discharge Disposition: Home or Self Care 06/18/2025 Procedure Pass [facility], Ct Scan - [facility] [address] [place] [address] 06/16/2025 3:00 PM EDT Office Visit [facility] [address] [place] [address] Mayi Schmidt CNP Right sided abdominal pain (Primary Dx) 06/16/2025 1:36 PM EDT - 06/16/2025 11:59 PM EDT Hospital Encounter [facility] [address] [place] [address] Ronald High PA-C Discharge Disposition: Home or Self Care 06/16/2025 Documentation [facility] [address] [place] [address] Ronald High PA-C 06/09/2025 Orders Only [facility] [address] [place] [address] Provider, MD Sarath from Last 3 Months Immunizations Immunization Administration Dates Next Due INFLUENZA, SPLIT VIRUS, TRIVALENT PF 08/17/2025 Tdap 05/02/2021 Family History Medical History Relation Comments Throat cancer Father Diabetes Mother Prostate cancer Paternal Grandfather Relation Status Comments Father Mother Paternal Grandfather Social History Tobacco Use Types Packs/Day Years Used Date Smoking Tobacco: Former Cigarettes 0.5 3 2 019 - 2021 Smokeless Tobacco: Never Tobacco Cessation:Counseling Given: Not Answered Comments:Occasionally nicotine vape. Alcohol Use Standard Drinks/Week Comments Not [...] high school, GED, job training, learning the [place] language, technical skills, or developing parenting skills)? [...] Mass Index 21.42 09/07/2025 2:54 PM EDT Plan of Treatment Upcoming Encounters Date Type Department Care Team (Late st Contact Info) Description 11/23/2025 8:40 AM EST Office Visit [facility] [address] [place] [address] Samantha Ayers PA-C [address] [place] [address] [email or web address] Health Maintenance Due Date Last Done Comments COVID-19 VACCINE (3 2024-2 6 season) 2025 03/29/2021, 03/07/2021 DEPRESSION SCREENING 09/07/2026 09/07/2025 SMOKING Hx and SMOKELESS TOBACCO SCREENING 09/07/2026 09/07/2025 LIPID PANEL 08/17/2030 08/17/2025 Adult Td,Tdap Booster 05/02/2031 05/02/2021 HEPATITIS C SCREENING Completed 08/17/2025 HIV ONE-TIME SCREENING (18-6 5 YEARS) Completed 08/17/2025 INFLUENZA VACCINE Completed 08/17/2025 HEPATITIS A VACCINES Aged Out No long [...] Diagnosis Comments US ABDOMEN LIMITED APPENDIX (ADULT) Urgent/patien t waiting 09/08/2025 9:33 AM EDT RLQ abdominal pain LIPASE Routine 08/17/2025 10:07 AM EDT RUQ pain COMPREHENSIVE METABOLIC PANEL Routine 08/17/2025 10:07 AM EDT RUQ pain TSH WITH REFLEX Routine 08/17/2025 10:07 AM EDT Routine general medical examination at a health care facility LIPID PANEL Routine 08/17/2025 10:07 AM EDT Routine general medical examination at a health care facility TISSUE TRANSGLUTAMINASE IGA Routine 08/17/2025 10:07 AM EDT Irritable bowel syndrome with both constipation and diarrhea HIV-1/2 ANTIGEN/ANTIBODY Routine 08/17/2025 10:07 AM EDT Screening for human immunodeficiency virus HEPATITIS C ANTIBODY, QUALITATIVE Routine 08/17/2025 10:07 AM EDT Need for hepatitis C screening test NM GALLBLADDER EJECTION FRACTION Urgent/patien t waiting 08/02/2025 2:17 PM EDT RUQ pain OUTSIDE CT ABD/PELVIS REPORT ONLY Routine 07/11/2025 1:06 PM EDT OUTSIDE POTASSIUM LEVEL Routine 07/11/2025 OUTSIDE ALT LEVEL Routine 07/11/2025 OUTSIDE SERUM CREATININE LEVEL Routine 07/11/2025 OUTSIDE LAB 06/20/2025 CT ABDOMEN/PELVIS WITH CONTRAST Routine 06/18/2025 3:27 PM EDT ECG 12-LEAD STAT 06/18/2025 2:03 PM EDT SEDIMENTATION RATE (ESR) Routine 06/18/2025 12:59 PM EDT C-REACTIVE PROTEIN Routine 06/18/2025 12:59 PM EDT LIPASE STAT 06/18/2025 12:59 PM EDT LFTS (HEPATIC PANEL) STAT 06/18/2025 12:59 PM EDT BASIC METABOLIC PANEL STAT 06/18/2025 12:59 PM EDT CBC AND DIFFERENTIAL STAT 06/18/2025 12:59 PM EDT HC BLOOD OCCULT FECAL HGB DETER IA QUAL FECES 1-3 Routine 06/16/2025 8:00 PM EDT Constipation, unspecified constipation type from Last 3 Months Results * US ABDOMEN LIMITED APPENDIX (ADULT) (09/08/2025 9:33 AM EDT) Anatomical Region Laterality Modality Abdomen Ultrasound 09/08/2025 9:34 AM EDT Impressions 09/08/2025 9:37 AM EDT The appendix is not visualized sonographically. Consider CT if there is continued clinical concern. Narrative 09/08/2025 9:37 AM EDT US ABDOMEN LIMITED APPENDIX (ADULT) Referring clinician's provided indication for this examination in [facility]: RLQ Abdominal pain, appendicitis suspected TECHNIQUE: US Abdominal limited appendix. COMPARISON: CT ABDOMEN/PELVIS WITH CONTRAST FINDINGS: Appendix: Not visualized. Gallbladder: No gallstones or gallbladder wall thickening. Villalobos's Sign: Negative. Right Kidney: Normal. No stones or hydronephrosis. Procedure Note Kiki Green MD - 09/08/2025 US ABDOMEN LIMITED APPENDIX (ADULT) Referring clinician's provided indication for this examination in [facility]:RLQ Abdominal pain, appendicitis suspected TECHNIQUE: US Abdominal limited appendix. COMPARISON: CT ABDOMEN/PELVIS WITH CONTRAST FINDINGS: Appendix: Not visualized. Gallbladder: No gallstones or gallbladder wall thickening. Villalobos's Sign: Negative. Right Kidney: Normal. No stones or hydronephrosis. IMPRESSION: The appendix is not visualized sonographically. Consider CT if there iscontinued clinical concern. Samantha Ayers PA-C IMG US ABDOMEN Final Result * (ABNORMAL) Comprehensive metabolic panel (08/17/2025 10:07 AM EDT) SODIUM 140 133 - 146 mmol/L [facility] POTASSIUM 4.6 3.3 - 5.1 mmol/L [facility] CHLORIDE 101 96 - 108 mmol/L [facility] CO2 28 21 - 35 mmol/L [facility] BUN 12 6 - 19 mg/dL [facility] CREATININE 0.70 0.5 - 1.5 mg/dL [facility] GLUCOSE 81 70 - 99 mg/dL [facility] ALBUMIN 4.9(H) 3.9 - 4.8 g/dL [facility] TOTAL PROTEIN 7.7 6.5 - 8.0 g/dL [facility] CALCIUM 9.8 8.4 - 10.3 mg/dL [facility] ALKALINE PHOSPHATASE 63 39 - 117 U/L [facility] TOTAL BILIRUBIN 0.4 0.0 - 1.2 mg/dL [facility] AST 18 0 - 37 U/L [facility] ALT 12 0 - 40 U/L [facility] GLOBULIN 2.8 1 - 4.8 g/dL [facility] EGFR >120 >59 mL/min/1.7 3m2 [facility] Comment:Estimated glomerular filtration rate calculated using the CKD-EPI refit equation. ANION GAP 16 10 - 20 mmol/L [facility] Blood 08/17/2025 10:0 7 AM EDT 08/17/2025 10:10 AM EDT Ronald High PA-C LAB BLOOD ORDERABLES Final Re sult Performing Organization Address City/[facility]/ZIP Co de Phone Number [address] [address] * HIV-1/2 antigen/antibody (08/17/2025 10:07 AM EDT) HIV-1/2 Antigen/Antibo dy NON-REACTI VE NON-REACTI VE [facility] Blood 08/17/2025 10:0 7 AM EDT 08/17/2025 10:10 AM EDT Samantha Ayers PA-C LAB BLOOD ORDERABLES Final R esult [address] [address] * TSH with reflex (08/17/2025 10:07 AM EDT) TSH 0.43 0.27 - 4.20 uIU/mL [facility] Blood 08/17/2025 10:0 7 AM EDT 08/17/2025 10:10 AM EDT Ayers PA-C LAB BLOOD ORDERABLES Final R esult [address] [address] * Hepatitis C antibody, qualitative (08/17/2025 10:07 AM EDT) HCV NON-REACTIV E NON-REACTI VE [facility] Blood 08/17/2025 10:0 7 AM EDT 08/17/2025 10:10 AM EDT Samantha Albertsy PA-C LAB BLOOD ORDERABLES Final R esult Performing Organization Address [facility] Co de Phone Number [address] [address] * Tissue transglutaminase IgA (08/17/2025 10:07 AM EDT) TTG IGA ANTIBODY <1.2 <4.0 (Negative) U/mL [facility] Blood 08/17/2025 10:0 7 AM EDT 08/17/2025 10:10 AM EDT Andria PA-C LAB BLOOD ORDERABLES Final R esult Performing Organization Address [facility]/ZIP Co de Phone Number [facility] [address] [place] [address] * Lipase (08/17/2025 10:07 AM EDT) Only the most recent of2 resultswithin the time period is included. LIPASE 25 16 - 63 U/L [facility] Blood 08/17/2025 10:0 7 AM EDT 08/17/2025 10:10 AM EDT Ronald High PA-C LAB BLOOD ORDERABLES Final Re sult Performing Organization Address City/[facility]/ZIP Co de Phone Number [address] [address] * Lipid panel (08/17/2025 10:07 AM EDT) HDL 54 mg/dL [facility] Comment: Interpretation <40 mg/dL: Low HDL cholesterol (major risk factor for CHD) Greater than or equal to 60 mg/dL: High HDL cholesterol ( negative risk factor for CHD) HDL - cholesterol is affected by a number of factors, e.g. smoking, excerise, hormones, sex and age. CHOLESTEROL 190 0 - 240 mg/dL [facility] TRIGLYCERIDES 115 30 - 160 mg/dL [facility] LDL 113 50 - 129 mg/dL [facility] Comment: LDL levels in terms of risk for coronary heart disease: <100 mg/dL: Optimal 100-129 mg/dL: Near or above optimal 130-159 mg/dL: Borderline high 160-189 mg/dL: High >190 mg/dL: Very High CARDIAC RISK RATIO 3.5 3.4 - 5.0 C [facility] Blood 08/17/2025 10:0 7 AM EDT 08/17/2025 10:10 AM EDT Samantha Ayers PA-C LAB BLOOD ORDERABLES Final R esult [facility] [address] [place] [address] * NM Gallbladder Ejection Fraction (08/02/2025 2:17 PM EDT) Anatomical Region Laterality Modality Abdomen, Biliary Nuclear Medicin e 08/02/2025 2:20 PM EDT Impressions 08/02/2025 3:04 PM EDT Patent cystic and common bile ducts. Gallbladder Ejection Fraction as described. ATTESTATION: I, Dr. Kim Negrete as teaching physician, have reviewed the images for this case and if necessary edited the report originally created by Amlas Donovan. Narrative 08/02/2025 3:04 PM EDT NM GALLBLADDER EJECTION FRACTION COMPARISON: None TECHNIQUE: Following the intravenous injection of 2.7 mCi of technetium-99m mebrofenin, continuous imaging of the abdomen was performed for one hour. The patient then received 1.3 micrograms of sincalide as a slow infusion during 30 minutes, and imaging was continued. FINDINGS: There was normal uptake of tracer by the liver, with prompt excretion into bile ducts and bowel. The gallbladder filled normally. During the 30 minute sincalide infusion that began approximately one hour after tracer injection and within limitations of motion, the gallbladder ejection fraction was 53%. Using this infusion technique, a published multicenter trial of 60 normal volunteers aged 20-62, found a mean ejection fraction was 71%, however, the population distribution of ejection fraction was non-Gaussian and skewed to lower values. 95% of normal subjects had an ejection fraction of more than 16%, while 99% of normal subjects had an ejection fraction of more than 8%. Procedure Note Kim Negrete MD - 08/02/2025 NM GALLBLADDER EJECTION FRACTION COMPARISON: None TECHNIQUE: Following the intravenous injection of 2.7 mCi oftechnetium-99m mebrofenin, continuous imaging of the abdomen was performedfor one hour. The patient then received 1.3 micrograms of sincalide as aslow infusion during 30 minutes, and imaging was continued. FINDINGS: There was normal uptake of tracer by the liver, with prompt excretion intobile ducts and bowel. The gallbladder filled normally. During the 30 minute sincalide infusion that began approximately one hourafter tracer injection and within limitations of motion, the gallbladderejection fraction was 53%. Using this infusion technique, a published multicenter trial of 60 normalvolunteers aged 20-62, found a mean ejection fraction was 71%, however,the population distribution of ejection fraction was non-Gaussian andskewed to lower values. 95% of normal subjects had an ejection fraction ofmore than 16%, while 99% of normal subjects had an ejection fraction ofmore than 8%. IMPRESSION: Patent cystic and common bile ducts. Gallbladder Ejection Fraction as described. ATTESTATION: I, Dr. Kim Negrete as teaching physician, have reviewed theimages for this case and if necessary edited the report originally createdby Almas Donovan. Result [facility] Ronald High PA-C IMG NM ABDOMEN Final Result * Outside CT Abd/pelvis Report Only (07/11/2025 1:06 PM EDT) Result [facility] Historical Provider IMG CT ABD/PELVIS Final R esult * Outside Potassium Level (07/11/2025) Potassium level - External 4.5 3.4 - 5.0 mmol/L Result [facility] Historical Provider MD LAB BLOOD ORDERABLES Abbie l Result * Outside Serum Creatinine Level (07/11/2025) Creatinine, serum - External 1.07 0.8 - 1.3 mg/dL Result [facility] Provider MD LAB BLOOD ORDERABLES Abbie l Result * Outside ALT Level (07/11/2025) ALT - External 24 5 - 30 U/L Result [facility] Historical Provider MD LAB BLOOD ORDERABLES Abbie l Result * Outside Lab (06/20/2025) Result [facility] Scanning Interface Provider LAB BLOOD ORDERABLES Final [...] Tissues: No significant abnormality. Procedure Note Jesica Avila, [facility] - 06/18/2025 CT ABDOMEN/PELVIS WITH [...] for possible association of symptomswith bladder distention. Srikanth Sanchez MD IMG CT ABD/PELVIS Final Re sult * ECG 12-LEAD (06/18/2025 2:03 PM EDT) Ventricular Rate EKG/MIN 54 BPM [facility] Atrial Rate [address] [facility] [address] Interval 150 ms [facility] QRS Duration 108 ms [facility] QT Interval 502 ms [facility] QTC Interval 476 ms [facility] P [place] 58 degrees [facility] R Wave [place] 61 degrees [facility] T Wave [place] 63 degrees [facility] 06/18/2025 2:03 PM EDT 06/20/2025 7:36 AM EDT Narrative [facility] - 06/20/2025 7:36 AM EDT Sinus bradycardia Otherwise normal ECG No previous ECGs available Confirmed by Mark Piper ([id number]) on 06/20/2025 7:36:25 AM Srikanth Sanchez MD ECG ORDERABLES Final Resu lt [facility] * (ABNORMAL) LFTs (hepatic panel) (06/18/2025 12:59 PM EDT) ALKALINE PHOSPHATASE 64 39 - 117 U/L [facility] TOTAL BILIRUBIN 0.6 0.0 - 1.2 mg/dL [facility] DIRECT BILIRUBIN 0.2 0.0 - 0.2 mg/dL [facility] Bilirubin (Indirect) 0.4 0 - 1.5 mg/dL [facility] AST 41(H) 0 - 37 U/L [facility] ALT 74(H) 0 - 40 U/L [facility] TOTAL PROTEIN 7.1 6.5 - 8.0 g/dL [facility] ALBUMIN 4.5 3.9 - 4.8 g/dL [facility] GLOBULIN 2.6 1 - 4.8 g/dL [facility] A/G Ratio 1.73 1.00 - 4.80 RATIO [facility] Blood 06/18/2025 12:5 9 PM EDT 06/18/2025 1:08 PM EDT Srikanth Sanchez MD LAB BLOOD ORDERABLES Final Result Performing Organization Address City/[facility]/ZIP Co de Phone Number [address] [address] * Sedimentation rate (ESR) (06/18/2025 12:59 PM EDT) ESR 3 0 - 15 mm/h [facility] 06/18/2025 12:5 9 PM EDT 06/18/2025 1:08 PM EDT Srikanth Sanchez MD LAB BLOOD ORDERABLES Final Result [address] [address] * (ABNORMAL) CBC and differential (06/18/2025 12:59 PM EDT) WBC 11.56(H) 4.00 - 11.00 K/uL [facility] RBC 4.99 4.50 - 5.90 M/uL [facility] HGB 14.7 13.5 - 17.5 g/dL [facility] HCT 41.8 41.0 - 53.0 % [facility] PLT 299 150 - 450 K/uL [facility] MCV 83.8 80.0 - 100.0 fL [facility] MCH 29.5 27.0 - 31.0 pg [facility] MCHC 35.2 32.0 - 36.0 g/dL [facility] RDW 11.9 11.5 - 14.5 % [facility] MPV 9.2 8.4 - 12.0 fL [facility] NRBC 0.00 0.00 /100 WBCs [facility] ABSOLUTE NRBC 0.00 0.00 K/uL [facility] DIFF METHOD Auto [facility] NEUTS 86.7(H) 48.0 - 76.0 % [facility] LYMPHS 7.1(L) 18.0 - 41.0 % [facility] MONOS 4.5 4.0 - 11.0 % [facility] EOS 0.9 0.0 - 5.0 % [facility] BASOS 0.5 0.0 - 1.5 % [facility] Granulocytes, immature (%) 0.3 0.0 - 0.9 % [facility] ABSOLUTE NEUTS 10.03(H) 1.92 - 7.60 K/uL [facility] ABSOLUTE LYMPHS 0.82 0.72 - 4.10 K/uL [facility] ABSOLUTE MONOS 0.52 0.16 - 1.10 K/uL [facility] ABSOLUTE EOS 0.10 0.00 - 0.50 K/uL [facility] ABSOLUTE BASOS 0.06 0.00 - 0.15 K/uL [facility] Granulocytes, immature 0.03 0.00 - 0.09 K/uL [facility] Blood 06/18/2025 12:5 9 PM EDT 06/18/2025 1:08 PM EDT us Srikanth Sanchez MD LAB BLOOD ORDERABLES Final Result [facility] [address] [place] [address] * C-Reactive Protein (06/18/2025 12:59 PM EDT) Pathologist [facility] C REACTIVE PROTEIN <3.0 0.0 - 4.0 mg/L [facility] 06/18/2025 12:5 9 PM EDT 06/18/2025 1:08 PM EDT Srikanth Sanchez MD LAB BLOOD ORDERABLES Final Result Performing Organization Address City/[facility]/ZIP Co de Phone Number [address] [address] * (ABNORMAL) Basic metabolic panel (06/18/2025 12:59 PM EDT) [facility] SODIUM 140 133 - 146 mmol/L [facility] CHLORIDE 99 96 - 108 mmol/L [facility] POTASSIUM 3.8 3.3 - 5.1 mmol/L [facility] CO2 23 21 - 35 mmol/L [facility] BUN 12 6 - 19 mg/dL [facility] CREATININE 0.80 0.5 - 1.5 mg/dL [facility] GLUCOSE 115(H) 70 - 99 mg/dL [facility] CALCIUM 10.0 8.4 - 10.3 mg/dL [facility] EGFR 118 >59 mL/min/1.7 3m2 [facility] Comment:Estimated glomerular filtration rate calculated using the CKD-EPI refit equation. ANION GAP 22(H) 10 - 20 mmol/L [facility] Blood 06/18/2025 12:5 9 PM EDT 06/18/2025 1:08 PM EDT Srikanth Sanchez MD LAB BLOOD ORDERABLES Final Result Performing Organization Address City/[facility]/ZIP Co de Phone Number [address] [address] * Fecal immunochemical test x1 (FIT) (06/16/2025 8:00 PM EDT) Pathologist [facility] Immuno Fecal Occult Negative Negative [facility] Stool (Stool) 06/16/2025 8:0 0 PM EDT 06/17/2025 1:37 PM EDT Ronald High PA-C BODY FLUIDS AND STOOLS ORDERA BLES Final Result [facility] [address] [place] [address] from Last 3 Months Insurance [facility] [facility] [employer] [address] [place], [place] Care Teams Emergency Response Officer Relationship Specialty Start Date End Date Samantha Ayers PA-C [address] [place] [id number] PCP - General Physician Trauma Program Manager 08/17/25 Additional Source Comments The information contained in this document represents components of the legal health record. It is not the complete legal health record.[facility]
--- OUTSIDE RECORDS SUMMARY | 2025-09-09 14:39 | XMS_ITS | Encounter Summary ---
Author Organization [facility] Address [facility] [employer] [address] [address] Phone Care Team Providers Care Fitting Room Inspector Name Role Phone Ronald High PA-C Primary Care Provider [phone] Samantha Ayers PA-C Primary Care Provider [phone] Encounter Details Date Type Department Care Team (Late st Contact Info) Description 12/29/2024 Procedure Pass [facility], Ct Scan - [address] [address] Social History Tobacco Use Types Packs/Day Years [...] PM EDT documented as of this encounter Plan of Treatment Upcoming Encounters Date Type Department Care Team (Late st Contact Info) Description 11/23/2025 8:40 AM EST [facility] [address] [place] [address] Samantha Ayers PA-C [address] [place] [address] [email or web address] documented as of this encounter Visit Diagnoses Not on filedocumented in this encounter Additional Health Concerns Assessment Noted Time PHQ-2 Depression Total Score: 1 08/17/20 24 7:52 AM EDT documented as of this encounter Care Teams Fitting Room Inspector Relationship Specialty Start Date End Date Ronald High PA-C [address] [place] [address] PCP - General Physician Editor News 08/11/24 08/16/25 Samantha Ayers PA-C [address] [place] [address] PCP - General Physician Editor News 08/17/25 documented as of this encounter Additional Source Comments The information contained in this document represents components of the legal health record. It is not the complete legal health record.[facility]
--- OUTSIDE RECORDS SUMMARY | 2025-09-09 14:39 | XMS_ITS | Encounter Summary ---
Author Organization [facility] Address [facility] [address] [address] Phone Care Team Providers Care Section Chief Name Role Phone Samantha Ayers PA-C Primary Care Provider [phone] Reason for Visit * Reason Onset Date Comments PCP MISMATCH 08/17/2025 Encounter Details Date Type Department Care Team (Late st Contact Info) Description 08/17/2025 Telephone [facility] Internal Medicine [address] [place], [place] [phone] Samantha Ayers PA-C [address] [place] [address] [email or web address] PCP MISMATCH Social History Tobacco Use Types Packs/Day Years [...] high school, GED, job training, learning the Serbian language, technical skills, or developing parenting skills)? [...] PM EDT documented as of this encounter Progress Notes * Joleen Villegas - 08/17/2025 2:33 PM EDT Left VM for patient to contact insurance company and list Dr Nishant Orourke as new PCP so referral can be processed * Gladys Carranza - 08/17/2025 12:49 PM EDT Please contact your patient and have them contact their insurance provider and change their primarycare to Dr. Nishant Orourke. Currently has Dr. Sanjeev De Jesus. documented in this encounter Plan of Treatment Upcoming Encounters Date Type Department Care Team (Late st Contact Info) Description 11/23/2025 8:40 AM EST Office Visit [facility] Internal Medicine [address] [place] [address] Samantha Ayers PA-C [address] [place] [address] [email or web address] documented as of this encounter Visit Diagnoses Not on filedocumented in this encounter Additional Health Concerns Assessment Noted Time PHQ-2 Depression Total Score: 1 08/17/20 24 7:52 AM EDT documented as of this encounter Care Teams Section Chief Relationship Specialty Start Date End Date Samantha Ayers PA-C [address] [place] [phone] [email or web address] PCP - General Physician Lead Application Architect 08/17/25 documented as of this encounter Additional Source Comments The information contained in this document represents components of the legal health record. It is not the complete legal health record.[facility]
--- OUTSIDE RECORDS SUMMARY | 2025-09-09 14:39 | XMS_ITS | Encounter Summary ---
Author Organization [facility] Address [facility] [address] [address] Phone Care Team Providers Care Supervisor Billposting Name Role Phone Ronald High PA-C Primary Care Provider [phone] Samantha Ayers PA-C Primary Care Provider + [phone] Encounter Details Date Type Department Care Team (Late st Contact Info) Description 06/18/2025 Procedure Pass [facility], Ct Scan - [address] [address] Social History Tobacco Use Types Packs/Day Years [...] 06/18/2025 Are you denied basic needs s uch [...] PM EDT documented as of this encounter Functional Status * Calculated C-SSRS Risk Score (Lifetime/Recent) Answer Date of Assessment Author No Risk Indicated 06/18/2025 12:39 PM EDT Angela Boone RN * Mason Suicide Severity Rating Scale (Screener/Recent Self-Report) Question Answer Date of Assessment Author 1. Wish to be (Past 1 Month) No 025 12:39 PM EDT Angela Huddleston RN 2. Non-Specific Active Suici merrill Thoughts (Past 1 Month) No 06/18/2025 12:39 PM EDT Shakira Huddleston RN 6. Suicidal Behavior (Lifetime) No 12:39 PM EDT Angela Huddleston, ISAIAH documented as of this encounter Plan of Treatment Upcoming Encounters Date Type Department Care Team (Late st Contact Info) Description 11/23/2025 8:40 AM EST Office Visit [facility] Internal Medicine [address] [place] [address] Samantha Ayers PA-C [address] [place] [address] [email or web address] documented as of this encounter Visit Diagnoses Not on filedocumented in this encounter Additional Health Concerns Assessment Noted Time PHQ-2 Depression Total Score: 1 08/17/20 24 7:52 AM EDT documented as of this encounter Care Teams Supervisor Billposting Relationship Specialty Start Date End Date Ronald High PA-C [address] [place] [address] [email or web address] PCP - General Physician Wrapper Stripper 08/11/24 08/16/25 Samantha Ayers PA-C [address] [place] [id number] PCP - General Physician Wrapper Stripper 08/17/25 documented as of this encounter Additional Source Comments The information contained in this document represents components of the legal health record. It is not the complete legal health record.[facility]
--- OUTSIDE RECORDS SUMMARY | 2025-09-09 14:39 | XMS_ITS | Encounter Summary ---
Author Organization [facility] Address [facility] [employer] [address] [address] Phone Care Team Providers Care Database Administration Associate Name Role Phone Samantha Ayers PA-C Primary Care Provider [phone] Reason for Visit * Reason Onset Date Comments GI Problem 09/05/2025 Encounter Details Date Type Department Care Team (Late st Contact Info) Description 09/05/2025 Telephone [facility] Internal Medicine [address] [place], [place] [phone] Samantha Ayers PA-C [address] [place] [address] [email or web address] GI Problem Social History Tobacco Use Types Packs/Day Years [...] high school, GED, job training, learning the Latvian language, technical skills, or developing parenting skills)? [...] is your housing situation today? I have agviota sing 08/17/2025 How many times have you [...] as of this encounter Progress Notes * Kelley Meadows RN - 09/05/2025 8:41 AM EDT Spoke to Beena. States Dougie is having a flare up with his stomach. He is Shaking, throwing up, hasn't held food down all weekend. He his able to drink fluids. He has been to the ER multiple times, been tested for a million things, but they have no answers. They don't have GI until next month.They have been to ER about 20 times. States Jay told him to come into the office with next flare. Beena states it's painful to even put on boxers. Advised we have no appts today. Pain meds and anxiety meds are usually what helps. She plans to take him to the ER today, but wants to follow up with Jay tomorrow. Scheduled at 820 tomorrow. She is appreciative. * Joleen Villegas - 09/05/2025 8:34 AM EDT Patient Beena called states patient is having Gastro Issues Flare up and is throwing up and abdomin is tender - please advise Beena mcintyre be reached at [phone] documented in this encounter Plan of Treatment Upcoming Encounters Date Type Department Care Team (Late st Contact Info) Description 11/23/2025 8:40 AM EST Office Visit Beto [facility] Internal Medicine [address] [place] [address] Samantha Ayers PA-C [address] [place] [address] [email or web address] documented as of this encounter Visit Diagnoses Not on filedocumented in this encounter Additional Health Concerns Assessment Noted Time PHQ-2 Depression Total Score: 1 08/17/20 24 7:52 AM EDT documented as of this encounter Care Teams Database Administration Associate Relationship Specialty Start Date End Date Samantha Ayers PA-C [address] [place] [address] [email or web address] PCP - General Physician Brakes Inspector 08/17/25 documented as of this encounter Additional Source Comments The information contained in this document represents components of the legal health record. It is not the complete legal health record.[facility]
[2025-09-09 14:41] VITALS: BP 122/69; PULSE 78; RESP 16; TEMP 36.4; O2SAT 97
== END 2025-09-09 14:42 | disposition home or self-care (01) ==
PROVIDERS: Nurse Practitioner Family; Emergency Provider Emergency Medicine
DX: R10.31 Right lower quadrant pain (principal); R11.2 Nausea with vomiting, unspecified; R19.7 Diarrhea, unspecified
CPT/HCPCS: 36415; 80048; 80076; 80307; 81001; 83690; 85025; 96361; 96374; 96375; 99284; 99285; J0737; J3360; J7120

== ENCOUNTER 2025-09-21 13:43 | Emergency (ER) | payer MEDICAID, SELFPAY ==
[2025-09-21 13:45] VITALS: BP 124/64; PULSE 60; O2SAT 100
--- OUTSIDE RECORDS SUMMARY | 2025-09-21 17:17 | XMS_ITS | Encounter Summary ---
Author Organization [facility] Address [facility] [employer] [address] [address] Phone Care Team Providers Care Mobility Specialist Name Role Phone Ronald High PA-C Primary Care Provider [phone] Samantha Ayers PA-C Primary Care Provider [phone] Encounter Details Date Type Department Care Team (Late st Contact Info) Description 12/29/2024 Procedure Pass [facility], Ct Scan - [address] [address] Social History Tobacco Use Types Packs/Day Years [...] Description 11/23/2025 8:40 AM EST [facility] [address] [place] [address] Samantha Ayers PA-C [address] [place] [address] [email or web address] documented as of this encounter Visit Diagnoses Not on filedocumented in this encounter Additional Health Concerns Assessment Noted Time PHQ-2 Depression Total Score: 1 08/17/20 24 7:52 AM EDT documented as of this encounter Care Teams Mobility Specialist Relationship Specialty Start Date End Date Ronald High PA-C [address] [place] [address] PCP - General Physician Student Success Counselor 08/11/24 08/16/25 Samantha Ayers PA-C [address] [place] [address] PCP - General Physician Student Success Counselor 08/17/25 documented as of this encounter Additional Source Comments The information contained in this document represents components of the legal health record. It is not the complete legal health record.[facility]
--- OUTSIDE RECORDS SUMMARY | 2025-09-21 17:17 | XMS_ITS | Encounter Summary ---
Author Organization [facility] Address [facility] [address] [address] Phone Care Team Providers Care Forestry Faculty Member Name Role Phone Samantha Ayers PA-C Primary Care Provider [phone] Reason for Visit * Reason Onset Date Comments PCP MISMATCH 08/17/2025 Encounter Details Date Type Department Care Team (Late st Contact Info) Description 08/17/2025 Telephone [facility] Internal Medicine [address] [place], [place] [phone] Samantha Ayers PA-C [address] [place] [address] [email or web address] PCP MISMATCH Social History Tobacco Use Types [...] high school, GED, job training, learning the Peruvian language, technical skills, or developing parenting skills)? [...] 11/23/2025 8:40 AM EST Office Visit [facility] Internal Medicine [address] [place] [address] Samantha Ayers PA-C [address] [place] [address] [email or web address] documented as of this encounter Visit Diagnoses Not on filedocumented in this encounter Additional Health Concerns Assessment Noted Time PHQ-2 Depression Total Score: 1 08/17/20 24 7:52 AM EDT documented as of this encounter Care Teams Forestry Faculty Member Relationship Specialty Start Date End Date Samantha Ayers PA-C [address] [place] [phone] [email or web address] PCP - General Physician Fruit Harvester Machine Operator 08/17/25 documented as of this encounter Additional Source Comments The information contained in this document represents components of the legal health record. It is not the complete legal health record.[facility]
--- OUTSIDE RECORDS SUMMARY | 2025-09-21 17:17 | XMS_ITS | Encounter Summary ---
Author Organization [facility] Address [address] [employer] [address] [address] Phone Care Team Providers Care Cost Reduction Engineer Name Role Phone Ronald High PA-C Primary Care Provider [phone] Samantha Ayers PA-C Primary Care Provider + [phone] Encounter Details Date Type Department Care Team (Late st Contact Info) Description 06/18/2025 Procedure Pass [facility], Ct Scan - [address] [address] Social History Tobacco Use Types Packs/Day Years [...] 12:39 PM EDT Angela Boone RN * Howes Suicide Severity Rating Scale (Screener/Recent Self-Report) Question [...] Description 11/23/2025 8:40 AM EST Office Visit [facility] Internal Medicine [address] [place] [address] Samantha Ayers PA-C [address] [place] [address] [email or web address] documented as of this encounter Visit Diagnoses Not on filedocumented in this encounter Additional Health Concerns Assessment Noted Time PHQ-2 Depression Total Score: 1 08/17/20 24 7:52 AM EDT documented as of this encounter Care Teams Cost Reduction Engineer Relationship Specialty Start Date End Date Ronald High PA-C [address] [place] [address] [email or web address] PCP - General Physician Adjunct Professor 08/11/24 08/16/25 Samantha Ayers PA-C [address] [place] [phone] PCP - General Physician Adjunct Professor 08/17/25 documented as of this encounter Additional Source Comments The information contained in this document represents components of the legal health record. It is not the complete legal health record.[facility]
--- OUTSIDE RECORDS SUMMARY | 2025-09-21 17:17 | XMS_ITS | Clinical Summary ---
Author Organization [facility] Address [address] [address] Phone Care Team Providers Care Fire Prevention Captain Name Role Phone Samantha Ayers PA-C Primary Care Provider Allergies Active Allergy Reactions Criticality Noted Date [...] needed for nausea. 30 tablet 5 Active ondansetron (ZOFRAN-ODT) 4 MG disintegrating tablet take [...] Routine general medical exam ination at a health care facility 08/17/2025 Assessment & Plan (08/17/2025 11:24 [...] been seen by the ER to at [facility] in May and 1 earlier this month at [facility]. Patient underwent a CT abdomen and pelvis at [facility] which was negative. His most recent CT abdomen/pelvis completed at [facility] showed no acute pathology however an [...] most recent lab work on 06/18 from [facility] ER. Upon further discussion I did [...] nonfunctioning gallbladder then we will refer to [facility] surgery urgently -I will obtain a [...] has known showed his appointment previously at [facility] therefore he would like to see a different GI physician out of [place]. He will need an endoscopy and colonoscopy [...] and ED records. Tevin was referred to [facility]; we received a no-show letter for consult. He is open to referral to [place] LIONEL, donn. Discussed discontinuing cyclobenzaprine and meloxicam given no [...] MiraLAX daily and discontinue Colace. A new [facility] GI referral was placed. Patient will [...] up the GI referral -GI referral to [facility] for possible colonoscopy he has never had a colonoscopy in the past. -Abdominal CT at [facility] -Follow-up at next scheduled office visit. Kidney stone 08/17/2024 Assessment & Plan (08/17/2024 8:40 AM EDT): Patient recent ER visit to [facility] and underwent a CT which according [...] Encounters Date Type Department Care Team Description 09/09/2025 [facility] RISK SCORES SYSTEM GENERATED External System Generated Encounter [address] [place] [address] Unknown, Unknown, 09/08/2025 9:10 AM EDT - 09/08/2025 11:59 PM EDT Hospital Encounter [facility] - [address] [place] [address] Samantha Ayers PA-C Discharge Disposition: Home or Self Care 09/07/2025 3:00 PM EDT Office Visit [facility] [address] [place] [address] Samantha Ayers PA-C RLQ abdominal pain (Primary Dx); YOSI (generalized anxiety disorder) 09/05/2025 Telephone [facility] [address] [place] [address] Samantha Ayers PA-C GI Problem 08/30/2025 Telephone [facility] [address] [place] [address] Samantha Ayers PA-C letter physically fit to work 08/18/2025 Telephone [facility] [address] [place] [address] Samantha Ayers PA-C 08/17/2025 10:07 AM EDT - 08/17/2025 11:59 PM EDT Hospital Encounter [facility] [address] [place] [address] Samantha Ayers PA-C Discharge Disposition: Home or Self Care 08/17/2025 9:00 AM EDT Office Visit [facility] [address] [place] [address] Samantha Ayers PA-C Routine general medical examination at a health care facility (Primary Dx); Screening for human immunodeficiency virus; Need for hepatitis C screening test; Right sided abdominal pain; Irritable bowel syndrome with both constipation and diarrhea; Attention deficit hyperactivity disorder (ADHD), combined type; YOSI (generalized anxiety disorder) 08/17/2025 Telephone [facility] [address] [place] [address] Samantha Ayers PA-C PCP MISMATCH 08/15/2025 [facility] GENERATED External System Generated Encounter [address] [place] [address] Unknown, MD Adria 08/02/2025 9:00 AM EDT - 08/02/2025 11:59 PM EDT Hospital Encounter [facility] - [address] [address] Ronald High PA-C Discharge Disposition: Home or Self Care 07/13/2025 Documentation [facility] [address] [place] [address] Ronald High PA-C 07/11/2025 Orders Only [facility] [address] [place] [address] Provider, MD Sarath 06/30/2025 1:40 PM EDT Office Visit [facility] [address] [place] [address] Ronald High PA-C RUQ pain (Primary Dx) 06/22/2025 Telephone [facility] [address] [place] [address] Angelika Ayers PA-C missed call from PCP (After hours call) 06/22/2025 Telephone [facility] [address] [place] [address] Yamila Shaffer [place] 06/22/2025 Telephone [facility] [address] [place] [address] Ronald High PA-C Referral from Last 3 Months Immunizations Immunization Administration [...] high school, GED, job training, learning the [place] language, technical skills, or developing parenting skills)? [...] Description 11/23/2025 8:40 AM EST Office Visit [facility] [address] [place] [address] Samantha Ayers PA-C [address] [place] [address] [email or web address] Health Maintenance Due Date Last Done Comments COVID-19 VACCINE (2024-2 6 season) 2025 03/29/2021, 03/07/2021 DEPRESSION SCREENING [...] AM EDT RUQ pain COMPREHENSIVE METABOLIC PANEL (CMP) Routine 08/17/2025 10:07 AM EDT RUQ pain [...] 07/11/2025 OUTSIDE SERUM CREATININE LEVEL Routine 07/11/2025 from Last 3 Months Results * US [...] there iscontinued clinical concern. Samantha Ayers PA-C IM US ABDOMEN Final Result * (ABNORMAL) Comprehensive metabolic panel (08/17/2025 10:07 AM EDT) SODIUM 140 133 - 146 mmol/L [facility] POTASSIUM 4.6 3.3 - 5.1 mmol/L [facility] CHLORIDE 101 96 - 108 mmol/L [facility] CO2 28 21 - 35 mmol/L [facility] BUN 12 6 - 19 mg/dL [facility] CREATININE 0.70 0.5 - 1.5 mg/dL [facility] GLUCOSE 81 70 - 99 mg/dL [facility] ALBUMIN 4.9(H) 3.9 - 4.8 g/dL [facility] TOTAL PROTEIN 7.7 6.5 - 8.0 g/dL [facility] CALCIUM 9.8 8.4 - 10.3 mg/dL [facility] ALKALINE PHOSPHATASE 63 39 - 117 U/L [facility] TOTAL BILIRUBIN 0.4 0.0 - 1.2 mg/dL [facility] AST 18 0 - 37 U/L [facility] ALT 12 0 - 40 U/L [facility] GLOBULIN 2.8 1 - 4.8 g/dL [facility] EGFR >120 >59 mL/min/1.7 3m2 [facility] Comment:Estimated glomerular filtration rate calculated using the CKD-EPI refit equation. ANION GAP 16 10 - 20 mmol/L [facility] Blood 08/17/2025 10:0 7 AM EDT 08/17/2025 10:10 AM EDT Ronald High PA-C LAB BLOOD BKR ORDERABLES Abbie l Result [address] [address] * HIV-1/2 antigen/antibody (08/17/2025 10:07 AM EDT) HIV-1/2 Antigen/Antibo dy NON-REACTI VE NON-REACTI VE [facility] Blood 08/17/2025 10:0 7 AM EDT 08/17/2025 10:10 AM EDT Samantha VAZQUEZ-C LAB BLOOD BKR ORDERABLES Fin al Result Performing Organization Address City/[facility]/ZIP Co de Phone Number [address] [address] * TSH with reflex (08/17/2025 10:07 AM EDT) TSH 0.43 0.27 - 4.20 uIU/mL [facility] Blood 08/17/2025 10:0 7 AM EDT 08/17/2025 10:10 AM EDT Samantha Ayers PA-C LAB BLOOD BKR ORDERABLES Fin al Result Performing Organization Address [facility]/ZIP Co de Phone Number [address] [address] * Hepatitis C antibody, qualitative (08/17/2025 10:07 AM EDT) HCV NON-REACTIV E NON-REACTI VE [facility] Blood 08/17/2025 10:0 7 AM EDT 08/17/2025 10:10 AM EDT Samantha VAZQUEZ-C LAB BLOOD BKR ORDERABLES Fin al Result Performing Organization Address [facility]/ZIP Co de Phone Number [address] [address] * Tissue transglutaminase IgA (08/17/2025 10:07 AM EDT) TTG IGA ANTIBODY <1.2 <4.0 (Negative) U/mL [facility] Blood 08/17/2025 10:0 7 AM EDT 08/17/2025 10:10 AM EDT Samantha VAZQUEZ-C LAB BLOOD BKR ORDERABLES Fin al Result Performing Organization Address [facility] de Phone Number [facility] [address] [address] [place] [address] * Lipase (08/17/2025 10:07 AM EDT) LIPASE 25 16 - 63 U/L [facility] Blood 08/17/2025 10:0 7 AM EDT 08/17/2025 10:10 AM EDT Ronald VAZQUEZ-C LAB BLOOD BKR ORDERABLES Abbie l Result Performing Organization Address [facility] Co de Phone Number [address] [address] * Lipid panel (08/17/2025 10:07 AM EDT) HDL 54 mg/dL [facility] Comment: Interpretation <40 mg/dL: Low HDL cholesterol (major risk factor for CHD) Greater than or equal to 60 mg/dL: High HDL cholesterol ( negative risk factor for CHD) HDL - cholesterol is affected by a number of factors, e.g. smoking, excerise, hormones, sex and age. CHOLESTEROL 190 0 - 240 mg/dL [facility] TRIGLYCERIDES 115 30 - 160 mg/dL [facility] LDL 113 50 - 129 mg/dL [facility] Comment: LDL levels in terms of risk for coronary heart disease: <100 mg/dL: Optimal 100-129 mg/dL: Near or above optimal 130-159 mg/dL: Borderline high 160-189 mg/dL: High >190 mg/dL: Very High CARDIAC RISK RATIO 3.5 3.4 - 5.0 [facility] Blood 08/17/2025 10:0 7 AM EDT 08/17/2025 10:10 AM EDT us Samantha Ayers PA-C LAB BLOOD BKR ORDERABLES Fin al Result [facility] [address] [place] [address] * NM Gallbladder Ejection Fraction (08/02/2025 2:17 PM EDT) Anatomical Region Laterality Modality Abdomen, Biliary Nuclear Medicin e 08/02/2025 2:20 PM EDT Impressions 08/02/2025 3:04 PM EDT Patent cystic and common bile ducts. Gallbladder Ejection Fraction as described. ATTESTATION: I, Dr. Kim Negrete as teaching physician, have reviewed the images for this case and if necessary edited the report originally created by Almas Donovan. Narrative 08/02/2025 3:04 PM EDT NM [...] edited the report originally createdby Almas Donovan. us Ronald MCCOY NM ABDOMEN Final Result * Outside CT Abd/pelvis Report Only (07/11/2025 1:06 PM EDT) us Historical Provider MD MCCOY CT ABD/PELVIS Final R esult * Outside Potassium Level (07/11/2025) Potassium level - External 4.5 3.4 - 5.0 mmol/L Historical Provider LAB BLOOD ORDERABLES Abbie l Result * Outside Serum Creatinine Level (07/11/2025) Creatinine, serum - External 1.07 0.8 - 1.3 mg/dL Historical Provider LAB BLOOD ORDERABLES Abbie l Result * Outside ALT Level (07/11/2025) ALT - External 24 5 - 30 U/L Historical Provider LAB BLOOD ORDERABLES Abbie l Result from Last 3 Months Insurance [facility] A[facility] ACO [employer] [address] [place], [place] Care Teams Fire Prevention Captain Relationship Specialty Start Date End Date Samantha Ayers PA-C [address] [place] [phone] [email or web address] PCP - General Physician Wildlife And Game Protector 08/17/25 Additional Source Comments The information contained in this document represents components of the legal health record. It is not the complete legal health record.[facility]
== END 2025-09-21 14:24 | disposition left against medical advice (07) ==
LOC: HO.ED 14:07
PROVIDERS: Emergency Provider Emergency Medicine
DX: R11.2 Nausea with vomiting, unspecified (principal)

== ENCOUNTER 2025-09-27 01:54 | Emergency (ER) | payer MEDICAID, SELFPAY ==
--- NOTE | ~2025-09-27 | XR_ITS ---
CLINICAL HISTORY: pain constipation 1 view abdomen Comparison: CR - XR KUB - 01/25/25 19:05 EDT Findings: No pneumoperitoneum or pneumatosis. No abnormal calcifications. No acute fractures. IMPRESSION: Normal bowel gas pattern and stool quantity. This document has been electronically signed by: Marah Lacey MD on 09/27/2025 03:51:24
[2025-09-27 02:02] VITALS: BP 128/76; BP 140/80; PULSE 70; PULSE 72; RESP 25; O2SAT 100; O2SAT 99
[2025-09-27 02:22] LABS: MANUAL DIFF FLAG NO
[2025-09-27 02:23] LABS: Hematocrit 44.9 % (42.0-52.0); Hemoglobin 15.1 g/dl (14.0-18.0); Imm Gran Abs Auto 0.03 X10*3/uL (0.00-0.03); Imm Gran Pct Auto 0.2 % (0.0-0.4); Lymphocytes Absolute Auto 4.4 X10*3/uL (1.2-4.9); Mean Corpuscular HGB Conc 33.6 g/dl (31.0-36.0); Mean Corpuscular Hemoglobin 29.2 pg (27.0-33.0); Mean Corpuscular Volume 86.7 fL (80.0-98.0); NRBC Abs Auto 0.000 X10*3/uL (0.0-0.012); NRBC Pct Auto 0.0 /100WBC (0.0-0.2); Platelet Count 372 X10*3/uL (160-400); Red Blood Count 5.18 X10*6/uL (4.60-5.80); White Blood Count 12.6 X10*3/uL (4.8-10.8)
[2025-09-27 02:29] VITALS: BP 128/76; PULSE 54; RESP 14; TEMP 36.4; O2SAT 98
[2025-09-27 02:39] LABS: Alanine Aminotransferase 13 U/L (0-40); Albumin Level 5.1 g/dL (3.5-5.0); Alkaline Phosphatase 86 U/L (39-117); Anion Gap 21 (12-20); Aspartate Amino Transferase 22 U/L (5-37); Blood Urea Nitrogen 19 mg/dL (9-16); Calcium 10.0 mg/dL (8.4-10.2); Carbon Dioxide 23 mmol/L (22-29); Chloride 103 mmol/L (96-108); Creatinine Clr Calc Pharmacy 96.2; Estimated Glomerular Filt Rate > 60; Lipase 37 U/L (8-78); Magnesium 1.7 mg/dL (1.6-2.6); Potassium 3.9 mmol/L (3.3-5.1); Sodium 143 mmol/L (135-145); Total Protein 7.7 g/dL (6.5-8.0)
--- OUTSIDE RECORDS SUMMARY | 2025-09-27 02:45 | XMS_ITS | Encounter Summary ---
Author Organization [facility] Address [facility] [employer] [address] [address] Phone Care Team Providers Care Casualty Underwriter Name Role Phone Ronald High PA-C Primary Care Provider [phone] Samantha Ayers PA-C Primary Care Provider + [phone] Encounter Details Date Type Department Care Team (Late st Contact Info) Description 06/18/2025 Procedure Pass [facility], Ct Scan - [address] [address] Social History Tobacco Use Types Packs/Day Years [...] 12:39 PM EDT Angela Boone RN * [place] Suicide Severity Rating Scale (Screener/Recent Self-Report) Question [...] Description 11/23/2025 8:40 AM EST Office Visit [facility] [address] [place] [address] Samantha Ayers PA-C [address] [place] [address] [email or web address] documented as of this encounter Visit Diagnoses Not on filedocumented in this encounter Additional Health Concerns Assessment Noted Time PHQ-2 Depression Total Score: 1 08/17/20 24 7:52 AM EDT documented as of this encounter Care Teams Casualty Underwriter Relationship Specialty Start Date End Date Ronald High PA-C [address] [place] [address] [email or web address] PCP - General Physician Police Sergeant [employer]inct 08/11/24 08/16/25 Samantha Ayers PA-C [address] [place] [id number] PCP - General Physician Police Sergeant [employer]inct 08/17/25 documented as of this encounter Additional Source Comments The information contained in this document represents components of the legal health record. It is not the complete legal health record.[facility]
--- OUTSIDE RECORDS SUMMARY | 2025-09-27 02:45 | XMS_ITS | Clinical Summary ---
Author Organization [facility] Address [address] [address] Phone Care Team Providers Care Sports Equipment Repairer Name Role Phone Samantha Ayers PA-C Primary Care Provider [phone] Allergies Active Allergy Reactions Criticality Noted Date [...] been seen by the ER to at [facility] in May and 1 earlier this month at [facility]. Patient underwent a CT abdomen and pelvis at [facility] which was negative. His most recent CT abdomen/pelvis completed at [facility] showed no acute pathology however an incidental [...] most recent lab work on 06/18 from [facility] ER. Upon further discussion I did explain [...] nonfunctioning gallbladder then we will refer to [facility] surgery urgently -I will obtain a CMP [...] has known showed his appointment previously at [facility] therefore he would like to see a different GI physician out of [place]. He will need an endoscopy and colonoscopy [...] and ED records. Tevin was referred to [facility] GI; we received a no-show letter for consult. He is open to referral to [place] LIONEL, donn. Discussed discontinuing cyclobenzaprine and meloxicam [...] MiraLAX daily and discontinue Colace. A new [facility] GI referral was placed. Patient will need [...] up the GI referral -GI referral to [facility] for possible colonoscopy he has never had a colonoscopy in the past. -Abdominal CT at [facility] -Follow-up at next scheduled office visit. Kidney stone 08/17/2024 Assessment & Plan (08/17/2024 8:40 AM EDT): Patient recent ER visit to [facility] and underwent a CT which according [...] Encounters Date Type Department Care Team Description 09/21/2025 [facility] RISK SCORES SYSTEM GENERATED External System Generated Encounter [address] [place] [address] Unknown, MD Adria 09/09/2025 [facility] RISK SCORES SYSTEM GENERATED External System Generated Encounter [address] [place] [address] Unknown, Unknown, 09/08/2025 9:10 AM EDT - 09/08/2025 11:59 PM EDT Hospital Encounter [facility] - [address] [place] [address] Samantha Ayers PA-C Discharge Disposition: Home or Self Care 09/07/2025 3:00 PM EDT Office Visit [facility] Internal Medicine [address] [place] [address] Samantha Ayers PA-C RLQ abdominal pain (Primary Dx); YOSI (generalized anxiety disorder) 09/05/2025 Telephone [facility] Internal Medicine [address] [place] [address] Samantha Ayers PA-C GI Problem 08/30/2025 Telephone [facility] Internal Medicine [address] [place] [address] Samantha Ayers PA-C letter physically fit to work 08/18/2025 Telephone [facility] Internal Medicine [address] [place] [address] Samantha Ayers PA-C 08/17/2025 10:07 AM EDT - 08/17/2025 11:59 PM EDT Hospital Encounter [facility] [address] [place] [address] Samantha Ayers PA-C Discharge Disposition: Home or Self Care 08/17/2025 9:00 AM EDT Office Visit [facility] [address] [facility] [place] [address] Samantha Ayers PA-C Routine general medical examination at a health care facility (Primary Dx); Screening for human immunodeficiency virus; Need for hepatitis C screening test; Right sided abdominal pain; Irritable bowel syndrome with both constipation and diarrhea; Attention deficit hyperactivity disorder (ADHD), combined type; YOSI (generalized anxiety disorder) 08/17/2025 Telephone [facility] [address] [facility] [place] [address] Samantha Ayers PA-C PCP MISMATCH 08/15/2025 [facility] RISK SCORES SYSTEM GENERATED External System Generated Encounter [address] [place] [address] Unknown, MD Adria 08/02/2025 9:00 AM EDT - 08/02/2025 11:59 PM EDT Hospital Encounter [facility], [address] [address] Ronald High PA-C Discharge Disposition: Home or Self Care 07/13/2025 Documentation [facility] Internal [facility] [address] [facility] [place] [address] Ronald High PA-C 07/11/2025 Orders Only [facility] [address] [facility] [place] [address] ProviderSarath MD 06/30/2025 1:40 PM EDT Office Visit [facility] [address] [facility] [place] [address] Ronald High PA-C RUQ pain (Primary Dx) from Last 3 Months Immunizations Immunization Administration [...] high school, GED, job training, learning the [place] language, technical skills, or developing parenting skills)? [...] AM EST Office Visit [facility] [address] [place] [address] Samantha Ayers PA-C [address] [place] [address] [email or web address] Health Maintenance Due Date Last Done Comments COVID-19 VACCINE (3 - 2024-2 6 season) 2025 03/29/2021, 03/07/2021 DEPRESSION [...] on patient's age to complete this topic IPV VACCINES Aged Out No longer eligi ble [...] EDT) SODIUM 140 133 - 146 mmol/L [facility] POTASSIUM 4.6 3.3 - 5.1 mmol/L [facility] CHLORIDE 101 96 - 108 mmol/L [facility] CO2 28 21 - 35 mmol/L [facility] BUN 12 6 - 19 mg/dL [facility] CREATININE 0.70 0.5 - 1.5 mg/dL [facility] GLUCOSE 81 70 - 99 mg/dL [facility] ALBUMIN 4.9(H) 3.9 - 4.8 g/dL [facility] TOTAL PROTEIN 7.7 6.5 - 8.0 g/dL [facility] CALCIUM 9.8 8.4 - 10.3 mg/dL [facility] ALKALINE PHOSPHATASE 63 39 - 117 U/L [facility] TOTAL BILIRUBIN 0.4 0.0 - 1.2 mg/dL [facility] AST 18 0 - 37 U/L [facility] ALT 12 0 - 40 U/L [facility] GLOBULIN 2.8 1 - 4.8 g/dL [facility] EGFR >120 >59 mL/min/1.7 3m2 [facility] Comment:Estimated glomerular filtration rate calculated using the CKD-EPI refit equation. ANION GAP 16 10 - 20 mmol/L [facility] Blood 08/17/2025 10:0 7 AM EDT 08/17/2025 10:10 AM EDT Ronald VAZQUEZ-C LAB BLOOD BKR ORDERABLES Abbie l Result [address] [address] * HIV-1/2 antigen/antibody (08/17/2025 10:07 AM EDT) HIV-1/2 Antigen/Antibo dy NON-REACTI VE NON-REACTI VE [facility] Blood 08/17/2025 10:0 7 AM EDT 08/17/2025 10:10 AM EDT Samantha VAZQUEZ-C LAB BLOOD BKR ORDERABLES Fin al Result Performing Organization Address City/[facility]/ZIP Co de Phone Number [address] [address] * TSH with reflex (08/17/2025 10:07 AM EDT) TSH 0.43 0.27 - 4.20 uIU/mL [facility] Blood 08/17/2025 10:0 7 AM EDT 08/17/2025 10:10 AM EDT Samantha VAZQUEZ-C LAB BLOOD BKR ORDERABLES Fin al Result Performing Organization Address City/[facility]/ZIP Co de Phone Number [address] [address] * Hepatitis C antibody, qualitative (08/17/2025 10:07 AM EDT) HCV NON-REACTIV E NON-REACTI VE [facility] Blood 08/17/2025 10:0 7 AM EDT 08/17/2025 10:10 AM EDT Samantha Ayers PA-C LAB BLOOD BKR ORDERABLES Fin al Result [address] [place] [address] * Tissue transglutaminase IgA (08/17/2025 10:07 AM EDT) TTG IGA ANTIBODY <1.2 <4.0 (Negative) U/[facility] Blood 08/17/2025 10:0 7 AM EDT 08/17/2025 10:10 AM EDT Samantha Ayers PA-C LAB BLOOD BKR ORDERABLES Fin al Result [facility] [address] [place] [address] * Lipase (08/17/2025 10:07 AM EDT) Pathologist [facility] LIPASE 25 16 - 63 U/L [facility] Blood 08/17/2025 10:0 7 AM EDT 08/17/2025 10:10 AM EDT Ronald High PA-C LAB BLOOD BKR ORDERABLES Abbie l Result Performing Organization Address City/[facility]/ZIP Co de Phone Number [address] [address] * Lipid panel (08/17/2025 10:07 AM EDT) Pathologist [facility] HDL 54 mg/dL [facility] Comment: Interpretation <40 mg/dL: Low HDL cholesterol (major risk factor for CHD) Greater than or equal to 60 mg/dL: High HDL cholesterol ( negative risk factor for CHD) HDL - cholesterol is affected by a number of factors, e.g. smoking, excerise, hormones, sex and age. CHOLESTEROL 190 0 - 240 mg/dL [facility] TRIGLYCERIDES 115 30 - 160 mg/dL [facility] LDL 113 50 - 129 mg/dL [facility] Comment: LDL levels in terms of risk for coronary heart disease: <100 mg/dL: Optimal 100-129 mg/dL: Near or above optimal 130-159 mg/dL: Borderline high 160-189 mg/dL: High >190 mg/dL: Very High CARDIAC RISK RATIO 3.5 3.4 - 5.0 C [facility] Blood 08/17/2025 10:0 7 AM EDT 08/17/2025 10:10 AM EDT us Andria NEGRON LAB BLOOD BKR ORDERABLES Fin al Result [address] [address] * NM Gallbladder Ejection Fraction (08/02/2025 2:17 [...] the report originally createdby Almas Donovan. Result [facility] Ronald High PA-C IMG NM ABDOMEN Final Result * Outside CT Abd/pelvis Report Only (07/11/2025 1:06 PM EDT) Historical Provider IMG CT ABD/PELVIS Final R esult * Outside Potassium Level (07/11/2025) Potassium level - External 4.5 3.4 - 5.0 mmol/L Result [facility] Historical Provider LAB BLOOD ORDERABLES Abbie l Result * Outside Serum Creatinine Level (07/11/2025) Creatinine, serum - External 1.07 0.8 - 1.3 mg/dL us Historical Provider LAB BLOOD ORDERABLES Abbie l Result * Outside ALT Level (07/11/2025) ALT - External 24 5 - 30 U/L us Historical Provider LAB BLOOD ORDERABLES Abbie l Result from Last [address] [facility] [employer] [address] [place] [address] Care Teams Sports Equipment Repairer Relationship Specialty Start Date End Date Samantha Ayers PA-C [address] [place] [address] [email or web address] PCP - General Physician [employer] Instrument Repairer 08/17/25 Additional Source Comments The information contained in this document represents components of the legal health record. It is not the complete legal health record.[facility]
--- OUTSIDE RECORDS SUMMARY | 2025-09-27 02:45 | XMS_ITS | Encounter Summary ---
Author Organization [facility] Address [email or web address] [place] [address] Phone Care Team Providers Care Wet Machine Cutter Name Role Phone Samantha Ayers PA-C Primary Care Provider [phone] Encounter Details Date Type Department Care Team (Late st Contact Info) Description 09/21/2025 [facility] RISK SCORES SYSTEM GENERATED External System Generated Encounter [address] [place] [address] Unknown, Unknown, Social History Tobacco Use Types Packs/Day Years [...] high school, GED, job training, learning the Romansh language, technical skills, or developing parenting skills)? [...] your housing situation today? I have gaviota moon 08/17/2025 How many times have you [...] Description 11/23/2025 8:40 AM EST Office Visit [facility] Internal Medicine [address] [place] [address] Samantha Ayers PA-C [address] [place] [address] documented as of this encounter Visit Diagnoses Not on filedocumented in this encounter Additional Health Concerns Assessment Noted Time PHQ-2 Depression Total Score: 1 09/07/20 2:41 PM EDT documented as of this encounter Care Teams Wet Machine Cutter Relationship Specialty Start Date End Date Samantha Ayers PA-C [address] [place] [address] PCP - General Physician Database Designer 08/17/25 documented as of this encounter Additional Source Comments The information contained in this document represents components of the legal health record. It is not the complete legal health record.[facility]
--- OUTSIDE RECORDS SUMMARY | 2025-09-27 02:45 | XMS_ITS | Encounter Summary ---
Author Organization [facility] Address [facility] [place] [address] [address] Phone Care Team Providers Care Back Padder Name Role Phone Samantha Ayers PA-C Primary Care Provider [phone] Reason for Visit * Reason Onset Date Comments PCP MISMATCH 08/17/2025 Encounter Details Date Type Department Care Team (Late st Contact Info) Description 08/17/2025 Telephone [email or web address] Internal Medicine [address] [place], [place] [phone] Samantha Ayers PA-C [address] [place] [address] [email or web address] PCP MISMATCH Social History Tobacco Use Types [...] of this encounter Progress Notes * Joleen Villegsa - 08/17/2025 2:33 PM EDT Left VM [...] 11/23/2025 8:40 AM EST Office Visit [facility] Medicine [address] [place] [address] Samantha Ayers PA-C [address] [place] [address] [email or web address] documented as of this encounter Visit Diagnoses Not on filedocumented in this encounter Additional Health Concerns Assessment Noted Time PHQ-2 Depression Total Score: 1 08/17/20 24 7:52 AM EDT documented as of this encounter Care Teams Back Padder Relationship Specialty Start Date End Date Samantha Ayers PA-C [address] [place] [email or web address] PCP - General Physician Casing Running Machine Tender 08/17/25 documented as of this encounter Additional Source Comments The information contained in this document represents components of the legal health record. It is not the complete legal health record.[facility]
--- OUTSIDE RECORDS SUMMARY | 2025-09-27 02:45 | XMS_ITS | Encounter Summary ---
Author Organization [facility] Address [facility] [employer] [address] [address] Phone Care Team Providers Care Project Estimator Name Role Phone Ronald High PA-C Primary Care Provider [phone] Samantha Ayers PA-C Primary Care Provider [phone] Encounter Details Date Type Department Care Team (Late st Contact Info) Description 12/29/2024 Procedure Pass [facility], Ct Scan - [address] [address] Social History Tobacco Use Types Packs/Day Years [...] Description 11/23/2025 8:40 AM EST [facility] [address] [place] [address] Samantha Ayers PA-C [address] [place] [address] [email or web address] documented as of this encounter Visit Diagnoses Not on filedocumented in this encounter Additional Health Concerns Assessment Noted Time PHQ-2 Depression Total Score: 1 08/17/20 24 7:52 AM EDT documented as of this encounter Care Teams Project Estimator Relationship Specialty Start Date End Date Ronald High PA-C [address] [place] [address] [email or web address] PCP - General Physician Stone Rubber 08/11/24 08/16/25 Samantha Ayers PA-C [address] [place] [address] PCP - General Physician Stone Rubber 08/17/25 documented as of this encounter Additional Source Comments The information contained in this document represents components of the legal health record. It is not the complete legal health record.[facility]
[2025-09-27] MEDS: Sucralfate Oral Suspension 1 GM/10 ML ORAL.SUSP PO (03:04)
--- NOTE | 2025-09-27 03:54 | ED.GENADULT ---
HPI - General Adult General Chief complaint: Abdominal Pain Stated complaint: Abd pain Time Seen by Provider: 09/27/25 02:21 Source: patient Limitations: no limitations History of Present Illness ED Provider: Libia Rodriguez PA-C HPI narrative: 34-year-old male with a history of alcohol use disorder, with a prior alcohol withdrawal seizures, GERD/gastritis, marijuana dependence, anxiety who presents with acute onset nausea vomiting x2 hours. Patient states he has been having ongoing intermittent episodes of intractable nausea vomiting with the associated abdominal discomfort. Associated excessive eructation, dyspepsia. Patient states he has been sober since his last hospital admission 2021. Patient states he has not use marijuana in the past, that he is trying to cut back. Denies fever. Patient states he has pending gastroenterology consult, he is scheduled for endoscopy colonoscopy, for his ongoing gastrointestinal upset. Related Data Previous Rx's ?Medication ?Instructions ?Recorded ondansetron 4 mg disintegrating 4 mg PO Q8H PRN nausea and 05/31/25 tablet vomiting #10 tabs oxycodone 5 mg tablet 5 mg PO Q8H PRN severe pain (scale 05/31/25 score 7-10) #6 tabs prednisone 20 mg tablet 20 mg PO DAILY #7 tabs 05/31/25 tamsulosin 0.4 mg capsule 0.4 mg PO DAILY #14 caps 05/31/25 cyclobenzaprine 10 mg tablet 10 mg PO Q8H #20 tabs 06/09/25 meloxicam 15 mg tablet 15 mg PO DAILY #20 tabs 06/09/25 polyethylene glycol 3350 17 17 g PO DAILY #238 grams 06/09/25 gram/dose oral powder (Miralax) omeprazole 40 mg capsule,delayed 40 mg PO DAILY #14 caps 07/11/25 release ondansetron 4 mg disintegrating 4 mg PO Q8H PRN nausea and 07/11/25 tablet vomiting #7 tabs prochlorperazine maleate 10 mg 10 mg PO BID PRN nausea and 09/09/25 tablet (Compazine) vomiting #20 tabs sucralfate 100 mg/mL oral 10 ml PO QID PRN indigestion #300 09/27/25 suspension (Carafate) mL Allergies Allergy/AdvReac Type Severity Reaction Status Date / Time tramadol (TRAMADOL) Allergy Unknown HIVES Verified 09/27/25 02:31 Review of Systems Review of Systems: Yes all other systems are reviewed and are negative Constitutional: Constitutional: Denies fatigue and Denies fever(s) Cardiovascular: Cardiovascular: Denies chest pain and Denies dyspnea Respiratory: Respiratory: Denies cough and Denies dyspnea Gastrointestinal: Gastrointestinal: Reports abdominal pain, Denies constipation, Denies diarrhea, Reports nausea and Reports vomiting Endocrine: Endocrine: Denies fatigue PMFSH Past Medical History Attestation statement: The following information was validated with the patient. Medical History Elevated transaminase level Alcohol use disorder, severe, dependence Hypomagnesemia Visual hallucinations Alcohol abuse Alcohol withdrawal Dislocation of left elbow Surgical History History of foot surgery Family History Family History Other No family history of coronary artery disease Social History Social History Household Members: Family Do you presently have visiting nurse or other home services: No Alcohol intake: former Comment: refuses alarm Patient Tobacco Use Status: Never used Tobacco Second Hand Smoke Exposure: No Substance Use Type: Marijuana Advance Directives Date on File: 07/08/22 service: No Current occupational status: employed Current occupation: right handed Physical Exam ED Vital Signs: Vital Signs - 24 hr 09/27/25 02:02 09/27/25 02:29 09/27/25 03:58 Temperature 97.6 F Pulse Rate 70 54 60 Respiratory Rate 25 H 14 14 Blood Pressure 128/76 128/76 112/52 L Pulse Oximetry 100 98 96 Oxygen Delivery Method Room Air Room Air Room Air 09/27/25 05:18 09/27/25 05:22 Temperature 97.6 F Pulse Rate 60 60 Respiratory Rate 14 Blood Pressure 117/57 L 117/57 L Pulse Oximetry 96 Oxygen Delivery Method Room Air BMI result Body Mass Index 20.0 Const Other: Alert, appears older than stated age, actively retching in the exam room Orientation/consciousness: patient oriented x3 Resp Effort & Inspection: normal respiratory effort Cardio Other: Normal peripheral perfusion GI Other: Abdomen is soft, nontender nondistended with deep palpation no guarding Skin Other: Warm dry no rash Neuro General: patient oriented x3, gait normal, no focal motor deficits and CN's II-XI intact bilaterally Psych Other: Cooperative Course Reevaluation(s) Reevaluation #1: Immediately improved after droperidol Medications Administered Discontinued Medications Generic Name Dose Route Start Last Admin Trade Name Ade PRN Reason Stop Dose Admin Droperidol 2.5 mg 09/27/25 02:19 09/27/25 02:25 Droperidol 5 Mg/2 Ml Vial IVPUSH 09/27/25 02:20 2.5 mg ONCE ONE Administration Sodium Chloride 1,000 mls @ 999 mls/hr 09/27/25 02:30 09/27/25 03:38 Ns IV 09/27/25 03:30 Infused .Q1H1M CHUCK Infusion Sucralfate 1 gm 09/27/25 02:53 09/27/25 03:04 Sucralfate Oral Suspension 1 Gm/10 Ml Oral.Susp PO 09/27/25 02:54 1 gm ONCE ONE Administration Medical Decision Making Medical Decision Making MDM Narrative: 34-year-old male with a history of alcohol use disorder, with a prior alcohol withdrawal seizures, GERD/gastritis, marijuana dependence, anxiety who presents with acute onset nausea vomiting x2 hours. Patient states he has been having ongoing intermittent episodes of intractable nausea vomiting with the associated abdominal discomfort. Associated excessive eructation, dyspepsia. Patient states he has been sober since his last hospital admission 2021. Patient states he has not use marijuana in the past, that he is trying to cut back. Denies fever. Patient states he has pending gastroenterology consult, he is scheduled for endoscopy colonoscopy, for his ongoing gastrointestinal upset. Problem: Alcohol use disorder, known gastritis, marijuana dependence History: Per patient I have considered the following differential diagnoses: Constipation, cannabinoid induced hyperemesis, alcoholic gastritis, intoxication, acute intra-abdominal pathology Plan: Patient is presentation is consistent with a cannabinoid induced hyperemesis, we will be giving fluids and droperidol. We will be screening basic labs, drug screen and ethanol. His abdominal exam was benign, he does not warrant advanced imaging, given his dyspepsia/GERD has been triggered over the past few days, we will obtain a KUB, perhaps he is constipated. This could also be related to alcoholic induced gastritis, although he does state he has been sober for several years. Once his vomiting is controlled we will give Carafate. I have independently reviewed the following tests: Labs: Slight leukocytosis, no left shift, not anemic, no electrolyte abnormality noted, ethanol less than 10, drug screen pending KUB:Findings: No pneumoperitoneum or pneumatosis. No abnormal calcifications. No acute fractures. IMPRESSION: Normal bowel gas pattern and stool quantity. Differential Diagnosis Differential Diagnoses: The differential diagnosis associated with the presentation includes See medical decision-making Admission/Observation Consideration of admission/observation: Escalation of care including admission/observation considered Not applicable Lab Data MDM Lab Attestation statement: I reviewed the patient's lab results. 09/27/25 02:16 09/27/25 02:16 Labs: Lab Results 09/27/25 09/27/25 Range/Units 02:16 03:56 WBC 12.6 H (4.8-10.8) X10*3/uL RBC 5.18 (4.60-5.80) X10*6/uL Hgb 15.1 (14.0-18.0) g/dl Hct 44.9 (42.0-52.0) % MCV 86.7 (80.0-98.0) fL MCH 29.2 (27.0-33.0) pg MCHC 33.6 (31.0-36.0) g/dl RDW 12.3 (11.0-16.0) % Plt Count 372 (160-400) X10*3/uL MPV 8.7 L (9.4-12.4) fL Immature Gran % (Auto) 0.2 (0.0-0.4) % Neut % (Auto) 53.8 (45-73) % Lymph % (Auto) 34.6 (20-40) % Toole % (Auto) 6.4 (2-11) % Eos % (Auto) 4.0 (0-4) % Baso % (Auto) 1.0 (0-2) % Lymph # (Auto) 4.4 (1.2-4.9) X10*3/uL Toole # (Auto) 0.8 (0.1-1.2) X10*3/uL Eos # (Auto) 0.5 H (0.0-0.4) X10*3/uL Baso # (Auto) 0.1 (0.0-0.2) X10*3/uL Abs Immat Gran (auto) 0.03 (0.00-0.03) X10*3/uL Absolute Neuts (auto) 6.8 (2.0-8.3) x10*3/uL Absolute Nucleated RBC 0.000 (0.0-0.012) X10*3/uL Nucleated RBC % (auto) 0.0 (0.0-0.2) /100WBC Sodium 143 (135-145) mmol/L Potassium 3.9 (3.3-5.1) mmol/L Chloride 103 (96-108) mmol/L Carbon Dioxide 23 (22-29) mmol/L Anion Gap 21 H (12-20) BUN 19 H (9-16) mg/dL Creatinine 1.03 (0.5-1.4) mg/dL Estim Creat Clear Calc 96.2 Estimated GFR > 60 Random Glucose 134 H (60-115) mg/dL Calcium 10.0 (8.4-10.2) mg/dL Magnesium 1.7 (1.6-2.6) mg/dL Total Bilirubin 0.6 (0.0-1.0) mg/dL AST 22 (5-37) U/L ALT 13 (0-40) U/L Alkaline Phosphatase 86 (39-117) U/L Total Protein 7.7 (6.5-8.0) g/dL Albumin 5.1 H (3.5-5.0) g/dL Lipase 37 (8-78) U/L Urine Opiates Screen Not Detected (Not Detect) Ur Buprenorphine Scrn Not Detected (Not Detect) ng/mL Ur Oxycodone Screen Not Detected (Not Detect) ng/mL Urine Methadone Screen Not Detected (Not Detect) ng/mL Urine Fentanyl Screen Not Detected (Not Detect) Ur Barbiturates Screen Not Detected (Not Detect) Ur Phencyclidine Scrn Not Detected (Not Detect) Ur Amphetamines Screen Not Detected (Not Detect) U Benzodiazepines Scrn Not Detected (Not Detect) Urine Cocaine Screen Not Detected (Not Detect) U Marijuana (THC) Screen POSITIVE H (Not Detect) Ethyl Alcohol < 10 mg/dL Radiology Impression Discussion of test interpretation with radiology: I have reviewed the radiologist's reading. Discharge Plan Discharge Clinical Impression: Marijuana dependence, Gastroesophageal reflux disease Patient Disposition: Home, Self-Care Instructions: Diet for Stomach Ulcers and Gastritis (ED), GERD (Gastroesophageal Reflux Disease) (ED), Indigestion (ED), Cannabis Use Disorder (ED) Additional Instructions: All of your screening labs were overall normal. You were found to have marijuana in your system, the use of the marijuana is certainly contributing to your excessive nausea, vomiting and abdominal pain. If you develop symptoms at home, it is medically proven that taking a hot shower will alleviate your symptoms. You should also avoid the use of marijuana. It does sound as if you have poorly controlled acid reflux. See home care instructions. Common food triggers are spicy, acidic, fatty/greasy food, anything carbonated, mint, alcohol, caffeine. Eating smaller meals more frequently throughout the day can help to prevent symptoms, avoid eating 3 heavy large meals. Do not eat 3 hours before bed. Use the Carafate as needed for indigestion related symptoms. Keep your pending appointment with the professor of physical education. Prescriptions: New sucralfate [Carafate] 100 mg/mL suspension 10 ml PO QID PRN (Reason: indigestion) Qty: 300 0RF Rx Instructions: swish in mouth and swallow; use after food/drink No Action polyethylene glycol 3350 [Miralax] 17 gram/dose powder 17 g PO DAILY Qty: 238 0RF meloxicam 15 mg tablet 15 mg PO DAILY Qty: 20 0RF cyclobenzaprine 10 mg tablet 10 mg PO Q8H Qty: 20 0RF prochlorperazine maleate [Compazine] 10 mg tablet 10 mg PO BID PRN (Reason: nausea and vomiting) Qty: 20 0RF ondansetron 4 mg tablet,disintegrating 4 mg PO Q8H PRN (Reason: nausea and vomiting) Qty: 10 0RF prednisone 20 mg tablet 20 mg PO DAILY Qty: 7 0RF tamsulosin 0.4 mg capsule 0.4 mg PO DAILY Qty: 14 0RF oxycodone 5 mg tablet 5 mg PO Q8H PRN (Reason: severe pain (scale score 7-10)) Qty: 6 0RF Rx Instructions: Partial Fill upon patient request. ondansetron 4 mg tablet,disintegrating 4 mg PO Q8H PRN (Reason: nausea and vomiting) Qty: 7 0RF omeprazole 40 mg capsule,delayed release(/EC) 40 mg PO DAILY Qty: 14 0RF Stand Alone Forms: Work/School Release Interventions: ED Discharge Assessment Last Done: 09/27/25 05:22 Discharge Date/Time: 09/27/25 05:24 Print Language: Ghanaian
[2025-09-27 03:58] VITALS: BP 112/52; PULSE 60; RESP 14; O2SAT 96
[2025-09-27 04:19] LABS: Cannabinoid Screen Urine POSITIVE (Not Detect)
[2025-09-27 05:18] VITALS: BP 117/57; PULSE 60
[2025-09-27 05:22] VITALS: BP 117/57; PULSE 60; RESP 14; TEMP 36.4; O2SAT 96
== END 2025-09-27 05:24 | disposition home or self-care (01) ==
PROVIDERS: Physician Assistant Medical; Emergency Provider Emergency Medicine; PCP Pediatrics
DX: F12.20 Cannabis dependence, uncomplicated (principal); K21.9 Gastro-esophageal reflux disease without esophagitis; R10.9 Unspecified abdominal pain
CPT/HCPCS: 36415; 74018; 80053; 80307; 83690; 83735; 85025; 96361; 96374; 99284; J1790

== ENCOUNTER → 2025-09-27 02:52 | Outpatient (BNV) | payer MEDICAID, SELFPAY | PROVIDERS: Emergency Provider Emergency Medicine; PCP Pediatrics; Visit Provider Radiology Diagnostic Radiology | DX: K59.00 Constipation, unspecified (principal); R10.9 Unspecified abdominal pain | CPT/HCPCS: 74018 ==